=== PATIENT | male | born 1990 | race Caucasian/White ===

== ENCOUNTER → 2016-10-09 | Outpatient (CLI) | payer OTHER ==
[2016-10-09 08:54] LABS: Basophils % (A) 0 %; CH 31.6; CHCM 32.1; Eosinophils # (A) 0.1 k/uL (0-0.7); Eosinophils % (A) 1 %; HCT 48.6 % (39.0-53.0); HGB 15.5 gm/dL (13.0-17.5); Luc % (Auto) 2; Lymphocytes # (A) 2.4 k/uL (1.0-4.8); Lymphocytes % (A) 41 %; MCH 31.6 pg (25.0-35.0); MCV 98.9 fL (80.0-100.0); Mean Platelet Volume 6.5; Monocytes # (A) 0.3 k/uL (0-1.0); Monocytes % (A) 6 %; Neutrophils % (A) 51 %; RBC 4.92 m/uL (4.30-5.90); RDW 13.2 % (11.5-15.5); WBC 5.9 k/uL (3.8-10.6); WBC (Perox) 5.86
[2016-10-16 16:03] LABS: Mis test requested (Blood) LACOSAMIDE
== END | disposition home or self-care (01) ==
LOC: LABWHC1 08:03
PROVIDERS: ATTEND Psychiatry & Neurology Neurology
DX: G40.209 Localization-related (focal) (partial) symptomatic epilepsy and epileptic syndromes with complex partial seizures, not intractable, without status epilepticus (principal)
CPT/HCPCS: 36415; 80164; 80184; 80339; 84450; 84460; 85025

== ENCOUNTER → 2018-09-12 | Outpatient (CLI) | payer OTHER | END | disposition home or self-care (01) | LOC: LABWHC1 08:05 | PROVIDERS: ATTEND Psychiatry & Neurology Neurology | DX: G40.209 Localization-related (focal) (partial) symptomatic epilepsy and epileptic syndromes with complex partial seizures, not intractable, without status epilepticus (principal) | CPT/HCPCS: 36415; 80339 ==

== ENCOUNTER → 2020-01-27 | Outpatient (CLI) | payer OTHER ==
--- NOTE | 2020-01-27 13:27 | US ---
EXAMINATION TYPE: US kidneys/renal and bladder DATE OF EXAM: 01/27/2020 COMPARISON: Multiple US's, most recent 2016. CLINICAL HISTORY: N39.0 Urinary tract infection, site not specified. Spina Bifida EXAM MEASUREMENTS: Right Kidney: 8.8 x 3.4 x 5.0 cm Left Kidney: 9.1 x 4.4 x 4.2 cm Technically difficult study, left kidney imaged posteriorly. Right Kidney: No hydronephrosis or masses seen Left Kidney: No hydronephrosis or masses seen Bladder: wnl Bilateral Jets seen: No There is no evidence for hydronephrosis at this point in time. No nephrolithiasis is seen. No lelo s are identified on images saved. The urinary bladder is not greatly distended and thus suboptimally evaluated. IMPRESSION: Suboptimal study. No hydronephrosis noted bilaterally on current study.
== END | disposition home or self-care (01) ==
LOC: RADUSWWP 12:56
PROVIDERS: ATTEND Urology
DX: N31.9 Neuromuscular dysfunction of bladder, unspecified (principal)
CPT/HCPCS: 76770

== ENCOUNTER → 2020-08-11 | Outpatient (CLI) | payer OTHER ==
[2020-08-11 15:42] LABS: Basophils # (A) 0.01 X 10*3/uL (0.00-0.10); Basophils % (A) 0.2 %; Eosinophils # (A) 0.04 X 10*3/uL (0.04-0.35); Eosinophils % (A) 0.7 %; HCT 45.7 % (39.6-50.0); HGB 14.6 g/dL (13.0-17.0); Lymphocytes # (A) 1.68 X 10*3/uL (0.90-5.00); Lymphocytes % (A) 27.3 %; MCH 31.6 pg (27.0-32.0); MCHC 31.9 g/dL (32.0-37.0); MCV 98.9 fL (80.0-97.0); Mean Platelet Volume 8.9 fL (9.5-12.2); Monocytes # (A) 0.57 X 10*3/uL (0.20-1.00); Monocytes % (A) 9.3 %; Neutrophils # (A) 3.83 X 10*3/uL (1.80-7.70); Neutrophils % (A) 62.2 %; Platelet Count 286 X 10*3/uL (140-440); RBC 4.62 X 10*6/uL (4.40-5.60); RDW 12.5 % (11.5-14.5); WBC 6.15 X 10*3/uL (4.50-10.00)
[2020-08-11 22:28] LABS: Valproic Acid (Depakene) 106.9 ug/mL (50.0-100.0)
== END | disposition home or self-care (01) ==
LOC: LABWHC1 07:38
PROVIDERS: ATTEND Psychiatry & Neurology Neurology
DX: G40.209 Localization-related (focal) (partial) symptomatic epilepsy and epileptic syndromes with complex partial seizures, not intractable, without status epilepticus (principal)
CPT/HCPCS: 36415; 80164; 80184; 80235; 84450; 84460; 85025

== ENCOUNTER → 2020-10-25 | Outpatient (CLI) | payer OTHER ==
--- NOTE | 2020-10-25 20:17 | CT ---
EXAMINATION TYPE: CT abdomen pelvis wo con DATE OF EXAM: 10/25/2020 HISTORY: recurrent UTI's, back pain CT DLP: 248.4 mGycm. Automated Exposure Control for Dose Reduction was Utilized. TECHNIQUE: CT scan of the abdomen and pelvis is performed without oral or IV contrast. COMPARISON: Renal ultrasound January 27, 2020 FINDINGS: Within the limitations of a non-contrast study, the following observations are made. Exam suboptimal due to portions marked underlying rotary scoliosis deforming normal anatomy. LUNG BASES: Nearly entire lungs aren't included with nearly horizontal course to the thoracic spine. Anterior left midlung linear scarring and/or atelectasis.. LIVER/GB: No significant abnormality is appreciated. PANCREAS: No significant abnormality is seen. SPLEEN: No significant abnormality is seen. ADRENALS: No significant abnormality is seen. KIDNEYS: No renal calculi or hydronephrosis. BOWEL: Suboptimal evaluation due to distortion along with patient having little intra-abdominal fat. Moderate prominence of debris within the gastric lumen. No suspicious small or large bowel dilatation GENITAL ORGANS: No gross abnormality seen. LYMPH NODES: No greater than 1cm abdominal or pelvic lymph nodes are appreciated. OSSEOUS STRUCTURES: Marked rotary scoliosis. Chronic deformity to the pelvis with bilateral chronic h ip dislocation. Marked skin thickening and soft tissue density extending to the lower sacrum/coccyx likely chronic de cubitus ulcer. OTHER: Percutaneous catheter and abdomen likely ELEVATOR MECHANIC shunt terminates in the anterior pelvis. IMPRESSION: Chronic deformities to the thoracolumbar spine and pelvis. Chronic decubitus ulcer suspec amilcar. Correlate clinically. No acute findings noted.
== END | disposition home or self-care (01) ==
LOC: RADCTMAIN 18:46
PROVIDERS: ATTEND Urology
DX: N39.0 Urinary tract infection, site not specified (principal); M43.8X5 Other specified deforming dorsopathies, thoracolumbar region
CPT/HCPCS: 74176

== ENCOUNTER → 2021-04-19 | Outpatient (CLI) | payer OTHER ==
[2021-04-19 11:17] LABS: Basophils # (A) 0.01 X 10*3/uL (0.00-0.10); Basophils % (A) 0.2 %; Eosinophils # (A) 0.04 X 10*3/uL (0.04-0.35); HCT 41.3 % (39.6-50.0); Lymphocytes # (A) 1.58 X 10*3/uL (0.90-5.00); Lymphocytes % (A) 39.2 %; MCH 31.6 pg (27.0-32.0); MCHC 31.5 g/dL (32.0-37.0); MCV 100.2 fL (80.0-97.0); Mean Platelet Volume 8.8 fL (9.5-12.2); Monocytes # (A) 0.31 X 10*3/uL (0.20-1.00); Monocytes % (A) 7.7 %; Neutrophils # (A) 2.08 X 10*3/uL (1.80-7.70); Neutrophils % (A) 51.7 %; Platelet Count 228 X 10*3/uL (140-440); RBC 4.12 X 10*6/uL (4.40-5.60); RDW 12.6 % (11.5-14.5); WBC 4.03 X 10*3/uL (4.50-10.00)
[2021-04-19 13:08] LABS: Valproic Acid (Depakene) 77.7 ug/mL (50.0-100.0)
== END | disposition home or self-care (01) ==
LOC: LABWHC1 07:01
PROVIDERS: ATTEND Psychiatry & Neurology Neurology
DX: G40.209 Localization-related (focal) (partial) symptomatic epilepsy and epileptic syndromes with complex partial seizures, not intractable, without status epilepticus (principal)
CPT/HCPCS: 36415; 80164; 80184; 80235; 84460; 85025

== ENCOUNTER → 2022-01-03 | Outpatient (CLI) | payer OTHER ==
[2022-01-03 11:07] LABS: Basophils # (A) 0.02 X 10*3/uL (0.00-0.10); Basophils % (A) 0.4 %; Eosinophils # (A) 0.07 X 10*3/uL (0.04-0.35); Eosinophils % (A) 1.4 %; HCT 47.4 % (39.6-50.0); HGB 15.1 g/dL (13.0-17.0); Immature Grans, Automated 0.2 %; Lymphocytes # (A) 2.24 X 10*3/uL (0.90-5.00); Lymphocytes % (A) 44.9 %; MCH 31.1 pg (27.0-32.0); MCHC 31.9 g/dL (32.0-37.0); MCV 97.5 fL (80.0-97.0); Mean Platelet Volume 9.6 fL (9.5-12.2); Monocytes # (A) 0.45 X 10*3/uL (0.20-1.00); NRBC Per 100 WBC 0 /100 WBCS (0.0-0.0); Neutrophils % (A) 44.1 %; Platelet Count 150 X 10*3/uL (140-440); RBC 4.86 X 10*6/uL (4.40-5.60); RDW 12.7 % (11.5-14.5); WBC 4.99 X 10*3/uL (4.50-10.00)
[2022-01-03 11:37] LABS: Valproic Acid (Depakene) 86.4 ug/mL (50.0-100.0)
[2022-01-03 12:00] LABS: ALT 16 U/L (10-49); AST 26 U/L (14-35); African American GFR (CKD) 179.8 (60.0-200.0); Albumin 4.3 g/dL (3.8-4.9); Albumin/Globulin Ratio 1.91 (1.60-3.17); Alkaline Phosphatase 73 U/L (41-126); BUN/Creat Ratio 27.85 Ratio (12.00-20.00); Blood Urea Nitrogen 11.5 mg/dL (9.0-27.0); Calcium 9.9 mg/dL (8.7-10.3); Carbon Dioxide 29.8 mmol/L (20.0-27.5); Chloride 95 mmol/L (96-109); Globulin 2.3 g/dL (1.6-3.3); Glucose 86 mg/dL (70-110); LDL Cholesterol,Calculated 90.6 mg/dL (0.0-131.0); Non-African American GFR(CKD) 155.1 (60.0-200.0); Potassium 4.6 mmol/L (3.5-5.5); Sodium 139 mmol/L (135-145); Total Bilirubin <0.15 mg/dL (0.30-1.20); Total Protein 6.6 g/dL (6.2-8.2); VLDL Calculation 11.82 mg/dL (5.00-40.00)
== END | disposition home or self-care (01) ==
LOC: LABWHC1 06:54
PROVIDERS: ATTEND Psychiatry & Neurology Neurology
DX: Z00.00 Encounter for general adult medical examination without abnormal findings (principal); G40.209 Localization-related (focal) (partial) symptomatic epilepsy and epileptic syndromes with complex partial seizures, not intractable, without status epilepticus; E55.9 Vitamin D deficiency, unspecified
CPT/HCPCS: 36415; 80053; 80061; 80164; 80184; 80235; 82306; 85025

== ENCOUNTER 2022-07-20 16:43 | Inpatient (IN) | payer OTHER ==
[2022-07-20] MEDS ORDERED: IPRATROPIUM-ALBUTEROL 3 ML NEB INHALATION STA (16:57)
[2022-07-20] MEDS ORDERED: MIDAZOLAM 1 MG/ML 5 ML VIAL IV STA (17:10)
[2022-07-20] MEDS ORDERED: cefTRIAXone IN SWFI 1,000 MG/10 ML SYRINGE IVP STA (17:14)
--- NOTE | 2022-07-20 17:14 | ED ---
SOB HPI - General Chief Complaint: Shortness of Breath Stated Complaint: SANJIV,Syncope Time Seen by Provider: 07/20/22 16:49 Source: family, EMS Mode of arrival: EMS Limitations: altered mental status, physical limitation - History of Present Illness Initial Comments: 32-year-old male with a history of spina bifida meningocele seizure disorder urinary tract infections in the past who over last couple days has been getting ill. He woke up yesterday with sinus congestion and a rectal temperature 102 per his mother he does have a history of sepsis over 20 years ago. This morning he developed a cough was unable clear secretions very well. He was noted. Come more lethargic per his mother. He did have about 1 minute seizure this morning which is typical of his seizures he had the past but then he went unconscious after he laid down unresponsive mother noted his pulse ox went down from 50-40- to 31%. EMS was called he was on be hypoxemic unresponsive once oxygen was applied he did regain consciousness. MD Complaint: shortness of breath, cough - Related Data Home Medications Medication Instructions Recorded Confirmed Amoxicillin/Potassium Clav 500 mg PO TID 07/20/22 07/20/22 [Amox-Clav 250-62.5 mg/5 ml Susp] Cholecalciferol [Vitamin D3 (25 50 mcg PO DAILY@69907/20/22 07/20/22 Mcg = 1000 Iu)] Divalproex Sprinkle [Depakote 500 mg PO DAILY@69907/20/22 07/20/22 Sprinkle] Divalproex Sprinkle [Depakote 750 mg PO HS@189907/20/22 07/20/22 Sprinkle] Lacosamide [Vimpat Oral Soln] 20 mg PO BID@0700,189907/20/22 07/20/22 Nitrofurantoin Macrocrystal 50 mg PO HS@189907/20/22 07/20/22 [Macrodantin] PHENobarbitaL [Luminal] 40.5 mg PO BID@0700,189907/20/22 07/20/22 Valtoco 5mg/0.1ml Nasal 1 spr NASAL ONCE PRN 07/20/22 07/20/22 Allergies Allergy/AdvReac Type Severity Reaction Status Date / Time carbamazepine [From Tegretol] Allergy Severe Anaphylaxis Verified 07/20/22 19:30 immune globulin,gamma (IgG) Allergy Severe Anaphylaxis Verified 07/20/22 19:30 human Iodinated Contrast Media Allergy Severe Rash/Hives Verified 07/20/22 20:27 Latex, Natural Rubber Allergy Severe Anaphylaxis Verified 07/20/22 19:30 phenytoin [From Dilantin] Allergy Severe Anaphylaxis Verified 07/20/22 19:30 septra Allergy Severe Anaphylaxis Uncoded 07/20/22 16:59 Review of Systems ROS Statement: Those systems with pertinent positive or pertinent negative responses have been documented in the HPI. ROS Other: All systems not noted in ROS Statement are negative. 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 He is nonverbal. He does demonstrate some dyspnea with tachypnea. Limitations: altered mental status, physical limitation General appearance: lethargic Eye exam: Present: normal appearance, PERRL, EOMI. Absent: scleral icterus, conjunctival injection, periorbital swelling ENT exam: Present: other (Oral secretions noted) Neck exam: Present: normal inspection Respiratory exam: Present: respiratory distress, rhonchi, accessory muscle use, decreased breath sounds Cardiovascular Exam: Present: regular rate, tachycardia Extremities exam: Present: normal capillary refill, other Back exam: Present: other (Kyphoscoliosis) Neurological exam: Present: altered, CN II-XII intact, motor sensory deficit Psychiatric exam: Present: other (Unable to evaluate) Skin exam: Present: pallor Course Vital Signs 07/20/22 07/20/22 07/20/22 16:47 17:10 17:15 Temperature 97.1 F L Pulse Rate 206 H Respiratory 45 H 10 L Rate Blood Pressure 100/72 69/52 O2 Sat by Pulse 83 L 93 L Oximetry Fraction of 100 Inspired Oxygen (FIO2) 07/20/22 07/20/22 07/20/22 17:20 17:25 17:30 Temperature Pulse Rate 133 H 131 H 129 H Respiratory 12 12 12 Rate Blood Pressure 103/73 97/72 102/68 O2 Sat by Pulse 97 96 98 Oximetry Fraction of Inspired Oxygen (FIO2) 07/20/22 07/20/22 07/20/22 17:35 17:40 17:41 Temperature Pulse Rate 130 H 128 H Respiratory 12 12 Rate Blood Pressure 103/78 104/82 O2 Sat by Pulse 100 99 Oximetry Fraction of 100 Inspired Oxygen (FIO2) 07/20/22 07/20/22 07/20/22 17:50 17:55 18:00 Temperature Pulse Rate 126 H 126 H 126 H Respiratory 12 12 12 Rate Blood Pressure 103/75 106/68 116/77 O2 Sat by Pulse 97 97 97 Oximetry Fraction of Inspired Oxygen (FIO2) 07/20/22 07/20/22 07/20/22 18:05 18:20 18:33 Temperature Pulse Rate 126 H 124 H Respiratory 12 12 Rate Blood Pressure 113/73 O2 Sat by Pulse 94 L 95 Oximetry Fraction of 60 Inspired Oxygen (FIO2) 07/20/22 07/20/22 07/20/22 18:38 18:48 19:11 Temperature Pulse Rate 120 H 123 H Respiratory Rate Blood Pressure O2 Sat by Pulse Oximetry Fraction of 100 Inspired Oxygen (FIO2) 07/20/22 07/20/22 07/20/22 19:22 19:23 19:27 Temperature Pulse Rate 124 H 122 H Respiratory 12 12 Rate Blood Pressure 105/76 97/69 O2 Sat by Pulse 96 90 L Oximetry Fraction of 100 Inspired Oxygen (FIO2) 07/20/22 20:00 Temperature Pulse Rate 117 H Respiratory 12 Rate Blood Pressure 120/88 O2 Sat by Pulse 98 Oximetry Fraction of Inspired Oxygen (FIO2) - Reevaluation(s) Reevaluation #1: 07/20/22 17:21 The patient initially appeared to be improving from the initial description but/telemetry was noted today becoming very Labored breathing and decreased level of consciousness. After discussion with the patient's mother oral tracheal intubation was elected. Reevaluation #2: 07/20/22 21:20 Patient appeared to meet sepsis criteria at 1700 hrs. Patient did have elevated lactic acid with previous CVA discuss temperature was elevated at home. 102 rectal 9. Patient did get IV fluids and did respond with improvement blood p ressure. IV antibiotics previously ordered Procedures - Intubation Sedative: Versed Mg Given: 2 Laryngoscope: other (Number 4 [place] blade) Size: 4 ET Tube Size: 7.5 ET Tube Uncuffed: No (Cuffed) Tube Secured Depth (cm): 22 Tube Secured Location: lips Tube Placement Confirmation: visualized tube passing through cords Patient Tolerated Procedure: well Additional Comments: Copious amounts of secretions were suctioned prior and just after the intubation. There was color Guillaume tree change as well as equal bilateral breath sounds. Portable chest x-ray pending at this time Medical Decision Making - Medical Decision Making I did reevaluate patient on multiple occasions did have multiple discussions with the patient family. I did discuss the case with Dr. Keily aburto as well as Dr. De Jesus. Patient placed an IV antibiotics concern for possible aspiration. Was pt. sent in by a medical professional or institution (, PA, ATHLETIC EQUIPMENT MANAGER, urgent care, hospital, or long-term...) When possible be specific @ -No Did you speak to anyone other than the patient for history (EMS, parent, family, police, friend...)? What history was obtained from this source @ -S paramedics Did you review nursing and triage notes (agree or disagree)? Why? @ -I reviewed and agree with nursing and triage notes Were old charts reviewed (outside hosp., previous admission, EMS record, old EKG, old radiological studies, urgent care reports/EKG's, long-term records)? Report findings @ -No old charts were reviewed Differential Diagnosis (chest pain, altered mental status, abdominal pain women, abdominal pain men, vaginal bleeding, weakness, fever, dyspnea, syncope, heada maggie, dizziness, GI bleed, back pain, seizure, CVA, palpatations, mental health, musculoskeletal)? @ -Acute respiratory failure, pneumonia, sepsis, febrile illness EKG interpreted by me (3pts min.). @ -As above X-rays interpreted by me (1pt min.). @ -Yes CT interpreted by me (1pt min.). @ -None done U/S interpreted by me (1pt. min.). @ -None done What testing was considered but not performed or refused? (CT, X-rays, U/S, labs)? Why? @ -None What meds were considered but not given or refused? Why? @ -None Did you discuss the management of the patient with other professionals (professionals i.e. , PA, ATHLETIC EQUIPMENT MANAGER, lab, RT, psych nurse, director of social media marketing, pickle sorter, teacher, planned giving officer, medical case worker)? Give summary @ -Dr. Branch and Dr. De Jesus Was smoking cessation discussed for >3mins.? @ -No Was critical care preformed (if so, how long)? @ -49 minutes Were there social determinants of health that impacted care today? How? (Homelessness, low income, unemployed, alcoholism, drug addiction, transportation, low edu. Level, literacy, decrease access to med. care, care home, rehab)? @ -No Was there de-escalation of care discussed even if they declined (Discuss DNR or withdrawal of care, Hospice)? DNR status @ -No What co-morbidities impacted this encounter? (DM, HTN, Smoking, COPD, CAD, Cancer, CVA, ARF, Chemo, Hep., AIDS, mental health diagnosis, sleep apnea, morbid obesity)? @ -Spina bifida, kyphoscoliosis Was patient admitted / discharged? Hospital course, mention meds given and route, prescriptions, significant lab abnormalities, going to OR and other pertinent info. @ -hospital course admitted Undiagnosed new problem with uncertain prognosis? @ -Pneumonia Drug Therapy requiring intensive monitoring for toxicity (Heparin, Nitro, Insulin, Cardizem)? @ -No Were any procedures done? @ -No Diagnosis/symptom? @ -Acute respiratory failure, pneumonia, dehydration, sepsis, hypomagnesemia, hypotensive episode Acute, or Chronic, or Acute on Chronic? @ -Acute Uncomplicated (without systemic symptoms) or Complicated (systemic symptoms)? @ -default Side effects of treatment? @ -No Exacerbation, Progression, or Severe Exacerbation? @ -No Poses a threat to life or bodily function? How? (Chest pain, [place], ME, pneumonia, PE, COPD, DKA, ARF, appy, cholecystitis, CVA, Diverticulitis, Homicidal, Suicidal, threat to staff... and all critical care pts) @ -Yes if not treated - Lab Data Result diagrams: 07/20/22 16:55 07/20/22 16:55 Lab Results 07/20/22 07/20/22 07/20/22 Range/Units 16:07 16:55 16:55 WBC 5.4 (3.8-10.6) k/uL RBC 4.40 (4.30-5.90) m/uL Hgb 14.4 (13.0-17.5) gm/dL Hct 44.3 (39.0-53.0) % MCV 100.8 H (80.0-100.0) fL MCH 32.8 (25.0-35.0) pg MCHC 32.6 (31.0-37.0) g/dL RDW 14.3 (11.5-15.5) % Plt Count 84 L (150-450) k/uL MPV 8.8 Neutrophils % 73 % Lymphocytes % 18 % Monocytes % 6 % Eosinophils % 1 % Basophils % 1 % Neutrophils # 4.0 (1.3-7.7) k/uL Lymphocytes # 1.0 (1.0-4.8) k/uL Monocytes # 0.4 (0-1.0) k/uL Eosinophils # 0.0 (0-0.7) k/uL Basophils # 0.0 (0-0.2) k/uL Manual Slide Review Performed Macrocytosis Slight PT 11.2 (9.0-12.0) sec INR 1.1 (<1.2) APTT 24.3 (22.0-30.0) sec D-Dimer 1.10 H (<0.60) mg/L FEU Sample Site ABG pH (7.35-7.45) ABG pCO2 (35-45) mmHg ABG pO2 (83-108) mmHg ABG HCO3 (21-25) mmol/L ABG Total CO2 (19-24) mmol/L ABG O2 Saturation (94-97) % ABG Base Excess mmol/L Marlon Test FiO2 % Sodium (137-145) mmol/L Potassium (3.5-5.1) mmol/L Chloride (98-107) mmol/L Carbon Dioxide (22-30) mmol/L Anion Gap mmol/L BUN (9-20) mg/dL Creatinine (0.66-1.25) mg/dL Est GFR (CKD-EPI)AfAm (>60 ml/min/1.73 sqM) Est GFR (CKD-EPI)NonAf (>60 ml/min/1.73 sqM) Glucose (74-99) mg/dL Lactic Ac Sepsis Rflx Plasma Lactic Acid Scottie (0.7-2.0) mmol/L Calcium (8.4-10.2) mg/dL Magnesium (1.6-2.3) mg/dL Total Bilirubin (0.2-1.3) mg/dL AST (17-59) U/L ALT (4-49) U/L Alkaline Phosphatase (38-126) U/L Troponin I (0.000-0.034) ng/mL NT-Pro-B Natriuret Pep pg/mL Total Protein (6.3-8.2) g/dL Albumin (3.5-5.0) g/dL Influenza Type A (PCR) Not Detected (Not Detectd) Influenza Type B (PCR) Not Detected (Not Detectd) RSV (PCR) Not Detected (Not Detectd) SARS-CoV-2 (PCR) Not Detected (Not Detectd) 07/20/22 07/20/22 07/20/22 Range/Units 16:55 16:55 16:55 WBC (3.8-10.6) k/uL RBC (4.30-5.90) m/uL Hgb (13.0-17.5) gm/dL Hct (39.0-53.0) % MCV (80.0-100.0) fL MCH (25.0-35.0) pg MCHC (31.0-37.0) g/dL RDW (11.5-15.5) % Plt Count (150-450) k/uL MPV Neutrophils % % Lymphocytes % % Monocytes % % Eosinophils % % Basophils % % Neutrophils # (1.3-7.7) k/uL Lymphocytes # (1.0-4.8) k/uL Monocytes # (0-1.0) k/uL Eosinophils # (0-0.7) k/uL Basophils # (0-0.2) k/uL Manual Slide Review Macrocytosis PT (9.0-12.0) sec INR (<1.2) APTT (22.0-30.0) sec D-Dimer (<0.60) mg/L FEU Sample Site ABG pH (7.35-7.45) ABG pCO2 (35-45) mmHg ABG pO2 (83-108) mmHg ABG HCO3 (21-25) mmol/L ABG Total CO2 (19-24) mmol/L ABG O2 Saturation (94-97) % ABG Base Excess mmol/L Marlon Test FiO2 % Sodium 138 (137-145) mmol/L Potassium 4.2 (3.5-5.1) mmol/L Chloride 99 (98-107) mmol/L Carbon Dioxide 34 H (22-30) mmol/L Anion Gap 5 mmol/L BUN 25 H (9-20) mg/dL Creatinine 0.58 L (0.66-1.25) mg/dL Est GFR (CKD-EPI)AfAm >90 (>60 ml/min/1.73 sqM) Est GFR (CKD-EPI)NonAf >90 (>60 ml/min/1.73 sqM) Glucose 115 H (74-99) mg/dL Lactic Ac Sepsis Rflx Plasma Lactic Acid Scottie 2.3 H* (0.7-2.0) mmol/L Calcium 7.9 L (8.4-10.2) mg/dL Magnesium 1.5 L (1.6-2.3) mg/dL Total Bilirubin 0.5 (0.2-1.3) mg/dL AST 19 (17-59) U/L ALT 14 (4-49) U/L Alkaline Phosphatase 51 (38-126) U/L Troponin I <0.012 (0.000-0.034) ng/mL NT-Pro-B Natriuret Pep pg/mL Total Protein 6.0 L (6.3-8.2) g/dL Albumin 3.2 L (3.5-5.0) g/dL Influenza Type A (PCR) (Not Detectd) Influenza Type B (PCR) (Not Detectd) RSV (PCR) (Not Detectd) SARS-CoV-2 (PCR) (Not Detectd) 07/20/22 07/20/22 07/20/22 Range/Units 16:55 18:03 18:15 WBC (3.8-10.6) k/uL RBC (4.30-5.90) m/uL Hgb (13.0-17.5) gm/dL Hct (39.0-53.0) % MCV (80.0-100.0) fL MCH (25.0-35.0) pg MCHC (31.0-37.0) g/dL RDW (11.5-15.5) % Plt Count (150-450) k/uL MPV Neutrophils % % Lymphocytes % % Monocytes % % Eosinophils % % Basophils % % Neutrophils # (1.3-7.7) k/uL Lymphocytes # (1.0-4.8) k/uL Monocytes # (0-1.0) k/uL Eosinophils # (0-0.7) k/uL Basophils # (0-0.2) k/uL Manual Slide Review Macrocytosis PT (9.0-12.0) sec INR (<1.2) APTT (22.0-30.0) sec D-Dimer (<0.60) mg/L FEU Sample Site rrad ABG pH 7.29 L (7.35-7.45) ABG pCO2 68 H (35-45) mmHg ABG pO2 118 H (83-108) mmHg ABG HCO3 33 H (21-25) mmol/L ABG Total CO2 35 H (19-24) mmol/L ABG O2 Saturation 98.6 H (94-97) % ABG Base Excess 6.1 mmol/L Marlon Test Yes FiO2 100 % Sodium (137-145) mmol/L Potassium (3.5-5.1) mmol/L Chloride (98-107) mmol/L Carbon Dioxide (22-30) mmol/L Anion Gap mmol/L BUN (9-20) mg/dL Creatinine (0.66-1.25) mg/dL Est GFR (CKD-EPI)AfAm (>60 ml/min/1.73 sqM) Est GFR (CKD-EPI)NonAf (>60 ml/min/1.73 sqM) Glucose (74-99) mg/dL Lactic Ac Sepsis Rflx Y Plasma Lactic Acid Scottie (0.7-2.0) mmol/L Calcium (8.4-10.2) mg/dL Magnesium (1.6-2.3) mg/dL Total Bilirubin (0.2-1.3) mg/dL AST (17-59) U/L ALT (4-49) U/L Alkaline Phosphatase (38-126) U/L Troponin I (0.000-0.034) ng/mL NT-Pro-B Natriuret Pep 211 pg/mL Total Protein (6.3-8.2) g/dL Albumin (3.5-5.0) g/dL Influenza Type A (PCR) (Not Detectd) Influenza Type B (PCR) (Not Detectd) RSV (PCR) (Not Detectd) SARS-CoV-2 (PCR) (Not Detectd) - EKG Data -: EKG Interpreted by Me EKG Comments: EKG interpreted by me sinus tachycardia rate 1:30. Interval 113 QRS duration 82 daily since QTC to 71/348 borderline right axis deviation - Radiology Data Interpreted by me: Interpreting imaging the initial x-ray shows evidence of consolidation of left lung rodriguez initial intubation 7.5 endotracheal tube pulled back 3 cm was much better placement. Critical Care Time Critical Care Time: Yes Total Critical Care Time: 49 Critical Care Time: This does not include the intubation time. Disposition Clinical Impression: Acute respiratory failure, Pneumonia, Febrile illness, acute, Sepsis, H ypomagnesemia, Hypotensive episode, Dehydration Disposition: ADMITTED IP TO THIS [facility] Condition: Critical Referrals: Johnny Mcfarland MD [Primary Care Provider] - 1-2 days Decision Date: 07/20/22 Decision Time: 20:00
[2022-07-20] MEDS ORDERED: methylPREDNISolone SOD SUCCI 125 MG/2 ML VIAL IV STA (17:15)
[2022-07-20] MEDS ORDERED: SODIUM CHLORIDE 0.9% 500 ML 500 ML IV STA ×2 (17:18→19:11)
--- NOTE | 2022-07-20 17:57 | XR ---
EXAMINATION TYPE: XR chest 1V confirm line [facility] DATE OF EXAM: 07/20/2022 COMPARISON: Chest x-ray October 25, 2009 HISTORY: Shortness of breath at the BE intubated. TECHNIQUE: Single AP portable frontal supine view of the chest is obtained. FINDINGS: Marked underlying rotary scoliosis makes evaluation suboptimal. There is new orogastric tu be terminating at level of diaphragm should be advanced. Endotracheal tube terminating below the vicenta na into the right mainstem bronchus and should be retracted. Opacified left lung is noted. Catheter o verlying the pelvis is again seen. IMPRESSION: 1. Low-lying endotracheal tube. There is obstructive atelectasis left lung felt present.
[2022-07-20 17:59] LABS: ALT 14 U/L (4-49); African American GFR (CKD) >90 (>60 ml/min/1.73 sqM); Albumin 3.2 g/dL (3.5-5.0); Anion Gap 5 mmol/L; Blood Urea Nitrogen 25 mg/dL (9-20); Calcium 7.9 mg/dL (8.4-10.2); Carbon Dioxide 34 mmol/L (22-30); Chloride 99 mmol/L (98-107); Glucose 115 mg/dL (74-99); Non-African American GFR(CKD) >90 (>60 ml/min/1.73 sqM); Sodium 138 mmol/L (137-145); Total Bilirubin 0.5 mg/dL (0.2-1.3)
--- NOTE | 2022-07-20 17:59 | XR ---
EXAMINATION TYPE: XR chest 1V portable DATE OF EXAM: 07/20/2022 COMPARISON: Chest x-ray earlier today HISTORY: Endotracheal tube repositioning. TECHNIQUE: Single frontal view of the chest is obtained. FINDINGS: There is improved positioning of endotracheal tube after retraction now above the george by 2 to 3 cm. Orogastric tube terminates just above the diaphragm and should be advanced. Marked rotary scoliosis is again distorts normal anatomy makes evaluation suboptimal. There is left l lalo consolidation with air bronchograms. Cardiac silhouette size likely within normal limits. Cathete r overlying the left abdomen and pelvis is again seen. IMPRESSION: 1. Endotracheal tube satisfactory in position after repositioning. 2. Persistent low lying orogastric tube should be advanced. 3. Suboptimal study with new left upper and mid lung consolidation with air bronchograms.
[2022-07-20 18:00] LABS: AST 19 U/L (17-59); Alkaline Phosphatase 51 U/L (38-126); Magnesium 1.5 mg/dL (1.6-2.3); Potassium 4.2 mmol/L (3.5-5.1)
[2022-07-20] MEDS: PROPOFOL 10 MG/ML 20 ML VIAL IV ONE ×2 (18:00→18:52)
[2022-07-20 18:06] LABS: Basophils % (A) 1 %; Eosinophils % (A) 1 %; HCT 44.3 % (39.0-53.0); HGB 14.4 gm/dL (13.0-17.5); Lymphocytes % (A) 18 %; MCH 32.8 pg (25.0-35.0); MCHC 32.6 g/dL (31.0-37.0); MCV 100.8 fL (80.0-100.0); Macrocytosis Slight; Mean Platelet Volume 8.8; Monocytes # (A) 0.4 k/uL (0-1.0); Monocytes % (A) 6 %; Neutrophils % (A) 73 %; RDW 14.3 % (11.5-15.5); WBC 5.4 k/uL (3.8-10.6)
[2022-07-20 18:21] LABS: ABG Base Excess 6.1 mmol/L; ABG HCO3 33 mmol/L (21-25); ABG Oxygen Saturation 98.6 % (94-97); ABG PCO2 68 mmHg (35-45); ABG PH 7.29 (7.35-7.45); ABG PO2 118 mmHg (83-108); ABG TCO2 35 mmol/L (19-24); Allen Test Performed? Yes
[2022-07-20 18:22] LABS: Platelet Count 84 k/uL (150-450)
[2022-07-20 18:30] LABS: INR 1.1 (<1.2)
[2022-07-20 18:31] LABS: Partial Thromboplastin Time 24.3 sec (22.0-30.0); Prothrombin Time 11.2 sec (9.0-12.0)
[2022-07-20] MEDS: SODIUM CHLORIDE 0.9% 1,000 ML IV STA ×2 (18:51→22:57)
[2022-07-20] MEDS ORDERED: MAGNESIUM SULFATE-D5W PMX 1 GM in DEXTROSE/WATER 1 100ML.BAG IVPB ONE (19:08)
--- NOTE | 2022-07-20 20:30 | XR ---
EXAMINATION TYPE: XR chest 1V confirm line [facility] DATE OF EXAM: 07/20/2022 COMPARISON: Chest x-ray earlier today. HISTORY: Central line placement. TECHNIQUE: Single portable frontal view of the chest is attempted. FINDINGS: Orogastric tube projecting below diaphragm is redemonstrated. Catheter overlying the lower abdomen and pelvis is redemonstrated. Marked rotary scoliosis again seen. Majority of thorax not inc luded in field of view. The new Central line not definitively identified. IMPRESSION: As above.
[2022-07-20] MEDS ORDERED: PIPERACILLIN-TAZOBACTAM 3.375 GM in SODIUM CHLORIDE 0.9% 100 ML IVPB STA (20:33)
[2022-07-20] MEDS ORDERED: PNEUMONIA PROTOCOL UTILIZED 1 EACH MISC PO PRN (21:28)
[2022-07-20] MEDS ORDERED: IPRATROPIUM-ALBUTEROL 3 ML NEB INHALATION PRN (21:28)
[2022-07-20] MEDS ORDERED: LEVOFLOXACIN 750MG-D5W PMX 750 MG in DEXTROSE/WATER 1 150ML.BAG IVPB STA (21:28)
[2022-07-20] MEDS: SODIUM CHLORIDE 0.9% 1,000 ML IV SCH (21:49)
[2022-07-20 22:36] LABS: Glucose,Whole Blood 115 mg/dL (70-110)
[2022-07-20] MEDS: PIPERACILLIN-TAZOBACTAM 3.375 GM in SODIUM CHLORIDE 0.9% 100 ML IVPB SCH (22:56)
[2022-07-21] MEDS: methylPREDNISolone SOD SUCCI 40 MG/ML 1 ML VIAL IV SCH ×5 (04:19→23:07)
[2022-07-21 05:46] LABS: ABG Base Excess 4.4 mmol/L; ABG HCO3 30 mmol/L (21-25); ABG Oxygen Saturation 98.8 % (94-97); ABG PCO2 52 mmHg (35-45); ABG PH 7.36 (7.35-7.45); ABG PO2 103 mmHg (83-108); ABG TCO2 31 mmol/L (19-24); Allen Test Performed? Yes
[2022-07-21] MEDS: PIPERACILLIN-TAZOBACTAM 3.375 GM in SODIUM CHLORIDE 0.9% 100 ML IVPB SCH ×3 (06:42→22:48)
[2022-07-21 07:46] LABS: HCT 37.9 % (39.0-53.0); HGB 11.8 gm/dL (13.0-17.5); MCH 31.9 pg (25.0-35.0); MCHC 31.2 g/dL (31.0-37.0); MCV 102.1 fL (80.0-100.0); Macrocytosis Slight; Mean Platelet Volume 9.5; RBC 3.71 m/uL (4.30-5.90); RDW 14.7 % (11.5-15.5); WBC 3.5 k/uL (3.8-10.6)
--- NOTE | 2022-07-21 07:49 | XR ---
EXAMINATION TYPE: XR chest 1V portable DATE OF EXAM: 07/21/2022 COMPARISON: 07/20/2022 HISTORY: Chest pain TECHNIQUE: Single frontal view of the chest is obtained. FINDINGS: Complete opacification left hemithorax. NG tube is seen within the stomach. Endotracheal tube is at t he lower lumbar spine level. Ventriculoperitoneal shunt noted. The right lung is relatively clear. [place] thoracolumbar scoliosis. The cardiac silhouette size is within normal limits. The osseous structures are intact. IMPRESSION: 1. Essentially stable chest. Endotracheal tube demonstrates its tip within the lower cervical region.
--- NOTE | 2022-07-21 07:50 | P.HPIM ---
History of Present Illness This is a pleasant 32 years old male with past medical history of L3 myelomeningocele and hydrocephalus with any peritoneal shunt, spina bifid F, seizure, chiari malformation. Patient initially presents because of altered mental status and seizure, he had 2 seizures at home 1. Gastric to and other as atypical. Patient was bronchoscoped doing well more lethargic and L over the last 2 days. This morning patient mother noticed he had a seizure that lasted for about 1 minute followed by post ictal confusion, and mother noticed that his oxygen saturation is drip until called EMS, as per document However the mother clarify that actually he has been sick 2 days ago with congestion and coughing, Dr. Mcfarland his primary doctor start him on Augmentin because of history of septic shock and easy infection, he took 3 pulse, he has a day morning he was noticed to have a brief period of seizure although the mom she does not think he had seizure he was just lethargic. She checked his temperature at home and it was 102 breath he was feeling cold and shivering. At baseline he is able to talk normally, he understands the surrounding, he can eat by himself but he is wheelchair bound On admission he is with low-grade temperature 99.7. He is tachycardic around 115, hypertensive blood pressure this morning 93/73. His CBC is unremarkable. INR is 1.1, d-dimer is slightly elevated at 1.1. On admission. PhosLo 7.2, heart pCO2 of 68. Chest x-ray: Left upper and middle lobe consolidation with air bronchograms EKG showing sinus tachycardia at 130 Emergency room patient received breathing treatment, antibiotics, steroids, normal saline. 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, Other MDRO Date of last positivie culture/infection: 02/07/21 MDRO Source:: URINE Past Surgical History: Ventriculoperitoneal Shunt Additional Past Anesthesia/Blood Transfusion Reaction / Comment(s): Hx of receiving anesthesia and did not wake up for 6 days Past Psychological History: No Psychological Hx Reported Smoking Status: Never smoker Past Alcohol Use History: None Reported Past Drug Use History: None Reported Medications and Allergies Home Medications Medication Instructions Recorded Confirmed Type Amoxicillin/Potassium Clav 500 mg PO TID 07/20/22 07/20/22 History [Amox-Clav 250-62.5 mg/5 ml Susp] Cholecalciferol [Vitamin D3 (25 50 mcg PO DAILY@0700 07/20/22 07/20/22 History Mcg = 1000 Iu)] Divalproex Sprinkle [Depakote 500 mg PO DAILY@0700 07/20/22 07/20/22 History Sprinkle] Divalproex Sprinkle [Depakote 750 mg PO HS@1900 07/20/22 07/20/22 History Sprinkle] Lacosamide [Vimpat Oral Soln] 20 mg PO BID@0700,1900 07/20/22 07/20/22 History Nitrofurantoin Macrocrystal 50 mg PO HS@1900 07/20/22 07/20/22 History [Macrodantin] PHENobarbitaL [Luminal] 40.5 mg PO BID@0700,1900 07/20/22 07/20/22 History Valtoco 5mg/0.1ml Nasal 1 spr NASAL ONCE PRN 07/20/22 07/20/22 History Allergies Allergy/AdvReac Type Severity Reaction Status Date / Time carbamazepine [From Tegretol] Allergy Severe Anaphylaxis Verified 07/20/22 19:30 immune globulin,gamma (IgG) Allergy Severe Anaphylaxis Verified 07/20/22 19:30 human Iodinated Contrast Media Allergy Severe Rash/Hives Verified 07/20/22 20:27 Latex, Natural Rubber Allergy Severe Anaphylaxis Verified 07/20/22 19:30 phenytoin [From Dilantin] Allergy Severe Anaphylaxis Verified 07/20/22 19:30 septra Allergy Severe Anaphylaxis Uncoded 07/20/22 16:59 Physical Exam Vitals: Vital Signs Temp Pulse Resp BP Pulse Ox FiO2 07/21/22 05:50 115 H 15 93/73 98 07/21/22 05:40 117 H 21 101/80 98 07/21/22 05:30 115 H 10 L 102/79 99 07/21/22 05:20 117 H 16 102/79 99 07/21/22 05:10 118 H 19 114/66 99 07/21/22 05:00 115 H 13 101/71 99 07/21/22 04:50 118 H 17 101/71 97 07/21/22 04:40 117 H 18 116/84 97 07/21/22 04:30 121 H 21 121/81 97 07/21/22 04:20 120 H 16 121/81 97 07/21/22 04:10 121 H 15 114/88 98 07/21/22 04:08 80 07/21/22 04:00 123 H 20 120/87 98 07/21/22 03:50 121 H 16 120/87 98 07/21/22 03:40 122 H 17 119/91 98 07/21/22 03:30 123 H 21 115/89 98 07/21/22 03:20 120 H 15 115/89 98 07/21/22 03:10 121 H 15 113/84 98 07/21/22 03:00 118 H 14 113/85 98 07/21/22 02:50 120 H 17 113/85 100 07/21/22 02:40 122 H 19 117/89 99 07/21/22 02:31 121 H 14 117/89 99 07/21/22 02:20 121 H 17 113/86 100 07/21/22 02:13 121 H 14 106/79 100 07/21/22 02:00 121 H 17 100/70 100 07/21/22 01:50 121 H 15 100/70 99 07/21/22 01:40 121 H 20 96/75 96 07/21/22 01:30 122 H 15 99/68 96 07/21/22 01:20 122 H 19 99/68 98 07/21/22 01:10 122 H 15 118/97 99 07/21/22 01:00 124 H 13 121/95 100 07/21/22 00:50 123 H 17 121/95 99 07/21/22 00:47 90 07/21/22 00:40 120 H 13 127/95 98 07/21/22 00:30 117 H 17 119/87 99 07/21/22 00:20 114 H 16 119/87 98 07/21/22 00:10 118 H 18 115/98 98 07/21/22 00:00 118 H 18 135/94 99 07/20/22 23:50 122 H 19 135/94 98 07/20/22 23:40 99.7 F H 118 H 17 123/93 98 07/20/22 23:30 118 H 14 111/81 98 07/20/22 23:20 120 H 18 111/81 97 07/20/22 23:10 117 H 18 95/68 96 07/20/22 23:00 113 H 18 92/63 97 07/20/22 22:54 114 H 17 92/63 95 100 07/20/22 22:50 99.7 F H 116 H 19 104/86 96 07/20/22 22:40 121 H 19 104/86 100 07/20/22 22:30 118 H 12 142/111 96 07/20/22 20:00 117 H 12 120/88 98 07/20/22 19:27 100 07/20/22 19:23 122 H 12 97/69 90 L 07/20/22 19:22 124 H 12 105/76 96 07/20/22 19:11 100 07/20/22 18:48 123 H 07/20/22 18:38 120 H 07/20/22 18:33 60 07/20/22 18:20 124 H 12 95 07/20/22 18:05 126 H 12 113/73 94 L 07/20/22 18:00 126 H 12 116/77 97 07/20/22 17:55 126 H 12 106/68 97 07/20/22 17:50 126 H 12 103/75 97 07/20/22 17:41 100 07/20/22 17:40 128 H 12 104/82 99 07/20/22 17:35 130 H 12 103/78 100 07/20/22 17:30 129 H 12 102/68 98 07/20/22 17:25 131 H 12 97/72 96 07/20/22 17:20 133 H 12 103/73 97 07/20/22 17:15 206 H 10 L 69/52 93 L 100 07/20/22 17:10 45 H 100/72 83 L 07/20/22 16:47 97.1 F L Intake and Output 07/20/22 07/20/22 07/21/22 14:59 22:59 06:59 Intake Total 22.237 818.274 Output Total 360 Balance 22.237 458.274 Intake: Intake, IV Titration 22.237 818.274 Amount Levofloxacin 750Mg-D5w 150 Pmx 750 mg In Dextrose/ Water 1 150ml.bag @ 100 mls/hr IVPB ONCE [facility] Rx#: [id number] Piperacillin-Tazobactam 3 100 .375 gm In Sodium Chloride 0.9% 100 ml @ 25 mls/hr IVPB Q8H [facility] Rx#: [id number] Sodium Chloride 0.9% 1, 520 000 ml @ 130 mls/hr IV . Q7H42M [facility] Rx#:[id number] propofoL 1,000 mg In . 48.274 Empty Bag 1 bag @ 5 MCG/ KG/MIN 1.17 mls/hr IV . Q24H [facility] Rx#:[id number] Output: Urine 360 Other: Weight 39.009 kg -GENERAL: The patient is sedated and intubated HEENT: Pupils are round and equally reacting to light. EOMI. No scleral icterus. No conjunctival pallor. Normocephalic, atraumatic. No pharyngeal erythema. No thyromegaly. CARDIOVASCULAR: S1 and S2 present. No murmurs, rubs, or gallops. -PULMONARY: Chest is clear to auscultation, no wheezing or crackles. Patient is tachypneic, he has bilateral shift mainly on the right side -ABDOMEN: Soft, nontender, nondistended, normoactive bowel sounds. No palpable organomegaly. Mcclain catheter in a Place MUSCULOSKELETAL: No joint swelling or deformity. EXTREMITIES: No cyanosis, clubbing, or pedal edema. NEUROLOGICAL: Gross neurological examination did not reveal any focal deficits. SKIN: No rashes. no petechiae. Results CBC & Chem 7: 07/20/22 16:55 07/20/22 16:55 Labs: Abnormal Lab Results - Last 24 Hours (Table) 07/20/22 07/20/22 07/20/22 Range/Units 16:55 16:55 16:55 MCV 100.8 H (80.0-100.0) fL Plt Count 84 L (150-450) k/uL D-Dimer 1.10 H (<0.60) mg/L FEU ABG pH (7.35-7.45) ABG pCO2 (35-45) mmHg ABG pO2 (83-108) mmHg ABG HCO3 (21-25) mmol/L ABG Total CO2 (19-24) mmol/L ABG O2 Saturation (94-97) % Carbon Dioxide 34 H (22-30) mmol/L BUN 25 H (9-20) mg/dL Creatinine 0.58 L (0.66-1.25) mg/dL Glucose 115 H (74-99) mg/dL POC Glucose (mg/dL) (70-110) mg/dL Plasma Lactic Acid Scottie (0.7-2.0) mmol/L Calcium 7.9 L (8.4-10.2) mg/dL Magnesium 1.5 L (1.6-2.3) mg/dL Total Protein 6.0 L (6.3-8.2) g/dL Albumin 3.2 L (3.5-5.0) g/dL 07/20/22 07/20/22 07/20/22 Range/Units 16:55 18:15 22:33 MCV (80.0-100.0) fL Plt Count (150-450) k/uL D-Dimer (<0.60) mg/L FEU ABG pH 7.29 L (7.35-7.45) ABG pCO2 68 H (35-45) mmHg ABG pO2 118 H (83-108) mmHg ABG HCO3 33 H (21-25) mmol/L ABG Total CO2 35 H (19-24) mmol/L ABG O2 Saturation 98.6 H (94-97) % Carbon Dioxide (22-30) mmol/L BUN (9-20) mg/dL Creatinine (0.66-1.25) mg/dL Glucose (74-99) mg/dL POC Glucose (mg/dL) 115 H (70-110) mg/dL Plasma Lactic Acid Scottie 2.3 H* (0.7-2.0) mmol/L Calcium (8.4-10.2) mg/dL Magnesium (1.6-2.3) mg/dL Total Protein (6.3-8.2) g/dL Albumin (3.5-5.0) g/dL 07/21/22 Range/Units 05:44 MCV (80.0-100.0) fL Plt Count (150-450) k/uL D-Dimer (<0.60) mg/L FEU ABG pH (7.35-7.45) ABG pCO2 52 H (35-45) mmHg ABG pO2 (83-108) mmHg ABG HCO3 30 H (21-25) mmol/L ABG Total CO2 31 H (19-24) mmol/L ABG O2 Saturation 98.8 H (94-97) % Carbon Dioxide (22-30) mmol/L BUN (9-20) mg/dL Creatinine (0.66-1.25) mg/dL Glucose (74-99) mg/dL POC Glucose (mg/dL) (70-110) mg/dL Plasma Lactic Acid Scottie (0.7-2.0) mmol/L Calcium (8.4-10.2) mg/dL Magnesium (1.6-2.3) mg/dL Total Protein (6.3-8.2) g/dL Albumin (3.5-5.0) g/dL Microbiology - Last 24 Hours (Table) 07/20/22 17:50 Sputum Culture - Preliminary Sputum Thrombosis Risk Factor Assmnt - Choose All That Apply Each Risk Factor Represents 2 Points: Patient confined to bed Other congenital or acquired thrombophilia - If yes, enter type in comment: No Thrombosis Risk Factor Assessment Total Risk Factor Score: 2 Thrombosis Risk Factor Assessment Level: Low Risk Assessment and Plan Assessment: Left community acquired pneumonia, versus aspiration pneumonia Hypoxic respiratory failure secondary to above Possible reactive airway disease Altered mental status, mostly metabolic encephalopathy Breakthrough seizure Respiratory acidosis History of spina bifid the and third lumbar myelomeningocele History of hydrocephalus status post cranial peritoneal shunt History of seizure chiari malformation History of Recurrent UTI Plan: Continue with antibiotic Continue with steroids Continue with a bronchodilator Continue antibiotic, currently is on Zosyn and Levaquin Follow-up sputum culture and blood culture Pulmonary consult Labs and medication were reviewed.. Continue same treatment. Continue with symptomatic treatment. Resume home medication. Monitor labs and vitals. DVT and GI prophylaxis. Further recommendations as per clinical course of the patient DVT prophylaxis: mechanical GI Prophylaxis: Pepcid Prognosis is guarded
[2022-07-21 07:57] LABS: African American GFR (CKD) >90 (>60 ml/min/1.73 sqM); Anion Gap 4 mmol/L; Blood Urea Nitrogen 18 mg/dL (9-20); Calcium 7.5 mg/dL (8.4-10.2); Carbon Dioxide 30 mmol/L (22-30); Chloride 103 mmol/L (98-107); Glucose 107 mg/dL (74-99); Non-African American GFR(CKD) >90 (>60 ml/min/1.73 sqM); Potassium 4.4 mmol/L (3.5-5.1); Sodium 137 mmol/L (137-145)
[2022-07-21 07:57] LABS: Glucose,Whole Blood 108 mg/dL (70-110)
[2022-07-21] MEDS ORDERED: Magnesium Replacement Protocol 1 EACH MISC MISCELLANE PRN (08:56)
[2022-07-21] MEDS ORDERED: IPRATROPIUM-ALBUTEROL 3 ML NEB INHALATION PRN (09:19)
[2022-07-21 09:21] LABS: Band Neutrophils % 15 %; Lymphocytes # (M) 0.42 k/uL (1.0-4.8); Metamyelocytes # (M) 0.04 k/uL (0); Metamyelocytes % 1 %; Monocytes # (M) 0.18 k/uL (0-1.0); Neutrophils % (M) 68 %; Nucleated Red Blood Cells 0 /100 WBC (0-0); Total Cells Counted 200
[2022-07-21 09:22] LABS: Platelet Count 42 k/uL (150-450)
[2022-07-21] MEDS ORDERED: CISATRACURIUM 2 MG/ML 5 ML VIAL IV ONE ×2 (09:27→09:30)
[2022-07-21] MEDS: MAGNESIUM SULFATE-D5W PMX 1 GM in DEXTROSE/WATER 1 100ML.BAG IVPB SCH ×2 (10:10→12:35)
[2022-07-21] MEDS: SODIUM CHLORIDE 0.9% 1,000 ML IV SCH ×3 (10:11→22:38)
[2022-07-21] MEDS: FAMOTIDINE 20 MG/2 ML VIAL IV SCH ×2 (10:11→20:29)
--- NOTE | 2022-07-21 11:15 | OP ---
OPERATIVE REPORT DATE OF SERVICE : PROCEDURES PERFORMED: Bronchoscopy, airway examination, therapeutic lavage, BAL. PREOPERATIVE DIAGNOSES: Left lung collapse, pneumonia, aspiration. POSTOPERATIVE DIAGNOSES: Left lung collapse, pneumonia, aspiration, malposition of the endotracheal tube. ASSISTANTS: Dr. Sofia Roberto and Anup Cid NP DESCRIPTION OF PROCEDURE: There was informed consent and universal timeout. After the patient was on 100% oxygen, and adequately sedated, the bronchoscope was inserted through the bronchoscope adapter connected to the endotracheal tube. The bronchoscope was taken down through the endotracheal tube, and we noted that the tip of the endotracheal tube was probably in the right main. It was pulled back and properly positioned above the tracheal george. Of note was the fact there were thick secretions noted throughout both lungs. The anatomy was distorted because of the spina bifida and hyposcoliosis. The right upper lobe and its 3 segments, right middle lobe and its 2 segments, right lower lobe and its 5 segments, left upper lobe proper and its 2 segments, lingula and its 2 segments, the left lower lobe and its 4 segments all had similar findings of diffuse airway erythema and hyperemia. There was some vascular prominence. Minimal mucosal friability. There were thick purulent looking secretions throughout both lungs, most on the left side. A sample was collected. Rather than do a BAL, it was motion pulled. Washings removed from both lungs. The patient tolerated the procedure well. About 35 mL of fluid was collected. The fluid will be sent for analysis. There was no immediate complication. We ensured that the endotracheal tube was properly positioned before the bronchoscope was withdrawn. The patient tolerated the procedure well and was stable throughout the procedure. MMODL / IJN: [id number] /
[2022-07-21] MEDS: IPRATROPIUM-ALBUTEROL 3 ML NEB INHALATION SCH ×3 (11:39→21:04)
--- NOTE | 2022-07-21 11:58 | P.CNPUL ---
History of Present Illness Consult date: 07/21/22 Requesting physician: Neal Henson Reason for consult: other (ICU management) Chief complaint: Altered mental status, hypoxia History of present illness: I'm seeing this patient today, 07/21/2022, in new consultation in ICU. This is a 32-year-old white male with past medical history of spina bifida with L3 myelomeningocele, hydrocephalus with peritoneal shunt, Arnold-Chiari malformation, seizure disorder, severe kyphoscoliosis, frequent urinary tract infections secondary to neurogenic bladder and need for intermittent catheterizations. Patient was admitted yesterday 07/20/2022. Mother reports he has been feeling unwell over the past couple weeks. Reported symptoms of shortness of breath, fever, cough. Patient was treated outpatient with Augmentin. Yesterday, the patient had 2 seizures, at home, lasting approximately 1 minute. He then became more lethargic and ultimately uncon scious. Patient's mother checked his oxygen saturation with her home pulse ox, and found his SpO2 to be 50%. EMS was called and patient was transferred to [facility]. Patient was intubated yesterday with a 7.5 ET tube, in the ER, to protect his airway. He is currently on mechanical ventilator settings of assist control, respiratory rate of 12, tidal volume of 300 mL, FiO2 55%, PEEP of 5. ABGs from this morning on FiO2 of 80% shows a pO2 of 103, pCO2 of 52, and a pH of 7.36. Patient's chest x-ray from today showed a complete opacification of left hemithorax. The endotracheal tube appeared to be above the george on the x-ray, however, the patient's physical deformities make it hard to assess. Patient also has an in place orogastric tube, there is a ventricular peritoneal shunt noted, and severe thoracolumbar scoliosis. There is concern for aspiration after the patient's witnessed seizure. Patient is covered empirically with Zosyn. The patient will require a bronchoscopy with BAL today. Patient's WBC count 3.5, hemoglobin 11.8, hematocrit of 37.9, platelets 42,000. Patient's BMP from today shows a sodium of 137, potassium 4.4, chloride 103, serum CO2 30, BUN 18, creatinine 0.41, glucose 107. Patient is currently sedated with propofol at 40 mcgs/kg/minute. And there is normal saline infusing at 130 milliliters per hour. Patient was negative for influenza, RSV, coronavirus. Lactic acid level was low at 1.4. Patient is also receiving bronchodilators and IV Solu-Medrol. GI prophylaxis with famotidine. Vital signs are stable at this time. Review of Systems Unable to obtain review of systems due to patient being intubated. 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, Other MDRO Date of last positivie culture/infection: 02/07/21 MDRO Source:: URINE Past Surgical History: Ventriculoperitoneal Shunt Additional Past Anesthesia/Blood Transfusion Reaction / Comment(s): Hx of receiving anesthesia and did not wake up for 6 days Past Psychological History: No Psychological Hx Reported Smoking Status: Never smoker Past Alcohol Use History: None Reported Past Drug Use History: None Reported Medications and Allergies Home Medications Medication Instructions Recorded Confirmed Type Cholecalciferol [Vitamin D3 (25 50 mcg PO DAILY@0700 07/20/22 07/21/22 History Mcg = 1000 Iu)] Divalproex Sprinkle [Depakote 250 mg PO HS 07/20/22 07/21/22 History Sprinkle] Divalproex Sprinkle [Depakote 500 mg PO DAILY 07/20/22 07/21/22 History Sprinkle] Lacosamide [Vimpat Oral Soln] 20 mg PO BID@0700,1900 07/20/22 07/21/22 History Nitrofurantoin Macrocrystal 50 mg PO HS@1900 07/20/22 07/21/22 History [Macrodantin] PHENobarbitaL [Luminal] 40.5 mg PO BID@0700,1900 07/20/22 07/21/22 History Valtoco 5mg/0.1ml Nasal 1 spr NASAL ONCE PRN 07/20/22 07/21/22 History Allergies Allergy/AdvReac Type Severity Reaction Status Date / Time carbamazepine [From Tegretol] Allergy Severe Anaphylaxis Verified 07/21/22 08:47 immune globulin,gamma (IgG) Allergy Severe Anaphylaxis Verified 07/21/22 08:47 human Iodinated Contrast Media Allergy Severe Rash/Hives Verified 07/21/22 08:47 Latex, Natural Rubber Allergy Severe Anaphylaxis Verified 07/21/22 08:47 phenytoin [From Dilantin] Allergy Severe Anaphylaxis Verified 07/21/22 08:47 septra Allergy Severe Anaphylaxis Uncoded 07/20/22 16:59 Physical Exam Vitals: Vital Signs Temp Pulse Resp BP Pulse Ox FiO2 07/21/22 09:00 106 H 18 103/72 94 L 07/21/22 08:45 106 H 18 99/63 96 07/21/22 08:30 103 H 18 94/66 96 07/21/22 08:15 101 H 16 91/63 97 70 07/21/22 08:00 100 12 83/56 97 07/21/22 07:45 103 H 13 86/57 97 07/21/22 07:38 70 07/21/22 07:30 105 H 16 86/58 97 07/21/22 07:15 105 H 17 89/61 97 07/21/22 07:00 110 H 20 95/66 98 07/21/22 06:45 109 H 16 101/72 98 07/21/22 06:30 112 H 13 101/72 98 80 07/21/22 06:15 112 H 14 90/62 99 07/21/22 06:00 112 H 16 93/73 98 90 07/21/22 05:50 115 H 15 93/73 98 07/21/22 05:40 117 H 21 101/80 98 07/21/22 05:30 115 H 10 L 102/79 99 07/21/22 05:20 117 H 16 102/79 99 07/21/22 05:10 118 H 19 114/66 99 07/21/22 05:00 115 H 13 101/71 99 07/21/22 04:50 118 H 17 101/71 97 07/21/22 04:40 117 H 18 116/84 97 07/21/22 04:30 121 H 21 121/81 97 07/21/22 04:20 120 H 16 121/81 97 07/21/22 04:10 121 H 15 114/88 98 07/21/22 04:08 80 07/21/22 04:00 123 H 12 120/87 98 100 07/21/22 03:50 121 H 16 120/87 98 07/21/22 03:40 122 H 17 119/91 98 07/21/22 03:30 123 H 21 115/89 98 07/21/22 03:20 120 H 15 115/89 98 07/21/22 03:10 121 H 15 113/84 98 07/21/22 03:00 118 H 14 113/85 98 07/21/22 02:50 120 H 17 113/85 100 07/21/22 02:40 122 H 19 117/89 99 07/21/22 02:31 121 H 14 117/89 99 07/21/22 02:20 121 H 17 113/86 100 07/21/22 02:13 121 H 14 106/79 100 07/21/22 02:00 121 H 17 100/70 100 07/21/22 01:50 121 H 15 100/70 99 07/21/22 01:40 121 H 20 96/75 96 07/21/22 01:30 122 H 15 99/68 96 07/21/22 01:20 122 H 19 99/68 98 07/21/22 01:10 122 H 15 118/97 99 07/21/22 01:00 124 H 13 121/95 100 07/21/22 00:50 123 H 17 121/95 99 07/21/22 00:47 90 07/21/22 00:40 120 H 13 127/95 98 07/21/22 00:30 117 H 17 119/87 99 07/21/22 00:20 114 H 16 119/87 98 07/21/22 00:10 118 H 18 115/98 98 07/21/22 00:00 118 H 12 135/94 99 100 07/20/22 23:50 122 H 19 135/94 98 07/20/22 23:40 99.7 F H 118 H 17 123/93 98 07/20/22 23:30 118 H 14 111/81 98 07/20/22 23:20 120 H 18 111/81 97 07/20/22 23:10 117 H 18 95/68 96 07/20/22 23:00 113 H 18 92/63 97 07/20/22 22:54 114 H 17 92/63 95 100 07/20/22 22:50 99.7 F H 116 H 19 104/86 96 07/20/22 22:40 121 H 19 104/86 100 07/20/22 22:30 118 H 12 142/111 96 07/20/22 20:00 117 H 12 120/88 98 07/20/22 19:27 100 07/20/22 19:23 122 H 12 97/69 90 L 07/20/22 19:22 124 H 12 105/76 96 07/20/22 19:11 100 07/20/22 18:48 123 H 07/20/22 18:38 120 H 07/20/22 18:33 60 07/20/22 18:20 124 H 12 95 07/20/22 18:05 126 H 12 113/73 94 L 07/20/22 18:00 126 H 12 116/77 97 07/20/22 17:55 126 H 12 106/68 97 07/20/22 17:50 126 H 12 103/75 97 07/20/22 17:41 100 07/20/22 17:40 128 H 12 104/82 99 07/20/22 17:35 130 H 12 103/78 100 07/20/22 17:30 129 H 12 102/68 98 07/20/22 17:25 131 H 12 97/72 96 07/20/22 17:20 133 H 12 103/73 97 07/20/22 17:15 206 H 10 L 69/52 93 L 100 07/20/22 17:10 45 H 100/72 83 L 07/20/22 16:47 97.1 F L Intake and Output 07/20/22 07/21/22 07/21/22 22:59 06:59 14:59 Intake Total 22.237 1363.274 90.503 Output Total 475 Balance 22.237 888.274 90.503 Intake: Intake, IV Titration 22.237 1363.274 90.503 Amount Levofloxacin 750Mg-D5w 150 Pmx 750 mg In Dextrose/ Water 1 150ml.bag @ 100 mls/hr IVPB ONCE STA Rx#: [id number] Piperacillin-Tazobactam 3 25 .375 gm In Sodium Chloride 0.9% 100 ml @ 200 mls/hr IVPB ONCE STA Rx#:[id number] Piperacillin-Tazobactam 3 100 .375 gm In Sodium Chloride 0.9% 100 ml @ 25 mls/hr IVPB Q8H BRANDI Rx#: [id number] Sodium Chloride 0.9% 1, 1040 000 ml @ 130 mls/hr IV . Q7H42M BRANDI Rx#:[id number] propofoL 1,000 mg In 22.237 48.274 90.503 Empty Bag 1 bag @ 5 MCG/ KG/MIN 1.17 mls/hr IV . Q24H BRANDI Rx#:[id number] Output: Urine 475 Other: Voiding Method Self-Catheterization Weight 39.009 kg 39.9 kg GENERAL EXAM: Comfortably sedated, 32-year-old male, on the mechanical ventilat or. HEAD: Normocephalic and atraumatic EYES: Normal reaction of pupils, equal size. NOSE: Clear with pink turbinates. THROAT: No erythema or exudates. NECK: No masses, no JVD. CHEST: Severe kyphoscoliosis noted. LUNGS: No lung sounds are left lung. No crackles, wheeze, rhonchi. Endotracheally intubated to the mechanical ventilator. CVS: S1 and S2 normal with no audible murmur, regular rhythm. No extra heart sounds ABDOMEN: No hepatosplenomegaly, active bowel sounds, no guarding or rigidity. SPINE: Severe kyphoscoliosis SKIN: No rashes CENTRAL NERVOUS SYSTEM: Limited assessment due to sedation EXTREMITIES: There is no peripheral edema, clubbing, or cyanosis. Peripheral pulses are intact. Results - Laboratory Findings CBC and BMP: 07/21/22 07:02 07/21/22 07:02 ABG ABG pH 7.36 (7.35-7.45) 07/21/22 05:44 ABG pCO2 52 mmHg (35-45) H 07/21/22 05:44 ABG pO2 103 mmHg (83-108) 07/21/22 05:44 ABG O2 Saturation 98.8 % (94-97) H 07/21/22 05:44 PT/INR, D-dimer PT 11.2 sec (9.0-12.0) 07/20/22 16:55 INR 1.1 (<1.2) 07/20/22 16:55 D-Dimer 1.10 mg/L FEU (<0.60) H 07/20/22 16:55 Abnormal lab findings: Abnormal Labs 07/20/22 07/20/22 07/20/22 16:55 16:55 16:55 WBC RBC Hgb Hct MCV 100.8 H Plt Count 84 L Lymphocytes # (Manual) Metamyelocytes # (Man) D-Dimer 1.10 H ABG pH ABG pCO2 ABG pO2 ABG HCO3 ABG Total CO2 ABG O2 Saturation Carbon Dioxide 34 H BUN 25 H Creatinine 0.58 L Glucose 115 H POC Glucose (mg/dL) Plasma Lactic Acid Scottie Calcium 7.9 L Magnesium 1.5 L Total Protein 6.0 L Albumin 3.2 L 07/20/22 07/20/22 07/20/22 16:55 18:15 22:33 WBC RBC Hgb Hct MCV Plt Count Lymphocytes # (Manual) Metamyelocytes # (Man) D-Dimer ABG pH 7.29 L ABG pCO2 68 H ABG pO2 118 H ABG HCO3 33 H ABG Total CO2 35 H ABG O2 Saturation 98.6 H Carbon Dioxide BUN Creatinine Glucose POC Glucose (mg/dL) 115 H Plasma Lactic Acid Scottie 2.3 H* Calcium Magnesium Total Protein Albumin 07/21/22 07/21/22 07/21/22 05:44 07:02 07:02 WBC 3.5 L RBC 3.71 L Hgb 11.8 L Hct 37.9 L MCV 102.1 H Plt Count 42 L Lymphocytes # (Manual) 0.42 L Metamyelocytes # (Man) 0.04 H D-Dimer ABG pH ABG pCO2 52 H ABG pO2 ABG HCO3 30 H ABG Total CO2 31 H ABG O2 Saturation 98.8 H Carbon Dioxide BUN Creatinine 0.41 L Glucose 107 H POC Glucose (mg/dL) Plasma Lactic Acid Scottie Calcium 7.5 L Magnesium Total Protein Albumin - Diagnostic Findings Chest x-ray: image reviewed Assessment and Plan Assessment: Acute hypoxic respiratory failure possibly secondary to aspiration. Patient did have 2 seizures reported by the mother at home lasting presently 1 minute. Patient then became unresponsive, patient's pulse oximeter was noted to be 50% at that time. Patient was then transferred to [facility] and intubated in the ER. Patient's current ventilator settings are assist control, respiratory rate 12, tidal volume 300, FiO2 55%, PEEP of 5. Patient's chest x- ray from today shows a completely opacified left lung. Patient did undergo bronchoscopy with BAL today. Copious secretions were lavaged from the left lung, endotracheal tube was advanced to approximately 4 cm above the george. We will repeat chest x-ray at noon. Suspected aspiration pneumonia secondary to above. Currently empirically covered on Zosyn Breakthrough seizure with history of seizure disorder. History of spina bifida with L3 myelomeningocele History of hydrocephalus with POLYSOMNOGRAPHIC TECHNOLOGIST shunt Arnold-Chiari malformation severe kyphoscoliosis frequent urinary tract infections secondary to neurogenic bladder and need for intermittent catheterizations Plan: Continue mechanical ventilator with current settings. Patient did undergo bronchoscopy with BAL today. Copious secretions were lavaged. ET tube was advanced to approximately 4 cm above the george Repeat chest x-ray at 12:00 Continue Zosyn Consult neurology for breakthrough seizures Repeat CBC and BMP tomorrow Chest x-ray tomorrow Repeat ABG tomorrow Oral care per protocol Orogastric tube to low intermittent suction We will follow this patient closely in the intensive care unit I have personally seen and examined the patient, performed the documentation and the assessment and plan as written. Number of minutes spent on the visit:20 Time with Patient: Greater than 30
--- NOTE | 2022-07-21 11:59 | P.GSCN ---
History of Present Illness Consult date: 07/21/22 Reason for Consult: Latex free coud Marquez catheter placement Requesting physician: Naman E Sheet History of present illness: The patient is a 32-year-old male with a past medical history of spina bifida, meningocele, seizure disorder, hydrocephalus with SENIOR PHP DEVELOPER shunt, alan malformation, UTIs, and MDRO in the urine. He presented to the emergency department on 07/20/22 with altered mental status. The patient's mother stated that he has had sinus congestion for a couple days and a temperature of 102F. He is unable to cough and clear his secretions and became more lethargic. He had a seizure and then became hypoxic with a SpO2 31%. EMS was called and he did regain consciousness once oxygen was applied. 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, Other MDRO Year Discovered:: 02/07/21 MDRO Source:: URINE Past Surgical History: Ventriculoperitoneal Shunt Additional Past Anesthesia/Blood Transfusion Reaction / Comm: Hx of receiving anesthesia and did not wake up for 6 days Past Psychological History: No Psychological Hx Reported Smoking Status: Never smoker Past Alcohol Use History: None Reported Past Drug Use History: None Reported Medications and Allergies Home Medications Medication Instructions Recorded Confirmed Type Cholecalciferol [Vitamin D3 (25 50 mcg PO DAILY@0700 07/20/22 07/21/22 History Mcg = 1000 Iu)] Divalproex Sprinkle [Depakote 250 mg PO HS 07/20/22 07/21/22 History Sprinkle] Divalproex Sprinkle [Depakote 500 mg PO DAILY 07/20/22 07/21/22 History Sprinkle] Lacosamide [Vimpat Oral Soln] 20 mg PO BID@0700,0 07/20/22 07/21/22 History Nitrofurantoin Macrocrystal 50 mg PO HS@189907/20/22 07/21/22 History [Macrodantin] PHENobarbitaL [Luminal] 40.5 mg PO BID@0700,1900 07/20/22 07/21/22 History Valtoco 5mg/0.1ml Nasal 1 spr NASAL ONCE PRN 07/20/22 07/21/22 History Allergies Allergy/AdvReac Type Severity Reaction Status Date / Time carbamazepine [From Tegretol] Allergy Severe Anaphylaxis Verified 07/21/22 08:47 immune globulin,gamma (IgG) Allergy Severe Anaphylaxis Verified 07/21/22 08:47 human Iodinated Contrast Media Allergy Severe Rash/Hives Verified 07/21/22 08:47 Latex, Natural Rubber Allergy Severe Anaphylaxis Verified 07/21/22 08:47 phenytoin [From Dilantin] Allergy Severe Anaphylaxis Verified 07/21/22 08:47 septra Allergy Severe Anaphylaxis Uncoded 07/20/22 16:59 Surgical - Exam Vital Signs Temp 97.1 F L 07/20/22 16:47 General: Well developed, well nourished. No acute distress. HEENT: Head is atraumatic, normocephalic. Lungs: Mechanically ventilated Abdomen/GI: Soft. Nondistended. : Normal phallus, normal urethral meatus. The scrotum and testes are normal. He catheter in place draining clear yellow urine Skin: Warm and dry Neurologic: Sedated Results - Labs 07/21/22 07:02 07/21/22 07:02 Abnormal Lab Results - Last 24 Hours (Table) 07/20/22 07/20/22 07/20/22 Range/Units 16:55 16:55 16:55 WBC (3.8-10.6) k/uL RBC (4.30-5.90) m/uL Hgb (13.0-17.5) gm/dL Hct (39.0-53.0) % MCV 100.8 H (80.0-100.0) fL Plt Count 84 L (150-450) k/uL Lymphocytes # (Manual) (1.0-4.8) k/uL Metamyelocytes # (Man) (0) k/uL D-Dimer 1.10 H (<0.60) mg/L FEU ABG pH (7.35-7.45) ABG pCO2 (35-45) mmHg ABG pO2 (83-108) mmHg ABG HCO3 (21-25) mmol/L ABG Total CO2 (19-24) mmol/L ABG O2 Saturation (94-97) % Carbon Dioxide 34 H (22-30) mmol/L BUN 25 H (9-20) mg/dL Creatinine 0.58 L (0.66-1.25) mg/dL Glucose 115 H (74-99) mg/dL POC Glucose (mg/dL) (70-110) mg/dL Plasma Lactic Acid Scottie (0.7-2.0) mmol/L Calcium 7.9 L (8.4-10.2) mg/dL Magnesium 1.5 L (1.6-2.3) mg/dL Total Protein 6.0 L (6.3-8.2) g/dL Albumin 3.2 L (3.5-5.0) g/dL 07/20/22 07/20/22 07/20/22 Range/Units 16:55 18:15 22:33 WBC (3.8-10.6) k/uL RBC (4.30-5.90) m/uL Hgb (13.0-17.5) gm/dL Hct (39.0-53.0) % MCV (80.0-100.0) fL Plt Count (150-450) k/uL Lymphocytes # (Manual) (1.0-4.8) k/uL Metamyelocytes # (Man) (0) k/uL D-Dimer (<0.60) mg/L FEU ABG pH 7.29 L (7.35-7.45) ABG pCO2 68 H (35-45) mmHg ABG pO2 118 H (83-108) mmHg ABG HCO3 33 H (21-25) mmol/L ABG Total CO2 35 H (19-24) mmol/L ABG O2 Saturation 98.6 H (94-97) % Carbon Dioxide (22-30) mmol/L BUN (9-20) mg/dL Creatinine (0.66-1.25) mg/dL Glucose (74-99) mg/dL POC Glucose (mg/dL) 115 H (70-110) mg/dL Plasma Lactic Acid Scottie 2.3 H* (0.7-2.0) mmol/L Calcium (8.4-10.2) mg/dL Magnesium (1.6-2.3) mg/dL Total Protein (6.3-8.2) g/dL Albumin (3.5-5.0) g/dL 07/21/22 07/21/22 07/21/22 Range/Units 05:44 07:02 07:02 WBC 3.5 L (3.8-10.6) k/uL RBC 3.71 L (4.30-5.90) m/uL Hgb 11.8 L (13.0-17.5) gm/dL Hct 37.9 L (39.0-53.0) % MCV 102.1 H (80.0-100.0) fL Plt Count 42 L (150-450) k/uL Lymphocytes # (Manual) 0.42 L (1.0-4.8) k/uL Metamyelocytes # (Man) 0.04 H (0) k/uL D-Dimer (<0.60) mg/L FEU ABG pH (7.35-7.45) ABG pCO2 52 H (35-45) mmHg ABG pO2 (83-108) mmHg ABG HCO3 30 H (21-25) mmol/L ABG Total CO2 31 H (19-24) mmol/L ABG O2 Saturation 98.8 H (94-97) % Carbon Dioxide (22-30) mmol/L BUN (9-20) mg/dL Creatinine 0.41 L (0.66-1.25) mg/dL Glucose 107 H (74-99) mg/dL POC Glucose (mg/dL) (70-110) mg/dL Plasma Lactic Acid Scottie (0.7-2.0) mmol/L Calcium 7.5 L (8.4-10.2) mg/dL Magnesium (1.6-2.3) mg/dL Total Protein (6.3-8.2) g/dL Albumin (3.5-5.0) g/dL Microbiology - Last 24 Hours (Table) 07/20/22 17:50 Gram Stain - Preliminary Sputum Sputum Culture - Preliminary Diabetes panel 07/20/22 07/21/22 Range/Units 16:55 07:02 Sodium 138 137 (137-145) mmol/L Potassium 4.2 4.4 (3.5-5.1) mmol/L Chloride 99 103 (98-107) mmol/L Carbon Dioxide 34 H 30 (22-30) mmol/L BUN 25 H 18 (9-20) mg/dL Creatinine 0.58 L 0.41 L (0.66-1.25) mg/dL Glucose 115 H 107 H (74-99) mg/dL Calcium 7.9 L 7.5 L (8.4-10.2) mg/dL AST 19 (17-59) U/L ALT 14 (4-49) U/L Alkaline Phosphatase 51 (38-126) U/L Total Protein 6.0 L (6.3-8.2) g/dL Albumin 3.2 L (3.5-5.0) g/dL Calcium panel 07/20/22 07/21/22 Range/Units 16:55 07:02 Calcium 7.9 L 7.5 L (8.4-10.2) mg/dL Albumin 3.2 L (3.5-5.0) g/dL Pituitary panel 07/20/22 07/21/22 Range/Units 16:55 07:02 Sodium 138 137 (137-145) mmol/L Potassium 4.2 4.4 (3.5-5.1) mmol/L Chloride 99 103 (98-107) mmol/L Carbon Dioxide 34 H 30 (22-30) mmol/L BUN 25 H 18 (9-20) mg/dL Creatinine 0.58 L 0.41 L (0.66-1.25) mg/dL Glucose 115 H 107 H (74-99) mg/dL Calcium 7.9 L 7.5 L (8.4-10.2) mg/dL Adrenal panel 07/20/22 07/21/22 Range/Units 16:55 07:02 Sodium 138 137 (137-145) mmol/L Potassium 4.2 4.4 (3.5-5.1) mmol/L Chloride 99 103 (98-107) mmol/L Carbon Dioxide 34 H 30 (22-30) mmol/L BUN 25 H 18 (9-20) mg/dL Creatinine 0.58 L 0.41 L (0.66-1.25) mg/dL Glucose 115 H 107 H (74-99) mg/dL Calcium 7.9 L 7.5 L (8.4-10.2) mg/dL Total Bilirubin 0.5 (0.2-1.3) mg/dL AST 19 (17-59) U/L ALT 14 (4-49) U/L Alkaline Phosphatase 51 (38-126) U/L Total Protein 6.0 L (6.3-8.2) g/dL Albumin 3.2 L (3.5-5.0) g/dL Assessment and Plan Assessment: The patient's mother usually straight catheterizes the patient at home using a latex free 16-[place] coud catheter. The hospital does not stock latex free coud catheters. Nursing staff was unable to place a latex free Marquez catheter. The patient currently has a Coude straight catheter from home attached to a drainage bag with a small amount of clear yellow urine. The patient is well- known to Dr. Michael. I was able to contact Dr. Michael and obtain a latex free 16-[place] coud catheter from his office. The straight catheter was removed and using sterile technique, I was able to place the latex free 16-[place] coude without difficulty. There was no urine return due to the bladder being empty, the straight cath was just removed. The balloon was filled with 10cc saline and the catheter was secured to his leg. RN was notified monitor for urine output. Plan: Impression: Urinary retention secondary to neurogenic bladder - Maintain marquez catheter - May be discontinued when medically stable Thank you for this consultation. Please notify us if we could be of any further assistance. Impression and plan of care have been directed as dictated by the signing physician. Milena Simms nurse practitioner acting as scribe for signing physician. Milena Simms [facility] Palliative Care/Urology Spectralink [id number] Email: [email or web address] The patient has been seen by me. I interviewed the mother as the patient is intubated. His bladder is managed by intermittent catheterization by the mother. He is seen Dr. michael for many years. A Marquez catheter has been placed to manage his bladder while he is intubated. The catheter can be removed when he is deemed medically stable. Nothing further urologic needs to be done. I concur with the above-mentioned note. Phil Duran M.D.
--- NOTE | 2022-07-21 12:03 | OP ---
OPERATIVE REPORT DATE OF SERVICE : PROCEDURE PERFORMED: Right radial art line. PREOPERATIVE DIAGNOSIS: Frequent blood draws and blood gas monitoring. POSTOPERATIVE DIAGNOSIS: Frequent blood draws and blood gas monitoring. ASSISTANTS: Dr. Sofia Roberto and Anup Cid NP. DESCRIPTION OF PROCEDURE: A time-out was completed verifying correct patient, procedure, site, positioning, and implant(s) or special equipment if applicable. Marlon's test was performed to ensure adequate perfusion. The patient's right wrist was prepped and draped in sterile fashion. 1% Lidocaine was used to anesthetize the area. An 18G Arrow arterial line was introduced into the radial artery. The catheter was threaded over the guide wire and the needle was removed with appropriate pulsatile blood return. Blood loss was minimal. The catheter was then sutured in place to the skin and a sterile dressing applied. Perfusion to the extremity distal to the point of catheter insertion was checked and found to be adequate. There was good blood return and waveform. The catheter was sutured in place. Sterile dressing was applied. There was no immediate complication. There was informed consent as mentioned. Catheter was sutured in place. Sterile dressing was applied by the nurse. MMODL / IJN: [id number] /
[2022-07-21 12:04] LABS: Glucose,Whole Blood 138 mg/dL (70-110)
--- NOTE | 2022-07-21 12:15 | OP ---
OPERATIVE REPORT DATE OF SERVICE : PROCEDURE: A right femoral vein triple-lumen catheter. PREOPERATIVE DIAGNOSES: Administration of fluids and pressors. POSTOPERATIVE DIAGNOSIS: Administration of fluids and pressors. DESCRIPTION OF PROCEDURE: A time-out was completed verifying correct patient, procedure, site, positioning, and implant(s) or special equipment if applicable. The patient was placed in a dependent position appropriate for triple lumen catheter placement based on the vein to be cannulated. The patient's right groin was prepped and draped in sterile fashion. 1% Lidocaine was used to anesthetize the surrounding skin area. A triple lumen 9F Cordis catheter was introduced into the right femoral vein using Seldinger technique. The catheter was threaded smoothly over the guide wire and appropriate blood return was obtained. Each lumen of the catheter was evacuated of air and flushed with sterile saline. The catheter was then sutured in place to the skin and a sterile dressing applied. Perfusion to the extremity distal to the point of catheter insertion was checked and found to be adequate. MMODL / IJN: [id number] /
--- NOTE | 2022-07-21 12:46 | XR ---
EXAMINATION TYPE: XR chest 1V portable DATE OF EXAM: 07/21/2022 12:29 PM COMPARISON: Chest radiographs from earlier same day TECHNIQUE: XR chest 1V portable Portable AP radiograph of the chest. CLINICAL INDICATION:Male, 32 years old with history of Post Bronchoscopy and wash repositioning of ET tube.; FINDINGS: Limited evaluation due to patient positioning. Lungs/Pleura: Atelectasis of the left lung with some air bronchograms in the superior left lung. Pulmonary vascularity: Unremarkable. Heart/mediastinum: Cardiomediastinal silhouette is obscured due to overlying and adjacent opacities. Musculoskeletal: Severe scoliosis changes. The george is not definitively visualized the endotracheal tube is at the level of the thoracic inlet . Tubing projects over the anterior right chest with tip terminating over the cervical spine. Right ventriculostomy catheter terminating over the abdomen. Nasogastric tube suspected to terminate over the gastric lumen. IMPRESSION: 1. Consolidation of the left lung which could be due to patient positioning and/or scoliosis. Findin gs could represent atelectasis versus pleural effusion. There is some bronchograms in the superior le ft lung which are new from earlier in the day. 2. Endotracheal tube at the thoracic inlet evaluation above the george is limited given patient posi tioning. 3. Nasogastric tube in appropriate position. 4. Ventriculostomy catheter terminating over the abdomen. 5. Right chest wall tubing of unknown type terminates over the spine.
[2022-07-21] MEDS: PHENobarbitaL 16.2 MG TAB PO SCH ×2 (13:35→21:03)
[2022-07-21] MEDS: LACOSAMIDE 50 MG TABLET PO SCH ×2 (13:36→20:27)
[2022-07-21] MEDS: DIVALPROEX SPRINKLE 125 MG CAP.SPRINK PO SCH ×2 (13:37→20:31)
[2022-07-21] MEDS ORDERED: VANCOMYCIN IV PER PHARMACY 1 EACH MISC MISCELLANE PRN (16:33)
[2022-07-21] MEDS: HYDROmorphone 0.5 MG/0.5 ML SYRINGE IVP PRN (17:36)
[2022-07-21] MEDS: VANCOMYCIN 750 MG in SODIUM CHLORIDE 0.9% 250 ML IVPB SCH (17:48)
--- NOTE | 2022-07-21 19:08 | P.CNNES ---
History of Present Illness Consult date: 07/21/22 Requesting physician: Anup Cid Reason for Consult: Seizure disorder History of Present Illness: Patient is a 32-year-old male with history of Arnold-Chiari malformation with myelomeningocele, status post multiple surgeries in the past, medically intractable epilepsy, came to the hospital by ambulance yesterday at 4:43 PM for atypical seizure. Patient's mother was present, who provided with a history. She states that 2 days ago on Sunday, he had a fever of 102. Yesterday he had no temperature, but he had a seizure at 9:30 AM, in which she was having twitching of the thumb and head was bobbing, that lasted for <30 seconds. At around 2:45 PM, he was just uncomfortable, wanted to lay down and sit up and then his head went backwards and became unresponsive, unconscious. His pulse ox was 40 as noted by patient's mother. She called the ambulance, and according to her, took almost 40 minutes for them to arrive. The fire department arrived earlier, and they placed him on oxygen mask, and his O2 saturation improved to 70%. He was brought to the hospital by ambulance. Patient's mother states that he started waking up in the ambulance. but while in the ER he crashed and required intubation. As per EMS flow sheet when they arrived, patient was laying on the floor, unconscious with a room air saturation of 92%. We put him on nonrebreather and saturation is improving. Patient has obvious multiple congenital defects that affects his size and position that requires below stool support in place. It was reported that yesterday patient spiked a temperature, she managed it with Tylenol and monitored patient closely. She has mentioned that normally patient is communicative with words and phrases. He did have one grand mal seizure this morning, it is not uncommon for him to have at least one and usually more seizures daily. He has typical grand mal and seizures. He just becomes unresp onsive for anywhere from a few minutes to upwards of 45 minutes. This is how today's episode started. But after nearly an hour prompted 911 call. Patient had no obvious injuries and he was warm to touch. He was given Tylenol suppository. About 1 hour before this started. While patient was being taken to the ambulance, he started opening his eyes. Patient's vitals at the scene was blood pressure 114/69, pulse rate 120, respiration 92% temperature 98.8 axillary and blood sugar and 12. Patient's T-max is 99.7 axillary in the hospital. Blood test shows normal CBC with elevated MCV 100.8. Platelets are slightly low 84. PT/PTT normal. ABG with pH of 7.29, pCO2 68 and saturation 98%. Electrolytes are normal, renal functions normal, hepatic panel normal. Troponin negative. Lactate was 2.3. Influenza screen, RSV and coronal virus PCR negative. Patient's last medication levels on 01/03/2022 including Depakote was 86.4, Vimpat 3.3 (normal up to 15.0) and phenobarbital 15.4(15-40). Patient's current medications include Vimpat 10 mg per mL, 20 mL twice a day (200 mg twice a day) patient also on phenobarbital, Depakote 500 mg in the morning 250 mm at night, vitamin D. At present patient's mother states that before bronchoscopy, he was trying to wake up, trying to hold patient's mother's hands and reaching for her when he is waking up. His left arm is weaker than the right. He has not much movement of the lower extremities. Patient currently on propofol 55 mcg/kg/m. Patient had undergone bronchoscopy, for which he has received some more sedation therefore he is not responding as much. Patient's mother mentions that he was born with Arnold-Chiari malformation with myelomeningocele at L3 level. He had first ventriculoperitoneal shunt at 6 hours of age. He started having seizures at 18 months after he had undergone decompression of the brainstem. He was placed on phenobarbital. Over the years he has been added on Vimpat and Depakote. Patient gets grand mal seizures, tonic-clonic seizures, absence seizures and may fall forward. His seizures used to be 5-6 seizures a day, but now it is better controlled occurs about 3-4 times a week. He is wheelchair bound. He talks normally, eat by himself although she has to chop his foods slightly. She mentions that he has a crooked swallow. Patient's last ventricle peritoneal shunt was performed in 2001 at [facility]. In all, patient had 2 shunt surgeries for syringomyelia and 4 surgeries for ventricle peritoneal shunting. Review of Systems Other review of systems as per patient's mother report. Mentioned in HPI. 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, Other MDRO Date of last positivie culture/infection: 02/07/21 MDRO Source:: URINE Past Surgical History: Ventriculoperitoneal Shunt Additional Past Anesthesia/Blood Transfusion Reaction / Comment(s): Hx of receiving anesthesia and did not wake up for 6 days Past Psychological History: No Psychological Hx Reported Smoking Status: Never smoker Past Alcohol Use History: None Reported Past Drug Use History: None Reported Medications and Allergies Home Medications Medication Instructions Recorded Confirmed Type Cholecalciferol [Vitamin D3 (25 50 mcg PO DAILY@0700 07/20/22 07/21/22 History Mcg = 1000 Iu)] Divalproex Sprinkle [Depakote 250 mg PO HS 07/20/22 07/21/22 History Sprinkle] Divalproex Sprinkle [Depakote 500 mg PO DAILY 07/20/22 07/21/22 History Sprinkle] Lacosamide [Vimpat Oral Soln] 200 mg PO BID@0700,1900 07/20/22 07/21/22 History Nitrofurantoin Macrocrystal 50 mg PO HS@1900 07/20/22 07/21/22 History [Macrodantin] PHENobarbitaL [Luminal] 40.5 mg PO BID@0700,1900 07/20/22 07/21/22 History Valtoco 5mg/0.1ml Nasal 1 spr NASAL ONCE PRN 07/20/22 07/21/22 History Allergies Allergy/AdvReac Type Severity Reaction Status Date / Time carbamazepine [From Tegretol] Allergy Severe Anaphylaxis Verified 07/21/22 08:47 immune globulin,gamma (IgG) Allergy Severe Anaphylaxis Verified 07/21/22 08:47 human Iodinated Contrast Media Allergy Severe Rash/Hives Verified 07/21/22 08:47 Latex, Natural Rubber Allergy Severe Anaphylaxis Verified 07/21/22 08:47 phenytoin [From Dilantin] Allergy Severe Anaphylaxis Verified 02/10/23 08:47 septra Allergy Severe Anaphylaxis Uncoded 07/20/22 16:59 Physical Examination - Vital Signs Vital Signs: Vital Signs Temp Pulse Resp BP Pulse Ox FiO2 07/21/22 11:49 96 07/21/22 11:39 96 07/21/22 11:27 50 07/21/22 09:00 106 H 18 103/72 94 L 07/21/22 08:53 55 07/21/22 08:45 106 H 18 99/63 96 07/21/22 08:30 103 H 18 94/66 96 07/21/22 08:15 101 H 16 91/63 97 70 07/21/22 08:00 100 12 83/56 97 07/21/22 07:45 103 H 13 86/57 97 07/21/22 07:38 70 07/21/22 07:30 105 H 16 86/58 97 07/21/22 07:15 105 H 17 89/61 97 07/21/22 07:00 110 H 20 95/66 98 07/21/22 06:45 109 H 16 101/72 98 07/21/22 06:30 112 H 13 101/72 98 80 07/21/22 06:15 112 H 14 90/62 99 07/21/22 06:00 112 H 16 93/73 98 90 07/21/22 05:50 115 H 15 93/73 98 07/21/22 05:40 117 H 21 101/80 98 07/21/22 05:30 115 H 10 L 102/79 99 07/21/22 05:20 117 H 16 102/79 99 07/21/22 05:10 118 H 19 114/66 99 07/21/22 05:00 115 H 13 101/71 99 07/21/22 04:50 118 H 17 101/71 97 07/21/22 04:40 117 H 18 116/84 97 07/21/22 04:30 121 H 21 121/81 97 07/21/22 04:20 120 H 16 121/81 97 07/21/22 04:10 121 H 15 114/88 98 07/21/22 04:08 80 07/21/22 04:00 123 H 12 120/87 98 100 07/21/22 03:50 121 H 16 120/87 98 07/21/22 03:40 122 H 17 119/91 98 07/21/22 03:30 123 H 21 115/89 98 07/21/22 03:20 120 H 15 115/89 98 07/21/22 03:10 121 H 15 113/84 98 07/21/22 03:00 118 H 14 113/85 98 07/21/22 02:50 120 H 17 113/85 100 07/21/22 02:40 122 H 19 117/89 99 07/21/22 02:31 121 H 14 117/89 99 07/21/22 02:20 121 H 17 113/86 100 07/21/22 02:13 121 H 14 106/79 100 07/21/22 02:00 121 H 17 100/70 100 07/21/22 01:50 121 H 15 100/70 99 07/21/22 01:40 121 H 20 96/75 96 07/21/22 01:30 122 H 15 99/68 96 07/21/22 01:20 122 H 19 99/68 98 07/21/22 01:10 122 H 15 118/97 99 07/21/22 01:00 124 H 13 121/95 100 07/21/22 00:50 123 H 17 121/95 99 07/21/22 00:47 90 07/21/22 00:40 120 H 13 127/95 98 07/21/22 00:30 117 H 17 119/87 99 07/21/22 00:20 114 H 16 119/87 98 07/21/22 00:10 118 H 18 115/98 98 07/21/22 00:00 118 H 12 135/94 99 100 07/20/22 23:50 122 H 19 135/94 98 07/20/22 23:40 99.7 F H 118 H 17 123/93 98 07/20/22 23:30 118 H 14 111/81 98 07/20/22 23:20 120 H 18 111/81 97 07/20/22 23:10 117 H 18 95/68 96 07/20/22 23:00 113 H 18 92/63 97 07/20/22 22:54 114 H 17 92/63 95 100 07/20/22 22:50 99.7 F H 116 H 19 104/86 96 07/20/22 22:40 121 H 19 104/86 100 07/20/22 22:30 118 H 12 142/111 96 07/20/22 20:00 117 H 12 120/88 98 07/20/22 19:27 100 07/20/22 19:23 122 H 12 97/69 90 L 07/20/22 19:22 124 H 12 105/76 96 07/20/22 19:11 100 07/20/22 18:48 123 H 07/20/22 18:38 120 H 07/20/22 18:33 60 07/20/22 18:20 124 H 12 95 07/20/22 18:05 126 H 12 113/73 94 L 07/20/22 18:00 126 H 12 116/77 97 07/20/22 17:55 126 H 12 106/68 97 07/20/22 17:50 126 H 12 103/75 97 07/20/22 17:41 100 07/20/22 17:40 128 H 12 104/82 99 07/20/22 17:35 130 H 12 103/78 100 07/20/22 17:30 129 H 12 102/68 98 07/20/22 17:25 131 H 12 97/72 96 07/20/22 17:20 133 H 12 103/73 97 07/20/22 17:15 206 H 10 L 69/52 93 L 100 07/20/22 17:10 45 H 100/72 83 L 07/20/22 16:47 97.1 F L Intake and Output 07/20/22 07/21/22 07/21/22 22:59 06:59 14:59 Intake Total 22.237 1363.274 90.503 Output Total 475 Balance 22.237 888.274 90.503 Intake: Intake, IV Titration 22.237 1363.274 90.503 Amount Levofloxacin 750Mg-D5w 150 Pmx 750 mg In Dextrose/ Water 1 150ml.bag @ 100 mls/hr IVPB ONCE STA Rx#: [id number] Piperacillin-Tazobactam 3 25 .375 gm In Sodium Chloride 0.9% 100 ml @ 200 mls/hr IVPB ONCE STA Rx#:[id number] Piperacillin-Tazobactam 3 100 .375 gm In Sodium Chloride 0.9% 100 ml @ 25 mls/hr IVPB Q8H BRANDI Rx#: [id number] Sodium Chloride 0.9% 1, 1040 000 ml @ 130 mls/hr IV . Q7H42M BRANDI Rx#:[id number] propofoL 1,000 mg In 22.237 48.274 90.503 Empty Bag 1 bag @ 5 MCG/ KG/MIN 1.17 mls/hr IV . Q24H BRANDI Rx#:[id number] Output: Urine 475 Other: Voiding Method Self-Catheterization Weight 39.009 kg 39.9 kg Patient is a young male, very petite, short stature, somewhat cont racted in the legs. Patient is intubated, sedated with propofol 55 mcg/g/m. Patient's pupils are equal, round and reacting. Visual rodriguez could not be tested. Rest of the cranial nerves could not be tested because of being intubated. Oculocephalics could not be tested because of his neck surgeries. Muscle strength could not be tested. Deep tendon reflexes are overall diminished, plantar is flat. Sensory and cerebellar functions could not be tested. No obvious seizure-like activity noted. Patient is nonambulatory. On general examination, no obvious edema. Chest is congested. Abdomen grossly nontender. No edema. Results - Laboratory Findings CBC and BMP: 07/21/22 07:02 07/21/22 07:02 Abnormal Lab Findings: Abnormal Labs 07/20/22 07/20/22 07/20/22 16:55 16:55 16:55 WBC RBC Hgb Hct MCV 100.8 H Plt Count 84 L Lymphocytes # (Manual) Metamyelocytes # (Man) D-Dimer 1.10 H ABG pH ABG pCO2 ABG pO2 ABG HCO3 ABG Total CO2 ABG O2 Saturation Carbon Dioxide 34 H BUN 25 H Creatinine 0.58 L Glucose 115 H POC Glucose (mg/dL) Plasma Lactic Acid Scottie Calcium 7.9 L Magnesium 1.5 L Total Protein 6.0 L Albumin 3.2 L 07/20/22 07/20/22 07/20/22 16:55 18:15 22:33 WBC RBC Hgb Hct MCV Plt Count Lymphocytes # (Manual) Metamyelocytes # (Man) D-Dimer ABG pH 7.29 L ABG pCO2 68 H ABG pO2 118 H ABG HCO3 33 H ABG Total CO2 35 H ABG O2 Saturation 98.6 H Carbon Dioxide BUN Creatinine Glucose POC Glucose (mg/dL) 115 H Plasma Lactic Acid Scottie 2.3 H* Calcium Magnesium Total Protein Albumin 07/21/22 07/21/22 07/21/22 05:44 07:02 07:02 WBC 3.5 L RBC 3.71 L Hgb 11.8 L Hct 37.9 L MCV 102.1 H Plt Count 42 L Lymphocytes # (Manual) 0.42 L Metamyelocytes # (Man) 0.04 H D-Dimer ABG pH ABG pCO2 52 H ABG pO2 ABG HCO3 30 H ABG Total CO2 31 H ABG O2 Saturation 98.8 H Carbon Dioxide BUN Creatinine 0.41 L Glucose 107 H POC Glucose (mg/dL) Plasma Lactic Acid Scottie Calcium 7.5 L Magnesium Total Protein Albumin 07/21/22 12:03 WBC RBC Hgb Hct MCV Plt Count Lymphocytes # (Manual) Metamyelocytes # (Man) D-Dimer ABG pH ABG pCO2 ABG pO2 ABG HCO3 ABG Total CO2 ABG O2 Saturation Carbon Dioxide BUN Creatinine Glucose POC Glucose (mg/dL) 138 H Plasma Lactic Acid Scottie Calcium Magnesium Total Protein Albumin Assessment and Plan Assessment: * Altered mental status, likely due to toxic metabolic encephalopathy. Rule out subclinical status. * History of Arnold-Chiari malformation with myelomeningocele L3 level, hydrocephalus and syringomyelia, status post multiple VPS and shunting for syrinx. * Medically intractable seizure disorder, came with a typical seizure. * Aspiration pneumonia * Lactic acidosis, likely due to sepsis versus seizure. * Patient with history of grand mal seizures, absence seizures and tonic-clonic seizures. * Severe kyphoscoliosis * Wheelchair-bound Plan: * Stat EEG was performed today. It was very abnormal, with evidence of multifocal epileptic foci, predominantly right temporal, right frontal and sometimes generalized spike or polyspike waves. Recording of one focal seizure with secondary generalization lasting for about 26 seconds. Patient had multiple partial seizures lasting for 4-6 up to 10 seconds. No motor activity was noted during any of these seizures. Subclinical status cannot be ruled out. Recommend continuous EEG monitoring. * Suggest transfer to a higher level of care for continuous EEG monitoring. As there is no clinical parameter to monitor seizure activity. Patient apparently not stable hemodynamically for transfer. Discussed with primary physician. * Resume his seizure medications. * Repeat stat EEG in the morning to evaluate for epileptiform activity. * Check Depakote, and phenobarbital level. * Other medical management as per IM and other specialties. * Neurology will follow closely. Thank you for the consult. Time with Patient: Greater than 30
[2022-07-21] MEDS: CHLORHEXIDINE GLUCONATE 15 ML CUP MUCOUS MEM SCH (20:29)
[2022-07-21 23:31] LABS: Glucose,Whole Blood 170 mg/dL (70-110)
[2022-07-22] MEDS: IPRATROPIUM-ALBUTEROL 3 ML NEB INHALATION SCH ×6 (00:23→20:05)
[2022-07-22] MEDS: SODIUM CHLORIDE 0.9% 1,000 ML IV SCH ×4 (00:47→21:20)
[2022-07-22] MEDS: VANCOMYCIN 750 MG in SODIUM CHLORIDE 0.9% 250 ML IVPB SCH (01:56)
--- NOTE | 2022-07-22 02:21 | EEG ---
ELECTROENCEPHALOGRAM REPORT PREAMBLE: This is a 32-year-old male with seizure disorder, came with recurrent seizure. This study is performed to evaluate for any epileptiform activity. EEG FINDINGS: This is a 21-channel digital EEG recorded with video component, utilizing 10/20 international system with referential and bipolar montages. The background consists of somewhat disorganized, mixed frequencies of theta and some delta activity in bihemispheric region. Occasional alpha activity was seen. Background does not seem to be reactive to eye opening or closing. There is frequent multifocal epileptiform activity, predominantly originating in the right temporal region, and at times also involving the right frontal region and sometimes generalized spikes or polyspike and waves were also seen. Right temporal spike or polyspike and waves are followed sometimes by generalized suppression lasting for 1 to 3 seconds. At 13:31 hours, there was recording of electrographic seizure that began in the right temporal region with spike and wave less than 1 hertz for 10 seconds, then generalized to involve bihemispheric region with generalized spikes that lasted for another 16 seconds followed by periods of generalized suppression for 10 seconds. Clinically, there was no motor activity except 1 eye blink at the end of the seizure. Besides that there were numerous focal seizure, that remained restricted to the right hemispheric region lasting for between 4 to 7 seconds. Again, no motor activity was noticed on the video section of the study. Different stages of sleep were not seen. Photic stimulation was not performed. IMPRESSION: This is an abnormal EEG, 1. Presence of 2 epileptic foci involving the right temporal and the right frontal region and sometimes generalized spikes or polyspike and waves were also seen. There is recording of multiple focal seizures, all of them originating in the right hemispheric region, and 1 of them generalized lasting for about 26 seconds. No motor activity was observed on the review of video section of the study. 2. Background slowing of at least moderate degree, suggestive of encephalopathy. 3. 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 The patient has tendency for focal as well as generalized seizures. In appropriate clinical setting, subclinical partial status cannot be ruled out. Suggest a continuous EEG monitoring. MASSIMO / RIAN: [id number] / MTDD
[2022-07-22] MEDS: HYDROmorphone 0.5 MG/0.5 ML SYRINGE IVP PRN ×2 (03:17→08:12)
[2022-07-22 05:38] LABS: Glucose,Whole Blood 135 mg/dL (70-110)
[2022-07-22] MEDS: methylPREDNISolone SOD SUCCI 40 MG/ML 1 ML VIAL IV SCH (05:40)
[2022-07-22 05:47] LABS: Glucose,Whole Blood 137 mg/dL (70-110)
[2022-07-22 05:52] LABS: Basophils % (A) 0 %; Eosinophils % (A) 0 %; HCT 31.8 % (39.0-53.0); Lymphocytes # (A) 0.5 k/uL (1.0-4.8); Lymphocytes % (A) 22 %; MCH 32.1 pg (25.0-35.0); MCHC 31.3 g/dL (31.0-37.0); MCV 102.4 fL (80.0-100.0); Macrocytosis Slight; Mean Platelet Volume 10.7; Monocytes # (A) 0.1 k/uL (0-1.0); Monocytes % (A) 5 %; Neutrophils # (A) 1.7 k/uL (1.3-7.7); Neutrophils % (A) 71 %; RBC 3.11 m/uL (4.30-5.90); RDW 14.8 % (11.5-15.5); WBC 2.4 k/uL (3.8-10.6)
[2022-07-22 05:52] LABS: ABG Base Excess 0.2 mmol/L; ABG HCO3 27 mmol/L (21-25); ABG Oxygen Saturation 95.7 % (94-97); ABG PCO2 59 mmHg (35-45); ABG PH 7.27 (7.35-7.45); ABG PO2 77 mmHg (83-108); ABG TCO2 29 mmol/L (19-24); Allen Test Performed? Yes
[2022-07-22 06:03] LABS: Chloride 108 mmol/L (98-107)
[2022-07-22 06:05] LABS: African American GFR (CKD) >90 (>60 ml/min/1.73 sqM); Anion Gap 3 mmol/L; Blood Urea Nitrogen 14 mg/dL (9-20); Calcium 7.5 mg/dL (8.4-10.2); Carbon Dioxide 28 mmol/L (22-30); Glucose 132 mg/dL (74-99); Magnesium 2.4 mg/dL (1.6-2.3); Non-African American GFR(CKD) >90 (>60 ml/min/1.73 sqM); Potassium 3.5 mmol/L (3.5-5.1); Sodium 139 mmol/L (137-145)
[2022-07-22 06:06] LABS: Platelet Count 47 k/uL (150-450)
[2022-07-22] MEDS: PHENobarbitaL 16.2 MG TAB PO SCH ×2 (06:39→18:43)
[2022-07-22] MEDS: LACOSAMIDE 50 MG TABLET PO SCH ×2 (06:41→18:44)
[2022-07-22] MEDS ORDERED: Potassium Replacement Protocol 1 EACH MISC MISCELLANE PRN (07:02)
[2022-07-22] MEDS: PIPERACILLIN-TAZOBACTAM 3.375 GM in SODIUM CHLORIDE 0.9% 100 ML IVPB SCH ×3 (07:09→22:38)
--- NOTE | 2022-07-22 08:03 | XR ---
EXAMINATION TYPE: XR chest 1V portable DATE OF EXAM: 07/22/2022 7:46 AM COMPARISON: Chest radiographs from TECHNIQUE: XR chest 1V portable Portable AP radiograph of the chest. CLINICAL INDICATION:Male, 32 years old with history of Check NGT placement; FINDINGS: Limited evaluation due to patient positioning. Lungs/Pleura: Atelectasis of the left lung with loss of previous air bronchograms in the superior lef t lung. Pulmonary vascularity: Unremarkable. Heart/mediastinum: Cardiomediastinal silhouette is obscured due to overlying and adjacent opacities. Musculoskeletal: Severe scoliosis changes. The george is not definitively visualized the endotracheal tube is at the level of the thoracic inlet . Tubing projects over the anterior right chest with tip terminating over the cervical spine. Right ventriculostomy catheter terminating over the abdomen. Nasogastric tube suspected to terminate over the gastric lumen. IMPRESSION: 1. Similar Consolidation of the left lung which could be due to patient positioning and/or scoliosis . Findings could represent atelectasis versus pleural effusion. There is some bronchograms in the sup erior left lung which are new from earlier in the day. 2. Stable Endotracheal tube at the thoracic inlet evaluation above the george is limited given patie nt positioning. 3. Similar Nasogastric tube in appropriate position. 4. Similar Ventriculostomy catheter terminating over the abdomen. 5. Right chest wall tubing of unknown type terminates over the spine.
[2022-07-22] MEDS: POTASSIUM CHLORIDE 20 MEQ in WATER FOR INJECTION 1 100ML.BAG IVPB SCH ×3 (08:14→14:55)
[2022-07-22] MEDS: DIVALPROEX SPRINKLE 125 MG CAP.SPRINK PO SCH ×2 (08:15→20:24)
[2022-07-22] MEDS: FAMOTIDINE 20 MG/2 ML VIAL IV SCH ×2 (08:15→20:24)
[2022-07-22] MEDS: CHLORHEXIDINE GLUCONATE 15 ML CUP MUCOUS MEM SCH ×2 (08:15→20:25)
--- NOTE | 2022-07-22 08:17 | XR ---
EXAMINATION TYPE: XR chest 1V portable DATE OF EXAM: 07/22/2022 6:23 AM COMPARISON: Chest radiographs from subsequent films same day TECHNIQUE: XR chest 1V portable Portable AP radiograph of the chest. CLINICAL INDICATION:Male, 32 years old with history of Tube placement; FINDINGS: Limited evaluation due to patient positioning. Lungs/Pleura: Atelectasis of the left lung with loss of previous air bronchograms in the superior lef t lung. Pulmonary vascularity: Unremarkable. Heart/mediastinum: Cardiomediastinal silhouette is obscured due to overlying and adjacent opacities. Musculoskeletal: Severe scoliosis changes. The george is not definitively visualized the endotracheal tube is at the level of the thoracic inlet . Tubing projects over the anterior right chest with tip terminating over the cervical spine. Right ventriculostomy catheter terminating over the abdomen. Nasogastric tube suspected to terminate over the gastric lumen. IMPRESSION: Subsequent imaging demonstrated 1. Similar Consolidation of the left lung which could be due to patient positioning and/or scoliosis . Findings could represent atelectasis versus pleural effusion. There is some bronchograms in the sup erior left lung which are new from earlier in the day. 2. Stable Endotracheal tube at the thoracic inlet evaluation above the george is limited given patie nt positioning. 3. Similar Nasogastric tube in appropriate position. 4. Similar Ventriculostomy catheter terminating over the abdomen. 5. Right chest wall tubing of unknown type terminates over the spine.
[2022-07-22 11:33] LABS: Glucose,Whole Blood 123 mg/dL (70-110)
[2022-07-22] MEDS: HYDROmorphone 1 MG/ML 1 ML SYRINGE IVP PRN ×2 (12:20→17:06)
--- NOTE | 2022-07-22 12:26 | P.PN ---
Subjective Progress Note Date: 07/22/22 Principal diagnosis: Respiratory failure. I'm seeing this patient today, 07/21/2022, in new consultation in ICU. This is a 32-year-old white male with past medical history of spina bifida with L3 myelomeningocele, hydrocephalus with peritoneal shunt, Arnold-Chiari malformation, seizure disorder, severe kyphoscoliosis, frequent urinary tract infections secondary to neurogenic bladder and need for intermittent catheterizations. Patient was admitted yesterday 07/20/2022. Mother reports he has been feeling unwell over the past couple weeks. Reported symptoms of shortness of breath, fever, cough. Patient was treated outpatient with Augmentin. Yesterday, the patient had 2 seizures, at home, lasting approximately 1 minute. He then became more lethargic and ultimately u nconscious. Patient's mother checked his oxygen saturation with her home pulse ox, and found his SpO2 to be 50%. EMS was called and patient was transferred to [facility] Patient was intubated yesterday with a 7.5 ET tube, in the ER, to protect his airway. He is currently on mechanical ventilator settings of assist control, respiratory rate of 12, tidal volume of 300 mL, FiO2 55%, PEEP of 5. ABGs from this morning on FiO2 of 80% shows a pO2 of 103, pCO2 of 52, and a pH of 7.36. Patient's chest x-ray from today showed a complete opacification of left hemithorax. The endotracheal tube appeared to be above the george on the x-ray, however, the patient's physical deformities make it hard to assess. Patient also has an in place orogastric tube, there is a ventricular peritoneal shunt noted, and severe thoracolumbar scoliosis. There is concern for aspiration after the patient's witnessed seizure. Patient is covered empirically with Zosyn. The patient will require a bronchoscopy with BAL today. Patient's WBC count 3.5, hemoglobin 11.8, hematocrit of 37.9, platelets 42,000. Patient's BMP from today shows a sodium of 137, potassium 4.4, chloride 103, serum CO2 30, BUN 18, creatinine 0.41, glucose 107. Patient is currently sedated with propofol at 40 mcgs/kg/minute. And there is normal saline infusing at 130 milliliters per hour. Patient was negative for influenza, RSV, coronavirus. Lactic acid level was low at 1.4. Patient is also receiving bronchodilators and IV Solu-Medrol. GI prophylaxis with famotidine. Vital signs are stable at this time. Progress note dated 07/22/2022. 32-year-old male with a history of spina bifida, myelomeningocele, hydroceph alus, Arnold-Chiari malformation, seizure disorder, and severe kyphoscoliosis. The patient was seen in the ICU, after being initially evaluated in the emergency department. The patient was intubated for impending respiratory failure by the ER physician. Currently, the patient remains on the mechanical ventilator. He is on volume assist control, rate 12, tidal volume 300, FiO2 40%, PEEP of 5. Arterial blood gases show pO2 77, pCO2 of 59, and a pH is 7.3. The patient's currently on saline at 130 mL an hour, propofol at 50 mcg/kg/m, and vital AF at 30 mL, with a goal of 34. The patient is currently on Zosyn. Vancomycin was discontinued. White count 2.4, hemoglobin 10, hematocrit 31.8, platelet count 47,000. Sodium 139, potassium 3.5, chlorides 108, CO2 28, BUN 14, and creatinine 0.37. Chest x-ray shows consolidation in the left lung, as well as a stable well placed endotracheal tube. The patient did undergo bronchoscopy yesterday. Objective - Vital Signs Vital signs: Vital Signs Temp 98.4 F 07/22/22 12:00 Pulse 121 H 07/22/22 12:00 Resp 13 07/22/22 12:00 BP 138/97 07/22/22 12:00 Pulse Ox 96 07/22/22 12:00 FiO2 40 07/22/22 12:00 Intake & Output 07/21/22 07/22/22 07/22/22 18:59 06:59 18:59 Intake Total 2494.669 2603 1268.246 Output Total 265 235 104 Balance 2229.669 2368 1164.246 Weight 39.9 kg Intake: IV 2324 2133 997 .9 20 220 20 80 .9 3cc/hr 24 3 12 Invasive Line 1 60 30 10 Invasive Line 2 40 30 10 KVO 90 10 Magnesium Sulfate-D5w Pmx 200 1 gm In Dextrose/Water 1 100ml.bag @ 100 mls/hr IVPB ONCE ONE Rx#: [id number] Piperacillin-Tazobactam 3 100 150 25 .375 gm In Sodium Chloride 0.9% 100 ml @ 25 mls/hr IVPB Q8H [facility] Rx#: [id number] Potassium Chloride 20 meq 200 In Water For Injection 1 100ml.bag @ 50 mls/hr IVPB Q2H [facility] Rx#: [id number] Sodium Chloride 0.9% 1, 1430 1560 650 000 ml @ 130 mls/hr IV . Q7H42M [facility] Rx#:[id number] Vancomycin 750 mg In 250 250 Sodium Chloride 0.9% 250 ml @ 125 mls/hr IVPB Q8H [facility] Rx#:[id number] Intake, IV Titration 170.669 100 61.246 Amount propofoL 1,000 mg In 170.669 100 61.246 Empty Bag 1 bag @ 5 MCG/ KG/MIN 1.17 mls/hr IV . Q24H [facility] Rx#:[id number] Tube Feeding 200 150 Other 170 60 Output: Urine 265 235 104 Other: Voiding Method Indwelling Catheter Indwelling Catheter Indwelling Catheter # Bowel Movements 0 0 ABP, PAP, CO, CI - Last Documented Arterial Blood Pressure 148/85 - Exam No acute distress, sedated, with an orally placed endotracheal tube. HEENT examination is grossly unremarkable. Neck supple. Full range of motion. No adenopathy thyromegaly or neck vein distention. Cardiovascular examination reveals regular rhythm rate. S1-S2 normal. No S3 or S4. No discernible murmur noted. Heart rate 120 bpm. Lungs reveal diminished breath sounds laterally, more left than right sided. Scattered rhonchi are noted. No wheezes. No crackles. Abdomen soft, without bowel sounds. PEG tube is noted. Extremities are intact. No cyanosis, clubbing, or edema. The patient does have significant flexion deformities of the extremities. Skin is without rash or lesion. Neurologic examination cannot be adequately assessed. - Labs CBC & Chem 7: 07/22/22 05:35 07/22/22 05:35 Labs: Abnormal Lab Results - Last 24 Hours (Table) 07/21/22 07/21/22 07/22/22 Range/Units 14:53 23:30 05:35 WBC (3.8-10.6) k/uL RBC (4.30-5.90) m/uL Hgb (13.0-17.5) gm/dL Hct (39.0-53.0) % MCV (80.0-100.0) fL Plt Count (150-450) k/uL Lymphocytes # (1.0-4.8) k/uL ABG pH (7.35-7.45) ABG pCO2 (35-45) mmHg ABG pO2 (83-108) mmHg ABG HCO3 (21-25) mmol/L ABG Total CO2 (19-24) mmol/L Chloride (98-107) mmol/L Creatinine (0.66-1.25) mg/dL Glucose (74-99) mg/dL POC Glucose (mg/dL) 170 H 135 H (70-110) mg/dL Calcium (8.4-10.2) mg/dL Magnesium 2.8 H (1.6-2.3) mg/dL 07/22/22 07/22/22 07/22/22 Range/Units 05:35 05:35 05:46 WBC 2.4 L (3.8-10.6) k/uL RBC 3.11 L (4.30-5.90) m/uL Hgb 10.0 L D (13.0-17.5) gm/dL Hct 31.8 L (39.0-53.0) % MCV 102.4 H (80.0-100.0) fL Plt Count 47 L (150-450) k/uL Lymphocytes # 0.5 L (1.0-4.8) k/uL ABG pH (7.35-7.45) ABG pCO2 (35-45) mmHg ABG pO2 (83-108) mmHg ABG HCO3 (21-25) mmol/L ABG Total CO2 (19-24) mmol/L Chloride 108 H (98-107) mmol/L Creatinine 0.37 L (0.66-1.25) mg/dL Glucose 132 H (74-99) mg/dL POC Glucose (mg/dL) 137 H (70-110) mg/dL Calcium 7.5 L (8.4-10.2) mg/dL Magnesium 2.4 H (1.6-2.3) mg/dL 07/22/22 07/22/22 Range/Units 05:48 11:31 WBC (3.8-10.6) k/uL RBC (4.30-5.90) m/uL Hgb (13.0-17.5) gm/dL Hct (39.0-53.0) % MCV (80.0-100.0) fL Plt Count (150-450) k/uL Lymphocytes # (1.0-4.8) k/uL ABG pH 7.27 L (7.35-7.45) ABG pCO2 59 H (35-45) mmHg ABG pO2 77 L (83-108) mmHg ABG HCO3 27 H (21-25) mmol/L ABG Total CO2 29 H (19-24) mmol/L Chloride (98-107) mmol/L Creatinine (0.66-1.25) mg/dL Glucose (74-99) mg/dL POC Glucose (mg/dL) 123 H (70-110) mg/dL Calcium (8.4-10.2) mg/dL Magnesium (1.6-2.3) mg/dL Microbiology - Last 24 Hours (Table) 07/20/22 17:10 Blood Culture Gram Stain - Preliminary Blood Blood Culture - Preliminary Staphylococcus epidermidis 07/20/22 16:55 Blood Culture - Preliminary Blood No Growth after 24 hours 07/20/22 17:10 Blood Culture - Final Blood 07/20/22 17:50 Gram Stain - Preliminary Sputum Sputum Culture - Preliminary Assessment and Plan Assessment: Acute hypoxemic respiratory failure, likely secondary to aspiration. Status post intubation and mechanical ventilation on 07/20/2022. S/P bronchoscopy, 07/21/2022. Suspected aspiration pneumonia. History of breakthrough seizure disorder in a patient with chronic seizure history. History of spina bifida with L3 myelomeningocele. History of hydrocephalus, status post FUR STRETCHER shunt. History of Arnold-Chiari malformation. Severe kyphoscoliosis. Frequent urinary tract infections. Plan: Plan dated 07/22/2022. The patient is seen today in evaluated, and room 266. Remains on propofol at 50 mcg/kg/m. We will DC the vancomycin. Remains on the ventilator. Gas exchange is reasonable. The patient is currently on tube feedings. We will continue to follow make recommendations along the way. Labs, x-rays, medications are reviewed. Prognosis is guarded. The mother seems realistic. Bronchoscopy was performed yesterday. Lines were placed yesterday including central line and arterial line. Time with Patient: Greater than 30
[2022-07-22] MEDS ORDERED: NA PHOS,M-B/NA PHOS,DI-BA 66.6 ML ENEMA RECTAL PRN (12:44)
[2022-07-22] MEDS ORDERED: SENNA LEAF EXTRACT SYRUP 528 MG/15 ML CUP NG-TUBE STA (12:48)
--- NOTE | 2022-07-22 16:20 | P.PN ---
Subjective Progress Note Date: 07/22/22 Patient was seen for a follow-up. Patient's both parents were present today. No further seizures reported. He is intubated, sedated on propofol 50 mcg/kg/m. Objective - Vital Signs Vital signs: Vital Signs Temp 98.4 F 07/22/22 12:00 Pulse 107 H 07/22/22 14:00 Resp 12 07/22/22 14:00 BP 138/97 07/22/22 12:00 Pulse Ox 96 07/22/22 14:00 FiO2 40 07/22/22 12:00 Intake & Output 07/21/22 07/22/22 07/22/22 18:59 06:59 18:59 Intake Total 2494.669 2603 1666.246 Output Total 265 235 154 Balance 2229.669 2368 1512.246 Weight 39.9 kg Intake: IV 2324 2133 1323 .9 20 220 20 120 .9 3cc/hr 24 3 18 Invasive Line 1 60 30 20 Invasive Line 2 40 30 20 KVO 90 10 Magnesium Sulfate-D5w Pmx 200 1 gm In Dextrose/Water 1 100ml.bag @ 100 mls/hr IVPB ONCE ONE Rx#: [id number] Piperacillin-Tazobactam 3 100 150 25 .375 gm In Sodium Chloride 0.9% 100 ml @ 25 mls/hr IVPB Q8H [facility] Rx#: [id number] Potassium Chloride 20 meq 200 In Water For Injection 1 100ml.bag @ 50 mls/hr IVPB Q2H [facility] Rx#: [id number] Sodium Chloride 0.9% 1, 1430 1560 910 000 ml @ 130 mls/hr IV . Q7H42M [facility] Rx#:[id number] Vancomycin 750 mg In 250 250 Sodium Chloride 0.9% 250 ml @ 125 mls/hr IVPB Q8H [facility] Rx#:[id number] Intake, IV Titration 170.669 100 61.246 Amount propofoL 1,000 mg In 170.669 100 61.246 Empty Bag 1 bag @ 5 MCG/ KG/MIN 1.17 mls/hr IV . Q24H [facility] Rx#:[id number] Tube Feeding 200 222 Other 170 60 Output: Urine 265 235 154 Other: Voiding Method Indwelling Catheter Indwelling Catheter Indwelling Catheter # Bowel Movements 0 0 ABP, PAP, CO, CI - Last Documented Arterial Blood Pressure 122/69 - Exam Patient intubated, sedated. Detail examination deferred. No seizure-like activity witnessed. - Labs CBC & Chem 7: 07/22/22 05:35 07/22/22 14:30 Labs: Abnormal Lab Results - Last 24 Hours (Table) 07/21/22 07/22/22 07/22/22 Range/Units 23:30 05:35 05:35 WBC 2.4 L (3.8-10.6) k/uL RBC 3.11 L (4.30-5.90) m/uL Hgb 10.0 L D (13.0-17.5) gm/dL Hct 31.8 L (39.0-53.0) % MCV 102.4 H (80.0-100.0) fL Plt Count 47 L (150-450) k/uL Lymphocytes # 0.5 L (1.0-4.8) k/uL ABG pH (7.35-7.45) ABG pCO2 (35-45) mmHg ABG pO2 (83-108) mmHg ABG HCO3 (21-25) mmol/L ABG Total CO2 (19-24) mmol/L Chloride (98-107) mmol/L Creatinine (0.66-1.25) mg/dL Glucose (74-99) mg/dL POC Glucose (mg/dL) 170 H 135 H (70-110) mg/dL Calcium (8.4-10.2) mg/dL Magnesium (1.6-2.3) mg/dL 07/22/22 07/22/22 07/22/22 Range/Units 05:35 05:46 05:48 WBC (3.8-10.6) k/uL RBC (4.30-5.90) m/uL Hgb (13.0-17.5) gm/dL Hct (39.0-53.0) % MCV (80.0-100.0) fL Plt Count (150-450) k/uL Lymphocytes # (1.0-4.8) k/uL ABG pH 7.27 L (7.35-7.45) ABG pCO2 59 H (35-45) mmHg ABG pO2 77 L (83-108) mmHg ABG HCO3 27 H (21-25) mmol/L ABG Total CO2 29 H (19-24) mmol/L Chloride 108 H (98-107) mmol/L Creatinine 0.37 L (0.66-1.25) mg/dL Glucose 132 H (74-99) mg/dL POC Glucose (mg/dL) 137 H (70-110) mg/dL Calcium 7.5 L (8.4-10.2) mg/dL Magnesium 2.4 H (1.6-2.3) mg/dL 07/22/22 Range/Units 11:31 WBC (3.8-10.6) k/uL RBC (4.30-5.90) m/uL Hgb (13.0-17.5) gm/dL Hct (39.0-53.0) % MCV (80.0-100.0) fL Plt Count (150-450) k/uL Lymphocytes # (1.0-4.8) k/uL ABG pH (7.35-7.45) ABG pCO2 (35-45) mmHg ABG pO2 (83-108) mmHg ABG HCO3 (21-25) mmol/L ABG Total CO2 (19-24) mmol/L Chloride (98-107) mmol/L Creatinine (0.66-1.25) mg/dL Glucose (74-99) mg/dL POC Glucose (mg/dL) 123 H (70-110) mg/dL Calcium (8.4-10.2) mg/dL Magnesium (1.6-2.3) mg/dL Microbiology - Last 24 Hours (Table) 07/20/22 17:50 Gram Stain - Final Sputum Sputum Culture - Final 07/20/22 17:10 Blood Culture Gram Stain - Preliminary Blood Blood Culture - Preliminary Staphylococcus epidermidis 07/20/22 16:55 Blood Culture - Preliminary Blood No Growth after 24 hours 07/20/22 17:10 Blood Culture - Final Blood Assessment and Plan Assessment: * Altered mental status, likely due to toxic metabolic encephalopathy. Status post subclinical status, now resolved. * History of Arnold-Chiari malformation with myelomeningocele L3 level, hydrocephalus and syringomyelia, status post multiple VPS and shunting for syrinx. * Medically intractable seizure disorder, came with a typical seizure. * Aspiration pneumonia * Lactic acidosis, likely due to sepsis versus seizure. * Patient with history of grand mal seizures, absence seizures and tonic-clonic seizures. * Severe kyphoscoliosis * Wheelchair-bound Plan: * Repeat EEG 07/22/2022 preliminary report showed background slowing of moderate to severe degree, consistent with encephalopathy. No evidence of partial status. No electrographic seizure recorded. Still presence of epileptogenic focus involving the right temporal and also the right frontal region. No generalization. * EEG 07/21/2022 showed presence of 2 epileptic foci involving the right temporal and right frontal region and sometimes generalized spike or polyspike and wave were also seen. There is recording of multiple focal seizures, all of them originating in the right hemispheric region and one of them later generalized for about 26 seconds. No motor activity was observed on the review of the video section of the study. Background slowing of at least moderate degree suggestive of encephalopathy. Subclinical partial status cannot be ruled out. Clinical correlation is recommended. * Continue his seizure medications including Vimpat 200 mg twice a day, Depakote 500 mg in the morning and 250 mg at night, and phenobarbital 40.5 mg twice a day. * Depakote level 53.8 (50-100), and phenobarbital level 22.4 (15-40). Both levels are therapeutic. * Other medical management as per IM and other specialties. * Dr. Antony will follow-up patient tomorrow on Sunday and Dr. De Jesus will resume neurology service from 1 day. * Discussed with primary physician and patient's family in detail.
[2022-07-22] MEDS ORDERED: VANCOMYCIN TROUGH DUE 1 EACH MISC MISCELLANE ONE (17:00)
--- NOTE | 2022-07-22 19:18 | XR ---
EXAMINATION TYPE: XR chest 1V portable DATE OF EXAM: 07/22/2022 COMPARISON: Today HISTORY: Tube placement. Aspiration. TECHNIQUE: Single view FINDINGS: There is an endotracheal tube approximately 2 cm from the george. There is nasogastric tube in the stomach. There is significant thoracic dextroscoliosis. There is no opacification of the left hemithorax. The right lung is relatively clear. There is some tubing over the right side of the neck . IMPRESSION: Opacification left hemithorax consistent with consolidation and atelectasis and pleural f luid without change. Severe scoliotic deformity.
--- NOTE | 2022-07-22 22:59 | EEG ---
ELECTROENCEPHALOGRAM REPORT PREAMBLE: This is a 32-year-old male with history of seizure disorder, had a very abnormal EEG yesterday with possible subclinical status. This is a followup EEG. EEG FINDINGS: This is a 21 channel portable EEG recorded with video component, utilizing 10/20 international system with referential and bipolar montages. The recording consists of presence of diffuse slowing in mixed theta and some delta activity seen diffusely in bihemispheric region. Background does not seem to be reactive to eye opening and closing. Eye blink artifacts were frequently seen. Sporadic right temporal and rare right frontal sharp waves were seen during the study. No electrographic seizure was seen during the entire study. Different stages of sleep were not clearly seen. IMPRESSION: This is an abnormal EEG due to, 1. Background slowing of [id number] degree, suggestive of generalized cerebral dysfunction as can be seen with toxic metabolic encephalopathy or due to diffuse structural brain abnormality. Clinical correlation is recommended. 2. Presence of sporadic right temporal and rare right frontal sharp waves, suggestive of focal cortical neural dysfunction with underlying cortical irritability. 3. No electrographic seizure seen in the entire study. 4. When compared to the study from 07/21/2022, the subclinical status, has completely resolved. MMODL / IJN: [id number] /
--- NOTE | 2022-07-22 23:42 | P.PN ---
Subjective This is a pleasant 32 years old male with past medical history of L3 myelomeningocele and hydrocephalus with any peritoneal shunt, spina bifid F, se izure, chiari malformation. Patient initially presents because of altered mental status and seizure, he had 2 seizures at home 1. Gastric to and other as atypical. Patient was bronchoscoped doing well more lethargic and L over the last 2 days. This morning patient mother noticed he had a seizure that lasted for about 1 minute followed by post ictal confusion, and mother noticed that his oxygen saturation is drip until called EMS, as per document However the mother clarify that actually he has been sick 2 days ago with congestion and coughing, Dr. Mcfarland his primary doctor start him on Augmentin because of history of septic shock and easy infection, he took 3 pulse, he has a day morning he was noticed to have a brief period of seizure although the mom she does not think he had seizure he was just lethargic. She checked his temperature at home and it was 102 breath he was feeling cold an d shivering. At baseline he is able to talk normally, he understands the surrounding, he can eat by himself but he is wheelchair bound On admission he is with low-grade temperature 99.7. He is tachycardic around 115, hypertensive blood pressure this morning 93/73. His CBC is unremarkable. INR is 1.1, d-dimer is slightly elevated at 1.1. On admission. PhosLo 7.2, heart pCO2 of 68. Chest x-ray: Left upper and middle lobe consolidation with air bronchograms EKG showing sinus tachycardia at 130 Emergency room patient received breathing treatment, antibiotics, steroids, normal saline. (Continued on Levaquin and normal saline at 1:30 milliliters of breath or, Zosyn and Solu-Medrol 40 mg 07/22/2022 Patient remains intubated and sedated. He is on mechanical ventilation with FiO2 of 40% and PEEP of 5. Status post bronchoscopy. Blood pressure 147/82, tachycardic at 117. Mcclain place. WBCs 2.4, hemoglobin 10, platelets at 102. He remains on Zosyn and Levaquin, no positive vancomycin is a normal saline and Solu-Medrol 40 mg I discussed the case with the neurology this morning repeat EEG showing no more epileptic discharge. Patient remains on 3 antiseizure medications phenobarbital, Depakote and vimpat. Objective - Vital Signs Vital signs: Vital Signs Temp 98.4 F 07/22/22 12:00 Pulse 107 H 07/22/22 14:00 Resp 12 07/22/22 14:00 BP 138/97 07/22/22 12:00 Pulse Ox 96 07/22/22 14:00 FiO2 40 07/22/22 12:00 Intake & Output 07/21/22 07/22/22 07/22/22 18:59 06:59 18:59 Intake Total 2494.669 2603 1666.246 Output Total 265 235 154 Balance 2229.669 2368 1512.246 Weight 39.9 kg Intake: IV 2324 2133 1323 .9 20 220 20 120 .9 3cc/hr 24 3 18 Invasive Line 1 60 30 20 Invasive Line 2 40 30 20 KVO 90 10 Magnesium Sulfate-D5w Pmx 200 1 gm In Dextrose/Water 1 100ml.bag @ 100 mls/hr IVPB ONCE ONE Rx#: [id number] Piperacillin-Tazobactam 3 100 150 25 .375 gm In Sodium Chloride 0.9% 100 ml @ 25 mls/hr IVPB Q8H [facility] Rx#: [id number] Potassium Chloride 20 meq 200 In Water For Injection 1 100ml.bag @ 50 mls/hr IVPB Q2H [facility] Rx#: [id number] Sodium Chloride 0.9% 1, 1430 1560 910 000 ml @ 130 mls/hr IV . Q7H42M [facility] Rx#:[id number] Vancomycin 750 mg In 250 250 Sodium Chloride 0.9% 250 ml @ 125 mls/hr IVPB Q8H [facility] Rx#:[id number] Intake, IV Titration 170.669 100 61.246 Amount propofoL 1,000 mg In 170.669 100 61.246 Empty Bag 1 bag @ 5 MCG/ KG/MIN 1.17 mls/hr IV . Q24H [facility] Rx#:[id number] Tube Feeding 200 222 Other 170 60 Output: Urine 265 235 154 Other: Voiding Method Indwelling Catheter Indwelling Catheter Indwelling Catheter # Bowel Movements 0 0 ABP, PAP, CO, CI - Last Documented Arterial Blood Pressure 122/69 - Exam -GENERAL: The patient is sedated and intubated HEENT: Pupils are round and equally reacting to light. EOMI. No scleral icterus. No conjunctival pallor. Normocephalic, atraumatic. No pharyngeal erythema. No thyromegaly. CARDIOVASCULAR: S1 and S2 present. No murmurs, rubs, or gallops. -PULMONARY: Chest is clear to auscultation, no wheezing or crackles. Patient is tachypneic, he has bilateral shift mainly on the right side -ABDOMEN: Soft, nontender, nondistended, normoactive bowel sounds. No palpable organomegaly. Mcclain catheter in a Place MUSCULOSKELETAL: No joint swelling or deformity. EXTREMITIES: No cyanosis, clubbing, or pedal edema. NEUROLOGICAL: Gross neurological examination did not reveal any focal deficits. SKIN: No rashes. no petechiae. - Labs CBC & Chem 7: 07/22/22 05:35 07/22/22 14:30 Labs: Abnormal Lab Results - Last 24 Hours (Table) 07/21/22 07/22/22 07/22/22 Range/Units 23:30 05:35 05:35 WBC 2.4 L (3.8-10.6) k/uL RBC 3.11 L (4.30-5.90) m/uL Hgb 10.0 L D (13.0-17.5) gm/dL Hct 31.8 L (39.0-53.0) % MCV 102.4 H (80.0-100.0) fL Plt Count 47 L (150-450) k/uL Lymphocytes # 0.5 L (1.0-4.8) k/uL ABG pH (7.35-7.45) ABG pCO2 (35-45) mmHg ABG pO2 (83-108) mmHg ABG HCO3 (21-25) mmol/L ABG Total CO2 (19-24) mmol/L Chloride (98-107) mmol/L Creatinine (0.66-1.25) mg/dL Glucose (74-99) mg/dL POC Glucose (mg/dL) 170 H 135 H (70-110) mg/dL Calcium (8.4-10.2) mg/dL Magnesium (1.6-2.3) mg/dL 07/22/22 07/22/22 07/22/22 Range/Units 05:35 05:46 05:48 WBC (3.8-10.6) k/uL RBC (4.30-5.90) m/uL Hgb (13.0-17.5) gm/dL Hct (39.0-53.0) % MCV (80.0-100.0) fL Plt Count (150-450) k/uL Lymphocytes # (1.0-4.8) k/uL ABG pH 7.27 L (7.35-7.45) ABG pCO2 59 H (35-45) mmHg ABG pO2 77 L (83-108) mmHg ABG HCO3 27 H (21-25) mmol/L ABG Total CO2 29 H (19-24) mmol/L Chloride 108 H (98-107) mmol/L Creatinine 0.37 L (0.66-1.25) mg/dL Glucose 132 H (74-99) mg/dL POC Glucose (mg/dL) 137 H (70-110) mg/dL Calcium 7.5 L (8.4-10.2) mg/dL Magnesium 2.4 H (1.6-2.3) mg/dL 07/22/22 Range/Units 11:31 WBC (3.8-10.6) k/uL RBC (4.30-5.90) m/uL Hgb (13.0-17.5) gm/dL Hct (39.0-53.0) % MCV (80.0-100.0) fL Plt Count (150-450) k/uL Lymphocytes # (1.0-4.8) k/uL ABG pH (7.35-7.45) ABG pCO2 (35-45) mmHg ABG pO2 (83-108) mmHg ABG HCO3 (21-25) mmol/L ABG Total CO2 (19-24) mmol/L Chloride (98-107) mmol/L Creatinine (0.66-1.25) mg/dL Glucose (74-99) mg/dL POC Glucose (mg/dL) 123 H (70-110) mg/dL Calcium (8.4-10.2) mg/dL Magnesium (1.6-2.3) mg/dL Microbiology - Last 24 Hours (Table) 07/20/22 17:50 Gram Stain - Final Sputum Sputum Culture - Final 07/20/22 17:10 Blood Culture Gram Stain - Preliminary Blood Blood Culture - Preliminary Staphylococcus epidermidis 07/20/22 16:55 Blood Culture - Preliminary Blood No Growth after 24 hours 07/20/22 17:10 Blood Culture - Final Blood Assessment and Plan Assessment: Left community acquired pneumonia, versus aspiration pneumonia Hypoxic respiratory failure secondary to above Possible reactive airway disease Altered mental status, mostly metabolic encephalopathy Breakthrough seizure Respiratory acidosis History of spina bifid the and third lumbar myelomeningocele History of hydrocephalus status post cranial peritoneal shunt History of seizure chiari malformation History of Recurrent UTI Plan: Continue with antibiotic Continue with steroids Continue with a bronchodilator Continue antibiotic, currently is on Zosyn and Levaquin Follow-up sputum culture and blood culture Pulmonary consult Labs and medication were reviewed.. Continue same treatment. Continue with symptomatic treatment. Resume home medication. Monitor labs and vitals. DVT and GI prophylaxis. Further recommendations as per clinical course of the patient DVT prophylaxis: mechanical. No heparin for thrombocytopenia and her risk of bleeding GI Prophylaxis: Pepcid Prognosis is guarded
[2022-07-23] MEDS: IPRATROPIUM-ALBUTEROL 3 ML NEB INHALATION SCH ×7 (00:45→23:18)
[2022-07-23] MEDS: HYDROmorphone 1 MG/ML 1 ML SYRINGE IVP PRN ×5 (01:14→22:34)
[2022-07-23 03:14] LABS: Glucose,Whole Blood 93 mg/dL (70-110)
[2022-07-23 05:01] LABS: Basophils % (A) 0 %; Eosinophils % (A) 0 %; HCT 30.7 % (39.0-53.0); HGB 9.5 gm/dL (13.0-17.5); Hypochromasia Moderate; Lymphocytes # (A) 1.4 k/uL (1.0-4.8); Lymphocytes % (A) 33 %; MCH 32.5 pg (25.0-35.0); MCHC 30.9 g/dL (31.0-37.0); Macrocytosis Moderate; Mean Platelet Volume 8.8; Monocytes # (A) 0.2 k/uL (0-1.0); Monocytes % (A) 5 %; Neutrophils # (A) 2.4 k/uL (1.3-7.7); Neutrophils % (A) 59 %; RBC 2.93 m/uL (4.30-5.90); RDW 15.1 % (11.5-15.5); WBC 4.1 k/uL (3.8-10.6)
[2022-07-23 05:06] LABS: Platelet Count 53 k/uL (150-450)
[2022-07-23 05:15] LABS: Chloride 114 mmol/L (98-107)
[2022-07-23 05:16] LABS: ALT 9 U/L (4-49); AST 17 U/L (17-59); African American GFR (CKD) >90 (>60 ml/min/1.73 sqM); Albumin 2.1 g/dL (3.5-5.0); Alkaline Phosphatase 35 U/L (38-126); Anion Gap 0 mmol/L; Blood Urea Nitrogen 12 mg/dL (9-20); Calcium 7.6 mg/dL (8.4-10.2); Carbon Dioxide 26 mmol/L (22-30); Glucose 89 mg/dL (74-99); Non-African American GFR(CKD) >90 (>60 ml/min/1.73 sqM); Potassium 3.6 mmol/L (3.5-5.1); Sodium 140 mmol/L (137-145); Total Bilirubin 0.2 mg/dL (0.2-1.3); Total Protein 4.2 g/dL (6.3-8.2)
[2022-07-23 05:46] LABS: ABG Base Excess -1.5 mmol/L; ABG HCO3 26 mmol/L (21-25); ABG Oxygen Saturation 94.6 % (94-97); ABG PCO2 58 mmHg (35-45); ABG PH 7.26 (7.35-7.45); ABG PO2 66 mmHg (83-108); ABG TCO2 27 mmol/L (19-24)
[2022-07-23] MEDS: PHENobarbitaL 16.2 MG TAB PO SCH ×2 (06:33→18:17)
[2022-07-23] MEDS: MAGNESIUM SULFATE-D5W PMX 1 GM in DEXTROSE/WATER 1 100ML.BAG IVPB SCH ×2 (06:33→09:09)
[2022-07-23] MEDS: PIPERACILLIN-TAZOBACTAM 3.375 GM in SODIUM CHLORIDE 0.9% 100 ML IVPB SCH ×3 (06:34→22:31)
[2022-07-23] MEDS ORDERED: POTASSIUM BICARBONATE/CIT AC 20 MEQ TABLET.EFF NG-TUBE SCH (07:00)
[2022-07-23] MEDS: LACOSAMIDE 50 MG TABLET PO SCH ×2 (07:01→18:16)
--- NOTE | 2022-07-23 07:36 | XR ---
EXAMINATION TYPE: XR chest 1V portable DATE OF EXAM: 07/23/2022 6:05 AM COMPARISON: Chest radiograph from one day prior. TECHNIQUE: XR chest 1V portable Portable AP radiograph of the chest. CLINICAL INDICATION:Male, 32 years old with history of Tube placement; FINDINGS: FINDINGS: Limited evaluation due to patient positioning. Lungs/Pleura: Atelectasis of the left lung with loss of previous air bronchograms in the superior lef t lung. Pulmonary vascularity: Unremarkable. Heart/mediastinum: Cardiomediastinal silhouette is obscured due to overlying and adjacent opacities. Musculoskeletal: Severe scoliosis changes. The george is not definitively visualized the endotracheal tube is at the level of the thoracic inlet . Tubing projects over the anterior right chest with tip terminating over the cervical spine. Right ventriculostomy catheter terminating over the abdomen. Nasogastric tube suspected to terminate over the gastric lumen. IMPRESSION: 1. Similar consolidation of the left lung which could be due to patient positioning and/or scoliosis scoliosis with findings likely represent atelectasis versus pleural effusion. 2. Stable endotracheal tube at the thoracic inlet evaluation above the george is limited given patie nt positioning. 3. Similar nasogastric tube in appropriate position. 4. Similar ventriculostomy catheter terminating over the abdomen. 5. Right chest wall tubing of unknown type terminates over the spine.
[2022-07-23] MEDS: CHLORHEXIDINE GLUCONATE 15 ML CUP MUCOUS MEM SCH ×2 (09:09→20:22)
[2022-07-23] MEDS: FAMOTIDINE 20 MG/2 ML VIAL IV SCH ×2 (09:09→20:22)
[2022-07-23] MEDS: SODIUM CHLORIDE 0.45% 1,000 ML IV SCH ×2 (10:20→20:59)
[2022-07-23] MEDS: DIVALPROEX SPRINKLE 125 MG CAP.SPRINK PO SCH ×2 (10:20→21:03)
--- NOTE | 2022-07-23 11:13 | P.PN ---
Subjective This is a pleasant 32 years old male with past medical history of L3 myelomeningocele and hydrocephalus with any peritoneal shunt, spina bifid F, se izure, chiari malformation. Patient initially presents because of altered mental status and seizure, he had 2 seizures at home 1. Gastric to and other as atypical. Patient was bronchoscoped doing well more lethargic and L over the last 2 days. This morning patient mother noticed he had a seizure that lasted for about 1 minute followed by post ictal confusion, and mother noticed that his oxygen saturation is drip until called EMS, as per document However the mother clarify that actually he has been sick 2 days ago with congestion and coughing, Dr. Mcfarland his primary doctor start him on Augmentin because of history of septic shock and easy infection, he took 3 pulse, he has a day morning he was noticed to have a brief period of seizure although the mom she does not think he had seizure he was just lethargic. She checked his temperature at home and it was 102 breath he was feeling cold an d shivering. At baseline he is able to talk normally, he understands the surrounding, he can eat by himself but he is wheelchair bound On admission he is with low-grade temperature 99.7. He is tachycardic around 115, hypertensive blood pressure this morning 93/73. His CBC is unremarkable. INR is 1.1, d-dimer is slightly elevated at 1.1. On admission. PhosLo 7.2, heart pCO2 of 68. Chest x-ray: Left upper and middle lobe consolidation with air bronchograms EKG showing sinus tachycardia at 130 Emergency room patient received breathing treatment, antibiotics, steroids, normal saline. (Continued on Levaquin and normal saline at 1:30 milliliters of breath or, Zosyn and Solu-Medrol 40 mg 07/22/2022 Patient remains intubated and sedated. He is on mechanical ventilation with FiO2 of 40% and PEEP of 5. Status post bronchoscopy. Blood pressure 147/82, tachycardic at 117. Mcclain place. WBCs 2.4, hemoglobin 10, platelets at 102. He remains on Zosyn and Levaquin, no positive vancomycin is a normal saline and Solu-Medrol 40 mg I discussed the case with the neurology this morning repeat EEG showing no more epileptic discharge. Patient remains on 3 antiseizure medications phenobarbital, Depakote and vimpat. 07/23/2022 Patient still in the ICU sedated and intubated No seizure-like activity however he is improving and he may be considered for sedation holiday per pulmonary/critical care team who have also with the vent management. Currently he has FiO2 of 40% and PEEP of 5. His hemoglobin 9.5, WBC 4.1 and platelet count 53, he is tachycardic with heart rate around 1 25/m and just vitals stable. He has positive blood culture with staph epidermidis, most likely contamination Chest x-ray I reviewed myself showing still opacification on the left side Also his normal saline lower to 100 mL/h with Mcclain catheter in place Currently covered with Zosyn. Also he is on normal saline at 100 mL per hour and Solu-Medrol 40 mg Objective - Vital Signs Vital signs: Vital Signs Temp 98.7 F 07/23/22 08:00 Pulse 120 H 07/23/22 11:00 Resp 14 07/23/22 11:00 BP 120/82 07/23/22 10:00 Pulse Ox 91 L 07/23/22 11:00 FiO2 40 07/23/22 08:00 Intake & Output 07/22/22 07/23/22 07/23/22 18:59 06:59 18:59 Intake Total 2764.796 2403.367 669 Output Total 234 343 130 Balance 2530.796 2060.367 539 Intake: IV 2155 2091 669 .9 20 200 240 40 .9 3cc/hr 30 36 9 Invasive Line 1 30 30 Invasive Line 2 30 30 KVO 10 70 30 Magnesium Sulfate-D5w Pmx 200 1 gm In Dextrose/Water 1 100ml.bag @ 100 mls/hr IVPB ONCE ONE Rx#: [id number] Piperacillin-Tazobactam 3 225 125 .375 gm In Sodium Chloride 0.9% 100 ml @ 25 mls/hr IVPB Q8H [facility] Rx#: [id number] Potassium Chloride 20 meq 200 In Water For Injection 1 100ml.bag @ 50 mls/hr IVPB Q2H [facility] Rx#: [id number] Sodium Chloride 0.9% 1, 1430 1560 390 000 ml @ 130 mls/hr IV . Q7H42M [facility] Rx#:[id number] Intake, IV Titration 157.796 64.367 Amount propofoL 1,000 mg In 157.796 64.367 Empty Bag 1 bag @ 5 MCG/ KG/MIN 1.17 mls/hr IV . Q24H [facility] Rx#:[id number] Tube Feeding 392 68 Other 60 180 Output: Urine 234 343 130 Other: Voiding Method Indwelling Catheter Indwelling Catheter Indwelling Catheter # Bowel Movements 0 0 ABP, PAP, CO, CI - Last Documented Arterial Blood Pressure 135/85 - Exam -GENERAL: The patient is sedated and intubated HEENT: Pupils are round and equally reacting to light. EOMI. No scleral icterus. No conjunctival pallor. Normocephalic, atraumatic. No pharyngeal erythema. No thyromegaly. CARDIOVASCULAR: S1 and S2 present. No murmurs, rubs, or gallops. -PULMONARY: Chest is clear to auscultation, no wheezing or crackles. Patient is tachypneic, he has bilateral shift mainly on the right side -ABDOMEN: Soft, nontender, nondistended, normoactive bowel sounds. No palpable organomegaly. Mcclain catheter in a Place MUSCULOSKELETAL: No joint swelling or deformity. EXTREMITIES: No cyanosis, clubbing, or pedal edema. NEUROLOGICAL: Gross neurological examination did not reveal any focal deficits. SKIN: No rashes. no petechiae. - Labs CBC & Chem 7: 07/23/22 04:34 07/23/22 04:34 Labs: Abnormal Lab Results - Last 24 Hours (Table) 07/22/22 07/23/22 07/23/22 Range/Units 11:31 04:34 04:34 RBC 2.93 L (4.30-5.90) m/uL Hgb 9.5 L (13.0-17.5) gm/dL Hct 30.7 L (39.0-53.0) % MCV 105.0 H (80.0-100.0) fL MCHC 30.9 L (31.0-37.0) g/dL Plt Count 53 L (150-450) k/uL ABG pH (7.35-7.45) ABG pCO2 (35-45) mmHg ABG pO2 (83-108) mmHg ABG HCO3 (21-25) mmol/L ABG Total CO2 (19-24) mmol/L Chloride 114 H (98-107) mmol/L Creatinine 0.36 L (0.66-1.25) mg/dL POC Glucose (mg/dL) 123 H (70-110) mg/dL Calcium 7.6 L (8.4-10.2) mg/dL Alkaline Phosphatase 35 L (38-126) U/L Total Protein 4.2 L (6.3-8.2) g/dL Albumin 2.1 L (3.5-5.0) g/dL 07/23/22 Range/Units 05:43 RBC (4.30-5.90) m/uL Hgb (13.0-17.5) gm/dL Hct (39.0-53.0) % MCV (80.0-100.0) fL MCHC (31.0-37.0) g/dL Plt Count (150-450) k/uL ABG pH 7.26 L (7.35-7.45) ABG pCO2 58 H (35-45) mmHg ABG pO2 66 L (83-108) mmHg ABG HCO3 26 H (21-25) mmol/L ABG Total CO2 27 H (19-24) mmol/L Chloride (98-107) mmol/L Creatinine (0.66-1.25) mg/dL POC Glucose (mg/dL) (70-110) mg/dL Calcium (8.4-10.2) mg/dL Alkaline Phosphatase (38-126) U/L Total Protein (6.3-8.2) g/dL Albumin (3.5-5.0) g/dL Microbiology - Last 24 Hours (Table) 07/20/22 17:10 Blood Culture Gram Stain - Final Blood Blood Culture - Final Staphylococcus epidermidis 07/20/22 16:55 Blood Culture - Preliminary Blood No Growth after 48 hours 07/20/22 17:50 Gram Stain - Final Sputum Sputum Culture - Final Assessment and Plan Assessment: Left community acquired pneumonia, versus aspiration pneumonia Hypoxic respiratory failure secondary to above Possible reactive airway disease Altered mental status, mostly metabolic encephalopathy Breakthrough seizure Respiratory acidosis History of spina bifid the and third lumbar myelomeningocele History of hydrocephalus status post cranial peritoneal shunt History of seizure chiari malformation History of Recurrent UTI Plan: Continue with antibiotic Zosyn Continue with steroids Solu-Medrol Continue with a bronchodilator Follow-up sputum culture and blood culture Pulmonary consult Labs and medication were reviewed.. Continue same treatment. Continue with symptomatic treatment. Resume home medication. Monitor labs and vitals. DVT and GI prophylaxis. Further recommendations as per clinical course of the patient DVT prophylaxis: mechanical. No heparin for thrombocytopenia and her risk of bleeding GI Prophylaxis: Pepcid Prognosis is guarded Plan discussed with mother at bedside
[2022-07-23 11:36] LABS: Glucose,Whole Blood 95 mg/dL (70-110)
--- NOTE | 2022-07-23 12:09 | P.PN ---
Subjective Progress Note Date: 07/23/22 The patient is a 32-year-old male who is seen in neurologic follow-up on July 23, 2022, via teleneurology. The patient's mother is present at the bedside, at the time of the evaluation. She feels the patient is doing well. There has been no visualized seizure activity. According to the patient's nurse, the patient does open his eyes when he is repositioned. He is not following any commands. He continues to be on propofol 50 g. There are no plans on weaning him today. The patient's chart has been reviewed. His most recent EEG showed no signs of seizure activity. His phenobarbital and Depakote levels are therapeutic. Objective - Vital Signs Vital signs: Vital Signs Temp 98.7 F 07/23/22 08:00 Pulse 117 H 07/23/22 11:49 Resp 14 07/23/22 11:00 BP 120/82 07/23/22 10:00 Pulse Ox 91 L 07/23/22 11:00 FiO2 40 07/23/22 08:00 Intake & Output 07/22/22 07/23/22 07/23/22 18:59 06:59 18:59 Intake Total 2764.796 2403.367 965 Output Total 234 343 190 Balance 2530.796 2060.367 775 Intake: IV 2155 2091 915 .9 20 200 240 60 .9 3cc/hr 30 36 15 Invasive Line 1 30 30 Invasive Line 2 30 30 KVO 10 70 50 Magnesium Sulfate-D5w Pmx 200 1 gm In Dextrose/Water 1 100ml.bag @ 100 mls/hr IVPB ONCE ONE Rx#: [id number] Piperacillin-Tazobactam 3 225 125 .375 gm In Sodium Chloride 0.9% 100 ml @ 25 mls/hr IVPB Q8H [facility] Rx#: [id number] Potassium Chloride 20 meq 200 In Water For Injection 1 100ml.bag @ 50 mls/hr IVPB Q2H [facility] Rx#: [id number] Sodium Chloride 0.45% 1, 200 000 ml @ 100 mls/hr IV . Q10H [facility] Rx#:[id number] Sodium Chloride 0.9% 1, 1430 1560 390 000 ml @ 130 mls/hr IV . Q7H42M [facility] Rx#:[id number] Intake, IV Titration 157.796 64.367 Amount propofoL 1,000 mg In 157.796 64.367 Empty Bag 1 bag @ 5 MCG/ KG/MIN 1.17 mls/hr IV . Q24H [facility] Rx#:[id number] Tube Feeding 392 68 20 Other 60 180 30 Output: Urine 234 343 190 Other: Voiding Method Indwelling Catheter Indwelling Catheter Indwelling Catheter # Bowel Movements 0 0 ABP, PAP, CO, CI - Last Documented Arterial Blood Pressure 135/85 - Exam Gen.: The patient is reclining in the bed. He is intubated. He is in no distress. HEENT: Head is atraumatic, normocephalic. Fundus not visualized. There is no scleral icterus. Mucous membranes are moist. Neurological examination Mental status: The patient is nonresponsive to verbal and noxious stimulation. He follows no commands. Cranial nerves: Pupils are pinpoint. Eyes are midline. No further neurologic examination is carried out at this time - Labs CBC & Chem 7: 07/23/22 04:34 07/23/22 04:34 Labs: Abnormal Lab Results - Last 24 Hours (Table) 07/23/22 07/23/22 07/23/22 Range/Units 04:34 04:34 05:43 RBC 2.93 L (4.30-5.90) m/uL Hgb 9.5 L (13.0-17.5) gm/dL Hct 30.7 L (39.0-53.0) % MCV 105.0 H (80.0-100.0) fL MCHC 30.9 L (31.0-37.0) g/dL Plt Count 53 L (150-450) k/uL ABG pH 7.26 L (7.35-7.45) ABG pCO2 58 H (35-45) mmHg ABG pO2 66 L (83-108) mmHg ABG HCO3 26 H (21-25) mmol/L ABG Total CO2 27 H (19-24) mmol/L Chloride 114 H (98-107) mmol/L Creatinine 0.36 L (0.66-1.25) mg/dL Calcium 7.6 L (8.4-10.2) mg/dL Alkaline Phosphatase 35 L (38-126) U/L Total Protein 4.2 L (6.3-8.2) g/dL Albumin 2.1 L (3.5-5.0) g/dL Microbiology - Last 24 Hours (Table) 07/20/22 17:10 Blood Culture Gram Stain - Final Blood Blood Culture - Final Staphylococcus epidermidis 07/20/22 16:55 Blood Culture - Preliminary Blood No Growth after 48 hours 07/20/22 17:50 Gram Stain - Final Sputum Sputum Culture - Final Assessment and Plan Assessment: * Altered mental status, likely due to toxic metabolic encephalopathy. Status post subclinical status, now resolved. The patient is currently neurologically stable. * History of Arnold-Chiari malformation with myelomeningocele L3 level, hydrocephalus and syringomyelia, status post multiple VPS and shunting for syrinx. * Medically intractable seizure disorder, came with a typical seizure. * Aspiration pneumonia * Lactic acidosis, likely due to sepsis versus seizure. * Patient with history of grand mal seizures, absence seizures and tonic-clonic seizures. * Severe kyphoscoliosis * Wheelchair-bound Plan: 1. Continue his seizure medications including Vimpat 200 mg twice a day, Depakote 500 mg in the morning and 250 mg at night, and phenobarbital 40.5 mg twice a day. 2. Other medical management as per IM and other specialties. 3. Dr. De Jesus will assume neurology coverage as of July 24, 2022 Time with Patient: Less than 30 (Spent 15 minutes examining this highly complex patient in the intensive care unit, with an additional 10 minutes spent reviewing the chart, documentation, labs, imaging and creating this note)
--- NOTE | 2022-07-23 12:09 | P.PN ---
Subjective Progress Note Date: 07/23/22 Principal diagnosis: Respiratory failure. I'm seeing this patient today, 07/21/2022, in new consultation in ICU. This is a 32-year-old white male with past medical history of spina bifida with L3 myelomeningocele, hydrocephalus with peritoneal shunt, Arnold-Chiari malformation, seizure disorder, severe kyphoscoliosis, frequent urinary tract infections secondary to neurogenic bladder and need for intermittent catheterizations. Patient was admitted yesterday 07/20/2022. Mother reports he has been feeling unwell over the past couple weeks. Reported symptoms of shortness of breath, fever, cough. Patient was treated outpatient with Augmentin. Yesterday, the patient had 2 seizures, at home, lasting approximately 1 minute. He then became more lethargic and ultimately u nconscious. Patient's mother checked his oxygen saturation with her home pulse ox, and found his SpO2 to be 50%. EMS was called and patient was transferred to [facility]. Patient was intubated yesterday with a 7.5 ET tube, in the ER, to protect his airway. He is currently on mechanical ventilator settings of assist control, respiratory rate of 12, tidal volume of 300 mL, FiO2 55%, PEEP of 5. ABGs from this morning on FiO2 of 80% shows a pO2 of 103, pCO2 of 52, and a pH of 7.36. Patient's chest x-ray from today showed a complete opacification of left hemithorax. The endotracheal tube appeared to be above the george on the x-ray, however, the patient's physical deformities make it hard to assess. Patient also has an in place orogastric tube, there is a ventricular peritoneal shunt noted, and severe thoracolumbar scoliosis. There is concern for aspiration after the patient's witnessed seizure. Patient is covered empirically with Zosyn. The patient will require a bronchoscopy with BAL today. Patient's WBC count 3.5, hemoglobin 11.8, hematocrit of 37.9, platelets 42,000. Patient's BMP from today shows a sodium of 137, potassium 4.4, chloride 103, serum CO2 30, BUN 18, creatinine 0.41, glucose 107. Patient is currently sedated with propofol at 40 mcgs/kg/minute. And there is normal saline infusing at 130 milliliters per hour. Patient was negative for influenza, RSV, coronavirus. Lactic acid level was low at 1.4. Patient is also receiving bronchodilators and IV Solu-Medrol. GI prophylaxis with famotidine. Vital signs are stable at this time. Progress note dated 07/22/2022. 32-year-old male with a history of spina bifida, myelomeningocele, hydroceph alus, Arnold-Chiari malformation, seizure disorder, and severe kyphoscoliosis. The patient was seen in the ICU, after being initially evaluated in the emergency department. The patient was intubated for impending respiratory failure by the ER physician. Currently, the patient remains on the mechanical ventilator. He is on volume assist control, rate 12, tidal volume 300, FiO2 40%, PEEP of 5. Arterial blood gases show pO2 77, pCO2 of 59, and a pH is 7.3. The patient's currently on saline at 130 mL an hour, propofol at 50 mcg/kg/m, and vital AF at 30 mL, with a goal of 34. The patient is currently on Zosyn. Vancomycin was discontinued. White count 2.4, hemoglobin 10, hematocrit 31.8, platelet count 47,000. Sodium 139, potassium 3.5, chlorides 108, CO2 28, BUN 14, and creatinine 0.37. Chest x-ray shows consolidation in the left lung, as well as a stable well placed endotracheal tube. The patient did undergo bronchoscopy yesterday. Progress note dated 07/23/2022. 32-year-old male with history of spina bifida, myelomeningocele, hydrocephalus, Arnold-Chiari syndrome, seizure disorder, and severe kyphoscoliosis. The patient was seen in the intensive care unit, room 266. He was initially evaluated in the emergency department, with respiratory failure and seizure. He remains on the mechanical ventilator. The patient is on volume assist control, rate 12, tidal volume 300, FiO2 percent, and PEEP of 5. Blood gases show pO2 of 66, pCO2 58, and a pH is 7.25. The patient's getting saline at 130 mL an hour, and propofol at 50 mcg/kg/m. Tube feedings are on hold, because yesterday, it appeared that he aspirated. I did asked the nurse to resume tube feeds. White count 4.1, hemoglobin 9.5, hematocrit 30.7, platelet count 53,000. Sodium 140, potassium 3.6, chlorides 114, CO2 26, BUN 12, and creatinine 0.36. Blood culture showed staph epidermidis. Chest x-ray shows consolidation of the left lung, and which is essentially unchanged. Patient positioning, the patient's body habitus, and his severe kyphoscoliosis, limits the ability to interpret this chest x-ray. Objective - Vital Signs Vital signs: Vital Signs Temp 98.7 F 07/23/22 08:00 Pulse 117 H 07/23/22 11:49 Resp 14 07/23/22 11:00 BP 120/82 07/23/22 10:00 Pulse Ox 91 L 07/23/22 11:00 FiO2 40 07/23/22 12:00 Intake & Output 07/22/22 07/23/22 07/23/22 18:59 06:59 18:59 Intake Total 2764.796 2403.367 965 Output Total 234 343 190 Balance 2530.796 2060.367 775 Intake: IV 2155 2091 915 .9 20 200 240 60 .9 3cc/hr 30 36 15 Invasive Line 1 30 30 Invasive Line 2 30 30 KVO 10 70 50 Magnesium Sulfate-D5w Pmx 200 1 gm In Dextrose/Water 1 100ml.bag @ 100 mls/hr IVPB ONCE ONE Rx#: [id number] Piperacillin-Tazobactam 3 225 125 .375 gm In Sodium Chloride 0.9% 100 ml @ 25 mls/hr IVPB Q8H [facility] Rx#: [id number] Potassium Chloride 20 meq 200 In Water For Injection 1 100ml.bag @ 50 mls/hr IVPB Q2H [facility] Rx#: [id number] Sodium Chloride 0.45% 1, 200 000 ml @ 100 mls/hr IV . Q10H [facility] Rx#:[id number] Sodium Chloride 0.9% 1, 1430 1560 390 000 ml @ 130 mls/hr IV . Q7H42M [facility] Rx#:[id number] Intake, IV Titration 157.796 64.367 Amount propofoL 1,000 mg In 157.796 64.367 Empty Bag 1 bag @ 5 MCG/ KG/MIN 1.17 mls/hr IV . Q24H [facility] Rx#:[id number] Tube Feeding 392 68 20 Other 60 180 30 Output: Urine 234 343 190 Other: Voiding Method Indwelling Catheter Indwelling Catheter Indwelling Catheter # Bowel Movements 0 0 ABP, PAP, CO, CI - Last Documented Arterial Blood Pressure 135/85 - Exam No acute distress, sedated, with an orally placed endotracheal tube. HEENT examination is grossly unremarkable. Neck supple. Full range of motion. No adenopathy thyromegaly or neck vein distention. Cardiovascular examination reveals regular rhythm rate. S1-S2 normal. No S3 or S4. No discernible murmur noted. Heart rate 113 bpm. Lungs reveal diminished breath sounds laterally, more left than right sided. Scattered rhonchi are noted. No wheezes. No crackles. Saturations are 91%. Abdomen soft, without bowel sounds. PEG tube is noted. Extremities are intact. No cyanosis, clubbing, or edema. The patient does have significant flexion deformities of the extremities. Skin is without rash or lesion. Neurologic examination cannot be adequately assessed. - Labs CBC & Chem 7: 07/23/22 04:34 07/23/22 04:34 Labs: Abnormal Lab Results - Last 24 Hours (Table) 07/23/22 07/23/22 07/23/22 Range/Units 04:34 04:34 05:43 RBC 2.93 L (4.30-5.90) m/uL Hgb 9.5 L (13.0-17.5) gm/dL Hct 30.7 L (39.0-53.0) % MCV 105.0 H (80.0-100.0) fL MCHC 30.9 L (31.0-37.0) g/dL Plt Count 53 L (150-450) k/uL ABG pH 7.26 L (7.35-7.45) ABG pCO2 58 H (35-45) mmHg ABG pO2 66 L (83-108) mmHg ABG HCO3 26 H (21-25) mmol/L ABG Total CO2 27 H (19-24) mmol/L Chloride 114 H (98-107) mmol/L Creatinine 0.36 L (0.66-1.25) mg/dL Calcium 7.6 L (8.4-10.2) mg/dL Alkaline Phosphatase 35 L (38-126) U/L Total Protein 4.2 L (6.3-8.2) g/dL Albumin 2.1 L (3.5-5.0) g/dL Microbiology - Last 24 Hours (Table) 07/20/22 17:10 Blood Culture Gram Stain - Final Blood Blood Culture - Final Staphylococcus epidermidis 07/20/22 16:55 Blood Culture - Preliminary Blood No Growth after 48 hours 07/20/22 17:50 Gram Stain - Final Sputum Sputum Culture - Final Assessment and Plan Assessment: Acute hypoxemic respiratory failure, likely secondary to aspiration. Status post intubation and mechanical ventilation on 07/20/2022. S/P bronchoscopy, 07/21/2022. Suspected aspiration pneumonia. History of breakthrough seizure disorder in a patient with chronic seizure history. History of spina bifida with L3 myelomeningocele. History of hydrocephalus, status post [employer] shunt. History of Arnold-Chiari malformation. Severe kyphoscoliosis. Frequent urinary tract infections. Plan: Plan dated 07/22/2022. The patient is seen today in evaluated, and room 266. Remains on propofol at 50 mcg/kg/m. We will DC the vancomycin. Remains on the ventilator. Gas exchange is reasonable. The patient is currently on tube feedings. We will continue to follow make recommendations along the way. Labs, x-rays, medications are reviewed. Prognosis is guarded. The mother seems realistic. Bronchoscopy was performed yesterday. Lines were placed yesterday including central line and arterial line. Plan dated 07/23/2022. We will resume tube feedings on this patient. I told the nurses to start him on a very low-dose, 5-10 mL an hour, and monitor to see if there is any additional aspiration. Labs, x-rays, and medications are all reviewed. Overall prognosis remains guarded. We will continue to follow make recommendations along the way. The patient continues on Zosyn empirically. Cultures thus far are negative. We did speak to the patient's mother who is in the room. Time with Patient: Greater than 30
[2022-07-23 17:37] LABS: Glucose,Whole Blood 79 mg/dL (70-110)
[2022-07-24] MEDS: ACETAMINOPHEN TAB 325 MG TAB PO PRN ×3 (00:34→16:02)
[2022-07-24 03:01] LABS: Glucose,Whole Blood 71 mg/dL (70-110)
[2022-07-24] MEDS: IPRATROPIUM-ALBUTEROL 3 ML NEB INHALATION SCH ×5 (04:12→19:21)
[2022-07-24 05:15] LABS: Basophils % (A) 0 %; Eosinophils # (A) 0.1 k/uL (0-0.7); Eosinophils % (A) 1 %; HCT 33.4 % (39.0-53.0); HGB 10.7 gm/dL (13.0-17.5); Hypochromasia Slight; Lymphocytes # (A) 0.9 k/uL (1.0-4.8); Lymphocytes % (A) 13 %; MCH 33.1 pg (25.0-35.0); MCHC 32.1 g/dL (31.0-37.0); MCV 102.9 fL (80.0-100.0); Macrocytosis Slight; Mean Platelet Volume 8.2; Monocytes # (A) 0.7 k/uL (0-1.0); Monocytes % (A) 10 %; Neutrophils # (A) 5.2 k/uL (1.3-7.7); Neutrophils % (A) 75 %; RBC 3.24 m/uL (4.30-5.90); RDW 14.5 % (11.5-15.5)
[2022-07-24 05:24] LABS: Glucose,Whole Blood 87 mg/dL (70-110)
[2022-07-24 05:27] LABS: Platelet Count 73 k/uL (150-450)
[2022-07-24 05:28] LABS: African American GFR (CKD) >90 (>60 ml/min/1.73 sqM); Anion Gap 4 mmol/L; Blood Urea Nitrogen 6 mg/dL (9-20); Calcium 7.7 mg/dL (8.4-10.2); Carbon Dioxide 26 mmol/L (22-30); Chloride 105 mmol/L (98-107); Glucose 82 mg/dL (74-99); Magnesium 1.5 mg/dL (1.6-2.3); Non-African American GFR(CKD) >90 (>60 ml/min/1.73 sqM); Potassium 3.7 mmol/L (3.5-5.1); Sodium 135 mmol/L (137-145)
[2022-07-24 05:43] LABS: ABG HCO3 26 mmol/L (21-25); ABG Oxygen Saturation 96.4 % (94-97); ABG PCO2 49 mmHg (35-45); ABG PH 7.34 (7.35-7.45); ABG PO2 73 mmHg (83-108); ABG TCO2 27 mmol/L (19-24); Allen Test Performed? Yes
[2022-07-24] MEDS: SODIUM CHLORIDE 0.45% 1,000 ML IV SCH ×2 (06:30→20:40)
[2022-07-24] MEDS ORDERED: Magnesium Replacement Protocol 1 EACH MISC MISCELLANE PRN (06:40)
[2022-07-24] MEDS: PIPERACILLIN-TAZOBACTAM 3.375 GM in SODIUM CHLORIDE 0.9% 100 ML IVPB SCH ×3 (06:47→23:41)
[2022-07-24] MEDS: LACOSAMIDE 50 MG TABLET PO SCH ×2 (06:48→18:47)
[2022-07-24] MEDS: PHENobarbitaL 16.2 MG TAB PO SCH ×2 (06:48→18:47)
[2022-07-24] MEDS ORDERED: POTASSIUM BICARBONATE/CIT AC 20 MEQ TABLET.EFF NG-TUBE SCH (07:00)
[2022-07-24] MEDS: FAMOTIDINE 20 MG/2 ML VIAL IV SCH ×2 (08:15→20:40)
[2022-07-24] MEDS: CHLORHEXIDINE GLUCONATE 15 ML CUP MUCOUS MEM SCH ×2 (08:15→20:40)
[2022-07-24] MEDS: DIVALPROEX SPRINKLE 125 MG CAP.SPRINK PO SCH ×2 (08:15→20:49)
[2022-07-24] MEDS: MAGNESIUM SULFATE-D5W PMX 1 GM in DEXTROSE/WATER 1 100ML.BAG IVPB SCH ×2 (08:15→12:22)
--- NOTE | 2022-07-24 08:24 | XR ---
EXAMINATION TYPE: XR chest 1V portable DATE OF EXAM: 07/24/2022 6:19 AM COMPARISON: Chest radiographs from 05/22/2023 TECHNIQUE: XR chest 1V portable Portable AP radiograph of the chest. CLINICAL INDICATION:Male, 32 years old with history of Tube placement; FINDINGS: FINDINGS: FINDINGS: Limited evaluation due to patient positioning. Lungs/Pleura: Atelectasis of the left lung with loss of previous air bronchograms in the superior lef t lung. Pulmonary vascularity: Unremarkable. Heart/mediastinum: Cardiomediastinal silhouette is obscured due to overlying and adjacent opacities. Musculoskeletal: Severe scoliosis changes. The george is not definitively visualized the endotracheal tube is at the level of the thoracic inlet . Tubing projects over the anterior right chest with tip terminating over the cervical spine. Right ventriculostomy catheter terminating over the abdomen. Nasogastric tube suspected to terminate over the gastric lumen. IMPRESSION: 1. Similar consolidation of the left lung which could be due to patient positioning and/or scoliosis scoliosis with findings likely represent atelectasis versus pleural effusion. 2. Stable endotracheal tube at the thoracic inlet evaluation above the george is limited given patie nt positioning. 3. Similar nasogastric tube in appropriate position. 4. Similar ventriculostomy catheter terminating over the abdomen.
[2022-07-24] MEDS ORDERED: MAGNESIUM SULFATE-D5W PMX 1 GM in DEXTROSE/WATER 1 100ML.BAG IVPB SCH (09:00)
--- NOTE | 2022-07-24 11:08 | P.PN ---
Subjective Progress Note Date: 07/24/22 I'm seeing this patient today, 07/21/2022, in new consultation in ICU. This is a 32-year-old white male with past medical history of spina bifida with L3 myelomeningocele, hydrocephalus with peritoneal shunt, Arnold-Chiari malformation, seizure disorder, severe kyphoscoliosis, frequent urinary tract in fections secondary to neurogenic bladder and need for intermittent catheterizations. Patient was admitted yesterday 07/20/2022. Mother reports he has been feeling unwell over the past couple weeks. Reported symptoms of shortness of breath, fever, cough. Patient was treated outpatient with Juanita horta. Yesterday, the patient had 2 seizures, at home, lasting approximately 1 minute. He then became more lethargic and ultimately unconscious. Patient's mother checked his oxygen saturation with her home pulse ox, and found his SpO2 to be 50%. EMS was called and patient was transferred to [facility]. Patient was intubated yesterday with a 7.5 ET tube, in the ER, to protect his airway. He is currently on mechanical ventilator settings of assist control, respiratory rate of 12, tidal volume of 300 mL, FiO2 55%, PEEP of 5. ABGs from this morning on FiO2 of 80% shows a pO2 of 103, pCO2 of 52, and a pH of 7.36. Patient's chest x-ray from today showed a complete opacification of left hemithorax. The endotracheal tube appeared to be above the george on the x-ray, however, the patient's physical deformities make it hard to assess. Patient also has an in place orogastric tube, there is a ventricular peritoneal shunt noted, and severe thoracolumbar scoliosis. There is concern for aspiration after the patient's witnessed seizure. Patient is covered empirically with Zosyn. The patient will require a bronchoscopy with BAL today. Patient's WBC count 3.5, hemoglobin 11.8, hematocrit of 37.9, platelets 42,000. Patient's BMP from today shows a sodium of 137, potassium 4.4, chloride 103, serum CO2 30, BUN 18, creatinine 0.41, glucose 107. Patient is currently sedated with propofol at 40 mcgs/kg/minute. And there is normal saline infusing at 130 milliliters per hour. Patient was negative for influenza, RSV, coronavirus. Lactic acid level was low at 1.4. Patient is also receiving bronchodilators and IV Solu-Medrol. GI prophylaxis with famotidine. Vital signs are stable at this time. Progress note dated 07/22/2022. 32-year-old male with a history of spina bifida, myelomeningocele, hydrocephalus, Arnold-Chiari malformation, seizure disorder, and severe kyph oscoliosis. The patient was seen in the ICU, after being initially evaluated in the emergency department. The patient was intubated for impending respiratory failure by the ER physician. Currently, the patient remains on the mechanical ventilator. He is on volume assist control, rate 12, tidal volume 300, FiO2 40%, PEEP of 5. Arterial blood gases show pO2 77, pCO2 of 59, and a pH is 7.3. The patient's currently on saline at 130 mL an hour, propofol at 50 mcg/kg/m, and vital AF at 30 mL, with a goal of 34. The patient is currently on Zosyn. Vancomycin was discontinued. White count 2.4, hemoglobin 10, hematocrit 31.8, platelet count 47,000. Sodium 139, potassium 3.5, chlorides 108, CO2 28, BUN 14, and creatinine 0.37. Chest x-ray shows consolidation in the left lung, as well as a stable well placed endotracheal tube. The patient did undergo bronchoscopy yesterday. Progress note dated 07/23/2022. 32-year-old male with history of spina bifida, myelomeningocele, hydrocephalus, Arnold-Chiari syndrome, seizure disorder, and severe kyphoscoliosis. The patient was seen in the intensive care unit, room 266. He was initially evaluated in the emergency department, with respiratory failure and seizure. He remains on the mechanical ventilator. The patient is on volume assist control, rate 12, tidal volume 300, FiO2 percent, and PEEP of 5. Blood gases show pO2 of 66, pCO2 58, and a pH is 7.25. The patient's getting saline at 130 mL an hour, and propofol at 50 mcg/kg/m. Tube feedings are on hold, because yesterday, it appeared that he aspirated. I did asked the nurse to resume tube feeds. White count 4.1, hemoglobin 9.5, hematocrit 30.7, platelet count 53,000. Sodium 140, potassium 3.6, chlorides 114, CO2 26, BUN 12, and creatinine 0.36. Blood culture showed staph epidermidis. Chest x-ray shows consolidation of the left lung, and which is essentially unchanged. Patient positioning, the patient's body habitus, and his severe kyphoscoliosis, limits the ability to interpret this chest x-ray. On 07/24/2022, the patient is being seen for a follow-up. This morning, the patient is on propofol running at 40 mcg/kg/m. The patient is calm and comfortable and symptoms of the mechanical ventilator. Is currently on assist control mode at the rate of 12 with a tidal volume of 300 and FiO2 of 40% with a PEEP of 5. Chest x-ray findings are quite limited because of his body habitus. The patient has severe kyphoscoliosis. Left lung is not adequately visualized. The right lung does seem to be clear of any significant pulmonary infiltrates. ET tube is in a good location. There is a large gastric bubble seen on today's chest x-ray. Meanwhile, the patient is receiving enteral feeding for nutritional support and currently is on vital AF at the rate of 10 mL an hour. He is tolerating the tube feeds for now. The white cell count of 7 with a hemoglobin of 10.7. Blood gas from today showed a pH of 7.34 with a pCO2 of 49 and pO2 of 73. Electrolytes are normal and the BUN is at 6 with a creatinine of 0.25. The patient remains on IV Zosyn. He does have a small wound in his right coccyx. No signs of any infection. Infectious diseases on the case. The patient is Only on IV Zosyn. The blood culture was positive for coagulase- negative staph. He did have a spike of temperature yesterday and currently is afebrile. Cardiac rhythm is sinus. He is in sinus tachycardia with a heart rate of around 120. NG tube is in place. Mcclain cath is in place and the patient is producing adequate amount of urine output. No pressors for now. Respiratory rate is in the mid tens. Objective - Vital Signs Vital signs: Vital Signs Temp 100.2 F H 07/24/22 08:00 Pulse 120 H 07/24/22 08:35 Resp 16 07/24/22 08:00 BP 145/89 07/24/22 08:00 Pulse Ox 92 L 07/24/22 08:00 FiO2 40 07/24/22 10:50 Intake & Output 07/23/22 07/24/22 07/24/22 18:59 06:59 18:59 Intake Total 2066.808 1837.089 266 Output Total 480 819 100 Balance 1696.630 0264.089 166 Intake: IV 1866 1601 246 .9 20 180 240 40 .9 3cc/hr 36 36 6 KVO 60 Magnesium Sulfate-D5w Pmx 200 1 gm In Dextrose/Water 1 100ml.bag @ 100 mls/hr IVPB ONCE ONE Rx#: [id number] Piperacillin-Tazobactam 3 100 125 .375 gm In Sodium Chloride 0.9% 100 ml @ 25 mls/hr IVPB Q8H [facility] Rx#: [id number] Sodium Chloride 0.45% 1, 900 1200 200 000 ml @ 100 mls/hr IV . Q10H [facility] Rx#:[id number] Sodium Chloride 0.9% 1, 390 000 ml @ 130 mls/hr IV . Q7H42M [facility] Rx#:[id number] Intake, IV Titration 50.808 116.089 Amount propofoL 1,000 mg In 50.808 116.089 Empty Bag 1 bag @ 5 MCG/ KG/MIN 1.17 mls/hr IV . Q24H [facility] Rx#:[id number] Tube Feeding 90 120 20 Other 60 Output: Urine 480 819 100 Other: Voiding Method Indwelling Catheter Indwelling Catheter ABP, PAP, CO, CI - Last Documented Arterial Blood Pressure 112/75 - Exam No acute distress, sedated, with an orally placed endotracheal tube. HEENT examination is grossly unremarkable. Neck supple. Full range of motion. No adenopathy thyromegaly or neck vein distention. Cardiovascular examination reveals regular rhythm rate. S1-S2 normal. No S3 or S4. No discernible murmur noted. Lungs reveal diminished breath sounds laterally, more left than right sided. Scattered rhonchi are noted. No wheezes. No crackles. Abdomen soft, without bowel sounds. PEG tube is noted. Extremities are intact. No cyanosis, clubbing, or edema. The patient does have significant flexion deformities of the extremities. Skin is without rash or lesion. Neurologic examination cannot be adequately assessed. - Labs CBC & Chem 7: 07/24/22 04:55 07/24/22 04:55 Labs: Abnormal Lab Results - Last 24 Hours (Table) 07/24/22 07/24/22 07/24/22 Range/Units 04:55 04:55 05:40 RBC 3.24 L (4.30-5.90) m/uL Hgb 10.7 L (13.0-17.5) gm/dL Hct 33.4 L (39.0-53.0) % MCV 102.9 H (80.0-100.0) fL Plt Count 73 L (150-450) k/uL Lymphocytes # 0.9 L (1.0-4.8) k/uL ABG pH 7.34 L (7.35-7.45) ABG pCO2 49 H (35-45) mmHg ABG pO2 73 L (83-108) mmHg ABG HCO3 26 H (21-25) mmol/L ABG Total CO2 27 H (19-24) mmol/L Sodium 135 L (137-145) mmol/L BUN 6 L (9-20) mg/dL Creatinine 0.28 L (0.66-1.25) mg/dL Calcium 7.7 L (8.4-10.2) mg/dL Magnesium 1.5 L (1.6-2.3) mg/dL Microbiology - Last 24 Hours (Table) 07/20/22 16:55 Blood Culture - Preliminary Blood No Growth after 72 hours 07/20/22 17:10 Blood Culture Gram Stain - Final Blood Blood Culture - Final Staphylococcus epidermidis Assessment and Plan Plan: Acute hypoxemic respiratory failure, likely secondary to aspiration. The patient is post bronchoscopy, cultures are negative, rule out chemical aspiration/chemical pneumonia. The patient is, the broad-spectrum antibiotics with IV Zosyn. Cultures are still negative Status post intubation and mechanical ventilation on 07/20/2022. S/P bronchoscopy, 07/21/2022. History of breakthrough seizure disorder in a patient with chronic seizure history. History of spina bifida with L3 myelomeningocele. History of hydrocephalus, status post [employer] shunt. History of Arnold-Chiari malformation. Severe kyphoscoliosis. Frequent urinary tract infections. Plan: Give the patient has sedation holiday and assess the mental status Check weaning parameters and assess readiness to wean Continue IV Zosyn Monitor fever pattern Continue enteral feeding for nutritional support Continue seizure medication and we have not with this any further episodes of seizures This will end up being a difficult extubation as the patient has severe kyphosc oliosis. The patient probably has also weak cough and neuromuscular weakness. As such, we'll going to be quite careful without extubation process. For now, the patient would have a sedation holiday to assess his cough, mentation and the readiness to wean. Hemodynamically stable on no pressors Continue Depakote continue phenobarbital We'll continue to follow make further recommendations based on progress. Critical care evaluation that was done in more than 30 minutes. Time with Patient: Greater than 30
[2022-07-24] MEDS ORDERED: FUROSEMIDE 10 MG/ML 2 ML VIAL IV ONE (12:16)
[2022-07-24 12:19] LABS: Glucose,Whole Blood 85 mg/dL (70-110)
--- NOTE | 2022-07-24 12:28 | P.PN ---
Subjective Progress Note Date: 07/24/22 This is a pleasant 32 years old male with past medical history of L3 myelomeningocele and hydrocephalus with any peritoneal shunt, spina bifid F, seizure, chiari malformation. Patient initially presents because of altered mental status and seizure, he had 2 seizures at home 1. Gastric to and other as atypical. Patient was bronchoscoped doing well more lethargic and L over the last 2 days. This morning patient mother noticed he had a seizure that lasted for about 1 minute followed by post ictal confusion, and mother noticed that his oxygen saturation is drip until called EMS, as per document However the mother clarify that actually he has been sick 2 days ago with congestion and coughing, Dr. Mcfarland his primary doctor start him on Augmentin because of history of septic shock and easy infection, he took 3 pulse, he has a day morning he was noticed to have a brief period of seizure although the mom she does not think he had seizure he was just lethargic. She checked his temperature at home and it was 102 breath he was feeling cold and shivering. At baseline he is able to talk normally, he understands the surrounding, he can eat by himself but he is wheelchair bound On admission he is with low-grade temperature 99.7. He is tachycardic around 115, hypertensive blood pressure this morning 93/73. His CBC is unremarkable. INR is 1.1, d-dimer is slightly elevated at 1.1. On admission. PhosLo 7.2, heart pCO2 of 68. Chest x-ray: Left upper and middle lobe consolidation with air bronchograms EKG showing sinus tachycardia at 130 Emergency room patient received breathing treatment, antibiotics, steroids, normal saline. (Continued on Levaquin and normal saline at 1:30 milliliters of breath or, Zosyn and Solu-Medrol 40 mg 07/22/2022 Patient remains intubated and sedated. He is on mechanical ventilation with FiO2 of 40% and PEEP of 5. Status post bronchoscopy. Blood pressure 147/82, tachycardic at 117. Mcclain place. WBCs 2.4, hemoglobin 10, platelets at 102. He remains on Zosyn and Levaquin, no positive vancomycin is a normal saline and Solu-Medrol 40 mg I discussed the case with the neurology this morning repeat EEG showing no more epileptic discharge. Patient remains on 3 antiseizure medications phenobarbital, Depakote and vimpat. 07/23/2022 Patient still in the ICU sedated and intubated No seizure-like activity however he is improving and he may be considered for sedation holiday per pulmonary/critical care team who have also with the vent management. Currently he has FiO2 of 40% and PEEP of 5. His hemoglobin 9.5, WBC 4.1 and platelet count 53, he is tachycardic with heart rate around 1 25/m and just vitals stable. He has positive blood culture with staph epidermidis, most likely contamination Chest x-ray I reviewed myself showing still opacification on the left side Also his normal saline lower to 100 mL/h with Mcclain catheter in place Currently covered with Zosyn. Also he is on normal saline at 100 mL per hour and Solu-Medrol 40 mg 07/24. Patient seen and examined. Currently patient is intubated. Currently sedated with propofol. Patient had have low-grade fever overnight. Patient on tube feeding. Mother at the bedside. Vital signs shows patient to be tachycardic with heart rate in 120s. Unable to obtain a detailed review of systems because of patient being intubated. No seizure-like activity noticed. Pulmonology/critical care considering decreasing sedation PHYSICAL EXAMINATION: GENERAL Intubated, cachectic, chronically ill-looking HEENT: Pupils are round and equally reacting to light. EOMI. No scleral icterus. No conjunctival pallor. Normocephalic, atraumatic. No pharyngeal erythema. No thyromegaly. CARDIOVASCULAR: S1 and S2 present. No murmurs, rubs, or gallops. PULMONARY Diminished breath sounds at the left lung base ABDOMEN: Soft, nontender, nondistended, normoactive bowel sounds. No palpable organomegaly. PEG tube seen MUSCULOSKELETAL: No joint swelling or deformity. EXTREMITIES: No cyanosis, clubbing, or pedal edema. NEUROLOGICAL Currently intubated and sedated SKIN: No rashes. Wound in coccyx area Assessment and plan Left community acquired pneumonia, versus aspiration pneumonia Hypoxic respiratory failure secondary to above Possible reactive airway disease Altered mental status, mostly metabolic encephalopathy Breakthrough seizure Respiratory acidosis History of spina bifid the and third lumbar myelomeningocele History of hydrocephalus status post cranial peritoneal shunt History of seizure chiari malformation History of Recurrent UTI Plan: Monitor Vital signs Monitor CBC Continue with Zosyn Continue with steroids Solu-Medrol Continue with breathing treatment Follow-up sputum culture and blood culture Repeat EEG 07/22/2022 preliminary report showed background slowing of moderate to severe degree, consistent with encephalopathy. No evidence of partial status. No electrographic seizure recorded. Still presence of epileptogenic focus involving the right temporal and also the right frontal region. No generalization. EEG 07/21/2022 showed presence of 2 epileptic foci involving the right temporal and right frontal region and sometimes generalized spike or polyspike and wave were also seen. There is recording of multiple focal seizures, all of them originating in the right hemispheric region and one of them later generalized for about 26 seconds. No motor activity was observed on the review of the video section of the study. Background slowing of at least moderate degree suggestive of encephalopathy. Subclinical partial status cannot be ruled out. Clinical correlation is recommended. Continue his seizure medications including Vimpat 200 mg twice a day, Depakote 500 mg in the morning and 250 mg at night, and phenobarbital 40.5 mg twice a day. Continue vent management per pulmonary Labs and medication were reviewed.. Continue same treatment. Continue with symptomatic treatment. Further recommendations as per clinical course of the patient Objective - Vital Signs Vital signs: Vital Signs Temp 100.2 F H 07/24/22 08:00 Pulse 120 H 07/24/22 08:35 Resp 16 07/24/22 08:00 BP 145/89 07/24/22 08:00 Pulse Ox 92 L 07/24/22 08:00 FiO2 40 07/24/22 08:00 Intake & Output 07/23/22 07/24/22 07/24/22 18:59 06:59 18:59 Intake Total 2066.808 1837.089 266 Output Total 480 819 100 Balance 3442.818 8264.089 166 Intake: IV 1866 1601 246 .9 20 180 240 40 .9 3cc/hr 36 36 6 KVO 60 Magnesium Sulfate-D5w Pmx 200 1 gm In Dextrose/Water 1 100ml.bag @ 100 mls/hr IVPB ONCE ONE Rx#: [id number] Piperacillin-Tazobactam 3 100 125 .375 gm In Sodium Chloride 0.9% 100 ml @ 25 mls/hr IVPB Q8H [facility] Rx#: [id number] Sodium Chloride 0.45% 1, 900 1200 200 000 ml @ 100 mls/hr IV . Q10H [facility] Rx#:[id number] Sodium Chloride 0.9% 1, 390 000 ml @ 130 mls/hr IV . Q7H42M [facility] Rx#:[id number] Intake, IV Titration 50.808 116.089 Amount propofoL 1,000 mg In 50.808 116.089 Empty Bag 1 bag @ 5 MCG/ KG/MIN 1.17 mls/hr IV . Q24H [facility] Rx#:[id number] Tube Feeding 90 120 20 Other 60 Output: Urine 480 819 100 Other: Voiding Method Indwelling Catheter Indwelling Catheter ABP, PAP, CO, CI - Last Documented Arterial Blood Pressure 112/75 - Labs CBC & Chem 7: 07/24/22 04:55 07/24/22 04:55 Labs: Abnormal Lab Results - Last 24 Hours (Table) 07/24/22 07/24/22 07/24/22 Range/Units 04:55 04:55 05:40 RBC 3.24 L (4.30-5.90) m/uL Hgb 10.7 L (13.0-17.5) gm/dL Hct 33.4 L (39.0-53.0) % MCV 102.9 H (80.0-100.0) fL Plt Count 73 L (150-450) k/uL Lymphocytes # 0.9 L (1.0-4.8) k/uL ABG pH 7.34 L (7.35-7.45) ABG pCO2 49 H (35-45) mmHg ABG pO2 73 L (83-108) mmHg ABG HCO3 26 H (21-25) mmol/L ABG Total CO2 27 H (19-24) mmol/L Sodium 135 L (137-145) mmol/L BUN 6 L (9-20) mg/dL Creatinine 0.28 L (0.66-1.25) mg/dL Calcium 7.7 L (8.4-10.2) mg/dL Magnesium 1.5 L (1.6-2.3) mg/dL Microbiology - Last 24 Hours (Table) 07/20/22 16:55 Blood Culture - Preliminary Blood No Growth after 72 hours 07/20/22 17:10 Blood Culture Gram Stain - Final Blood Blood Culture - Final Staphylococcus epidermidis
--- NOTE | 2022-07-24 12:52 | P.PN ---
Subjective Progress Note Date: 07/24/22 I'm seeing the patient for the first time during this hospital admission. Patient is accompanied with his mother was at bedside. She stated that recently the patient has been having the fever with the respiratory distress and that's why he presented to the hospital. Currently the patient is intubated on a ventilator and is on IV Propofol 40mcg/kg/min. Per nurse no clinical seizure noted. Please refer to Dr. Ballard's and Arpan's notes for further details. Objective - Vital Signs Vital signs: Vital Signs Temp 99.8 F H 07/24/22 12:00 Pulse 118 H 07/24/22 12:41 Resp 16 07/24/22 12:00 BP 124/82 07/24/22 12:00 Pulse Ox 95 07/24/22 12:00 FiO2 40 07/24/22 12:00 Intake & Output 07/23/22 07/24/22 07/24/22 18:59 06:59 18:59 Intake Total 2066.808 1837.089 318.583 Output Total 480 819 100 Balance 2633.347 7755.089 218.583 Intake: IV 1866 1601 246 .9 20 180 240 40 .9 3cc/hr 36 36 6 KVO 60 Magnesium Sulfate-D5w Pmx 200 1 gm In Dextrose/Water 1 100ml.bag @ 100 mls/hr IVPB ONCE ONE Rx#: [id number] Piperacillin-Tazobactam 3 100 125 .375 gm In Sodium Chloride 0.9% 100 ml @ 25 mls/hr IVPB Q8H [facility] Rx#: [id number] Sodium Chloride 0.45% 1, 900 1200 200 000 ml @ 100 mls/hr IV . Q10H [facility] Rx#:[id number] Sodium Chloride 0.9% 1, 390 000 ml @ 130 mls/hr IV . Q7H42M [facility] Rx#:[id number] Intake, IV Titration 50.808 116.089 52.583 Amount propofoL 1,000 mg In 50.808 116.089 52.583 Empty Bag 1 bag @ 5 MCG/ KG/MIN 1.17 mls/hr IV . Q24H [facility] Rx#:[id number] Tube Feeding 90 120 20 Other 60 Output: Urine 480 819 100 Other: Voiding Method Indwelling Catheter Indwelling Catheter ABP, PAP, CO, CI - Last Documented Arterial Blood Pressure 135/84 - Exam GENERAL: The patient is lying in bed and is not in acute distress. Appears generalized edema in uppers and lowers LUNG: Intubated on ventilator. NEUROLOGICAL: Limited. Is on IV Propofol 40mcg/kg/min. Higher mental function: Is comatose. Not opening eyes or following commands. Cranial nerves: The pupils are round, 2mm equal and reactive to light. Primary gaze is midline. No facial weakness. Is breathing over the vent. Rest is limited. Motor: The strength is unable to assess. Has decrease bulk mostly lowers > uppers (baseline). No spontaneous movement. - Labs CBC & Chem 7: 07/24/22 04:55 07/24/22 04:55 Labs: Abnormal Lab Results - Last 24 Hours (Table) 07/24/22 07/24/22 07/24/22 Range/Units 04:55 04:55 05:40 RBC 3.24 L (4.30-5.90) m/uL Hgb 10.7 L (13.0-17.5) gm/dL Hct 33.4 L (39.0-53.0) % MCV 102.9 H (80.0-100.0) fL Plt Count 73 L (150-450) k/uL Lymphocytes # 0.9 L (1.0-4.8) k/uL ABG pH 7.34 L (7.35-7.45) ABG pCO2 49 H (35-45) mmHg ABG pO2 73 L (83-108) mmHg ABG HCO3 26 H (21-25) mmol/L ABG Total CO2 27 H (19-24) mmol/L Sodium 135 L (137-145) mmol/L BUN 6 L (9-20) mg/dL Creatinine 0.28 L (0.66-1.25) mg/dL Calcium 7.7 L (8.4-10.2) mg/dL Magnesium 1.5 L (1.6-2.3) mg/dL Microbiology - Last 24 Hours (Table) 07/20/22 16:55 Blood Culture - Preliminary Blood No Growth after 72 hours 07/20/22 17:10 Blood Culture Gram Stain - Final Blood Blood Culture - Final Staphylococcus epidermidis Assessment and Plan Assessment: * Altered mental status, likely due to toxic metabolic encephalopathy. Status post subclinical status, now resolved. The patient is currently neurologically stable. * History of Arnold-Chiari malformation with myelomeningocele L3 level, hydrocephalus and syringomyelia, status post multiple VPS and shunting for syrinx. * Medically intractable seizure disorder, came with a typical seizure. * Aspiration pneumonia * Lactic acidosis, likely due to sepsis versus seizure. * Patient with history of grand mal seizures, absence seizures and tonic-clonic seizures. * Severe kyphoscoliosis * Wheelchair-bound Plan: * Repeat EEG 07/22/2022 preliminary report showed background slowing of moderate to severe degree, consistent with encephalopathy. No evidence of partial status. No electrographic seizure recorded. Still presence of epileptogenic focus involving the right temporal and also the right frontal region. No generalization. * EEG 07/21/2022 showed presence of 2 epileptic foci involving the right temporal and right frontal region and sometimes generalized spike or polyspike and wave were also seen. There is recording of multiple focal seizures, all of them originating in the right hemispheric region and one of them later generalized for about 26 seconds. No motor activity was observed on the review of the video section of the study. Background slowing of at least moderate degree suggestive of encephalopathy. Subclinical partial status cannot be ruled out. Clinical correlation is recommended. * Depakote level 53.8 (50-100), and phenobarbital level 22.4 (15-40). Both levels are therapeutic. * Continue his seizure medications including Vimpat 200 mg twice a day, Depakote 500 mg in the morning and 250 mg at night, and phenobarbital 40.5 mg twice a day. * Other medical management as per IM and other specialties. The plan is discussed with the patient's mother's who is at bedside and his nurse. Will continue to follow. Time with Patient: Less than 30
--- NOTE | 2022-07-24 13:10 | P.CONS ---
History of Present Illness - Reason for Consult Consult date: 07/24/22 wound care - History of Present Illness This is a 32-year-old patient with a past medical history significant for L3 myelomeningocele and hydrocephalus with any peritoneal shunt, spina bifid F, seizure, chiari malformation. Been seen in ICU by the wound care center for nonhealing ulcerations to the left hip sacrum right buttocks and left heel. Patient has a stage I left hip pressure ulcer with redness noted to the site. Patient has a stage II pressure ulcer to the sacrum, a stage II pressure ulcer to the right buttocks measuring approximately 2.5 x 2.5 x 0.4 cm right buttocks ulceration has significant amount of slough and nonviable tissue with minimal granulation noted. Wound edges are attached to the wound base. No tunneling or undermining noted. Patient has a stage II pressure ulcer to the left heel with significant amount of slough noted. Patient's caregiver who is his mom utilizes Silvadene and foam dressings to the site. Review of systems: Unable to provide related to intubation Physical exam: General Appearance: Alert, cooperative, no distress, appears stated age. Skin: See HPI all other Skin color, texture, tugor normal, no rashes or lesions. Neurologic: Alert oriented x3 Assessment: 1. Stage II pressure ulcer sacrum 2. Stage II pressure ulceration buttocks 3. Stage II pressure ulcer left heel 4. Stage I pressure ulcer left hip Plan: 1. Left heel, sacrum, right buttocks: Apply honey gel, dry gauze, border foam and change Sunday. Utilize heel protectors and rotate patient every 2 hours. 2. Left hip: Apply triad and border foam to the site daily 3. Patient would benefit from continued advance wound care treatment. We would be happy to see him in the wound care center upon discharge. Thank you for the consultation any questions please contact the wound care center DNP note has been reviewed and discussed with Dr. Maxwell and the impression and plan of care has been directed as dictated. 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, Other MDRO Year Discovered:: 02/07/21 MDRO Source:: URINE Past Surgical History: Ventriculoperitoneal Shunt Additional Past Anesthesia/Blood Transfusion Reaction / Comm: Hx of receiving anesthesia and did not wake up for 6 days Past Psychological History: No Psychological Hx Reported Smoking Status: Never smoker Past Alcohol Use History: None Reported Past Drug Use History: None Reported Medications and Allergies Home Medications Medication Instructions Recorded Confirmed Type Cholecalciferol [Vitamin D3 (25 50 mcg PO DAILY@0700 07/20/22 07/21/22 History Mcg = 1000 Iu)] Divalproex Sprinkle [Depakote 250 mg PO HS 07/20/22 07/21/22 History Sprinkle] Divalproex Sprinkle [Depakote 500 mg PO DAILY 07/20/22 07/21/22 History Sprinkle] Lacosamide [Vimpat Oral Soln] 200 mg PO BID@0700,1900 07/20/22 07/21/22 History Nitrofurantoin Macrocrystal 50 mg PO HS@1900 07/20/22 07/21/22 History [Macrodantin] PHENobarbitaL [Luminal] 40.5 mg PO BID@0700,1900 07/20/22 07/21/22 History Valtoco 5mg/0.1ml Nasal 1 spr NASAL ONCE PRN 07/20/22 07/21/22 History Allergies Allergy/AdvReac Type Severity Reaction Status Date / Time carbamazepine [From Tegretol] Allergy Severe Anaphylaxis Verified 07/21/22 08:47 immune globulin,gamma (IgG) Allergy Severe Anaphylaxis Verified 07/21/22 08:47 human Iodinated Contrast Media Allergy Severe Rash/Hives Verified 07/21/22 08:47 Latex, Natural Rubber Allergy Severe Anaphylaxis Verified 07/21/22 08:47 phenytoin [From Dilantin] Allergy Severe Anaphylaxis Verified 07/21/22 08:47 septra Allergy Severe Anaphylaxis Uncoded 07/20/22 16:59 Physical Exam Vitals: Vital Signs Temp Pulse Resp BP Pulse Ox FiO2 07/24/22 12:41 118 H 07/24/22 12:26 117 H 07/24/22 12:00 99.8 F H 117 H 16 124/82 95 40 07/24/22 11:00 120 H 16 125/83 95 07/24/22 10:50 40 07/24/22 10:00 123 H 18 127/78 93 L 02/13/23 09:00 129 H 15 128/84 92 L 07/24/22 08:35 120 H 07/24/22 08:11 125 H 07/24/22 08:00 100.2 F H 130 H 16 145/89 92 L 40 07/24/22 07:33 40 07/24/22 06:00 131 H 0 L 130/84 92 L 07/24/22 05:00 128 H 18 130/84 90 L 07/24/22 04:00 98.8 F 129 H 14 135/89 92 L 40 07/24/22 03:00 99.2 F 134 H 19 126/77 94 L 40 07/24/22 02:00 99.4 F 137 H 15 128/74 94 L 07/24/22 01:00 147 H 18 140/89 92 L 07/24/22 00:00 102 F H 144 H 28 H 127/74 40 07/23/22 23:35 124 H 07/23/22 23:20 118 H 07/23/22 23:17 40 07/23/22 23:03 126 H 12 127/74 94 L 07/23/22 23:00 98.8 F 128 H 13 148/97 93 L 07/23/22 22:00 128 H 16 139/88 96 07/23/22 21:00 126 H 14 122/80 96 07/23/22 20:58 128 H 07/23/22 20:50 126 H 07/23/22 20:41 40 07/23/22 20:00 99.4 F 118 H 12 134/87 95 40 07/23/22 19:00 120 H 12 138/94 97 07/23/22 18:00 122 H 13 129/82 98 07/23/22 17:10 128 H 07/23/22 17:00 130 H 16 145/100 97 07/23/22 16:59 130 H 07/23/22 16:55 40 07/23/22 16:00 99.0 F 118 H 14 93 L 40 07/23/22 15:00 121 H 12 126/76 92 L 07/23/22 14:45 121 H 12 124/76 89 L 07/23/22 14:30 122 H 12 129/72 92 L 07/23/22 14:15 122 H 12 125/68 91 L 07/23/22 14:00 123 H 12 123/63 91 L 07/23/22 13:45 123 H 12 120/59 91 L 07/23/22 13:30 124 H 12 122/63 87 L 07/23/22 13:15 129 H 12 Intake and Output 07/23/22 07/24/22 07/24/22 22:59 06:59 14:59 Intake Total 1836.285 8350.28 830.583 Output Total 500 494 350 Balance 753.122 786.28 480.583 Intake: IV 1074 1109 618 .9 20 150 160 90 .9 3cc/hr 24 24 18 Piperacillin-Tazobactam 3 100 125 .375 gm In Sodium Chloride 0.9% 100 ml @ 25 mls/hr IVPB Q8H [facility] Rx#: [id number] Sodium Chloride 0.45% 1, 800 800 510 000 ml @ 20 mls/hr IV . Q24H [facility] Rx#:[id number] Intake, IV Titration 69.122 91.28 152.583 Amount Magnesium Sulfate-D5w Pmx 100 1 gm In Dextrose/Water 1 100ml.bag @ 100 mls/hr IVPB Q1H [facility] Rx#: [id number] propofoL 1,000 mg In 69.122 91.28 52.583 Empty Bag 1 bag @ 5 MCG/ KG/MIN 1.17 mls/hr IV . Q24H [facility] Rx#:[id number] Tube Feeding 80 80 60 Other 30 Output: Urine 500 494 350 Other: Voiding Method Indwelling Catheter Indwelling Catheter Indwelling Catheter ABP, PAP, CO, CI - Last 8 Hours Arterial Blood Pressure 135/84 Arterial Blood Pressure 121/72 Arterial Blood Pressure 103/66 Arterial Blood Pressure 112/75 Arterial Blood Pressure 133/86 Results CBC & Chem 7: 07/24/22 04:55 07/24/22 04:55 Labs: Abnormal Lab Results - Last 24 Hours (Table) 07/24/22 07/24/22 07/24/22 Range/Units 04:55 04:55 05:40 RBC 3.24 L (4.30-5.90) m/uL Hgb 10.7 L (13.0-17.5) gm/dL Hct 33.4 L (39.0-53.0) % MCV 102.9 H (80.0-100.0) fL Plt Count 73 L (150-450) k/uL Lymphocytes # 0.9 L (1.0-4.8) k/uL ABG pH 7.34 L (7.35-7.45) ABG pCO2 49 H (35-45) mmHg ABG pO2 73 L (83-108) mmHg ABG HCO3 26 H (21-25) mmol/L ABG Total CO2 27 H (19-24) mmol/L Sodium 135 L (137-145) mmol/L BUN 6 L (9-20) mg/dL Creatinine 0.28 L (0.66-1.25) mg/dL Calcium 7.7 L (8.4-10.2) mg/dL Magnesium 1.5 L (1.6-2.3) mg/dL Microbiology - Last 24 Hours (Table) 07/20/22 16:55 Blood Culture - Preliminary Blood No Growth after 72 hours 07/20/22 17:10 Blood Culture Gram Stain - Final Blood Blood Culture - Final Staphylococcus epidermidis Assessment and Plan (1) Pressure ulcer of left heel, stage 2 Current Visit: Yes Status: Acute Code(s): L89.622 - PRESSURE ULCER OF LEFT HEEL, STAGE 2 SNOMED Code(s): 46302862554464 (2) Pressure ulcer of coccygeal region, stage 2 Current Visit: Yes Status: Acute Code(s): L89.152 - PRESSURE ULCER OF SACRAL REGION, STAGE 2 SNOMED Code(s): 968000490 (3) Pressure ulcer of right buttock, stage 2 Current Visit: Yes Status: Acute Code(s): L89.312 - PRESSURE ULCER OF RIGHT BUTTOCK, STAGE 2 SNOMED Code(s): 55582251521380 (4) Pressure ulcer of left hip, stage 1 Current Visit: Yes Status: Acute Code(s): L89.221 - PRESSURE ULCER OF LEFT HIP, STAGE 1 SNOMED Code(s): 07252286373058
[2022-07-24] MEDS: HYDROPHILIC CREAM 180 GM TUBE TOPICAL SCH (16:03)
[2022-07-24 19:01] LABS: Glucose,Whole Blood 99 mg/dL (70-110)
[2022-07-25 00:04] LABS: Glucose,Whole Blood 87 mg/dL (70-110)
[2022-07-25] MEDS: IPRATROPIUM-ALBUTEROL 3 ML NEB INHALATION SCH ×6 (00:52→19:37)
[2022-07-25] MEDS: HYDROmorphone 1 MG/ML 1 ML SYRINGE IVP PRN (01:16)
[2022-07-25 05:09] LABS: Glucose,Whole Blood 87 mg/dL (70-110)
[2022-07-25 05:35] LABS: ABG Base Excess 5.6 mmol/L; ABG HCO3 31 mmol/L (21-25); ABG Oxygen Saturation 98.4 % (94-97); ABG PCO2 51 mmHg (35-45); ABG PH 7.39 (7.35-7.45); ABG PO2 95 mmHg (83-108); ABG TCO2 32 mmol/L (19-24); Allen Test Performed? Yes
[2022-07-25 05:55] LABS: African American GFR (CKD) >90 (>60 ml/min/1.73 sqM); Anion Gap 6 mmol/L; Blood Urea Nitrogen 2 mg/dL (9-20); Calcium 7.7 mg/dL (8.4-10.2); Carbon Dioxide 31 mmol/L (22-30); Chloride 96 mmol/L (98-107); Glucose 83 mg/dL (74-99); Magnesium 1.4 mg/dL (1.6-2.3); Non-African American GFR(CKD) >90 (>60 ml/min/1.73 sqM); Potassium 3.4 mmol/L (3.5-5.1); Sodium 133 mmol/L (137-145)
[2022-07-25] MEDS: PIPERACILLIN-TAZOBACTAM 3.375 GM in SODIUM CHLORIDE 0.9% 100 ML IVPB SCH ×3 (06:12→22:29)
[2022-07-25] MEDS: POTASSIUM CHLORIDE 20 MEQ in WATER FOR INJECTION 1 100ML.BAG IVPB SCH ×2 (06:12→08:27)
[2022-07-25] MEDS: MAGNESIUM SULFATE-D5W PMX 1 GM in DEXTROSE/WATER 1 100ML.BAG IVPB SCH ×3 (06:13→10:07)
[2022-07-25 06:29] LABS: Basophils % (A) 0 %; Eosinophils # (A) 0.1 k/uL (0-0.7); Eosinophils % (A) 1 %; HCT 31.9 % (39.0-53.0); HGB 10.3 gm/dL (13.0-17.5); Lymphocytes # (A) 1.1 k/uL (1.0-4.8); Lymphocytes % (A) 15 %; MCH 32.1 pg (25.0-35.0); MCHC 32.4 g/dL (31.0-37.0); MCV 98.9 fL (80.0-100.0); Macrocytosis Slight; Mean Platelet Volume 8.1; Monocytes # (A) 0.5 k/uL (0-1.0); Monocytes % (A) 8 %; Neutrophils # (A) 5.1 k/uL (1.3-7.7); Neutrophils % (A) 74 %; RBC 3.22 m/uL (4.30-5.90); RDW 15.1 % (11.5-15.5); WBC 6.9 k/uL (3.8-10.6)
[2022-07-25] MEDS: LACOSAMIDE 50 MG TABLET PO SCH ×2 (06:31→18:56)
[2022-07-25] MEDS: ACETAMINOPHEN TAB 325 MG TAB PO PRN ×2 (06:32→21:46)
[2022-07-25 06:38] LABS: Platelet Count 70 k/uL (150-450)
[2022-07-25] MEDS: PHENobarbitaL 16.2 MG TAB PO SCH ×2 (06:54→18:56)
--- NOTE | 2022-07-25 08:00 | XR ---
EXAMINATION TYPE: XR chest 1V portable DATE OF EXAM: 07/25/2022 COMPARISON: 07/24/2022 HISTORY: Shortness of breath TECHNIQUE: Single frontal view of the chest is obtained. FINDINGS: Severe scoliotic curvature. Chest wall deformity limits evaluation. NG tube is seen coursing into the stomach. Complete opacification left hemithorax. Patchy infiltrate right lung base. Overall stable e xamination. IMPRESSION: 1. Stable examination
[2022-07-25] MEDS ORDERED: FUROSEMIDE 10 MG/ML 2 ML VIAL IV ONE (09:46)
--- NOTE | 2022-07-25 09:54 | P.PN ---
Subjective Progress Note Date: 07/25/22 I'm seeing this patient today, 07/21/2022, in new consultation in ICU. This is a 32-year-old white male with past medical history of spina bifida with L3 myelomeningocele, hydrocephalus with peritoneal shunt, Arnold-Chiari malformation, seizure disorder, severe kyphoscoliosis, frequent urinary tract in fections secondary to neurogenic bladder and need for intermittent catheterizations. Patient was admitted yesterday 07/20/2022. Mother reports he has been feeling unwell over the past couple weeks. Reported symptoms of shortness of breath, fever, cough. Patient was treated outpatient with Juanita horta. Yesterday, the patient had 2 seizures, at home, lasting approximately 1 minute. He then became more lethargic and ultimately unconscious. Patient's mother checked his oxygen saturation with her home pulse ox, and found his SpO2 to be 50%. EMS was called and patient was transferred to [facility]. Patient was intubated yesterday with a 7.5 ET tube, in the ER, to protect his airway. He is currently on mechanical ventilator settings of assist control, respiratory rate of 12, tidal volume of 300 mL, FiO2 55%, PEEP of 5. ABGs from this morning on FiO2 of 80% shows a pO2 of 103, pCO2 of 52, and a pH of 7.36. Patient's chest x-ray from today showed a complete opacification of left hemithorax. The endotracheal tube appeared to be above the george on the x-ray, however, the patient's physical deformities make it hard to assess. Patient also has an in place orogastric tube, there is a ventricular peritoneal shunt noted, and severe thoracolumbar scoliosis. There is concern for aspiration after the patient's witnessed seizure. Patient is covered empirically with Zosyn. The patient will require a bronchoscopy with BAL today. Patient's WBC count 3.5, hemoglobin 11.8, hematocrit of 37.9, platelets 42,000. Patient's BMP from today shows a sodium of 137, potassium 4.4, chloride 103, serum CO2 30, BUN 18, creatinine 0.41, glucose 107. Patient is currently sedated with propofol at 40 mcgs/kg/minute. And there is normal saline infusing at 130 milliliters per hour. Patient was negative for influenza, RSV, coronavirus. Lactic acid level was low at 1.4. Patient is also receiving bronchodilators and IV Solu-Medrol. GI prophylaxis with famotidine. Vital signs are stable at this time. Progress note dated 07/22/2022. 32-year-old male with a history of spina bifida, myelomeningocele, hydrocephalus, Arnold-Chiari malformation, seizure disorder, and severe kyph oscoliosis. The patient was seen in the ICU, after being initially evaluated in the emergency department. The patient was intubated for impending respiratory failure by the ER physician. Currently, the patient remains on the mechanical ventilator. He is on volume assist control, rate 12, tidal volume 300, FiO2 40%, PEEP of 5. Arterial blood gases show pO2 77, pCO2 of 59, and a pH is 7.3. The patient's currently on saline at 130 mL an hour, propofol at 50 mcg/kg/m, and vital AF at 30 mL, with a goal of 34. The patient is currently on Zosyn. Vancomycin was discontinued. White count 2.4, hemoglobin 10, hematocrit 31.8, platelet count 47,000. Sodium 139, potassium 3.5, chlorides 108, CO2 28, BUN 14, and creatinine 0.37. Chest x-ray shows consolidation in the left lung, as well as a stable well placed endotracheal tube. The patient did undergo bronchoscopy yesterday. Progress note dated 07/23/2022. 32-year-old male with history of spina bifida, myelomeningocele, hydrocephalus, Arnold-Chiari syndrome, seizure disorder, and severe kyphoscoliosis. The patient was seen in the intensive care unit, room 266. He was initially evaluated in the emergency department, with respiratory failure and seizure. He remains on the mechanical ventilator. The patient is on volume assist control, rate 12, tidal volume 300, FiO2 percent, and PEEP of 5. Blood gases show pO2 of 66, pCO2 58, and a pH is 7.25. The patient's getting saline at 130 mL an hour, and propofol at 50 mcg/kg/m. Tube feedings are on hold, because yesterday, it appeared that he aspirated. I did asked the nurse to resume tube feeds. White count 4.1, hemoglobin 9.5, hematocrit 30.7, platelet count 53,000. Sodium 140, potassium 3.6, chlorides 114, CO2 26, BUN 12, and creatinine 0.36. Blood culture showed staph epidermidis. Chest x-ray shows consolidation of the left lung, and which is essentially unchanged. Patient positioning, the patient's body habitus, and his severe kyphoscoliosis, limits the ability to interpret this chest x-ray. On 07/24/2022, the patient is being seen for a follow-up. This morning, the patient is on propofol running at 40 mcg/kg/m. The patient is calm and comfortable and symptoms of the mechanical ventilator. Is currently on assist control mode at the rate of 12 with a tidal volume of 300 and FiO2 of 40% with a PEEP of 5. Chest x-ray findings are quite limited because of his body habitus. The patient has severe kyphoscoliosis. Left lung is not adequately visualized. The right lung does seem to be clear of any significant pulmonary infiltrates. ET tube is in a good location. There is a large gastric bubble seen on today's chest x-ray. Meanwhile, the patient is receiving enteral feeding for nutritional support and currently is on vital AF at the rate of 10 mL an hour. He is tolerating the tube feeds for now. The white cell count of 7 with a hemoglobin of 10.7. Blood gas from today showed a pH of 7.34 with a pCO2 of 49 and pO2 of 73. Electrolytes are normal and the BUN is at 6 with a creatinine of 0.25. The patient remains on IV Zosyn. He does have a small wound in his right coccyx. No signs of any infection. Infectious diseases on the case. The patient is Only on IV Zosyn. The blood culture was positive for coagulase- negative staph. He did have a spike of temperature yesterday and currently is afebrile. Cardiac rhythm is sinus. He is in sinus tachycardia with a heart rate of around 120. NG tube is in place. Mcclain cath is in place and the patient is producing adequate amount of urine output. No pressors for now. Respiratory rate is in the mid tens. 07/25/20222022, the patient is wide awake. Mother is at the bedside. The patient is calm and comfortable. He is very cooperative. Orotracheal tube remains in place. Is on assist-control mode of mechanical ventilation and currently he is on a tidal volume of 300, rate of 12, FiO2 of 40% with a PEEP of 5. His chest x-rays extremely limited due to his severe kyphoscoliosis. Nevertheless, the orotracheal secretions are minimal and he is not requiring frequent suctioning. He has a weak cough. He is hemodynamically stable. Slightly hypertensive. Slightly tachycardic and this was an ongoing issue since yesterday. He is spiking low-grade temperatures of 99.4. He does have evidence of third spacing and edema. He was given a dose of Lasix 20 mg IV push yes terday and the overall fluid balance has been -1.7 L over the past 24 hours. He remains on IV Zosyn. His blood culture was positive for coagulase-negative spine staph aureus. He is blood gas showed a pH of 7.39 with a pCO2 of 51 and pO2 of 95. The white cell count is not elevated at 6.9 with a hemoglobin of 10.3. Platelet counts are low at 70 and it is stable and is essentially improving. Sodium is at 133, potassium is at 3.4 to be replaced and the serum bicarb is at 31 with a BUN of 2 and a creatinine of 0.25. His pro calcitonin level was 0.27, mildly elevated. He continues to be on enteral feeding for nutritional support and is currently on vital AF at the rate of 10 mL an hour. Objective - Vital Signs Vital signs: Vital Signs Temp 99.4 F 07/25/22 08:00 Pulse 116 H 07/25/22 09:00 Resp 16 07/25/22 09:00 BP 137/90 07/25/22 09:00 Pulse Ox 95 07/25/22 09:00 FiO2 40 07/25/22 08:00 Intake & Output 07/24/22 07/25/22 07/25/22 18:59 06:59 18:59 Intake Total 1143.523 674.603 268 Output Total 2700 820 235 Balance -1556.477 -145.397 33 Weight 39.9 kg Intake: IV 856 501 58 .9 20 150 120 10 .9 3cc/hr 36 36 3 Piperacillin-Tazobactam 3 100 125 25 .375 gm In Sodium Chloride 0.9% 100 ml @ 25 mls/hr IVPB Q8H BRANDI Rx#: [id number] Sodium Chloride 0.45% 1, 570 220 20 000 ml @ 20 mls/hr IV . Q24H BRANDI Rx#:[id number] Intake, IV Titration 167.523 23.603 200 Amount Magnesium Sulfate-D5w Pmx 100 1 gm In Dextrose/Water 1 100ml.bag @ 100 mls/hr IVPB Q1H BRANDI Rx#: [id number] Magnesium Sulfate-D5w Pmx 100 1 gm In Dextrose/Water 1 100ml.bag @ 100 mls/hr IVPB Q1H BRANDI Rx#: [id number] Potassium Chloride 20 meq 100 In Water For Injection 1 100ml.bag @ 50 mls/hr IVPB Q2H BRANDI Rx#: [id number] propofoL 1,000 mg In 67.523 23.603 Empty Bag 1 bag @ 5 MCG/ KG/MIN 1.17 mls/hr IV . Q24H BRANDI Rx#:[id number] Tube Feeding 120 90 10 Other 60 Output: Urine 2700 820 235 Other: Voiding Method Indwelling Catheter Indwelling Catheter ABP, PAP, CO, CI - Last Documented Arterial Blood Pressure 139/73 - Exam No acute distress, with an orally placed endotracheal tube awake and alert and currently is off sedation and following commands and communicating by facial expression.. HEENT examination is grossly unremarkable. Neck supple. Full range of motion. No adenopathy thyromegaly or neck vein distention. Cardiovascular examination reveals regular rhythm rate. S1-S2 normal. No S3 or S4. No discernible murmur noted. Lungs reveal diminished breath sounds laterally, more left than right sided. Scattered rhonchi are noted. No wheezes. No crackles. CV kyphoscoliosis of the chest with diminished breath on the left lung base Abdomen soft, without bowel sounds. PEG tube is noted. Extremities are intact. No cyanosis, clubbing, patient has developed significant edema in lower extremities and upper extremities bilaterally, The patient does have significant flexion deformities of the extremities. Skin is without rash or lesion. Neurologic examination , awake and alert, weakness with significant upper extremity. Unable to move his legs. - Labs CBC & Chem 7: 07/25/22 05:00 07/25/22 05:00 Labs: Abnormal Lab Results - Last 24 Hours (Table) 07/24/22 07/25/22 07/25/22 Range/Units 04:55 05:00 05:00 RBC 3.22 L (4.30-5.90) m/uL Hgb 10.3 L (13.0-17.5) gm/dL Hct 31.9 L (39.0-53.0) % Plt Count 70 L (150-450) k/uL ABG pCO2 (35-45) mmHg ABG HCO3 (21-25) mmol/L ABG Total CO2 (19-24) mmol/L ABG O2 Saturation (94-97) % Sodium 133 L (137-145) mmol/L Potassium 3.4 L (3.5-5.1) mmol/L Chloride 96 L (98-107) mmol/L Carbon Dioxide 31 H (22-30) mmol/L BUN 2 L (9-20) mg/dL Creatinine 0.25 L (0.66-1.25) mg/dL Calcium 7.7 L (8.4-10.2) mg/dL Magnesium 1.4 L (1.6-2.3) mg/dL Procalcitonin 0.27 H (0.02-0.09) ng/mL 07/25/22 Range/Units 05:30 RBC (4.30-5.90) m/uL Hgb (13.0-17.5) gm/dL Hct (39.0-53.0) % Plt Count (150-450) k/uL ABG pCO2 51 H (35-45) mmHg ABG HCO3 31 H (21-25) mmol/L ABG Total CO2 32 H (19-24) mmol/L ABG O2 Saturation 98.4 H (94-97) % Sodium (137-145) mmol/L Potassium (3.5-5.1) mmol/L Chloride (98-107) mmol/L Carbon Dioxide (22-30) mmol/L BUN (9-20) mg/dL Creatinine (0.66-1.25) mg/dL Calcium (8.4-10.2) mg/dL Magnesium (1.6-2.3) mg/dL Procalcitonin (0.02-0.09) ng/mL Microbiology - Last 24 Hours (Table) 07/21/22 10:21 Bronchial Washings Culture - Preliminary Bronchoalviolar Lavage - Right 07/21/22 10:21 Fungal Culture - Preliminary Bronchoalviolar Lavage - Right 07/21/22 10:21 Acid Fast Bacilli Culture - Preliminary Bronchoalviolar Lavage - Right 07/20/22 16:55 Blood Culture - Preliminary Blood No Growth after 96 hours Assessment and Plan Plan: Acute hypoxemic respiratory failure, likely secondary to aspiration. The patient is post bronchoscopy, cultures are negative, rule out chemical aspiration/chemical pneumonia. The patient is, the broad-spectrum antibiotics with IV Zosyn. Cultures are still negative, having low-grade fever, pro calcitonin level was 0.27. Presently cultures were negative. Awake and alert off sedation. Status post intubation and mechanical ventilation on 07/20/2022. S/P bronchoscopy, 07/21/2022. History of breakthrough seizure disorder in a patient with chronic seizure history. History of spina bifida with L3 myelomeningocele. History of hydrocephalus, status post [employer] shunt. History of Arnold-Chiari malformation. Severe kyphoscoliosis. Frequent urinary tract infections. Sinus tachycardia Hypertension Plan: Keep the patient off sedation Check weaning parameters and assess readiness to wean Switch this patient to a pressure support of 8 and a PEEP of 5 Obtain a blood gases in one hour and decide if the patient can be extubated Continue IV Zosyn Monitor fever pattern Continue enteral feeding for nutritional support, currently to please on hold in anticipation for possible extubation Continue seizure medication and we have not with this any further episodes of seizures start The patient on metoprolol 25 mg by mouth twice a day Give the patient was on Lasix 20 mg IV push Replaced the potassium This will end up being a difficult extubation as the patient has severe kyphoscoliosis. The patient probably has also weak cough and neuromuscular weakness. Hemodynamically stable on no pressors Continue Depakote continue phenobarbital Will need to check his antiepileptic levels for tomorrow We'll continue to follow make further recommendations based on progress. Critical care evaluation that was done in more than 30 minutes. Time with Patient: Greater than 30
[2022-07-25] MEDS: CHLORHEXIDINE GLUCONATE 15 ML CUP MUCOUS MEM SCH ×2 (10:05→19:53)
[2022-07-25] MEDS: HYDROPHILIC CREAM 180 GM TUBE TOPICAL SCH (10:06)
[2022-07-25] MEDS: METOPROLOL TARTRATE 25 MG TAB PO SCH ×2 (10:06→22:28)
[2022-07-25] MEDS: FAMOTIDINE 20 MG/2 ML VIAL IV SCH ×2 (10:06→20:23)
[2022-07-25] MEDS: DIVALPROEX SPRINKLE 125 MG CAP.SPRINK PO SCH ×2 (10:06→20:22)
[2022-07-25 10:51] LABS: ABG Base Excess 8.7 mmol/L; ABG HCO3 33 mmol/L (21-25); ABG Oxygen Saturation 96.6 % (94-97); ABG PCO2 52 mmHg (35-45); ABG PH 7.42 (7.35-7.45); ABG PO2 76 mmHg (83-108); ABG TCO2 35 mmol/L (19-24)
[2022-07-25 10:52] LABS: Allen Test Performed? no
[2022-07-25] MEDS ORDERED: CISATRACURIUM 2 MG/ML 5 ML VIAL IV ONE (11:11)
[2022-07-25] MEDS ORDERED: NOREPINEPHRIN 4 MG-0.9% NS PMX 4 MG/250 ML ML IV ONE (11:19)
[2022-07-25] MEDS: NOREPINEPHRINE 4 MG in SODIUM CHLORIDE 0.9% 250 ML IV SCH (11:30)
--- NOTE | 2022-07-25 12:01 | XR ---
EXAMINATION TYPE: XR chest 1V portable DATE OF EXAM: 07/25/2022 COMPARISON: Same day HISTORY: Intubation TECHNIQUE: Single frontal view of the chest is obtained. FINDINGS: Endotracheal tube is noted with its distal tip approximately 5.4 cm from the george. NG tube is seen coursing into the stomach. Continued complete opacification left hemithorax. Patchy density right low er lobe. Marked deformity of the chest wall and severe scoliotic curvature. IMPRESSION: 1. Essentially stable chest. Endotracheal tube as noted
--- NOTE | 2022-07-25 12:19 | P.PN ---
Subjective Progress Note Date: 07/25/22 The patient seen at bedside is accompanied with his mother. The sedation has been off (IV Propofol). The patient's mother is happy and seeing improvement. She is happy that she is also seeing improvement and decrease in the swelling of his upper and lower extremities especially since she's been on Lasix and the IV fluids and has been decreased. Objective - Vital Signs Vital signs: Vital Signs Temp 99.4 F 07/25/22 08:00 Pulse 116 H 07/25/22 09:00 Resp 16 07/25/22 09:00 BP 137/90 07/25/22 09:00 Pulse Ox 95 07/25/22 09:00 FiO2 100 07/25/22 11:15 Intake & Output 07/24/22 07/25/22 07/25/22 18:59 06:59 18:59 Intake Total 1143.523 674.603 268 Output Total 2700 820 1235 Balance -1556.477 -145.397 -967 Weight 39.9 kg Intake: IV 856 501 58 .9 20 150 120 10 .9 3cc/hr 36 36 3 Piperacillin-Tazobactam 3 100 125 25 .375 gm In Sodium Chloride 0.9% 100 ml @ 25 mls/hr IVPB Q8H BRANDI Rx#: [id number] Sodium Chloride 0.45% 1, 570 220 20 000 ml @ 20 mls/hr IV . Q24H BRANDI Rx#:[id number] Intake, IV Titration 167.523 23.603 200 Amount Magnesium Sulfate-D5w Pmx 100 1 gm In Dextrose/Water 1 100ml.bag @ 100 mls/hr IVPB Q1H BRANDI Rx#: [id number] Magnesium Sulfate-D5w Pmx 100 1 gm In Dextrose/Water 1 100ml.bag @ 100 mls/hr IVPB Q1H BRANDI Rx#: [id number] Potassium Chloride 20 meq 100 In Water For Injection 1 100ml.bag @ 50 mls/hr IVPB Q2H BRANDI Rx#: [id number] propofoL 1,000 mg In 67.523 23.603 Empty Bag 1 bag @ 5 MCG/ KG/MIN 1.17 mls/hr IV . Q24H BRANDI Rx#:[id number] Tube Feeding 120 90 10 Other 60 Output: Urine 2700 820 1235 Other: Voiding Method Indwelling Catheter Indwelling Catheter ABP, PAP, CO, CI - Last Documented Arterial Blood Pressure 139/73 - Exam GENERAL: The patient is lying in bed and is not in acute distress. Appears generalized edema in uppers and lowers NEUROLOGICAL:. Higher mental function: Is following simple commands (showing thumbs upon on right hand, opening and closing eyes to command). Cranial nerves: Is tracking throughout the room. No facial weakness. Motor: The strength is moving the right upper extremity above gravity on own. No movement in lowers extremities (old) and no movement in left upper extremity (according to mother has mimimal movement at baseline). Has atrophy mostly lowers > uppers (baseline). - Labs CBC & Chem 7: 07/25/22 05:00 07/25/22 05:00 Labs: Abnormal Lab Results - Last 24 Hours (Table) 07/24/22 07/25/22 07/25/22 Range/Units 04:55 05:00 05:00 RBC 3.22 L (4.30-5.90) m/uL Hgb 10.3 L (13.0-17.5) gm/dL Hct 31.9 L (39.0-53.0) % Plt Count 70 L (150-450) k/uL ABG pCO2 (35-45) mmHg ABG pO2 (83-108) mmHg ABG HCO3 (21-25) mmol/L ABG Total CO2 (19-24) mmol/L ABG O2 Saturation (94-97) % Sodium 133 L (137-145) mmol/L Potassium 3.4 L (3.5-5.1) mmol/L Chloride 96 L (98-107) mmol/L Carbon Dioxide 31 H (22-30) mmol/L BUN 2 L (9-20) mg/dL Creatinine 0.25 L (0.66-1.25) mg/dL Calcium 7.7 L (8.4-10.2) mg/dL Magnesium 1.4 L (1.6-2.3) mg/dL Procalcitonin 0.27 H (0.02-0.09) ng/mL 07/25/22 07/25/22 Range/Units 05:30 10:50 RBC (4.30-5.90) m/uL Hgb (13.0-17.5) gm/dL Hct (39.0-53.0) % Plt Count (150-450) k/uL ABG pCO2 51 H 52 H (35-45) mmHg ABG pO2 76 L (83-108) mmHg ABG HCO3 31 H 33 H (21-25) mmol/L ABG Total CO2 32 H 35 H (19-24) mmol/L ABG O2 Saturation 98.4 H (94-97) % Sodium (137-145) mmol/L Potassium (3.5-5.1) mmol/L Chloride (98-107) mmol/L Carbon Dioxide (22-30) mmol/L BUN (9-20) mg/dL Creatinine (0.66-1.25) mg/dL Calcium (8.4-10.2) mg/dL Magnesium (1.6-2.3) mg/dL Procalcitonin (0.02-0.09) ng/mL Microbiology - Last 24 Hours (Table) 07/21/22 10:21 Bronchial Washings Culture - Preliminary Bronchoalviolar Lavage - Right 07/21/22 10:21 Fungal Culture - Preliminary Bronchoalviolar Lavage - Right 07/21/22 10:21 Acid Fast Bacilli Culture - Preliminary Bronchoalviolar Lavage - Right 07/20/22 16:55 Blood Culture - Preliminary Blood No Growth after 96 hours Assessment and Plan Assessment: * Altered mental status, likely due to toxic metabolic encephalopathy. Status post subclinical status, now resolved.Mentation is improving. * History of Arnold-Chiari malformation with myelomeningocele L3 level, hydrocephalus and syringomyelia, status post multiple VPS and shunting for syrinx. * Medically intractable seizure disorder, came with a typical seizure. * Aspiration pneumonia * Lactic acidosis, likely due to sepsis versus seizure. * Patient with history of grand mal seizures, absence seizures and tonic-clonic seizures. * Severe kyphoscoliosis * Wheelchair-bound Plan: * Repeat EEG 07/22/2022 preliminary report showed background slowing of moderate to severe degree, consistent with encephalopathy. No evidence of partial status. No electrographic seizure recorded. Still presence of epileptogenic focus involving the right temporal and also the right frontal region. No generalization. * EEG 07/21/2022 showed presence of 2 epileptic foci involving the right temporal and right frontal region and sometimes generalized spike or polyspike and wave were also seen. There is recording of multiple focal seizures, all of them originating in the right hemispheric region and one of them later generalized for about 26 seconds. No motor activity was observed on the review of the video section of the study. Background slowing of at least moderate degree suggestive of encephalopathy. Subclinical partial status cannot be ruled out. Clinical correlation is recommended. * Depakote level 53.8 (50-100), and phenobarbital level 22.4 (15-40). Both levels are therapeutic. * Continue his seizure medications including Vimpat 200 mg twice a day, Depakote 500 mg in the morning and 250 mg at night, and phenobarbital 40.5 mg twice a day. * Other medical management as per IM and other specialties. The plan is discussed with the patient's mother's who is at bedside and his nurse. Will continue to follow. Time with Patient: Less than 30
[2022-07-25 12:30] LABS: ABG Base Excess 9.1 mmol/L; ABG HCO3 34 mmol/L (21-25); ABG PCO2 55 mmHg (35-45); ABG PO2 226 mmHg (83-108); ABG TCO2 36 mmol/L (19-24)
[2022-07-25 12:31] LABS: Allen Test Performed? no
[2022-07-25] MEDS: DEXMEDETOMIDINE/0.9% NACL(PMX) 400 MCG in EMPTY BAG 1 BAG IV SCH (13:03)
--- NOTE | 2022-07-25 13:44 | P.PN ---
Subjective Progress Note Date: 07/25/22 This is a pleasant 32 years old male with past medical history of L3 myelomeningocele and hydrocephalus with any peritoneal shunt, spina bifid F, seizure, chiari malformation. Patient initially presents because of altered mental status and seizure, he had 2 seizures at home 1. Gastric to and other as atypical. Patient was bronchoscoped doing well more lethargic and L over the last 2 days. This morning patient mother noticed he had a seizure that lasted for about 1 minute followed by post ictal confusion, and mother noticed that his oxygen saturation is drip until called EMS, as per document However the mother clarify that actually he has been sick 2 days ago with congestion and coughing, Dr. Mcfarland his primary doctor start him on Augmentin because of history of septic shock and easy infection, he took 3 pulse, he has a day morning he was noticed to have a brief period of seizure although the mom she does not think he had seizure he was just lethargic. She checked his temperature at home and it was 102 breath he was feeling cold and shivering. At baseline he is able to talk normally, he understands the surrounding, he can eat by himself but he is wheelchair bound On admission he is with low-grade temperature 99.7. He is tachycardic around 115, hypertensive blood pressure this morning 93/73. His CBC is unremarkable. INR is 1.1, d-dimer is slightly elevated at 1.1. On admission. PhosLo 7.2, heart pCO2 of 68. Chest x-ray: Left upper and middle lobe consolidation with air bronchograms EKG showing sinus tachycardia at 130 Emergency room patient received breathing treatment, antibiotics, steroids, normal saline. (Continued on Levaquin and normal saline at 1:30 milliliters of breath or, Zosyn and Solu-Medrol 40 mg 07/22/2022 Patient remains intubated and sedated. He is on mechanical ventilation with FiO2 of 40% and PEEP of 5. Status post bronchoscopy. Blood pressure 147/82, tachycardic at 117. Mcclain place. WBCs 2.4, hemoglobin 10, platelets at 102. He remains on Zosyn and Levaquin, no positive vancomycin is a normal saline and Solu-Medrol 40 mg I discussed the case with the neurology this morning repeat EEG showing no more epileptic discharge. Patient remains on 3 antiseizure medications phenobarbital, Depakote and vimpat. 07/23/2022 Patient still in the ICU sedated and intubated No seizure-like activity however he is improving and he may be considered for sedation holiday per pulmonary/critical care team who have also with the vent management. Currently he has FiO2 of 40% and PEEP of 5. His hemoglobin 9.5, WBC 4.1 and platelet count 53, he is tachycardic with heart rate around 1 25/m and just vitals stable. He has positive blood culture with staph epidermidis, most likely contamination Chest x-ray I reviewed myself showing still opacification on the left side Also his normal saline lower to 100 mL/h with Mcclain catheter in place Currently covered with Zosyn. Also he is on normal saline at 100 mL per hour and Solu-Medrol 40 mg 07/24. Patient seen and examined. Currently patient is intubated. Currently sedated with propofol. Patient had have low-grade fever overnight. Patient on tube feeding. Mother at the bedside. Vital signs shows patient to be tachycardic with heart rate in 120s. Unable to obtain a detailed review of systems because of patient being intubated. No seizure-like activity noticed. Pulmonology/critical care considering decreasing sedation 07/25. Patient seen and examined. Currently off sedation, patient is following commands. Mother at the bedside, states that patient is looking much better to her PHYSICAL EXAMINATION: GENERAL Intubated, cachectic, chronically ill-looking , more alert compared to yesterday HEENT: Pupils are round and equally reacting to light. EOMI. No scleral icterus. No conjunctival pallor. Normocephalic, atraumatic. No pharyngeal erythema. No thyromegaly. CARDIOVASCULAR: S1 and S2 present. No murmurs, rubs, or gallops. PULMONARY Diminished breath sounds at the left lung base ABDOMEN: Soft, nontender, nondistended, normoactive bowel sounds. No palpable organomegaly. PEG tube seen MUSCULOSKELETAL: No joint swelling or deformity. EXTREMITIES: No cyanosis, clubbing, or pedal edema. NEUROLOGICAL Currently intubated and sedated SKIN: No rashes. Wound in coccyx area Assessment and plan Left community acquired pneumonia, versus aspiration pneumonia Hypoxic respiratory failure secondary to above Possible reactive airway disease Altered mental status, mostly metabolic encephalopathy Breakthrough seizure Respiratory acidosis History of spina bifid the and third lumbar myelomeningocele History of hydrocephalus status post cranial peritoneal shunt History of seizure chiari malformation History of Recurrent UTI Plan: Monitor Vital signs Monitor CBC Continue with Zosyn Continue with steroids Solu-Medrol Continue with breathing treatment Follow-up sputum culture and blood culture Repeat EEG 07/22/2022 preliminary report showed background slowing of moderate to severe degree, consistent with encephalopathy. No evidence of partial status. No electrographic seizure recorded. Still presence of epileptogenic focus involving the right temporal and also the right frontal region. No generalization. EEG 07/21/2022 showed presence of 2 epileptic foci involving the right temporal and right frontal region and sometimes generalized spike or polyspike and wave were also seen. There is recording of multiple focal seizures, all of them originating in the right hemispheric region and one of them later generalized for about 26 seconds. No motor activity was observed on the review of the video section of the study. Background slowing of at least moderate degree suggestive of encephalopathy. Subclinical partial status cannot be ruled out. Clinical correlation is recommended. Continue his seizure medications including Vimpat 200 mg twice a day, Depakote 500 mg in the morning and 250 mg at night, and phenobarbital 40.5 mg twice a day. Patient received 1 dose of Lasix 20 mg Started patient on Lopressor 25 mg twice a day Continue vent management per pulmonary , pulmonology will attempt extubation soon Labs and medication were reviewed.. Continue same treatment. Continue with symptomatic treatment. Further recommendations as per clinical course of the patient Objective - Vital Signs Vital signs: Vital Signs Temp 99.4 F 07/25/22 08:00 Pulse 98 07/25/22 12:30 Resp 12 07/25/22 12:30 BP 125/89 07/25/22 12:30 Pulse Ox 100 07/25/22 12:30 FiO2 100 07/25/22 11:15 Intake & Output 07/24/22 07/25/22 07/25/22 18:59 06:59 18:59 Intake Total 1143.523 674.603 287.359 Output Total 2700 820 2085 Balance -1556.477 -145.397 -1797.641 Weight 39.9 kg Intake: IV 856 501 58 .9 20 150 120 10 .9 3cc/hr 36 36 3 Piperacillin-Tazobactam 3 100 125 25 .375 gm In Sodium Chloride 0.9% 100 ml @ 25 mls/hr IVPB Q8H BRANDI Rx#: [id number] Sodium Chloride 0.45% 1, 570 220 20 000 ml @ 20 mls/hr IV . Q24H BRANDI Rx#:[id number] Intake, IV Titration 167.523 23.603 219.359 Amount Magnesium Sulfate-D5w Pmx 100 1 gm In Dextrose/Water 1 100ml.bag @ 100 mls/hr IVPB Q1H BRANDI Rx#: [id number] Magnesium Sulfate-D5w Pmx 100 1 gm In Dextrose/Water 1 100ml.bag @ 100 mls/hr IVPB Q1H [facility]I Rx#: [id number] Norepinephrine 4 mg In 19.359 Sodium Chloride 0.9% 250 ml @ 0.03 MCG/KG/MIN 4. 561 mls/hr IV .Q24H [facility]ANDI Rx#:[id number] Potassium Chloride 20 meq 100 In Water For Injection 1 100ml.bag @ 50 mls/hr IVPB Q2H [facility]ANDI Rx#: [id number] propofoL 1,000 mg In 67.523 23.603 Empty Bag 1 bag @ 5 MCG/ KG/MIN 1.17 mls/hr IV . Q24H BRANDI Rx#:[id number] Tube Feeding 120 90 10 Other 60 Output: Urine 2700 820 2085 Other: Voiding Method Indwelling Catheter Indwelling Catheter ABP, PAP, CO, CI - Last Documented Arterial Blood Pressure 88/46 - Labs CBC & Chem 7: 07/25/22 05:00 07/25/22 05:00 Labs: Abnormal Lab Results - Last 24 Hours (Table) 07/24/22 07/25/22 07/25/22 Range/Units 04:55 05:00 05:00 RBC 3.22 L (4.30-5.90) m/uL Hgb 10.3 L (13.0-17.5) gm/dL Hct 31.9 L (39.0-53.0) % Plt Count 70 L (150-450) k/uL ABG pCO2 (35-45) mmHg ABG pO2 (83-108) mmHg ABG HCO3 (21-25) mmol/L ABG Total CO2 (19-24) mmol/L ABG O2 Saturation (94-97) % Sodium 133 L (137-145) mmol/L Potassium 3.4 L (3.5-5.1) mmol/L Chloride 96 L (98-107) mmol/L Carbon Dioxide 31 H (22-30) mmol/L BUN 2 L (9-20) mg/dL Creatinine 0.25 L (0.66-1.25) mg/dL Calcium 7.7 L (8.4-10.2) mg/dL Magnesium 1.4 L (1.6-2.3) mg/dL Procalcitonin 0.27 H (0.02-0.09) ng/mL 07/25/22 07/25/22 07/25/22 Range/Units 05:30 10:50 12:28 RBC (4.30-5.90) m/uL Hgb (13.0-17.5) gm/dL Hct (39.0-53.0) % Plt Count (150-450) k/uL ABG pCO2 51 H 52 H 55 H (35-45) mmHg ABG pO2 76 L 226 H (83-108) mmHg ABG HCO3 31 H 33 H 34 H (21-25) mmol/L ABG Total CO2 32 H 35 H 36 H (19-24) mmol/L ABG O2 Saturation 98.4 H 100.0 H (94-97) % Sodium (137-145) mmol/L Potassium (3.5-5.1) mmol/L Chloride (98-107) mmol/L Carbon Dioxide (22-30) mmol/L BUN (9-20) mg/dL Creatinine (0.66-1.25) mg/dL Calcium (8.4-10.2) mg/dL Magnesium (1.6-2.3) mg/dL Procalcitonin (0.02-0.09) ng/mL Microbiology - Last 24 Hours (Table) 07/21/22 10:21 Gram Stain - Preliminary Bronchoalviolar Lavage - Right Bronchial Washings Culture - Preliminary 07/21/22 10:21 Fungal Culture - Preliminary Bronchoalviolar Lavage - Right 07/21/22 10:21 Acid Fast Bacilli Culture - Preliminary Bronchoalviolar Lavage - Right 07/20/22 16:55 Blood Culture - Preliminary Blood No Growth after 96 hours
--- NOTE | 2022-07-25 16:38 | P.PCN ---
Date of Procedure: 07/25/22 Preoperative Diagnosis: Acute hypoxic respiratory failure Postoperative Diagnosis: Acute hypoxic respiratory failure Procedure(s) Performed: Intubation, flexible bronchoscopy and therapeutic removal of mucous plugs Anesthesia: MAC Surgeon: Antwan Nelson Estimated Blood Loss (ml): 0 Pathology: other Condition: critical Disposition: ICU Operative Findings: This patient was quite stable on morning evaluation. Following morning rounds, the patient was given this point his breathing trial with a pressure support of 8 and a PEEP of 5. He was able to tolerate for a total of 1 hour. Following that, the patient was extubated. Approximately 10 minutes post extubation, the patient was unable to breathe. He desaturated and there was no air exchange. I had to reintubate the patient and performed a bronchoscopy on emergency basis. Note that the patient's pulse ox dropped considerably as low as in the 50% for brief seconds, probably less than a minute and I was able to restore ventilation and oxygenation on this patient in the intensive care unit. Note that during the process, the patient was given a total of 10 mg of IV propofol. Indication: Respiratory compromise. A time-out was completed verifying correct patient, procedure, site, positioning, and implant(s) or special equipment if applicable. The patient was positioned appropriately and a #8 endotracheal tube was placed under direct laryngoscopy. The tube was anchored at 22 cm at the teeth. Correct placement was confirmed by presence of bilateral breath sounds without air sounds in the abdomen on auscultation. An end-tidal CO2 monitor was also used to confirm tracheal placement of the ET tube. A chest x-ray was ordered to assess for pneumothorax and verify endotracheal tube placement. The patient tolerated the procedure well and there were no complications. Bronchoscopy Postintubation, it was quite difficult to ventilate the patient. ET tube was in a good location. There was adequate color change on the CO2 detector. At that point, the patient was essentially a mechanical ventilator. A portable flexible bronchoscope was used to do a quick airway inspection. The ET tube was seen around 2 cm above the george. There was copious amount of mucous plugs identified in the distal trachea and bilateral mainstem bronchi. Therapeutic airway suctioning was done. There was significant anatomic distortion as the patient has severe kyphoscoliosis of the chest. I was able to visualize the bilateral mainstem bronchi, right upper lobe bronchus. Right lower lobe bronchus. Right middle lobe bronchus. Examination of the left eye showed significant anatomic distortion. Various segments of the left lower lobe were not adequately visualized. Left upper lobe was adequately visualized. Therapeutic airway suctioning was done. The bronchial aspirate was sent for microbial cultures and analysis.
[2022-07-25 18:10] LABS: Glucose,Whole Blood 85 mg/dL (70-110)
--- NOTE | 2022-07-25 19:05 | P.GSCN ---
History of Present Illness Consult date: 07/25/22 Reason for Consult: Respiratory failure History of present illness: 32-year-old male hospitalized with shortness of breath. Patient with history of scoliosis, spina bifida, hydrocephalus and recurrent UTI. Patient came to the hospital with shortness of breath. Patient has had respiratory failure. He failed extubation. He has not had previous ventilatory support. Patient has had significant secretions. We were consulted for tracheostomy and PEG tube placement. 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, Other MDRO Year Discovered:: 02/07/21 MDRO Source:: URINE Past Surgical History: Ventriculoperitoneal Shunt Additional Past Anesthesia/Blood Transfusion Reaction / Comm: Hx of receiving anesthesia and did not wake up for 6 days Past Psychological History: No Psychological Hx Reported Smoking Status: Never smoker Past Alcohol Use History: None Reported Past Drug Use History: None Reported Medications and Allergies Home Medications Medication Instructions Recorded Confirmed Type Cholecalciferol [Vitamin D3 (25 50 mcg PO DAILY@0700 07/20/22 07/21/22 History Mcg = 1000 Iu)] Divalproex Sprinkle [Depakote 250 mg PO HS 07/20/22 07/21/22 History Sprinkle] Divalproex Sprinkle [Depakote 500 mg PO DAILY 07/20/22 07/21/22 History Sprinkle] Lacosamide [Vimpat Oral Soln] 200 mg PO BID@0700,1900 07/20/22 07/21/22 History Nitrofurantoin Macrocrystal 50 mg PO HS@1900 07/20/22 07/21/22 History [Macrodantin] PHENobarbitaL [Luminal] 40.5 mg PO BID@0700,1900 07/20/22 07/21/22 History Valtoco 5mg/0.1ml Nasal 1 spr NASAL ONCE PRN 07/20/22 07/21/22 History Allergies Allergy/AdvReac Type Severity Reaction Status Date / Time carbamazepine [From Tegretol] Allergy Severe Anaphylaxis Verified 07/21/22 08:47 immune globulin,gamma (IgG) Allergy Severe Anaphylaxis Verified 07/21/22 08:47 human Iodinated Contrast Media Allergy Severe Rash/Hives Verified 07/21/22 08:47 Latex, Natural Rubber Allergy Severe Anaphylaxis Verified 07/21/22 08:47 phenytoin [From Dilantin] Allergy Severe Anaphylaxis Verified 07/21/22 08:47 septra Allergy Severe Anaphylaxis Uncoded 07/20/22 16:59 Surgical - Exam Vital Signs Temp 97.1 F L 07/20/22 16:47 Physical exam: General: Well-developed, well-nourished HEENT: Normocephalic, sclerae nonicteric Abdomen: Nontender, nondistended Extremities: Contractures and deformities noted Neuro: Alert Results - Labs 07/25/22 05:00 07/25/22 05:00 Abnormal Lab Results - Last 24 Hours (Table) 07/24/22 07/25/22 07/25/22 Range/Units 04:55 05:00 05:00 RBC 3.22 L (4.30-5.90) m/uL Hgb 10.3 L (13.0-17.5) gm/dL Hct 31.9 L (39.0-53.0) % Plt Count 70 L (150-450) k/uL ABG pCO2 (35-45) mmHg ABG pO2 (83-108) mmHg ABG HCO3 (21-25) mmol/L ABG Total CO2 (19-24) mmol/L ABG O2 Saturation (94-97) % Sodium 133 L (137-145) mmol/L Potassium 3.4 L (3.5-5.1) mmol/L Chloride 96 L (98-107) mmol/L Carbon Dioxide 31 H (22-30) mmol/L BUN 2 L (9-20) mg/dL Creatinine 0.25 L (0.66-1.25) mg/dL Calcium 7.7 L (8.4-10.2) mg/dL Magnesium 1.4 L (1.6-2.3) mg/dL Procalcitonin 0.27 H (0.02-0.09) ng/mL 07/25/22 07/25/22 07/25/22 Range/Units 05:30 10:50 12:28 RBC (4.30-5.90) m/uL Hgb (13.0-17.5) gm/dL Hct (39.0-53.0) % Plt Count (150-450) k/uL ABG pCO2 51 H 52 H 55 H (35-45) mmHg ABG pO2 76 L 226 H (83-108) mmHg ABG HCO3 31 H 33 H 34 H (21-25) mmol/L ABG Total CO2 32 H 35 H 36 H (19-24) mmol/L ABG O2 Saturation 98.4 H 100.0 H (94-97) % Sodium (137-145) mmol/L Potassium (3.5-5.1) mmol/L Chloride (98-107) mmol/L Carbon Dioxide (22-30) mmol/L BUN (9-20) mg/dL Creatinine (0.66-1.25) mg/dL Calcium (8.4-10.2) mg/dL Magnesium (1.6-2.3) mg/dL Procalcitonin (0.02-0.09) ng/mL Microbiology - Last 24 Hours (Table) 07/25/22 12:56 Bronchial Washings Culture - Preliminary Bronchial Washings - Random 07/24/22 11:48 Blood Culture - Preliminary Blood No Growth after 24 hours 07/21/22 10:21 Gram Stain - Preliminary Bronchoalviolar Lavage - Right Bronchial Washings Culture - Preliminary 07/21/22 10:21 Fungal Culture - Preliminary Bronchoalviolar Lavage - Right 07/21/22 10:21 Acid Fast Bacilli Culture - Preliminary Bronchoalviolar Lavage - Right 07/20/22 16:55 Blood Culture - Preliminary Blood No Growth after 96 hours Diabetes panel 07/25/22 Range/Units 05:00 Sodium 133 L (137-145) mmol/L Potassium 3.4 L (3.5-5.1) mmol/L Chloride 96 L (98-107) mmol/L Carbon Dioxide 31 H (22-30) mmol/L BUN 2 L (9-20) mg/dL Creatinine 0.25 L (0.66-1.25) mg/dL Glucose 83 (74-99) mg/dL Calcium 7.7 L (8.4-10.2) mg/dL Calcium panel 07/25/22 Range/Units 05:00 Calcium 7.7 L (8.4-10.2) mg/dL Pituitary panel 07/25/22 Range/Units 05:00 Sodium 133 L (137-145) mmol/L Potassium 3.4 L (3.5-5.1) mmol/L Chloride 96 L (98-107) mmol/L Carbon Dioxide 31 H (22-30) mmol/L BUN 2 L (9-20) mg/dL Creatinine 0.25 L (0.66-1.25) mg/dL Glucose 83 (74-99) mg/dL Calcium 7.7 L (8.4-10.2) mg/dL Adrenal panel 07/25/22 Range/Units 05:00 Sodium 133 L (137-145) mmol/L Potassium 3.4 L (3.5-5.1) mmol/L Chloride 96 L (98-107) mmol/L Carbon Dioxide 31 H (22-30) mmol/L BUN 2 L (9-20) mg/dL Creatinine 0.25 L (0.66-1.25) mg/dL Glucose 83 (74-99) mg/dL Calcium 7.7 L (8.4-10.2) mg/dL Assessment and Plan (1) Acute respiratory failure Narrative/Plan: 32-year-old male with respiratory failure. Discussed clinical scenario with the patient's mother. She would like us to proceed with tracheostomy and PEG tube placement. We'll discuss with our scheduling. Current Visit: Yes Status: Acute Code(s): J96.00 - ACUTE RESPIRATORY FAILURE, UNSP W HYPOXIA OR HYPERCAPNIA SNOMED Code(s): 09428572
[2022-07-26] MEDS: IPRATROPIUM-ALBUTEROL 3 ML NEB INHALATION SCH ×7 (00:09→23:30)
[2022-07-26 00:12] LABS: Glucose,Whole Blood 73 mg/dL (70-110)
[2022-07-26] MEDS: SODIUM CHLORIDE 0.45% 1,000 ML IV SCH (03:22)
[2022-07-26] MEDS: ACETAMINOPHEN TAB 325 MG TAB PO PRN (03:34)
[2022-07-26 05:14] LABS: HCT 34.1 % (39.0-53.0); MCH 32.8 pg (25.0-35.0); MCHC 32.3 g/dL (31.0-37.0); MCV 101.3 fL (80.0-100.0); Macrocytosis Slight; Mean Platelet Volume 8.4; RBC 3.37 m/uL (4.30-5.90); RDW 14.7 % (11.5-15.5); WBC 5.8 k/uL (3.8-10.6)
[2022-07-26 05:22] LABS: Potassium 3.9 mmol/L (3.5-5.1); Sodium 134 mmol/L (137-145)
[2022-07-26 05:23] LABS: African American GFR (CKD) >90 (>60 ml/min/1.73 sqM); Anion Gap 7 mmol/L; Blood Urea Nitrogen 3 mg/dL (9-20); Carbon Dioxide 32 mmol/L (22-30); Chloride 95 mmol/L (98-107); Glucose 91 mg/dL (74-99); Magnesium 1.4 mg/dL (1.6-2.3); Non-African American GFR(CKD) >90 (>60 ml/min/1.73 sqM)
[2022-07-26 05:28] LABS: Glucose,Whole Blood 95 mg/dL (70-110)
[2022-07-26 05:28] LABS: Valproic Acid (Depakene) 26.8 ug/mL
[2022-07-26 05:38] LABS: ABG Base Excess 7.4 mmol/L; ABG HCO3 32 mmol/L (21-25); ABG Oxygen Saturation 98.7 % (94-97); ABG PCO2 53 mmHg (35-45); ABG PO2 102 mmHg (83-108); ABG TCO2 34 mmol/L (19-24)
[2022-07-26] MEDS: POTASSIUM CHLORIDE 10 MEQ in WATER FOR INJECTION 1 100ML.BAG IVPB SCH ×2 (05:49→06:49)
[2022-07-26 05:50] LABS: Allen Test Performed? no
[2022-07-26 06:03] LABS: Platelet Count 120 k/uL (150-450)
[2022-07-26] MEDS: PIPERACILLIN-TAZOBACTAM 3.375 GM in SODIUM CHLORIDE 0.9% 100 ML IVPB SCH ×3 (06:20→22:45)
[2022-07-26] MEDS: MAGNESIUM SULFATE-D5W PMX 1 GM in DEXTROSE/WATER 1 100ML.BAG IVPB SCH ×3 (06:20→12:34)
[2022-07-26] MEDS: PHENobarbitaL 16.2 MG TAB PO SCH ×2 (06:20→19:16)
[2022-07-26] MEDS: LACOSAMIDE 50 MG TABLET PO SCH ×2 (06:20→19:16)
[2022-07-26 06:53] LABS: Band Neutrophils % 20 %; Eosinophils # (M) 0.17 k/uL (0-0.7); Lymphocytes # (M) 1.28 k/uL (1.0-4.8); Metamyelocytes # (M) 0.06 k/uL (0); Metamyelocytes % 1 %; Neutrophils % (M) 44 %; Nucleated Red Blood Cells 0 /100 WBC (0-0); Total Cells Counted 200
--- NOTE | 2022-07-26 09:29 | XR ---
EXAMINATION TYPE: XR chest 1V portable DATE OF EXAM: 07/26/2022 COMPARISON: 07/25/2022 INDICATION: Tube placement TECHNIQUE: Single frontal view of the chest is obtained. FINDINGS: The heart size is indistinct. The pulmonary vasculature is normal. There is opacification of the left lung. Endotracheal tube tip history centimeters above the george. Nasogastric tube transverses the thorax w ith the tip in the mid abdomen. Severe scoliosis remains present. Shunt catheter is present. IMPRESSION: 1. Continued opacification of the left lung. Correlate for atelectasis or pneumonia. 2. Lines and catheters discussed above.
[2022-07-26] MEDS: DIVALPROEX SPRINKLE 125 MG CAP.SPRINK PO SCH (09:42)
[2022-07-26] MEDS: CHLORHEXIDINE GLUCONATE 15 ML CUP MUCOUS MEM SCH ×2 (09:42→20:20)
[2022-07-26] MEDS: METOPROLOL TARTRATE 25 MG TAB PO SCH ×2 (09:42→20:14)
[2022-07-26] MEDS: FAMOTIDINE 20 MG/2 ML VIAL IV SCH ×2 (09:43→20:20)
--- NOTE | 2022-07-26 11:14 | P.PN ---
Subjective Progress Note Date: 07/26/22 I'm seeing this patient today, 07/21/2022, in new consultation in ICU. This is a 32-year-old white male with past medical history of spina bifida with L3 myelomeningocele, hydrocephalus with peritoneal shunt, Arnold-Chiari malformation, seizure disorder, severe kyphoscoliosis, frequent urinary tract in fections secondary to neurogenic bladder and need for intermittent catheterizations. Patient was admitted yesterday 07/20/2022. Mother reports he has been feeling unwell over the past couple weeks. Reported symptoms of shortness of breath, fever, cough. Patient was treated outpatient with Juanita horta. Yesterday, the patient had 2 seizures, at home, lasting approximately 1 minute. He then became more lethargic and ultimately unconscious. Patient's mother checked his oxygen saturation with her home pulse ox, and found his SpO2 to be 50%. EMS was called and patient was transferred to [facility]. Patient was intubated yesterday with a 7.5 ET tube, in the ER, to protect his airway. He is currently on mechanical ventilator settings of assist control, respiratory rate of 12, tidal volume of 300 mL, FiO2 55%, PEEP of 5. ABGs from this morning on FiO2 of 80% shows a pO2 of 103, pCO2 of 52, and a pH of 7.36. Patient's chest x-ray from today showed a complete opacification of left hemithorax. The endotracheal tube appeared to be above the george on the x-ray, however, the patient's physical deformities make it hard to assess. Patient also has an in place orogastric tube, there is a ventricular peritoneal shunt noted, and severe thoracolumbar scoliosis. There is concern for aspiration after the patient's witnessed seizure. Patient is covered empirically with Zosyn. The patient will require a bronchoscopy with BAL today. Patient's WBC count 3.5, hemoglobin 11.8, hematocrit of 37.9, platelets 42,000. Patient's BMP from today shows a sodium of 137, potassium 4.4, chloride 103, serum CO2 30, BUN 18, creatinine 0.41, glucose 107. Patient is currently sedated with propofol at 40 mcgs/kg/minute. And there is normal saline infusing at 130 milliliters per hour. Patient was negative for influenza, RSV, coronavirus. Lactic acid level was low at 1.4. Patient is also receiving bronchodilators and IV Solu-Medrol. GI prophylaxis with famotidine. Vital signs are stable at this time. Progress note dated 07/22/2022. 32-year-old male with a history of spina bifida, myelomeningocele, hydrocephalus, Arnold-Chiari malformation, seizure disorder, and severe kyph oscoliosis. The patient was seen in the ICU, after being initially evaluated in the emergency department. The patient was intubated for impending respiratory failure by the ER physician. Currently, the patient remains on the mechanical ventilator. He is on volume assist control, rate 12, tidal volume 300, FiO2 40%, PEEP of 5. Arterial blood gases show pO2 77, pCO2 of 59, and a pH is 7.3. The patient's currently on saline at 130 mL an hour, propofol at 50 mcg/kg/m, and vital AF at 30 mL, with a goal of 34. The patient is currently on Zosyn. Vancomycin was discontinued. White count 2.4, hemoglobin 10, hematocrit 31.8, platelet count 47,000. Sodium 139, potassium 3.5, chlorides 108, CO2 28, BUN 14, and creatinine 0.37. Chest x-ray shows consolidation in the left lung, as well as a stable well placed endotracheal tube. The patient did undergo bronchoscopy yesterday. Progress note dated 07/23/2022. 32-year-old male with history of spina bifida, myelomeningocele, hydrocephalus, Arnold-Chiari syndrome, seizure disorder, and severe kyphoscoliosis. The patient was seen in the intensive care unit, room 266. He was initially evaluated in the emergency department, with respiratory failure and seizure. He remains on the mechanical ventilator. The patient is on volume assist control, rate 12, tidal volume 300, FiO2 percent, and PEEP of 5. Blood gases show pO2 of 66, pCO2 58, and a pH is 7.25. The patient's getting saline at 130 mL an hour, and propofol at 50 mcg/kg/m. Tube feedings are on hold, because yesterday, it appeared that he aspirated. I did asked the nurse to resume tube feeds. White count 4.1, hemoglobin 9.5, hematocrit 30.7, platelet count 53,000. Sodium 140, potassium 3.6, chlorides 114, CO2 26, BUN 12, and creatinine 0.36. Blood culture showed staph epidermidis. Chest x-ray shows consolidation of the left lung, and which is essentially unchanged. Patient positioning, the patient's body habitus, and his severe kyphoscoliosis, limits the ability to interpret this chest x-ray. On 07/24/2022, the patient is being seen for a follow-up. This morning, the patient is on propofol running at 40 mcg/kg/m. The patient is calm and comfortable and symptoms of the mechanical ventilator. Is currently on assist control mode at the rate of 12 with a tidal volume of 300 and FiO2 of 40% with a PEEP of 5. Chest x-ray findings are quite limited because of his body habitus. The patient has severe kyphoscoliosis. Left lung is not adequately visualized. The right lung does seem to be clear of any significant pulmonary infiltrates. ET tube is in a good location. There is a large gastric bubble seen on today's chest x-ray. Meanwhile, the patient is receiving enteral feeding for nutritional support and currently is on vital AF at the rate of 10 mL an hour. He is tolerating the tube feeds for now. The white cell count of 7 with a hemoglobin of 10.7. Blood gas from today showed a pH of 7.34 with a pCO2 of 49 and pO2 of 73. Electrolytes are normal and the BUN is at 6 with a creatinine of 0.25. The patient remains on IV Zosyn. He does have a small wound in his right coccyx. No signs of any infection. Infectious diseases on the case. The patient is Only on IV Zosyn. The blood culture was positive for coagulase- negative staph. He did have a spike of temperature yesterday and currently is afebrile. Cardiac rhythm is sinus. He is in sinus tachycardia with a heart rate of around 120. NG tube is in place. Mcclain cath is in place and the patient is producing adequate amount of urine output. No pressors for now. Respiratory rate is in the mid tens. 07/25/20222022, the patient is wide awake. Mother is at the bedside. The patient is calm and comfortable. He is very cooperative. Orotracheal tube remains in place. Is on assist-control mode of mechanical ventilation and currently he is on a tidal volume of 300, rate of 12, FiO2 of 40% with a PEEP of 5. His chest x-rays extremely limited due to his severe kyphoscoliosis. Nevertheless, the orotracheal secretions are minimal and he is not requiring frequent suctioning. He has a weak cough. He is hemodynamically stable. Slightly hypertensive. Slightly tachycardic and this was an ongoing issue since yesterday. He is spiking low-grade temperatures of 99.4. He does have evidence of third spacing and edema. He was given a dose of Lasix 20 mg IV push yes terday and the overall fluid balance has been -1.7 L over the past 24 hours. He remains on IV Zosyn. His blood culture was positive for coagulase-negative spine staph aureus. He is blood gas showed a pH of 7.39 with a pCO2 of 51 and pO2 of 95. The white cell count is not elevated at 6.9 with a hemoglobin of 10.3. Platelet counts are low at 70 and it is stable and is essentially improving. Sodium is at 133, potassium is at 3.4 to be replaced and the serum bicarb is at 31 with a BUN of 2 and a creatinine of 0.25. His pro calcitonin level was 0.27, mildly elevated. He continues to be on enteral feeding for nutritional support and is currently on vital AF at the rate of 10 mL an hour. 2022, the patient is awake and is communicating. He remains on a mechanical ventilator. He failed extubation yesterday because of a large mucous plug. Immediately was reintubated and this occurred probably 15 minutes after his extubation. He had to be reintubated. I did a bronchoscopy on him. Airway patency was achieved. The chest x-ray from today shows a clear right lung. Left lung probably some atelectatic although this is difficult to assess as the patient has severe kyphoscoliosis. Is on assist-control mode at a rate of 12, tidal volume of 300, FiO2 of 50% with a PEEP of 5. His FiO2 will be dropped onto 40% at this point. Peak air pressure is around 26. His blood. From today shows a pH of 7.4 with a pCO2 53 and pO2 of 102. BUN is at 3 with a creatinine of 0.2 and a sodium level is at 134, the risk was 5.8 with a hemoglobin of 11. He is receiving enteral feeding for nutritional support in the form of vital AF at the rate of 10 mL an hour. Objective - Vital Signs Vital signs: Vital Signs Temp 100.1 F H 07/26/22 03:15 Pulse 94 07/26/22 07:45 Resp 12 07/26/22 07:45 BP 129/84 07/26/22 06:45 Pulse Ox 97 07/26/22 07:45 FiO2 50 07/26/22 07:00 Intake & Output 07/25/22 07/26/22 07/26/22 18:59 06:59 18:59 Intake Total 223.810 5456.866 Output Total 2585 725 Balance -2259.509 331.866 Weight 39.9 kg Intake: IV 58 466 .9 20 10 150 .9 3cc/hr 3 36 Piperacillin-Tazobactam 3 25 200 .375 gm In Sodium Chloride 0.9% 100 ml @ 25 mls/hr IVPB Q8H [facility] Rx#: [id number] Sodium Chloride 0.45% 1, 20 80 000 ml @ 20 mls/hr IV . Q24H [facility] Rx#:[id number] Intake, IV Titration 257.491 450.866 Amount Dexmedetomidine/0.9% NaCl 30.342 (Pmx) 400 mcg In Empty Bag 1 bag @ 0.2 MCG/KG/HR 1.995 mls/hr IV .Q24H [facility] Rx#:[id number] Magnesium Sulfate-D5w Pmx 100 1 gm In Dextrose/Water 1 100ml.bag @ 100 mls/hr IVPB Q1H [facility] Rx#: [id number] Magnesium Sulfate-D5w Pmx 100 1 gm In Dextrose/Water 1 100ml.bag @ 100 mls/hr IVPB Q1H [facility] Rx#: [id number] Norepinephrine 4 mg In 57.491 120.524 Sodium Chloride 0.9% 250 ml @ 0.03 MCG/KG/MIN 4. 561 mls/hr IV .Q24H [facility] Rx#:[id number] Potassium Chloride 10 meq 200 In Water For Injection 1 100ml.bag @ 100 mls/hr IVPB Q1H [facility] Rx#: [id number] Potassium Chloride 20 meq 100 In Water For Injection 1 100ml.bag @ 50 mls/hr IVPB Q2H [facility] Rx#: [id number] Tube Feeding 10 100 Other 40 Output: Urine 2585 725 Other: Voiding Method Indwelling Catheter Indwelling Catheter ABP, PAP, CO, CI - Last Documented Arterial Blood Pressure 110/63 - Exam No acute distress, with an orally placed endotracheal tube awake and alert and currently is off sedation and following commands and communicating by facial expression.. HEENT examination is grossly unremarkable. Neck supple. Full range of motion. No adenopathy thyromegaly or neck vein distention. Cardiovascular examination reveals regular rhythm rate. S1-S2 normal. No S3 or S4. No discernible murmur noted. Lungs reveal diminished breath sounds laterally, more left than right sided. Scattered rhonchi are noted. No wheezes. No crackles. CV kyphoscoliosis of the chest with diminished breath on the left lung base Abdomen soft, without bowel sounds. PEG tube is noted. Extremities are intact. No cyanosis, clubbing, patient has developed significant edema in lower extremities and upper extremities bilaterally, The patient does have significant flexion deformities of the extremities. Skin is without rash or lesion. Neurologic examination , awake and alert, weakness with significant upper extremity. Unable to move his legs. - Labs CBC & Chem 7: 07/26/22 04:50 07/26/22 04:50 Labs: Abnormal Lab Results - Last 24 Hours (Table) 07/25/22 07/26/22 07/26/22 Range/Units 12:28 04:50 04:50 RBC 3.37 L (4.30-5.90) m/uL Hgb 11.0 L (13.0-17.5) gm/dL Hct 34.1 L (39.0-53.0) % MCV 101.3 H (80.0-100.0) fL Plt Count 120 L D (150-450) k/uL Metamyelocytes # (Man) 0.06 H (0) k/uL ABG pCO2 55 H (35-45) mmHg ABG pO2 226 H (83-108) mmHg ABG HCO3 34 H (21-25) mmol/L ABG Total CO2 36 H (19-24) mmol/L ABG O2 Saturation 100.0 H (94-97) % Sodium 134 L (137-145) mmol/L Chloride 95 L (98-107) mmol/L Carbon Dioxide 32 H (22-30) mmol/L BUN 3 L (9-20) mg/dL Creatinine 0.23 L (0.66-1.25) mg/dL Calcium 8.0 L (8.4-10.2) mg/dL Magnesium 1.4 L (1.6-2.3) mg/dL 07/26/22 Range/Units 05:35 RBC (4.30-5.90) m/uL Hgb (13.0-17.5) gm/dL Hct (39.0-53.0) % MCV (80.0-100.0) fL Plt Count (150-450) k/uL Metamyelocytes # (Man) (0) k/uL ABG pCO2 53 H (35-45) mmHg ABG pO2 (83-108) mmHg ABG HCO3 32 H (21-25) mmol/L ABG Total CO2 34 H (19-24) mmol/L ABG O2 Saturation 98.7 H (94-97) % Sodium (137-145) mmol/L Chloride (98-107) mmol/L Carbon Dioxide (22-30) mmol/L BUN (9-20) mg/dL Creatinine (0.66-1.25) mg/dL Calcium (8.4-10.2) mg/dL Magnesium (1.6-2.3) mg/dL Microbiology - Last 24 Hours (Table) 07/25/22 12:56 Gram Stain - Preliminary Bronchial Washings - Random Bronchial Washings Culture - Preliminary 07/20/22 16:55 Blood Culture - Preliminary Blood No Growth after 120 hours 07/21/22 10:21 Acid Fast Bacilli Smear - Final Bronchoalviolar Lavage - Right Acid Fast Bacilli Culture - Preliminary 07/24/22 11:48 Blood Culture - Preliminary Blood No Growth after 24 hours 07/21/22 10:21 Gram Stain - Preliminary Bronchoalviolar Lavage - Right Bronchial Washings Culture - Preliminary Assessment and Plan Plan: Acute hypoxemic respiratory failure, likely secondary to aspiration. The patient is post bronchoscopy, cultures are negative, rule out chemical aspiration/chemical pneumonia. The patient is, the broad-spectrum antibiotics with IV Zosyn. Cultures are still negative, having low-grade fever, pro calcitonin level was 0.27. Presently cultures were negative. Awake and alert off sedation. The patient is stable. Respiratory status is stable. The patient failed extubation yesterday and he required another bronchoscopy and removal of mucous plugs. Will benefit from a tracheostomy tube insertion and a gradual wean can be performed following that. Family is agreeable. General surgery has been consulted in that regard. He failed extubation on 07/25/2022. He remains on IV Zosyn for now. Status post intubation and mechanical ventilation on 07/20/2022. S/P bronchoscopy, 07/21/2022. History of breakthrough seizure disorder in a patient with chronic seizure history. History of spina bifida with L3 myelomeningocele. History of hydrocephalus, status post PURLER shunt. History of Arnold-Chiari malformation. Severe kyphoscoliosis. Frequent urinary tract infections. Sinus tachycardia Hypertension Plan: Keep the patient off sedation, is calm and comfortable and he doesn't show any signs of distress or agitation. No plans for extubation. However he can be potentially switch to a pressure support of 10 and a PEEP of 5 for some spontaneous breathing. Repeat cultures from the sputum are still pending Continue IV Zosyn Monitor fever pattern Continue enteral feeding for nutritional support, currently to please on hold in anticipation for possible extubation Continue seizure medication and we have not with this any further episodes of seizures metoprolol 25 mg by mouth twice a day and this essentially helped him with his heart rate Advanced tube feeds and check residuals frequently every 4 hours This will end up being a difficult extubation as the patient has severe kyphoscoliosis. The patient probably has also weak cough and neuromuscular weakness. Based on that, general surgery was consulted for tracheostomy tube insertion Hemodynamically stable on no pressors Continue Depakote continue phenobarbital Will need to check his antiepileptic levels for tomorrow We'll continue to follow make further recommendations based on progress. Critical care evaluation that was done in more than 30 minutes. Time with Patient: Greater than 30 (the seizure medication levels are good.)
--- NOTE | 2022-07-26 11:22 | P.PN ---
Subjective Progress Note Date: 07/26/22 The patient is seen at bedside and the patient was extubated yesterday but had to be reintubated yesterday since could not protect his airway. He is currently on IV Precedex 0.3mcg/kg/hr. Per mother, the patient would open his eye and communicate with her even with sedation. Objective - Vital Signs Vital signs: Vital Signs Temp 100.1 F H 07/26/22 03:15 Pulse 94 07/26/22 07:45 Resp 12 07/26/22 07:45 BP 129/84 07/26/22 06:45 Pulse Ox 97 07/26/22 07:45 FiO2 50 07/26/22 07:00 Intake & Output 07/25/22 07/26/22 07/26/22 18:59 06:59 18:59 Intake Total 689.171 6417.866 Output Total 2585 725 Balance -2259.509 331.866 Weight 39.9 kg Intake: IV 58 466 .9 20 10 150 .9 3cc/hr 3 36 Piperacillin-Tazobactam 3 25 200 .375 gm In Sodium Chloride 0.9% 100 ml @ 25 mls/hr IVPB Q8H [facility] Rx#: [id number] Sodium Chloride 0.45% 1, 20 80 000 ml @ 20 mls/hr IV . Q24H [facility] Rx#:[id number] Intake, IV Titration 257.491 450.866 Amount Dexmedetomidine/0.9% NaCl 30.342 (Pmx) 400 mcg In Empty Bag 1 bag @ 0.2 MCG/KG/HR 1.995 mls/hr IV .Q24H [facility] Rx#:[id number] Magnesium Sulfate-D5w Pmx 100 1 gm In Dextrose/Water 1 100ml.bag @ 100 mls/hr IVPB Q1H [facility] Rx#: [id number] Magnesium Sulfate-D5w Pmx 100 1 gm In Dextrose/Water 1 100ml.bag @ 100 mls/hr IVPB Q1H [facility] Rx#: [id number] Norepinephrine 4 mg In 57.491 120.524 Sodium Chloride 0.9% 250 ml @ 0.03 MCG/KG/MIN 4. 561 mls/hr IV .Q24H [facility] Rx#:[id number] Potassium Chloride 10 meq 200 In Water For Injection 1 100ml.bag @ 100 mls/hr IVPB Q1H [facility] Rx#: [id number] Potassium Chloride 20 meq 100 In Water For Injection 1 100ml.bag @ 50 mls/hr IVPB Q2H [facility] Rx#: [id number] Tube Feeding 10 100 Other 40 Output: Urine 2585 725 Other: Voiding Method Indwelling Catheter Indwelling Catheter ABP, PAP, CO, CI - Last Documented Arterial Blood Pressure 110/63 - Exam GENERAL: The patient is lying in bed and does not appear in acute distress. LUNG: Intubated on ventilator. NEUROLOGICAL:. Limited because of his condition and sedation (IV Precedex 0.3mcg/kg/hr) Higher mental function: Is severely drowsy but briefly opening his eyes to voice. No following commands or attempting to verbalize. Motor: The strength is hard to assess because of his condition. Has atrophy mostly lowers > uppers (baseline). - Labs CBC & Chem 7: 07/26/22 04:50 07/26/22 04:50 Labs: Abnormal Lab Results - Last 24 Hours (Table) 07/25/22 07/26/22 07/26/22 Range/Units 12:28 04:50 04:50 RBC 3.37 L (4.30-5.90) m/uL Hgb 11.0 L (13.0-17.5) gm/dL Hct 34.1 L (39.0-53.0) % MCV 101.3 H (80.0-100.0) fL Plt Count 120 L D (150-450) k/uL Metamyelocytes # (Man) 0.06 H (0) k/uL ABG pCO2 55 H (35-45) mmHg ABG pO2 226 H (83-108) mmHg ABG HCO3 34 H (21-25) mmol/L ABG Total CO2 36 H (19-24) mmol/L ABG O2 Saturation 100.0 H (94-97) % Sodium 134 L (137-145) mmol/L Chloride 95 L (98-107) mmol/L Carbon Dioxide 32 H (22-30) mmol/L BUN 3 L (9-20) mg/dL Creatinine 0.23 L (0.66-1.25) mg/dL Calcium 8.0 L (8.4-10.2) mg/dL Magnesium 1.4 L (1.6-2.3) mg/dL 07/26/22 Range/Units 05:35 RBC (4.30-5.90) m/uL Hgb (13.0-17.5) gm/dL Hct (39.0-53.0) % MCV (80.0-100.0) fL Plt Count (150-450) k/uL Metamyelocytes # (Man) (0) k/uL ABG pCO2 53 H (35-45) mmHg ABG pO2 (83-108) mmHg ABG HCO3 32 H (21-25) mmol/L ABG Total CO2 34 H (19-24) mmol/L ABG O2 Saturation 98.7 H (94-97) % Sodium (137-145) mmol/L Chloride (98-107) mmol/L Carbon Dioxide (22-30) mmol/L BUN (9-20) mg/dL Creatinine (0.66-1.25) mg/dL Calcium (8.4-10.2) mg/dL Magnesium (1.6-2.3) mg/dL Microbiology - Last 24 Hours (Table) 07/25/22 12:56 Gram Stain - Preliminary Bronchial Washings - Random Bronchial Washings Culture - Preliminary 07/20/22 16:55 Blood Culture - Preliminary Blood No Growth after 120 hours 07/21/22 10:21 Acid Fast Bacilli Smear - Final Bronchoalviolar Lavage - Right Acid Fast Bacilli Culture - Preliminary 07/24/22 11:48 Blood Culture - Preliminary Blood No Growth after 24 hours 07/21/22 10:21 Gram Stain - Preliminary Bronchoalviolar Lavage - Right Bronchial Washings Culture - Preliminary Assessment and Plan Assessment: * Altered mental status, likely due to toxic metabolic encephalopathy. Status post subclinical status, now resolved. Mentation has improved but currently drowsy since on IV Precedex. * History of Arnold-Chiari malformation with myelomeningocele L3 level, hydrocephalus and syringomyelia, status post multiple VPS and shunting for syrinx. * Medically intractable seizure disorder, came with a typical seizure. * Aspiration pneumonia s/p intubated on ventilator * Lactic acidosis, likely due to sepsis versus seizure. * Patient with history of grand mal seizures, absence seizures and tonic-clonic seizures. * Severe kyphoscoliosis * Wheelchair-bound Plan: * Repeat EEG 07/22/2022 preliminary report showed background slowing of moderate to severe degree, consistent with encephalopathy. No evidence of partial status. No electrographic seizure recorded. Still presence of epileptogenic focus involving the right temporal and also the right frontal region. No generalization. * EEG 07/21/2022 showed presence of 2 epileptic foci involving the right temporal and right frontal region and sometimes generalized spike or polyspike and wave were also seen. There is recording of multiple focal seizures, all of them originating in the right hemispheric region and one of them later generalized for about 26 seconds. No motor activity was observed on the review of the video section of the study. Background slowing of at least moderate degree suggestive of encephalopathy. Subclinical partial status c annot be ruled out. Clinical correlation is recommended. * Depakote level 53.8 (50-100), and phenobarbital level 22.4 (15-40). Both levels are therapeutic. But today his Depakote level were subtherapeutic and it is 26.8: Possibly he is not getting all the medication and I spoke with m other and stated there is residual after medication since it is sprinkles. * Continue his seizure medications including Vimpat 200 mg twice a day, and phenobarbital 40.5 mg twice a day. Will continue Depakote 500 mg in the morning and increase from 250 mg at night to 500mg since subtherapeutic level (clinically according to patient and mother is doing well). I notified the mother upon discharge can be on his home Depakote dose if no issues with the 250mg dose. * I notified the mother that patient needs to follow-up with his neurosurgeon at [facility], since last revision for OYSTER SHUCKER shunt and Syrinx shunt was about 20 years ago to make sure still functional. Last time they have visited a neurosurgeon was 5 years ago and was notified everything was normal. * Possible Trach and PEG. * Other medical management as per IM and other specialties. The plan is discussed with the patient's mother's who is at bedside and his nurse. Will continue to follow. Time with Patient: Less than 30
[2022-07-26] MEDS: NOREPINEPHRINE 4 MG in SODIUM CHLORIDE 0.9% 250 ML IV SCH (12:25)
[2022-07-26] MEDS: HYDROmorphone 1 MG/ML 1 ML SYRINGE IVP PRN (12:30)
[2022-07-26] MEDS: DEXMEDETOMIDINE/0.9% NACL(PMX) 400 MCG in EMPTY BAG 1 BAG IV SCH (13:29)
--- NOTE | 2022-07-26 13:45 | P.PN ---
Subjective Progress Note Date: 07/26/22 This is a pleasant 32 years old male with past medical history of L3 myelomeningocele and hydrocephalus with any peritoneal shunt, spina bifid F, seizure, chiari malformation. Patient initially presents because of altered mental status and seizure, he had 2 seizures at home 1. Gastric to and other as atypical. Patient was bronchoscoped doing well more lethargic and L over the last 2 days. This morning patient mother noticed he had a seizure that lasted for about 1 minute followed by post ictal confusion, and mother noticed that his oxygen saturation is drip until called EMS, as per document However the mother clarify that actually he has been sick 2 days ago with congestion and coughing, Dr. Mcfarland his primary doctor start him on Augmentin because of history of septic shock and easy infection, he took 3 pulse, he has a day morning he was noticed to have a brief period of seizure although the mom she does not think he had seizure he was just lethargic. She checked his temperature at home and it was 102 breath he was feeling cold and shivering. At baseline he is able to talk normally, he understands the surrounding, he can eat by himself but he is wheelchair bound On admission he is with low-grade temperature 99.7. He is tachycardic around 115, hypertensive blood pressure this morning 93/73. His CBC is unremarkable. INR is 1.1, d-dimer is slightly elevated at 1.1. On admission. PhosLo 7.2, heart pCO2 of 68. Chest x-ray: Left upper and middle lobe consolidation with air bronchograms EKG showing sinus tachycardia at 130 Emergency room patient received breathing treatment, antibiotics, steroids, normal saline. (Continued on Levaquin and normal saline at 1:30 milliliters of breath or, Zosyn and Solu-Medrol 40 mg 07/22/2022 Patient remains intubated and sedated. He is on mechanical ventilation with FiO2 of 40% and PEEP of 5. Status post bronchoscopy. Blood pressure 147/82, tachycardic at 117. Mcclain place. WBCs 2.4, hemoglobin 10, platelets at 102. He remains on Zosyn and Levaquin, no positive vancomycin is a normal saline and Solu-Medrol 40 mg I discussed the case with the neurology this morning repeat EEG showing no more epileptic discharge. Patient remains on 3 antiseizure medications phenobarbital, Depakote and vimpat. 07/23/2022 Patient still in the ICU sedated and intubated No seizure-like activity however he is improving and he may be considered for sedation holiday per pulmonary/critical care team who have also with the vent management. Currently he has FiO2 of 40% and PEEP of 5. His hemoglobin 9.5, WBC 4.1 and platelet count 53, he is tachycardic with heart rate around 1 25/m and just vitals stable. He has positive blood culture with staph epidermidis, most likely contamination Chest x-ray I reviewed myself showing still opacification on the left side Also his normal saline lower to 100 mL/h with Mcclain catheter in place Currently covered with Zosyn. Also he is on normal saline at 100 mL per hour and Solu-Medrol 40 mg 07/24. Patient seen and examined. Currently patient is intubated. Currently sedated with propofol. Patient had have low-grade fever overnight. Patient on tube feeding. Mother at the bedside. Vital signs shows patient to be tachycardic with heart rate in 120s. Unable to obtain a detailed review of systems because of patient being intubated. No seizure-like activity noticed. Pulmonology/critical care considering decreasing sedation 07/25. Patient seen and examined. Currently off sedation, patient is following commands. Mother at the bedside, states that patient is looking much better to her 07/26. Patient seen and examined. Patient failed extubation yesterday, patient underwent bronchoscopy by pulmonology. Currently is intubated he had low-grade fever overnight PHYSICAL EXAMINATION: GENERAL Intubated, cachectic, chronically ill-looking , more alert compared to yesterday HEENT: Pupils are round and equally reacting to light. EOMI. No scleral icterus. No conjunctival pallor. Normocephalic, atraumatic. No pharyngeal erythema. No thyromegaly. CARDIOVASCULAR: S1 and S2 present. No murmurs, rubs, or gallops. PULMONARY Diminished breath sounds at the left lung base ABDOMEN: Soft, nontender, nondistended, normoactive bowel sounds. No palpable organomegaly. MUSCULOSKELETAL: No joint swelling or deformity. EXTREMITIES: No cyanosis, clubbing, or pedal edema. NEUROLOGICAL Currently intubated and sedated SKIN: No rashes. Wound in coccyx area Assessment and plan Left community acquired pneumonia, versus aspiration pneumonia Hypoxic respiratory failure secondary to above Possible reactive airway disease Altered mental status, mostly metabolic encephalopathy Breakthrough seizure Respiratory acidosis History of spina bifid the and third lumbar myelomeningocele History of hydrocephalus status post cranial peritoneal shunt History of seizure chiari malformation History of Recurrent UTI Plan: Monitor Vital signs Monitor CBC Continue with Zosyn Continue with steroids Solu-Medrol Continue with breathing treatment Follow-up sputum culture and blood culture Repeat EEG 07/22/2022 preliminary report showed background slowing of moderate to severe degree, consistent with encephalopathy. No evidence of partial status. No electrographic seizure recorded. Still presence of epileptogenic focus involving the right temporal and also the right frontal region. No generalization. EEG 07/21/2022 showed presence of 2 epileptic foci involving the right temporal and right frontal region and sometimes generalized spike or polyspike and wave were also seen. There is recording of multiple focal seizures, all of them originating in the right hemispheric region and one of them later generalized for about 26 seconds. No motor activity was observed on the review of the video section of the study. Background slowing of at least moderate degree suggestive of encephalopathy. Subclinical partial status cannot be ruled out. Clinical correlation is recommended. Continue his seizure medications including Vimpat 200 mg twice a day, Depakote 500 mg in the morning and 250 mg at night, and phenobarbital 40.5 mg twice a day. Continue Lopressor 25 mg twice a day Continue vent management per pulmonary , Surgery has been consulted for tracheostomy Labs and medication were reviewed.. Continue same treatment. Continue with symptomatic treatment. Further recommendations as per clinical course of the patient Objective - Vital Signs Vital signs: Vital Signs Temp 98 F 07/26/22 13:00 Pulse 93 07/26/22 13:00 Resp 18 07/26/22 13:00 BP 110/71 07/26/22 13:00 Pulse Ox 95 07/26/22 13:00 FiO2 40 07/26/22 12:00 Intake & Output 07/25/22 07/26/22 07/26/22 18:59 06:59 18:59 Intake Total 157.557 4950.866 310 Output Total 2585 725 555 Balance -2259.509 331.866 -245 Weight 39.9 kg 39.9 kg Intake: IV 58 466 200 .9 3cc/hr 3 36 0.9 NS @ 15ml/hr 10 150 80 Piperacillin-Tazobactam 3 25 200 .375 gm In Sodium Chloride 0.9% 100 ml @ 25 mls/hr IVPB Q8H BR[facility] Rx#: [id number] Sodium Chloride 0.45% 1, 20 80 120 000 ml @ 20 mls/hr IV . Q24H [facility] Rx#:[id number] Intake, IV Titration 257.491 450.866 Amount Dexmedetomidine/0.9% NaCl 30.342 (Pmx) 400 mcg In Empty Bag 1 bag @ 0.2 MCG/KG/HR 1.995 mls/hr IV .Q24H [facility]I Rx#:[id number] Magnesium Sulfate-D5w Pmx 100 1 gm In Dextrose/Water 1 100ml.bag @ 100 mls/hr IVPB Q1H [facility] Rx#: [id number] Magnesium Sulfate-D5w Pmx 100 1 gm In Dextrose/Water 1 100ml.bag @ 100 mls/hr IVPB Q1H [facility] Rx#: [id number] Norepinephrine 4 mg In 57.491 120.524 Sodium Chloride 0.9% 250 ml @ 0.03 MCG/KG/MIN 4. 561 mls/hr IV .Q24H [facility] Rx#:[id number] Potassium Chloride 10 meq 200 In Water For Injection 1 100ml.bag @ 100 mls/hr IVPB Q1H [facility] Rx#: [id number] Potassium Chloride 20 meq 100 In Water For Injection 1 100ml.bag @ 50 mls/hr IVPB Q2H [facility] Rx#: [id number] Tube Feeding 10 100 80 Other 40 30 Output: Urine 2585 725 555 Other: Voiding Method Indwelling Catheter Indwelling Catheter Indwelling Catheter ABP, PAP, CO, CI - Last Documented Arterial Blood Pressure 105/60 - Labs CBC & Chem 7: 07/26/22 04:50 07/26/22 04:50 Labs: Abnormal Lab Results - Last 24 Hours (Table) 07/26/22 07/26/22 07/26/22 Range/Units 04:50 04:50 05:35 RBC 3.37 L (4.30-5.90) m/uL Hgb 11.0 L (13.0-17.5) gm/dL Hct 34.1 L (39.0-53.0) % MCV 101.3 H (80.0-100.0) fL Plt Count 120 L D (150-450) k/uL Metamyelocytes # (Man) 0.06 H (0) k/uL ABG pCO2 53 H (35-45) mmHg ABG HCO3 32 H (21-25) mmol/L ABG Total CO2 34 H (19-24) mmol/L ABG O2 Saturation 98.7 H (94-97) % Sodium 134 L (137-145) mmol/L Chloride 95 L (98-107) mmol/L Carbon Dioxide 32 H (22-30) mmol/L BUN 3 L (9-20) mg/dL Creatinine 0.23 L (0.66-1.25) mg/dL Calcium 8.0 L (8.4-10.2) mg/dL Magnesium 1.4 L (1.6-2.3) mg/dL Microbiology - Last 24 Hours (Table) 07/25/22 12:56 Gram Stain - Preliminary Bronchial Washings - Random Bronchial Washings Culture - Preliminary 07/20/22 16:55 Blood Culture - Preliminary Blood No Growth after 120 hours 07/21/22 10:21 Acid Fast Bacilli Smear - Final Bronchoalviolar Lavage - Right Acid Fast Bacilli Culture - Preliminary 07/24/22 11:48 Blood Culture - Preliminary Blood No Growth after 24 hours 07/21/22 10:21 Gram Stain - Preliminary Bronchoalviolar Lavage - Right Bronchial Washings Culture - Preliminary
[2022-07-26] MEDS: HYDROPHILIC CREAM 180 GM TUBE TOPICAL SCH (15:02)
--- NOTE | 2022-07-26 19:18 | P.PN ---
Subjective Progress Note Date: 07/26/22 Principal diagnosis: Respiratory failure Patient remains lightly sedated on the ventilator. No new complaints. Tolerating tube feeds. Objective - Vital Signs Vital signs: Vital Signs Temp 98 F 07/26/22 13:00 Pulse 115 H 07/26/22 18:00 Resp 19 07/26/22 18:00 BP 108/77 07/26/22 17:00 Pulse Ox 98 07/26/22 18:00 FiO2 40 07/26/22 15:42 Intake & Output 07/26/22 07/26/22 07/27/22 06:59 18:59 06:59 Intake Total 1056.866 540 Output Total 725 1155 Balance 331.866 -615 Weight 39.9 kg Intake: IV 466 430 .9 3cc/hr 36 0.9 NS @ 15ml/hr 150 130 Piperacillin-Tazobactam 3 200 100 .375 gm In Sodium Chloride 0.9% 100 ml @ 25 mls/hr IVPB Q8H [facility] Rx#: [id number] Sodium Chloride 0.45% 1, 80 200 000 ml @ 20 mls/hr IV . Q24H [facility] Rx#:[id number] Intake, IV Titration 450.866 Amount Dexmedetomidine/0.9% NaCl 30.342 (Pmx) 400 mcg In Empty Bag 1 bag @ 0.2 MCG/KG/HR 1.995 mls/hr IV .Q24H [facility] Rx#:[id number] Magnesium Sulfate-D5w Pmx 100 1 gm In Dextrose/Water 1 100ml.bag @ 100 mls/hr IVPB Q1H [facility] Rx#: [id number] Norepinephrine 4 mg In 120.524 Sodium Chloride 0.9% 250 ml @ 0.03 MCG/KG/MIN 4. 561 mls/hr IV .Q24H [facility] Rx#:[id number] Potassium Chloride 10 meq 200 In Water For Injection 1 100ml.bag @ 100 mls/hr IVPB Q1H [facility] Rx#: [id number] Tube Feeding 100 80 Other 40 30 Output: Urine 725 1155 Other: Voiding Method Indwelling Catheter Indwelling Catheter ABP, PAP, CO, CI - Last Documented Arterial Blood Pressure 123/76 - Exam Abdomen: Soft, nontender, nondistended - Labs CBC & Chem 7: 07/26/22 04:50 07/26/22 04:50 Labs: Abnormal Lab Results - Last 24 Hours (Table) 07/26/22 07/26/22 07/26/22 Range/Units 04:50 04:50 05:35 RBC 3.37 L (4.30-5.90) m/uL Hgb 11.0 L (13.0-17.5) gm/dL Hct 34.1 L (39.0-53.0) % MCV 101.3 H (80.0-100.0) fL Plt Count 120 L D (150-450) k/uL Metamyelocytes # (Man) 0.06 H (0) k/uL ABG pCO2 53 H (35-45) mmHg ABG HCO3 32 H (21-25) mmol/L ABG Total CO2 34 H (19-24) mmol/L ABG O2 Saturation 98.7 H (94-97) % Sodium 134 L (137-145) mmol/L Chloride 95 L (98-107) mmol/L Carbon Dioxide 32 H (22-30) mmol/L BUN 3 L (9-20) mg/dL Creatinine 0.23 L (0.66-1.25) mg/dL Calcium 8.0 L (8.4-10.2) mg/dL Magnesium 1.4 L (1.6-2.3) mg/dL Microbiology - Last 24 Hours (Table) 07/24/22 11:54 Blood Culture - Preliminary Blood No Growth after 24 hours 07/24/22 11:48 Blood Culture - Preliminary Blood No Growth after 48 hours 07/25/22 12:56 Gram Stain - Preliminary Bronchial Washings - Random Bronchial Washings Culture - Preliminary 07/20/22 16:55 Blood Culture - Preliminary Blood No Growth after 120 hours 07/21/22 10:21 Acid Fast Bacilli Smear - Final Bronchoalviolar Lavage - Right Acid Fast Bacilli Culture - Preliminary Assessment and Plan (1) Acute respiratory failure Narrative/Plan: Patient continues to require mechanical ventilation. Discussed case with scheduling and will schedule for tracheostomy on Sunday. Dr. Engel will be the surgeon performing the procedure. The patient's mother was informed of this. Apparently they are requesting that we hold off on PEG tube placement for now. Current Visit: Yes Status: Acute Code(s): J96.00 - ACUTE RESPIRATORY FAILURE, UNSP W HYPOXIA OR HYPERCAPNIA SNOMED Code(s): 33646488
[2022-07-26] MEDS ORDERED: DIVALPROEX SPRINKLE 125 MG CAP.SPRINK PO SCH (21:00)
[2022-07-27] MEDS: HYDROmorphone 1 MG/ML 1 ML SYRINGE IVP PRN (00:08)
[2022-07-27] MEDS: IPRATROPIUM-ALBUTEROL 3 ML NEB INHALATION SCH ×5 (03:39→21:01)
[2022-07-27] MEDS: ACETAMINOPHEN TAB 325 MG TAB PO PRN ×2 (05:23→16:40)
[2022-07-27 05:27] LABS: HCT 30.9 % (39.0-53.0); HGB 9.8 gm/dL (13.0-17.5); MCH 31.8 pg (25.0-35.0); MCHC 31.8 g/dL (31.0-37.0); Macrocytosis Slight; Mean Platelet Volume 7.6; Platelet Count 157 k/uL (150-450); RDW 14.8 % (11.5-15.5)
[2022-07-27 05:28] LABS: ABG Base Excess 12.3 mmol/L; ABG HCO3 37 mmol/L (21-25); ABG PCO2 55 mmHg (35-45); ABG PH 7.43 (7.35-7.45); ABG PO2 68 mmHg (83-108); ABG TCO2 38 mmol/L (19-24)
[2022-07-27 05:30] LABS: African American GFR (CKD) >90 (>60 ml/min/1.73 sqM); Anion Gap 1 mmol/L; Blood Urea Nitrogen 4 mg/dL (9-20); Calcium 7.6 mg/dL (8.4-10.2); Carbon Dioxide 36 mmol/L (22-30); Chloride 95 mmol/L (98-107); Glucose 102 mg/dL (74-99); Non-African American GFR(CKD) >90 (>60 ml/min/1.73 sqM); Sodium 132 mmol/L (137-145)
[2022-07-27 05:39] LABS: Allen Test Performed? no
[2022-07-27 05:55] LABS: Band Neutrophils % 5 %; Lymphocytes # (M) 1.08 k/uL (1.0-4.8); Monocytes # (M) 1.44 k/uL (0-1.0); Neutrophils % (M) 53 %; Nucleated Red Blood Cells 0 /100 WBC (0-0); Total Cells Counted 100
[2022-07-27] MEDS: PHENobarbitaL 16.2 MG TAB PO SCH ×2 (06:42→19:10)
[2022-07-27] MEDS: LACOSAMIDE 50 MG TABLET PO SCH ×2 (06:42→19:10)
[2022-07-27] MEDS: PIPERACILLIN-TAZOBACTAM 3.375 GM in SODIUM CHLORIDE 0.9% 100 ML IVPB SCH ×3 (06:42→23:49)
--- NOTE | 2022-07-27 08:23 | XR ---
EXAMINATION TYPE: XR chest 1V portable DATE OF EXAM: 07/27/2022 Comparison: 07/26/2022 Clinical History: 32-year-old male Tube placement Findings: The severe dextro convex scoliosis distorts the thoracic anatomy. Some aerated right lung is visualiz ed. There seems to be some catheter fragments along the right base of the neck and right upper chest not well characterized. NG tube courses below the expected diaphragm. There is some developing aerati on in the expected left upper lung. The heart is entirely obscured. ET tube tip estimated at 2.0 cm f rom the george. Impression: Severe scoliosis distorts the thoracic anatomy and markedly limits the exam. Compared to the previous white out of the left hemithorax on the exam from yesterday, there seems to be some developing aerat ion at the left upper lung on the present exam. Assessment is otherwise very limited.
[2022-07-27] MEDS: METOPROLOL TARTRATE 25 MG TAB PO SCH ×2 (08:30→20:08)
[2022-07-27] MEDS: DIVALPROEX SPRINKLE 125 MG CAP.SPRINK PO SCH (08:30)
[2022-07-27] MEDS: FAMOTIDINE 20 MG/2 ML VIAL IV SCH ×2 (08:30→20:08)
[2022-07-27] MEDS: CHLORHEXIDINE GLUCONATE 15 ML CUP MUCOUS MEM SCH ×2 (08:30→20:08)
[2022-07-27] MEDS: HYDROPHILIC CREAM 180 GM TUBE TOPICAL SCH (08:32)
[2022-07-27] MEDS: NOREPINEPHRINE 4 MG in SODIUM CHLORIDE 0.9% 250 ML IV SCH (08:34)
[2022-07-27] MEDS: DEXMEDETOMIDINE/0.9% NACL(PMX) 400 MCG in EMPTY BAG 1 BAG IV SCH ×2 (08:34→21:00)
[2022-07-27] MEDS: SODIUM CHLORIDE 0.45% 1,000 ML IV SCH (08:35)
--- NOTE | 2022-07-27 10:55 | P.PN ---
Subjective Progress Note Date: 07/27/22 I'm seeing this patient today, 07/21/2022, in new consultation in ICU. This is a 32-year-old white male with past medical history of spina bifida with L3 myelomeningocele, hydrocephalus with peritoneal shunt, Arnold-Chiari malformation, seizure disorder, severe kyphoscoliosis, frequent urinary tract in fections secondary to neurogenic bladder and need for intermittent catheterizations. Patient was admitted yesterday 07/20/2022. Mother reports he has been feeling unwell over the past couple weeks. Reported symptoms of shortness of breath, fever, cough. Patient was treated outpatient with Juanita horta. Yesterday, the patient had 2 seizures, at home, lasting approximately 1 minute. He then became more lethargic and ultimately unconscious. Patient's mother checked his oxygen saturation with her home pulse ox, and found his SpO2 to be 50%. EMS was called and patient was transferred to [facility]. Patient was intubated yesterday with a 7.5 ET tube, in the ER, to protect his airway. He is currently on mechanical ventilator settings of assist control, respiratory rate of 12, tidal volume of 300 mL, FiO2 55%, PEEP of 5. ABGs from this morning on FiO2 of 80% shows a pO2 of 103, pCO2 of 52, and a pH of 7.36. Patient's chest x-ray from today showed a complete opacification of left hemithorax. The endotracheal tube appeared to be above the george on the x-ray, however, the patient's physical deformities make it hard to assess. Patient also has an in place orogastric tube, there is a ventricular peritoneal shunt noted, and severe thoracolumbar scoliosis. There is concern for aspiration after the patient's witnessed seizure. Patient is covered empirically with Zosyn. The patient will require a bronchoscopy with BAL today. Patient's WBC count 3.5, hemoglobin 11.8, hematocrit of 37.9, platelets 42,000. Patient's BMP from today shows a sodium of 137, potassium 4.4, chloride 103, serum CO2 30, BUN 18, creatinine 0.41, glucose 107. Patient is currently sedated with propofol at 40 mcgs/kg/minute. And there is normal saline infusing at 130 milliliters per hour. Patient was negative for influenza, RSV, coronavirus. Lactic acid level was low at 1.4. Patient is also receiving bronchodilators and IV Solu-Medrol. GI prophylaxis with famotidine. Vital signs are stable at this time. Progress note dated 07/22/2022. 32-year-old male with a history of spina bifida, myelomeningocele, hydrocephalus, Arnold-Chiari malformation, seizure disorder, and severe kyph oscoliosis. The patient was seen in the ICU, after being initially evaluated in the emergency department. The patient was intubated for impending respiratory failure by the ER physician. Currently, the patient remains on the mechanical ventilator. He is on volume assist control, rate 12, tidal volume 300, FiO2 40%, PEEP of 5. Arterial blood gases show pO2 77, pCO2 of 59, and a pH is 7.3. The patient's currently on saline at 130 mL an hour, propofol at 50 mcg/kg/m, and vital AF at 30 mL, with a goal of 34. The patient is currently on Zosyn. Vancomycin was discontinued. White count 2.4, hemoglobin 10, hematocrit 31.8, platelet count 47,000. Sodium 139, potassium 3.5, chlorides 108, CO2 28, BUN 14, and creatinine 0.37. Chest x-ray shows consolidation in the left lung, as well as a stable well placed endotracheal tube. The patient did undergo bronchoscopy yesterday. Progress note dated 07/23/2022. 32-year-old male with history of spina bifida, myelomeningocele, hydrocephalus, Arnold-Chiari syndrome, seizure disorder, and severe kyphoscoliosis. The patient was seen in the intensive care unit, room 266. He was initially evaluated in the emergency department, with respiratory failure and seizure. He remains on the mechanical ventilator. The patient is on volume assist control, rate 12, tidal volume 300, FiO2 percent, and PEEP of 5. Blood gases show pO2 of 66, pCO2 58, and a pH is 7.25. The patient's getting saline at 130 mL an hour, and propofol at 50 mcg/kg/m. Tube feedings are on hold, because yesterday, it appeared that he aspirated. I did asked the nurse to resume tube feeds. White count 4.1, hemoglobin 9.5, hematocrit 30.7, platelet count 53,000. Sodium 140, potassium 3.6, chlorides 114, CO2 26, BUN 12, and creatinine 0.36. Blood culture showed staph epidermidis. Chest x-ray shows consolidation of the left lung, and which is essentially unchanged. Patient positioning, the patient's body habitus, and his severe kyphoscoliosis, limits the ability to interpret this chest x-ray. On 07/24/2022, the patient is being seen for a follow-up. This morning, the patient is on propofol running at 40 mcg/kg/m. The patient is calm and comfortable and symptoms of the mechanical ventilator. Is currently on assist control mode at the rate of 12 with a tidal volume of 300 and FiO2 of 40% with a PEEP of 5. Chest x-ray findings are quite limited because of his body habitus. The patient has severe kyphoscoliosis. Left lung is not adequately visualized. The right lung does seem to be clear of any significant pulmonary infiltrates. ET tube is in a good location. There is a large gastric bubble seen on today's chest x-ray. Meanwhile, the patient is receiving enteral feeding for nutritional support and currently is on vital AF at the rate of 10 mL an hour. He is tolerating the tube feeds for now. The white cell count of 7 with a hemoglobin of 10.7. Blood gas from today showed a pH of 7.34 with a pCO2 of 49 and pO2 of 73. Electrolytes are normal and the BUN is at 6 with a creatinine of 0.25. The patient remains on IV Zosyn. He does have a small wound in his right coccyx. No signs of any infection. Infectious diseases on the case. The patient is Only on IV Zosyn. The blood culture was positive for coagulase- negative staph. He did have a spike of temperature yesterday and currently is afebrile. Cardiac rhythm is sinus. He is in sinus tachycardia with a heart rate of around 120. NG tube is in place. Mcclain cath is in place and the patient is producing adequate amount of urine output. No pressors for now. Respiratory rate is in the mid tens. 07/25/20222022, the patient is wide awake. Mother is at the bedside. The patient is calm and comfortable. He is very cooperative. Orotracheal tube remains in place. Is on assist-control mode of mechanical ventilation and currently he is on a tidal volume of 300, rate of 12, FiO2 of 40% with a PEEP of 5. His chest x-rays extremely limited due to his severe kyphoscoliosis. Nevertheless, the orotracheal secretions are minimal and he is not requiring frequent suctioning. He has a weak cough. He is hemodynamically stable. Slightly hypertensive. Slightly tachycardic and this was an ongoing issue since yesterday. He is spiking low-grade temperatures of 99.4. He does have evidence of third spacing and edema. He was given a dose of Lasix 20 mg IV push yes terday and the overall fluid balance has been -1.7 L over the past 24 hours. He remains on IV Zosyn. His blood culture was positive for coagulase-negative spine staph aureus. He is blood gas showed a pH of 7.39 with a pCO2 of 51 and pO2 of 95. The white cell count is not elevated at 6.9 with a hemoglobin of 10.3. Platelet counts are low at 70 and it is stable and is essentially improving. Sodium is at 133, potassium is at 3.4 to be replaced and the serum bicarb is at 31 with a BUN of 2 and a creatinine of 0.25. His pro calcitonin level was 0.27, mildly elevated. He continues to be on enteral feeding for nutritional support and is currently on vital AF at the rate of 10 mL an hour. 2022, the patient is awake and is communicating. He remains on a mechanical ventilator. He failed extubation yesterday because of a large mucous plug. Immediately was reintubated and this occurred probably 15 minutes after his extubation. He had to be reintubated. I did a bronchoscopy on him. Airway patency was achieved. The chest x-ray from today shows a clear right lung. Left lung probably some atelectatic although this is difficult to assess as the patient has severe kyphoscoliosis. Is on assist-control mode at a rate of 12, tidal volume of 300, FiO2 of 50% with a PEEP of 5. His FiO2 will be dropped onto 40% at this point. Peak air pressure is around 26. His blood. From today shows a pH of 7.4 with a pCO2 53 and pO2 of 102. BUN is at 3 with a creatinine of 0.2 and a sodium level is at 134, the risk was 5.8 with a hemoglobin of 11. He is receiving enteral feeding for nutritional support in the form of vital AF at the rate of 10 mL an hour. 07/27/2022, the patient remains intubated on a mechanical ventilator. The patient failed an initial extubation and we are headed towards a tracheostomy tube insertion. The patient was able to tolerate this point his breathing trial with a pressure support of 10 and a PEEP of 5 for the past 24 hours. His generating adequate tidal volumes. I do not to pressure support down to 5 and the patient felt quite uncomfortable and that his tidal volumes of drops. Based on that, the patient was kept on a pressure support of 10 and a PEEP of 5. Blood gas shows a pH of 7.43 with a pCO2 of 55 and a pO2 of 68. The patient is awake and alert. The patient has following commands. The patient is receiving enteral feeding for nutritional support and the patient remains on vital AF. The patient is afebrile. The antiepileptic dose was adjusted by neurology. Noted the valproic acid level was low and another loading dose was given. Electrolytes are all stable with a sodium level of 132 with a potassium level of 4 and a BUN of 4 with a creatinine of 0.2. WBC count is at 6 with a hemoglobin 9.8. No other significant events otherwise for now. Family is interested tracheostomy and interested in a percutaneous tracheostomy. Objective - Vital Signs Vital signs: Vital Signs Temp 98.1 F 07/27/22 08:00 Pulse 107 H 07/27/22 10:00 Resp 22 07/27/22 10:00 BP 99/59 07/27/22 10:00 Pulse Ox 94 L 07/27/22 10:00 FiO2 40 07/27/22 08:07 Intake & Output 07/26/22 07/27/22 07/27/22 18:59 06:59 18:59 Intake Total 620 819.658 216 Output Total 1230 1110 100 Balance -610 -290.342 116 Weight 39.9 kg 40 kg Intake: IV 460 390 60 0.9 NS @ 15ml/hr 140 130 15 Piperacillin-Tazobactam 3 100 .375 gm In Sodium Chloride 0.9% 100 ml @ 25 mls/hr IVPB Q8H [facility] Rx#: [id number] Sodium Chloride 0.45% 1, 220 260 45 000 ml @ 20 mls/hr IV . Q24H [facility] Rx#:[id number] Intake, IV Titration 69.658 Amount Dexmedetomidine/0.9% NaCl 69.658 (Pmx) 400 mcg In Empty Bag 1 bag @ 0.2 MCG/KG/HR 1.995 mls/hr IV .Q24H [facility] Rx#:[id number] Tube Feeding 160 360 126 Other 30 Output: Urine 1230 1110 100 Other: Voiding Method Indwelling Catheter Indwelling Catheter Indwelling Catheter ABP, PAP, CO, CI - Last Documented Arterial Blood Pressure 84/48 - Exam No acute distress, with an orally placed endotracheal tube awake and alert and currently is off sedation and following commands and communicating by facial expression.. HEENT examination is grossly unremarkable. Neck supple. Full range of motion. No adenopathy thyromegaly or neck vein distention. Cardiovascular examination reveals regular rhythm rate. S1-S2 normal. No S3 or S4. No discernible murmur noted. Lungs reveal diminished breath sounds laterally, more left than right sided. S cattered rhonchi are noted. No wheezes. No crackles. CV kyphoscoliosis of the chest with diminished breath on the left lung base Abdomen soft, without bowel sounds. PEG tube is noted. Extremities are intact. No cyanosis, clubbing, patient has developed significant edema in lower extremities and upper extremities bilaterally, The patient does have significant flexion deformities of the extremities. Skin is without rash or lesion. Neurologic examination , awake and alert, weakness with significant upper extremity. Unable to move his legs. - Labs CBC & Chem 7: 07/27/22 05:00 07/27/22 05:00 Labs: Abnormal Lab Results - Last 24 Hours (Table) 07/26/22 07/27/22 07/27/22 Range/Units 04:50 05:00 05:00 RBC 3.10 L (4.30-5.90) m/uL Hgb 9.8 L (13.0-17.5) gm/dL Hct 30.9 L (39.0-53.0) % Monocytes # (Manual) 1.44 H (0-1.0) k/uL ABG pCO2 (35-45) mmHg ABG pO2 (83-108) mmHg ABG HCO3 (21-25) mmol/L ABG Total CO2 (19-24) mmol/L Sodium 132 L (137-145) mmol/L Chloride 95 L (98-107) mmol/L Carbon Dioxide 36 H (22-30) mmol/L BUN 4 L (9-20) mg/dL Creatinine 0.21 L (0.66-1.25) mg/dL Glucose 102 H (74-99) mg/dL Calcium 7.6 L (8.4-10.2) mg/dL Free Phenytoin <0.8 L (0.8-2.0) ug/mL 07/27/22 Range/Units 05:26 RBC (4.30-5.90) m/uL Hgb (13.0-17.5) gm/dL Hct (39.0-53.0) % Monocytes # (Manual) (0-1.0) k/uL ABG pCO2 55 H (35-45) mmHg ABG pO2 68 L (83-108) mmHg ABG HCO3 37 H (21-25) mmol/L ABG Total CO2 38 H (19-24) mmol/L Sodium (137-145) mmol/L Chloride (98-107) mmol/L Carbon Dioxide (22-30) mmol/L BUN (9-20) mg/dL Creatinine (0.66-1.25) mg/dL Glucose (74-99) mg/dL Calcium (8.4-10.2) mg/dL Free Phenytoin (0.8-2.0) ug/mL Microbiology - Last 24 Hours (Table) 07/21/22 10:21 Gram Stain - Final Bronchoalviolar Lavage - Right Bronchial Washings Culture - Final 07/20/22 16:55 Blood Culture - Final Blood No Growth after 144 hours 07/24/22 11:54 Blood Culture - Preliminary Blood No Growth after 24 hours 07/24/22 11:48 Blood Culture - Preliminary Blood No Growth after 48 hours 07/25/22 12:56 Gram Stain - Preliminary Bronchial Washings - Random Bronchial Washings Culture - Preliminary Assessment and Plan Plan: Acute hypoxemic respiratory failure, likely secondary to aspiration. The patient is post bronchoscopy, cultures are negative, rule out chemical aspiration/chemical pneumonia. The patient is, the broad-spectrum antibiotics with IV Zosyn. Cultures are still negative, having low-grade fever, pro calcitonin level was 0.27. Presently cultures were negative. Awake and alert off sedation. The patient is stable. Respiratory status is stable. The patient failed extubation yesterday and he required another bronchoscopy and removal of mucous plugs. Will benefit from a tracheostomy tube insertion and a gradual wean can be performed following that. Family is agreeable. General surgery has been consulted in that regard. He failed extubation on 07/25/2022. He remains on IV Zosyn for now. For now, the patient is on a spontaneous mode of breathing with a pressure support of 10 and a PEEP of 5. Unable to wean the pressure support any further because of increased work of breathing and drop in the tidal volume. Chest x-ray findings are the same. No major respiratory secretions. Status post intubation and mechanical ventilation on 07/20/2022. S/P bronchoscopy, 07/21/2022. History of breakthrough seizure disorder in a patient with chronic seizure history. History of spina bifida with L3 myelomeningocele. 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 History of Arnold-Chiari malformation. Severe kyphoscoliosis. Frequent urinary tract infections. Sinus tachycardia Hypertension Plan: No sedation No plans for extubation. However he can be potentially switch to a pressure support of 10 and a PEEP of 5 for some spontaneous breathing. Unable to wean down the pressure support any further for the reasons mentioned above Repeat cultures from the sputum are still pending Continue IV Zosyn Monitor fever pattern Continue enteral feeding for nutritional support, currently to please on hold in anticipation for possible extubation Continue seizure medication and we have not with this any further episodes of seizures metoprolol 25 mg by mouth twice a day and this essentially helped him with his heart rate Working on getting the patient tracheostomy tube Hemodynamically stable on no pressors Continue Depakote continue phenobarbital Will need to check his antiepileptic levels for tomorrow We'll continue to follow make further recommendations based on progress. Critical care evaluation that was done in more than 30 minutes.
--- NOTE | 2022-07-27 13:34 | P.PN ---
Subjective Progress Note Date: 07/27/22 The patient is seen at bedside and is accompanied by his mother, who feels patient is clinically doing better. He continues to be intubated on ventilator and is on spontaneous setting. He is currently on IV Precedex 0.4mcg/kg/hr. Objective - Vital Signs Vital signs: Vital Signs Temp 98.1 F 07/27/22 08:00 Pulse 113 H 07/27/22 12:19 Resp 22 07/27/22 10:00 BP 99/59 07/27/22 10:00 Pulse Ox 94 L 07/27/22 10:00 FiO2 40 07/27/22 12:06 Intake & Output 07/26/22 07/27/22 07/27/22 18:59 06:59 18:59 Intake Total 620 819.658 216 Output Total 1230 1110 100 Balance -610 -290.342 116 Weight 39.9 kg 40 kg Intake: IV 460 390 60 0.9 NS @ 15ml/hr 140 130 15 Piperacillin-Tazobactam 3 100 .375 gm In Sodium Chloride 0.9% 100 ml @ 25 mls/hr IVPB Q8H [facility] Rx#: [id number] Sodium Chloride 0.45% 1, 220 260 45 000 ml @ 20 mls/hr IV . Q24H [facility] Rx#:[id number] Intake, IV Titration 69.658 Amount Dexmedetomidine/0.9% NaCl 69.658 (Pmx) 400 mcg In Empty Bag 1 bag @ 0.2 MCG/KG/HR 1.995 mls/hr IV .Q24H [facility] Rx#:[id number] Tube Feeding 160 360 126 Other 30 Output: Urine 1230 1110 100 Other: Voiding Method Indwelling Catheter Indwelling Catheter Indwelling Catheter ABP, PAP, CO, CI - Last Documented Arterial Blood Pressure 84/48 - Exam GENERAL: The patient is lying in bed and does not appear in acute distress. LUNG: Intubated on ventilator. NEUROLOGICAL:. Limited because of his condition and sedation (IV Precedex 0.4mcg/kg/hr) Higher mental function: Is mildly drowsy but is following commands. He is able to show thumbs up on right hand and wave on right hand. Motor: The strength is moving the right upper extremity above gravity. hard to assess because of his condition. Has atrophy mostly lowers > uppers (baseline). No movement in lowers extremities (old) and no movement in left upper extremity (according to mother has mimimal movement at baseline). - Labs CBC & Chem 7: 07/27/22 05:00 07/27/22 05:00 Labs: Abnormal Lab Results - Last 24 Hours (Table) 07/26/22 07/27/22 07/27/22 Range/Units 04:50 05:00 05:00 RBC 3.10 L (4.30-5.90) m/uL Hgb 9.8 L (13.0-17.5) gm/dL Hct 30.9 L (39.0-53.0) % Monocytes # (Manual) 1.44 H (0-1.0) k/uL ABG pCO2 (35-45) mmHg ABG pO2 (83-108) mmHg ABG HCO3 (21-25) mmol/L ABG Total CO2 (19-24) mmol/L Sodium 132 L (137-145) mmol/L Chloride 95 L (98-107) mmol/L Carbon Dioxide 36 H (22-30) mmol/L BUN 4 L (9-20) mg/dL Creatinine 0.21 L (0.66-1.25) mg/dL Glucose 102 H (74-99) mg/dL Calcium 7.6 L (8.4-10.2) mg/dL Free Phenytoin <0.8 L (0.8-2.0) ug/mL 07/27/22 Range/Units 05:26 RBC (4.30-5.90) m/uL Hgb (13.0-17.5) gm/dL Hct (39.0-53.0) % Monocytes # (Manual) (0-1.0) k/uL ABG pCO2 55 H (35-45) mmHg ABG pO2 68 L (83-108) mmHg ABG HCO3 37 H (21-25) mmol/L ABG Total CO2 38 H (19-24) mmol/L Sodium (137-145) mmol/L Chloride (98-107) mmol/L Carbon Dioxide (22-30) mmol/L BUN (9-20) mg/dL Creatinine (0.66-1.25) mg/dL Glucose (74-99) mg/dL Calcium (8.4-10.2) mg/dL Free Phenytoin (0.8-2.0) ug/mL Microbiology - Last 24 Hours (Table) 07/25/22 12:56 Gram Stain - Final Bronchial Washings - Random Bronchial Washings Culture - Final Maegan albicans 07/21/22 10:21 Gram Stain - Final Bronchoalviolar Lavage - Right Bronchial Washings Culture - Final 07/20/22 16:55 Blood Culture - Final Blood No Growth after 144 hours 07/24/22 11:54 Blood Culture - Preliminary Blood No Growth after 24 hours 07/24/22 11:48 Blood Culture - Preliminary Blood No Growth after 48 hours Assessment and Plan Assessment: * Altered mental status, likely due to toxic metabolic encephalopathy. Status post subclinical status, now resolved. Mentation has improved. * History of Arnold-Chiari malformation with myelomeningocele L3 level, hydrocephalus and syringomyelia, status post multiple VPS and shunting for syrinx. * Medically intractable seizure disorder, came with a typical seizure. * Aspiration pneumonia s/p intubated on ventilator * Lactic acidosis, likely due to sepsis versus seizure. * Patient with history of grand mal seizures, absence seizures and tonic-clonic seizures. * Severe kyphoscoliosis * Wheelchair-bound Plan: * Repeat EEG 07/22/2022 preliminary report showed background slowing of moderate to severe degree, consistent with encephalopathy. No evidence of partial status. No electrographic seizure recorded. Still presence of epileptogenic focus involving the right temporal and also the right frontal region. No generalization. * EEG 07/21/2022 showed presence of 2 epileptic foci involving the right temporal and right frontal region and sometimes generalized spike or polyspike and wave were also seen. There is recording of multiple focal seizures, all of them originating in the right hemispheric region and one of them later generalized for about 26 seconds. No motor activity was observed on the review of the video section of the study. Background slowing of at least m oderate degree suggestive of encephalopathy. Subclinical partial status cannot be ruled out. Clinical correlation is recommended. * Depakote level 53.8 (50-100), and phenobarbital level 22.4 (15-40). Both levels are therapeutic at the beginning. But yesterday his Depakote level were subtherapeutic and it is 26.8: Possibly he is not getting all the medication and I spoke with mother and stated there is residual after medication since it is sprinkles. * Continue his seizure medications including Vimpat 200 mg twice a day, and phenobarbital 40.5 mg twice a day. I will switch Depakote sprinkle to IV for now and after 1-2 day, will repeat levels. Will place him on Depakote 500mg qam and 250mg qhs IV. * I notified the mother that patient needs to follow-up with his neurosurgeon at [facility], since last revision for CLOUD SYSTEMS ADMINISTRATOR shunt and Syrinx shunt was about 20 years ago to make sure still functional. Last time they have visited a neurosurgeon was 5 years ago and was notified everything was normal. * Possible he will require, Trach and PEG. * Other medical management as per IM and other specialties. The plan is discussed with the patient's mother's who is at bedside and his nurse. Will continue to follow. Time with Patient: Less than 30
--- NOTE | 2022-07-27 14:27 | P.PN ---
Subjective Progress Note Date: 07/27/22 CHIEF COMPLAINT: Respiratory failure HISTORY OF PRESENT ILLNESS: Patient remains in the ICU on mechanical ventilation. He is not on sedation. Surgical service following regards to tracheostomy placement. Low-grade temp of 99.9. Mildly tachycardic. WBC 6.0 Hgb 9.8 platelets 157 sodium 132 potassium 4.0 creatinine 0.21 PHYSICAL EXAM: VITAL SIGNS: Reviewed. GENERAL: Well-developed in no acute distress. HEENT: No sclera icterus. Extraocular movements grossly intact. Moist buccal mucosa. Head is atraumatic, normocephalic. ABDOMEN: Soft. Nondistended. Nontender. ASSESSMENT: 1. Acute hypoxic respiratory failure due to aspiration 2. History of spina bifida 3. History of scoliosis PLAN: -Patient scheduled for tracheostomy placement tomorrow with Dr. Engel. Family did not want PEG tube placed at this time. -Continue supportive care -Continue ICU management Physician Chair Trimmer note has been reviewed by physician. Signing provider agrees with the documented findings, assessment, and plan of care. Objective - Vital Signs Vital signs: Vital Signs Temp 98.1 F 07/27/22 08:00 Pulse 113 H 07/27/22 12:19 Resp 22 07/27/22 10:00 BP 99/59 07/27/22 10:00 Pulse Ox 94 L 07/27/22 10:00 FiO2 40 07/27/22 12:06 Intake & Output 07/26/22 07/27/22 07/27/22 18:59 06:59 18:59 Intake Total 620 819.658 216 Output Total 1230 1110 100 Balance -610 -290.342 116 Weight 39.9 kg 40 kg Intake: IV 460 390 60 0.9 NS @ 15ml/hr 140 130 15 Piperacillin-Tazobactam 3 100 .375 gm In Sodium Chloride 0.9% 100 ml @ 25 mls/hr IVPB Q8H [facility] Rx#: [id number] Sodium Chloride 0.45% 1, 220 260 45 000 ml @ 20 mls/hr IV . Q24H [facility] Rx#:[id number] Intake, IV Titration 69.658 Amount Dexmedetomidine/0.9% NaCl 69.658 (Pmx) 400 mcg In Empty Bag 1 bag @ 0.2 MCG/KG/HR 1.995 mls/hr IV .Q24H [facility] Rx#:[id number] Tube Feeding 160 360 126 Other 30 Output: Urine 1230 1110 100 Other: Voiding Method Indwelling Catheter Indwelling Catheter Indwelling Catheter ABP, PAP, CO, CI - Last Documented Arterial Blood Pressure 84/48 - Labs CBC & Chem 7: 07/27/22 05:00 07/27/22 05:00 Labs: Abnormal Lab Results - Last 24 Hours (Table) 07/26/22 07/27/22 07/27/22 Range/Units 04:50 05:00 05:00 RBC 3.10 L (4.30-5.90) m/uL Hgb 9.8 L (13.0-17.5) gm/dL Hct 30.9 L (39.0-53.0) % Monocytes # (Manual) 1.44 H (0-1.0) k/uL ABG pCO2 (35-45) mmHg ABG pO2 (83-108) mmHg ABG HCO3 (21-25) mmol/L ABG Total CO2 (19-24) mmol/L Sodium 132 L (137-145) mmol/L Chloride 95 L (98-107) mmol/L Carbon Dioxide 36 H (22-30) mmol/L BUN 4 L (9-20) mg/dL Creatinine 0.21 L (0.66-1.25) mg/dL Glucose 102 H (74-99) mg/dL Calcium 7.6 L (8.4-10.2) mg/dL Free Phenytoin <0.8 L (0.8-2.0) ug/mL 07/27/22 Range/Units 05:26 RBC (4.30-5.90) m/uL Hgb (13.0-17.5) gm/dL Hct (39.0-53.0) % Monocytes # (Manual) (0-1.0) k/uL ABG pCO2 55 H (35-45) mmHg ABG pO2 68 L (83-108) mmHg ABG HCO3 37 H (21-25) mmol/L ABG Total CO2 38 H (19-24) mmol/L Sodium (137-145) mmol/L Chloride (98-107) mmol/L Carbon Dioxide (22-30) mmol/L BUN (9-20) mg/dL Creatinine (0.66-1.25) mg/dL Glucose (74-99) mg/dL Calcium (8.4-10.2) mg/dL Free Phenytoin (0.8-2.0) ug/mL Microbiology - Last 24 Hours (Table) 07/24/22 11:48 Blood Culture - Preliminary Blood No Growth after 72 hours 07/25/22 12:56 Gram Stain - Final Bronchial Washings - Random Bronchial Washings Culture - Final Maegan albicans 07/21/22 10:21 Gram Stain - Final Bronchoalviolar Lavage - Right Bronchial Washings Culture - Final 07/20/22 16:55 Blood Culture - Final Blood No Growth after 144 hours 07/24/22 11:54 Blood Culture - Preliminary Blood No Growth after 24 hours
--- NOTE | 2022-07-27 19:21 | P.PN ---
Subjective This is a pleasant 32 years old male with past medical history of L3 myelomeningocele and hydrocephalus with any peritoneal shunt, spina bifid F, se izure, chiari malformation. Patient initially presents because of altered mental status and seizure, he had 2 seizures at home 1. Gastric to and other as atypical. Patient was bronchoscoped doing well more lethargic and L over the last 2 days. This morning patient mother noticed he had a seizure that lasted for about 1 minute followed by post ictal confusion, and mother noticed that his oxygen saturation is drip until called EMS, as per document However the mother clarify that actually he has been sick 2 days ago with congestion and coughing, Dr. Mcfarland his primary doctor start him on Augmentin because of history of septic shock and easy infection, he took 3 pulse, he has a day morning he was noticed to have a brief period of seizure although the mom she does not think he had seizure he was just lethargic. She checked his temperature at home and it was 102 breath he was feeling cold an d shivering. At baseline he is able to talk normally, he understands the surrounding, he can eat by himself but he is wheelchair bound On admission he is with low-grade temperature 99.7. He is tachycardic around 115, hypertensive blood pressure this morning 93/73. His CBC is unremarkable. INR is 1.1, d-dimer is slightly elevated at 1.1. On admission. PhosLo 7.2, heart pCO2 of 68. Chest x-ray: Left upper and middle lobe consolidation with air bronchograms EKG showing sinus tachycardia at 130 Emergency room patient received breathing treatment, antibiotics, steroids, normal saline. (Continued on Levaquin and normal saline at 1:30 milliliters of breath or, Zosyn and Solu-Medrol 40 mg 07/22/2022 Patient remains intubated and sedated. He is on mechanical ventilation with FiO2 of 40% and PEEP of 5. Status post bronchoscopy. Blood pressure 147/82, tachycardic at 117. Mcclain place. WBCs 2.4, hemoglobin 10, platelets at 102. He remains on Zosyn and Levaquin, no positive vancomycin is a normal saline and Solu-Medrol 40 mg I discussed the case with the neurology this morning repeat EEG showing no more epileptic discharge. Patient remains on 3 antiseizure medications phenobarbital, Depakote and vimpat. 07/23/2022 Patient still in the ICU sedated and intubated No seizure-like activity however he is improving and he may be considered for sedation holiday per pulmonary/critical care team who have also with the vent management. Currently he has FiO2 of 40% and PEEP of 5. His hemoglobin 9.5, WBC 4.1 and platelet count 53, he is tachycardic with heart rate around 1 25/m and just vitals stable. He has positive blood culture with staph epidermidis, most likely contamination Chest x-ray I reviewed myself showing still opacification on the left side Also his normal saline lower to 100 mL/h with Mcclain catheter in place Currently covered with Zosyn. Also he is on normal saline at 100 mL per hour and Solu-Medrol 40 mg Resume the care of the patient on 07/27/2022 Patient currently still in the ICU, still intubated but without sedation, he looks awake and he follows simple commands. No significant distress. He is hemodynamically stable. Still has low-grade fever of 99.9 Tachycardia is better and heart rate is 105. Labs look stable the looks a normal 6000, hemoglobin 9.8 and platelet normal. Bronchial washing shown maegan. Currently remains on Zosyn. With pulmonary team recommendation. he Is also on multiple seizure medication including phenobarbital, Depakote and Vimpat within urology adjusting dose of Depakote increased to 250 at bedside the top of 500 daily. We'll need to check level surgery team were consulted for tracheostomy possibly tomorrow recommendation of operations lieutenant team Active Medications Generic Name Dose Route Start Last Admin Trade Name Mookieq PRN Reason Stop Dose Admin Acetaminophen 650 mg 07/24/22 00:28 07/27/22 16:40 Acetaminophen Tab 325 Mg Tab PO 650 mg Q6HR PRN Administration Fever and/ or Pain Albuterol/Ipratropium 3 ml 07/21/22 12:00 07/27/22 15:31 Ipratropium-Albuterol 3 Ml Neb INHALATION 3 ml RT-Q4H [facility] Administration Albuterol/Ipratropium 3 ml 07/21/22 09:19 Ipratropium-Albuterol 3 Ml Neb INHALATION RT-Q2H PRN Shortness Of Breath Or Wheezing Chlorhexidine Gluconate 15 ml 07/21/22 21:00 07/27/22 08:30 Chlorhexidine Gluconate 15 Ml Cup MUCOUS MEM 15 ml BID [facility] Administration Famotidine 10 mg 07/21/22 09:00 07/27/22 08:30 Famotidine 20 Mg/2 Ml Vial IV 10 mg Q12HR [facility] Administration Hydromorphone HCl 1 mg 07/22/22 09:59 07/27/22 00:08 Hydromorphone 1 Mg/Ml 1 Ml Syringe IVP 1 mg Q4HR PRN Administration Pain Propofol 1,000 mg/ IV Solution 100 mls @ 1.17 mls/hr 07/20/22 18:00 07/27/22 19:11 IV Not Given .Q24H [facility] Protocol 5 MCG/KG/MIN Piperacillin Sod/Tazobactam 100 mls @ 25 mls/hr 07/21/22 23:00 07/27/22 15:41 Sod 3.375 gm/ Sodium Chloride IVPB 25 mls/hr Q8H [facility] Administration Protocol Sodium Chloride 1,000 mls @ 20 mls/hr 07/23/22 10:30 07/27/22 08:35 Saline 0.45% IV 20 mls/hr .Q24H [facility] Administration Dexmedetomidine HCl 400 mcg/ 100 mls @ 1.995 mls/hr 07/25/22 11:30 07/27/22 08:34 IV Solution IV 0.4 mcg/kg/hr .Q24H [facility] 3.99 mls/hr Administration Protocol 0.2 MCG/KG/HR Norepinephrine Bitartrate 4 mg 254 mls @ 4.561 mls/hr 07/25/22 11:30 07/27/22 08:34 / Sodium Chloride IV Not Given .Q24H [facility] Protocol 0.03 MCG/KG/MIN Valproic Acid 500 mg/ Sodium 105 mls @ 100 mls/hr 07/28/22 09:00 Chloride IVPB QAM [facility] Valproic Acid 250 mg/ Sodium 102.5 mls @ 100 mls/hr 07/27/22 21:00 Chloride IVPB HS [facility] Lacosamide 200 mg 07/21/22 12:50 07/27/22 19:10 Lacosamide 50 Mg Tablet PO 200 mg BID@0700,1900 [facility] Administration Metoprolol Tartrate 25 mg 07/25/22 10:00 07/27/22 08:30 Metoprolol Tartrate 25 Mg Tab PO 25 mg BID [facility] Administration Miscellaneous Information 1 each 07/20/22 21:28 Pneumonia Protocol Utilized 1 Each Misc PO ONCE PRN Per Protocol Miscellaneous Information 1 each 07/22/22 07:02 Potassium Replacement Protocol 1 Each Misc MISCELLANE DAILY PRN Per Protocol Protocol Miscellaneous Information 1 each 07/24/22 06:40 Magnesium Replacement Protocol 1 Each Misc MISCELLANE DAILY PRN Per Protocol Protocol Multi-Ingred Cream/Lotion/Oil/Oint 1 applic 07/24/22 13:15 07/27/22 08:32 Hydrophilic Cream 180 Gm Tube TOPICAL 1 applic DAILY [facility] Administration Protocol Phenobarbital 40.5 mg 07/21/22 12:50 07/27/22 19:10 Phenobarbital 16.2 Mg Tab PO 40.5 mg BID@0700,1900 [facility] Administration Sodium Biphosphate/Sodium Phosphate 66.6 ml 07/22/22 12:44 07/22/22 23:38 Na Phos,M-B/Na Phos,Di-Ba 66.6 Ml Enema RECTAL 66.6 ml ONCE PRN Administration Constipation Objective - Vital Signs Vital signs: Vital Signs Temp 98.1 F 07/27/22 08:00 Pulse 113 H 07/27/22 12:19 Resp 22 07/27/22 10:00 BP 99/59 07/27/22 10:00 Pulse Ox 94 L 07/27/22 10:00 FiO2 40 07/27/22 12:06 Intake & Output 07/26/22 07/27/22 07/27/22 18:59 06:59 18:59 Intake Total 620 819.658 216 Output Total 1230 1110 100 Balance -610 -290.342 116 Weight 39.9 kg 40 kg Intake: IV 460 390 60 0.9 NS @ 15ml/hr 140 130 15 Piperacillin-Tazobactam 3 100 .375 gm In Sodium Chloride 0.9% 100 ml @ 25 mls/hr IVPB Q8H [facility] Rx#: [id number] Sodium Chloride 0.45% 1, 220 260 45 000 ml @ 20 mls/hr IV . Q24H [facility] Rx#:[id number] Intake, IV Titration 69.658 Amount Dexmedetomidine/0.9% NaCl 69.658 (Pmx) 400 mcg In Empty Bag 1 bag @ 0.2 MCG/KG/HR 1.995 mls/hr IV .Q24H [facility] Rx#:[id number] Tube Feeding 160 360 126 Other 30 Output: Urine 1230 1110 100 Other: Voiding Method Indwelling Catheter Indwelling Catheter Indwelling Catheter ABP, PAP, CO, CI - Last Documented Arterial Blood Pressure 84/48 - Exam -GENERAL: The patient is intubated, he is somewhat awake and follows commands HEENT: Pupils are round and equally reacting to light. EOMI. No scleral icterus. No conjunctival pallor. Normocephalic, atraumatic. No pharyngeal erythema. No thyromegaly. CARDIOVASCULAR: S1 and S2 present. No murmurs, rubs, or gallops. -PULMONARY: Chest is clear to auscultation, no wheezing or crackles. Patient is tachypneic, he has bilateral shift mainly on the right side -ABDOMEN: Soft, nontender, nondistended, normoactive bowel sounds. No palpable organomegaly. Mcclain catheter in a Place MUSCULOSKELETAL: No joint swelling or deformity. EXTREMITIES: No cyanosis, clubbing, or pedal edema. NEUROLOGICAL: Gross neurological examination did not reveal any focal deficits. SKIN: No rashes. no petechiae. - Labs CBC & Chem 7: 07/27/22 05:00 07/27/22 05:00 Labs: Abnormal Lab Results - Last 24 Hours (Table) 07/26/22 07/27/22 07/27/22 Range/Units 04:50 05:00 05:00 RBC 3.10 L (4.30-5.90) m/uL Hgb 9.8 L (13.0-17.5) gm/dL Hct 30.9 L (39.0-53.0) % Monocytes # (Manual) 1.44 H (0-1.0) k/uL ABG pCO2 (35-45) mmHg ABG pO2 (83-108) mmHg ABG HCO3 (21-25) mmol/L ABG Total CO2 (19-24) mmol/L Sodium 132 L (137-145) mmol/L Chloride 95 L (98-107) mmol/L Carbon Dioxide 36 H (22-30) mmol/L BUN 4 L (9-20) mg/dL Creatinine 0.21 L (0.66-1.25) mg/dL Glucose 102 H (74-99) mg/dL Calcium 7.6 L (8.4-10.2) mg/dL Free Phenytoin <0.8 L (0.8-2.0) ug/mL 07/27/22 Range/Units 05:26 RBC (4.30-5.90) m/uL Hgb (13.0-17.5) gm/dL Hct (39.0-53.0) % Monocytes # (Manual) (0-1.0) k/uL ABG pCO2 55 H (35-45) mmHg ABG pO2 68 L (83-108) mmHg ABG HCO3 37 H (21-25) mmol/L ABG Total CO2 38 H (19-24) mmol/L Sodium (137-145) mmol/L Chloride (98-107) mmol/L Carbon Dioxide (22-30) mmol/L BUN (9-20) mg/dL Creatinine (0.66-1.25) mg/dL Glucose (74-99) mg/dL Calcium (8.4-10.2) mg/dL Free Phenytoin (0.8-2.0) ug/mL Microbiology - Last 24 Hours (Table) 07/24/22 11:48 Blood Culture - Preliminary Blood No Growth after 72 hours 07/25/22 12:56 Gram Stain - Final Bronchial Washings - Random Bronchial Washings Culture - Final Maegan albicans 07/21/22 10:21 Gram Stain - Final Bronchoalviolar Lavage - Right Bronchial Washings Culture - Final 07/20/22 16:55 Blood Culture - Final Blood No Growth after 144 hours 07/24/22 11:54 Blood Culture - Preliminary Blood No Growth after 24 hours Assessment and Plan Assessment: Left community acquired pneumonia, versus aspiration pneumonia Hypoxic respiratory failure secondary to above Altered mental status, mostly metabolic encephalopathy Breakthrough seizure Respiratory acidosis History of spina bifid the and third lumbar myelomeningocele History of hydrocephalus status post cranial peritoneal shunt History of seizure chiari malformation History of Recurrent UTI Plan: Continue with antibiotic Zosyn Continue with a bronchodilator Pulmonary consult and neurology consult Continue with seizure medication phenobarbital, Depakote and then passed per neurology on the case Labs and medication were reviewed.. Continue same treatment. Continue with symptomatic treatment. Resume home medication. Monitor labs and vitals. DVT and GI prophylaxis. Further recommendations as per clinical course of the patient DVT prophylaxis: mechanical. GI Prophylaxis: Pepcid Prognosis is guarded
--- NOTE | 2022-07-27 20:03 | P.GSCN ---
History of Present Illness Consult date: 07/27/22 Reason for Consult: percutaneous tracheostomy Requesting physician: Antwan Nelson History of present illness: History of Arnold-Chiari malformation with myelomeningocele, s/p brainstem decompression, medically intractable epilepsy, VPS. Presented to ER after EMS called for possible seizure. Noted to by hypoxic. Had been ill for a few days prior. Has been intubated for a week. Tracheostomy discussed with parents, who wished for a second opinion for percutaneous tracheostomy rather than open. PEG was also discussed but parents want to hold off as of now. Per mom, he eats by himself. 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, Other MDRO Year Discovered:: 02/07/21 MDRO Source:: URINE Past Surgical History: Ventriculoperitoneal Shunt Additional Past Anesthesia/Blood Transfusion Reaction / Comm: Hx of receiving anesthesia and did not wake up for 6 days Past Psychological History: No Psychological Hx Reported Smoking Status: Never smoker Past Alcohol Use History: None Reported Past Drug Use History: None Reported Medications and Allergies Home Medications Medication Instructions Recorded Confirmed Type Cholecalciferol [Vitamin D3 (25 50 mcg PO DAILY@0700 07/20/22 07/21/22 History Mcg = 1000 Iu)] Divalproex Sprinkle [Depakote 250 mg PO HS 07/20/22 07/21/22 History Sprinkle] Divalproex Sprinkle [Depakote 500 mg PO DAILY 07/20/22 07/21/22 History Sprinkle] Lacosamide [Vimpat Oral Soln] 200 mg PO BID@0700,1900 07/20/22 07/21/22 History Nitrofurantoin Macrocrystal 50 mg PO HS@1900 07/20/22 07/21/22 History [Macrodantin] PHENobarbitaL [Luminal] 40.5 mg PO BID@0700,1900 07/20/22 07/21/22 History Valtoco 5mg/0.1ml Nasal 1 spr NASAL ONCE PRN 07/20/22 07/21/22 History Allergies Allergy/AdvReac Type Severity Reaction Status Date / Time carbamazepine [From Tegretol] Allergy Severe Anaphylaxis Verified 07/21/22 08:47 immune globulin,gamma (IgG) Allergy Severe Anaphylaxis Verified 07/21/22 08:47 human Iodinated Contrast Media Allergy Severe Rash/Hives Verified 07/21/22 08:47 Latex, Natural Rubber Allergy Severe Anaphylaxis Verified 07/21/22 08:47 phenytoin [From Dilantin] Allergy Severe Anaphylaxis Verified 07/21/22 08:47 septra Allergy Severe Anaphylaxis Uncoded 07/20/22 16:59 Surgical - Exam Vital Signs Temp 97.1 F L 07/20/22 16:47 - General intubated on precedex - Neck limited ROM - Respiratory on vent, currently on CPAP FIO2 40% & PEEP 5 clear to auscultation - Cardiovascular Rhythm: regular - Abdomen Abdomen: soft, non tender, no distended - Integumentary dry, no diaphoresis - Neurologic sedated - Musculoskeletal severe contractures Results - Labs 07/27/22 05:00 07/27/22 05:00 Abnormal Lab Results - Last 24 Hours (Table) 07/26/22 07/27/22 07/27/22 Range/Units 04:50 05:00 05:00 RBC 3.10 L (4.30-5.90) m/uL Hgb 9.8 L (13.0-17.5) gm/dL Hct 30.9 L (39.0-53.0) % Monocytes # (Manual) 1.44 H (0-1.0) k/uL ABG pCO2 (35-45) mmHg ABG pO2 (83-108) mmHg ABG HCO3 (21-25) mmol/L ABG Total CO2 (19-24) mmol/L Sodium 132 L (137-145) mmol/L Chloride 95 L (98-107) mmol/L Carbon Dioxide 36 H (22-30) mmol/L BUN 4 L (9-20) mg/dL Creatinine 0.21 L (0.66-1.25) mg/dL Glucose 102 H (74-99) mg/dL Calcium 7.6 L (8.4-10.2) mg/dL Free Phenytoin <0.8 L (0.8-2.0) ug/mL 07/27/22 Range/Units 05:26 RBC (4.30-5.90) m/uL Hgb (13.0-17.5) gm/dL Hct (39.0-53.0) % Monocytes # (Manual) (0-1.0) k/uL ABG pCO2 55 H (35-45) mmHg ABG pO2 68 L (83-108) mmHg ABG HCO3 37 H (21-25) mmol/L ABG Total CO2 38 H (19-24) mmol/L Sodium (137-145) mmol/L Chloride (98-107) mmol/L Carbon Dioxide (22-30) mmol/L BUN (9-20) mg/dL Creatinine (0.66-1.25) mg/dL Glucose (74-99) mg/dL Calcium (8.4-10.2) mg/dL Free Phenytoin (0.8-2.0) ug/mL Microbiology - Last 24 Hours (Table) 07/24/22 11:48 Blood Culture - Preliminary Blood No Growth after 72 hours 07/25/22 12:56 Gram Stain - Final Bronchial Washings - Random Bronchial Washings Culture - Final Maegan albicans 07/21/22 10:21 Gram Stain - Final Bronchoalviolar Lavage - Right Bronchial Washings Culture - Final 07/20/22 16:55 Blood Culture - Final Blood No Growth after 144 hours 07/24/22 11:54 Blood Culture - Preliminary Blood No Growth after 24 hours Diabetes panel 07/27/22 Range/Units 05:00 Sodium 132 L (137-145) mmol/L Potassium 4.0 (3.5-5.1) mmol/L Chloride 95 L (98-107) mmol/L Carbon Dioxide 36 H (22-30) mmol/L BUN 4 L (9-20) mg/dL Creatinine 0.21 L (0.66-1.25) mg/dL Glucose 102 H (74-99) mg/dL Calcium 7.6 L (8.4-10.2) mg/dL Calcium panel 07/27/22 Range/Units 05:00 Calcium 7.6 L (8.4-10.2) mg/dL Pituitary panel 07/27/22 Range/Units 05:00 Sodium 132 L (137-145) mmol/L Potassium 4.0 (3.5-5.1) mmol/L Chloride 95 L (98-107) mmol/L Carbon Dioxide 36 H (22-30) mmol/L BUN 4 L (9-20) mg/dL Creatinine 0.21 L (0.66-1.25) mg/dL Glucose 102 H (74-99) mg/dL Calcium 7.6 L (8.4-10.2) mg/dL Adrenal panel 07/27/22 Range/Units 05:00 Sodium 132 L (137-145) mmol/L Potassium 4.0 (3.5-5.1) mmol/L Chloride 95 L (98-107) mmol/L Carbon Dioxide 36 H (22-30) mmol/L BUN 4 L (9-20) mg/dL Creatinine 0.21 L (0.66-1.25) mg/dL Glucose 102 H (74-99) mg/dL Calcium 7.6 L (8.4-10.2) mg/dL - Imaging Chest x-ray: report reviewed, image reviewed CT scan - chest: report reviewed, image reviewed Assessment and Plan Assessment: acute hypoxic respiratory failure, failed extubation Plan: Will plan for percutaneous tracheostomy, possible open tomorrow afternoon in the OR with bronchoscopy. Details of surgery along with risks, benefits discussed with parents. All questions answered. Wish to proceed. Time with Patient: Less than 30
[2022-07-27] MEDS ORDERED: VALPROATE SODIUM 250 MG in SODIUM CHLORIDE 0.9% 100 ML IVPB SCH (21:00)
[2022-07-28] MEDS: IPRATROPIUM-ALBUTEROL 3 ML NEB INHALATION SCH ×7 (00:53→23:55)
[2022-07-28] MEDS: ACETAMINOPHEN TAB 325 MG TAB PO PRN ×2 (04:47→20:18)
[2022-07-28 06:15] LABS: ABG Base Excess 9.8 mmol/L; ABG HCO3 34 mmol/L (21-25); ABG Oxygen Saturation 97.4 % (94-97); ABG PCO2 48 mmHg (35-45); ABG PH 7.45 (7.35-7.45); ABG PO2 85 mmHg (83-108); ABG TCO2 35 mmol/L (19-24); Allen Test Performed? Yes
[2022-07-28 06:33] LABS: African American GFR (CKD) >90 (>60 ml/min/1.73 sqM); Anion Gap 7 mmol/L; Blood Urea Nitrogen 6 mg/dL (9-20); Calcium 8.2 mg/dL (8.4-10.2); Carbon Dioxide 33 mmol/L (22-30); Chloride 98 mmol/L (98-107); Glucose 94 mg/dL (74-99); Non-African American GFR(CKD) >90 (>60 ml/min/1.73 sqM); Potassium 3.9 mmol/L (3.5-5.1); Sodium 138 mmol/L (137-145)
[2022-07-28 07:02] LABS: Basophils % (A) 0 %; Eosinophils # (A) 0.1 k/uL (0-0.7); Eosinophils % (A) 1 %; HCT 32.2 % (39.0-53.0); HGB 10.2 gm/dL (13.0-17.5); Lymphocytes # (A) 0.9 k/uL (1.0-4.8); Lymphocytes % (A) 11 %; MCH 31.8 pg (25.0-35.0); MCHC 31.8 g/dL (31.0-37.0); Macrocytosis Slight; Mean Platelet Volume 7.5; Monocytes # (A) 0.4 k/uL (0-1.0); Monocytes % (A) 5 %; Neutrophils # (A) 6.3 k/uL (1.3-7.7); Neutrophils % (A) 81 %; Platelet Count 206 k/uL (150-450); RBC 3.22 m/uL (4.30-5.90); RDW 15.5 % (11.5-15.5); WBC 7.8 k/uL (3.8-10.6)
[2022-07-28] MEDS ORDERED: POTASSIUM BICARBONATE/CIT AC 20 MEQ TABLET.EFF PO ONE (08:00)
[2022-07-28] MEDS: LACOSAMIDE 50 MG TABLET PO SCH ×2 (08:12→17:45)
[2022-07-28] MEDS: PHENobarbitaL 16.2 MG TAB PO SCH ×2 (08:13→17:45)
[2022-07-28] MEDS: FAMOTIDINE 20 MG/2 ML VIAL IV SCH ×2 (08:14→20:18)
[2022-07-28] MEDS: CHLORHEXIDINE GLUCONATE 15 ML CUP MUCOUS MEM SCH ×2 (08:14→20:18)
[2022-07-28] MEDS: PIPERACILLIN-TAZOBACTAM 3.375 GM in SODIUM CHLORIDE 0.9% 100 ML IVPB SCH ×3 (08:14→23:23)
[2022-07-28] MEDS: VALPROATE SODIUM 500 MG in SODIUM CHLORIDE 0.9% 100 ML IVPB SCH ×2 (08:14→21:15)
[2022-07-28] MEDS: SODIUM CHLORIDE 0.45% 1,000 ML IV SCH (08:15)
[2022-07-28] MEDS: METOPROLOL TARTRATE 25 MG TAB PO SCH ×2 (08:15→20:18)
[2022-07-28] MEDS: HYDROPHILIC CREAM 180 GM TUBE TOPICAL SCH (08:15)
--- NOTE | 2022-07-28 08:43 | XR ---
EXAMINATION TYPE: XR chest 1V portable DATE OF EXAM: 07/28/2022 Comparison: 07/27/2022 Clinical History: 32-year-old male NG tube placement Findings: ET tube tip 3.3 cm from the george. NG tube courses below the diaphragm. Retained catheter fragments right base of the neck and upper right chest. Severe dextroconvex scoliosis of the thoracic spine res ulting in extensive thoracic deformity. Similar aerated though small volume right lung. Now progressi on to complete white out of the left hemithorax. Impression: Severe thoracic deformity due to the marked scoliosis. There seems to be some interval worsening now with a return to complete white out of the left hemithorax.
[2022-07-28] MEDS ORDERED: FUROSEMIDE 10 MG/ML 2 ML VIAL IV ONE (10:52)
--- NOTE | 2022-07-28 10:54 | P.PN ---
Subjective Progress Note Date: 07/28/22 I'm seeing this patient today, 07/21/2022, in new consultation in ICU. This is a 32-year-old white male with past medical history of spina bifida with L3 myelomeningocele, hydrocephalus with peritoneal shunt, Arnold-Chiari malformation, seizure disorder, severe kyphoscoliosis, frequent urinary tract in fections secondary to neurogenic bladder and need for intermittent catheterizations. Patient was admitted yesterday 07/20/2022. Mother reports he has been feeling unwell over the past couple weeks. Reported symptoms of shortness of breath, fever, cough. Patient was treated outpatient with Juanita horta. Yesterday, the patient had 2 seizures, at home, lasting approximately 1 minute. He then became more lethargic and ultimately unconscious. Patient's mother checked his oxygen saturation with her home pulse ox, and found his SpO2 to be 50%. EMS was called and patient was transferred to [facility]. Patient was intubated yesterday with a 7.5 ET tube, in the ER, to protect his airway. He is currently on mechanical ventilator settings of assist control, respiratory rate of 12, tidal volume of 300 mL, FiO2 55%, PEEP of 5. ABGs from this morning on FiO2 of 80% shows a pO2 of 103, pCO2 of 52, and a pH of 7.36. Patient's chest x-ray from today showed a complete opacification of left hemithorax. The endotracheal tube appeared to be above the george on the x-ray, however, the patient's physical deformities make it hard to assess. Patient also has an in place orogastric tube, there is a ventricular peritoneal shunt noted, and severe thoracolumbar scoliosis. There is concern for aspiration after the patient's witnessed seizure. Patient is covered empirically with Zosyn. The patient will require a bronchoscopy with BAL today. Patient's WBC count 3.5, hemoglobin 11.8, hematocrit of 37.9, platelets 42,000. Patient's BMP from today shows a sodium of 137, potassium 4.4, chloride 103, serum CO2 30, BUN 18, creatinine 0.41, glucose 107. Patient is currently sedated with propofol at 40 mcgs/kg/minute. And there is normal saline infusing at 130 milliliters per hour. Patient was negative for influenza, RSV, coronavirus. Lactic acid level was low at 1.4. Patient is also receiving bronchodilators and IV Solu-Medrol. GI prophylaxis with famotidine. Vital signs are stable at this time. Progress note dated 07/22/2022. 32-year-old male with a history of spina bifida, myelomeningocele, hydrocephalus, Arnold-Chiari malformation, seizure disorder, and severe kyph oscoliosis. The patient was seen in the ICU, after being initially evaluated in the emergency department. The patient was intubated for impending respiratory failure by the ER physician. Currently, the patient remains on the mechanical ventilator. He is on volume assist control, rate 12, tidal volume 300, FiO2 40%, PEEP of 5. Arterial blood gases show pO2 77, pCO2 of 59, and a pH is 7.3. The patient's currently on saline at 130 mL an hour, propofol at 50 mcg/kg/m, and vital AF at 30 mL, with a goal of 34. The patient is currently on Zosyn. Vancomycin was discontinued. White count 2.4, hemoglobin 10, hematocrit 31.8, platelet count 47,000. Sodium 139, potassium 3.5, chlorides 108, CO2 28, BUN 14, and creatinine 0.37. Chest x-ray shows consolidation in the left lung, as well as a stable well placed endotracheal tube. The patient did undergo bronchoscopy yesterday. Progress note dated 07/23/2022. 32-year-old male with history of spina bifida, myelomeningocele, hydrocephalus, Arnold-Chiari syndrome, seizure disorder, and severe kyphoscoliosis. The patient was seen in the intensive care unit, room 266. He was initially evaluated in the emergency department, with respiratory failure and seizure. He remains on the mechanical ventilator. The patient is on volume assist control, rate 12, tidal volume 300, FiO2 percent, and PEEP of 5. Blood gases show pO2 of 66, pCO2 58, and a pH is 7.25. The patient's getting saline at 130 mL an hour, and propofol at 50 mcg/kg/m. Tube feedings are on hold, because yesterday, it appeared that he aspirated. I did asked the nurse to resume tube feeds. White count 4.1, hemoglobin 9.5, hematocrit 30.7, platelet count 53,000. Sodium 140, potassium 3.6, chlorides 114, CO2 26, BUN 12, and creatinine 0.36. Blood culture showed staph epidermidis. Chest x-ray shows consolidation of the left lung, and which is essentially unchanged. Patient positioning, the patient's body habitus, and his severe kyphoscoliosis, limits the ability to interpret this chest x-ray. On 07/24/2022, the patient is being seen for a follow-up. This morning, the patient is on propofol running at 40 mcg/kg/m. The patient is calm and comfortable and symptoms of the mechanical ventilator. Is currently on assist control mode at the rate of 12 with a tidal volume of 300 and FiO2 of 40% with a PEEP of 5. Chest x-ray findings are quite limited because of his body habitus. The patient has severe kyphoscoliosis. Left lung is not adequately visualized. The right lung does seem to be clear of any significant pulmonary infiltrates. ET tube is in a good location. There is a large gastric bubble seen on today's chest x-ray. Meanwhile, the patient is receiving enteral feeding for nutritional support and currently is on vital AF at the rate of 10 mL an hour. He is tolerating the tube feeds for now. The white cell count of 7 with a hemoglobin of 10.7. Blood gas from today showed a pH of 7.34 with a pCO2 of 49 and pO2 of 73. Electrolytes are normal and the BUN is at 6 with a creatinine of 0.25. The patient remains on IV Zosyn. He does have a small wound in his right coccyx. No signs of any infection. Infectious diseases on the case. The patient is Only on IV Zosyn. The blood culture was positive for coagulase- negative staph. He did have a spike of temperature yesterday and currently is afebrile. Cardiac rhythm is sinus. He is in sinus tachycardia with a heart rate of around 120. NG tube is in place. Mcclain cath is in place and the patient is producing adequate amount of urine output. No pressors for now. Respiratory rate is in the mid tens. 07/25/20222022, the patient is wide awake. Mother is at the bedside. The patient is calm and comfortable. He is very cooperative. Orotracheal tube remains in place. Is on assist-control mode of mechanical ventilation and currently he is on a tidal volume of 300, rate of 12, FiO2 of 40% with a PEEP of 5. His chest x-rays extremely limited due to his severe kyphoscoliosis. Nevertheless, the orotracheal secretions are minimal and he is not requiring frequent suctioning. He has a weak cough. He is hemodynamically stable. Slightly hypertensive. Slightly tachycardic and this was an ongoing issue since yesterday. He is spiking low-grade temperatures of 99.4. He does have evidence of third spacing and edema. He was given a dose of Lasix 20 mg IV push yes terday and the overall fluid balance has been -1.7 L over the past 24 hours. He remains on IV Zosyn. His blood culture was positive for coagulase-negative spine staph aureus. He is blood gas showed a pH of 7.39 with a pCO2 of 51 and pO2 of 95. The white cell count is not elevated at 6.9 with a hemoglobin of 10.3. Platelet counts are low at 70 and it is stable and is essentially improving. Sodium is at 133, potassium is at 3.4 to be replaced and the serum bicarb is at 31 with a BUN of 2 and a creatinine of 0.25. His pro calcitonin level was 0.27, mildly elevated. He continues to be on enteral feeding for nutritional support and is currently on vital AF at the rate of 10 mL an hour. 2022, the patient is awake and is communicating. He remains on a mechanical ventilator. He failed extubation yesterday because of a large mucous plug. Immediately was reintubated and this occurred probably 15 minutes after his extubation. He had to be reintubated. I did a bronchoscopy on him. Airway patency was achieved. The chest x-ray from today shows a clear right lung. Left lung probably some atelectatic although this is difficult to assess as the patient has severe kyphoscoliosis. Is on assist-control mode at a rate of 12, tidal volume of 300, FiO2 of 50% with a PEEP of 5. His FiO2 will be dropped onto 40% at this point. Peak air pressure is around 26. His blood. From today shows a pH of 7.4 with a pCO2 53 and pO2 of 102. BUN is at 3 with a creatinine of 0.2 and a sodium level is at 134, the risk was 5.8 with a hemoglobin of 11. He is receiving enteral feeding for nutritional support in the form of vital AF at the rate of 10 mL an hour. 07/27/2022, the patient remains intubated on a mechanical ventilator. The patient failed an initial extubation and we are headed towards a tracheostomy tube insertion. The patient was able to tolerate this point his breathing trial with a pressure support of 10 and a PEEP of 5 for the past 24 hours. His generating adequate tidal volumes. I do not to pressure support down to 5 and the patient felt quite uncomfortable and that his tidal volumes of drops. Based on that, the patient was kept on a pressure support of 10 and a PEEP of 5. Blood gas shows a pH of 7.43 with a pCO2 of 55 and a pO2 of 68. The patient is awake and alert. The patient has following commands. The patient is receiving enteral feeding for nutritional support and the patient remains on vital AF. The patient is afebrile. The antiepileptic dose was adjusted by neurology. Noted the valproic acid level was low and another loading dose was given. Electrolytes are all stable with a sodium level of 132 with a potassium level of 4 and a BUN of 4 with a creatinine of 0.2. WBC count is at 6 with a hemoglobin 9.8. No other significant events otherwise for now. Family is interested tracheostomy and interested in a percutaneous tracheostomy. 07/28/2022, the patient is awake and alert and is essentially waiting for a tracheostomy tube insertion and this is going to be a percutaneous tracheostomy tube insertion. The patient remains on a mechanical ventilator. He was able to tolerate point his breathing for a total of 9 hours yesterday and this morning his back on assist-control mode at a rate of 12 with a tidal volume of 300 and FiO2 of 40% with a PEEP of 5. Blood gases showed pH of 7.45 with a pCO2 of 48 and pO2 of 85. The patient is afebrile. Hemodynamically stable. Slightly tachycardic. Pulse ox is 95% on room air oxygen. White cell count of 7.8 with a hemoglobin of 10.2. The sodium is at 138, potassium 3.9, BUN is at 6 with a creatinine of 0.26. The bronchial washings were obtained earlier showed Maegan. The patient is currently off feeding in as the patient for a percutaneous tracheostomy tube insertion. Prior to that, the patient was receiving vital AF. No seizure activity. Antiepileptic medication was adjusted by neurology. The patient is currently on valproate acid 500 mg IV every day and to 50 mg in the morning. The patient is also on Vimpat 200 mg by mouth twice a day and phenobarbital 40.5 mg twice a day. Remains on bronchodilators. No other active issues for now. Chest x-ray shows adequate positioning of the ET tube. Objective - Vital Signs Vital signs: Vital Signs Temp 99.9 F H 07/28/22 04:00 Pulse 122 H 07/28/22 08:46 Resp 21 07/28/22 08:00 BP 112/63 07/28/22 08:00 Pulse Ox 93 L 07/28/22 08:00 FiO2 40 07/28/22 08:25 Intake & Output 07/27/22 07/28/22 07/28/22 18:59 06:59 18:59 Intake Total 946.125 499.609 260 Output Total 700 995 175 Balance 246.125 -495.391 85 Weight 40.2 kg Intake: IV 320 240 160 0.9 NS @ 15ml/hr 55 60 15 Piperacillin-Tazobactam 3 100 100 .375 gm In Sodium Chloride 0.9% 100 ml @ 25 mls/hr IVPB Q8H BRANDI Rx#: [id number] Sodium Chloride 0.45% 1, 165 180 45 000 ml @ 20 mls/hr IV . Q24H BRANDI Rx#:[id number] Intake, IV Titration 74.125 49.609 100 Amount Dexmedetomidine/0.9% NaCl 49.609 (Pmx) 400 mcg In Empty Bag 1 bag @ 0.2 MCG/KG/HR 1.995 mls/hr IV .Q24H BRANDI Rx#:[id number] Norepinephrine 4 mg In 74.125 Sodium Chloride 0.9% 250 ml @ 0.03 MCG/KG/MIN 4. 561 mls/hr IV .Q24H BRANDI Rx#:[id number] Valproate Sodium 250 mg 100 In Sodium Chloride 0.9% 100 ml @ 100 mls/hr IVPB HS BRANDI Rx#:[id number] Tube Feeding 462 210 0 Other 90 Output: Urine 700 995 175 Other: Voiding Method Indwelling Catheter Indwelling Catheter Indwelling Catheter ABP, PAP, CO, CI - Last Documented Arterial Blood Pressure 132/76 - Exam No acute distress, with an orally placed endotracheal tube awake and alert and currently is off sedation and following commands and communicating by facial expression.. HEENT examination is grossly unremarkable. Neck supple. Full range of motion. No adenopathy thyromegaly or neck vein distention. Cardiovascular examination reveals regular rhythm rate. S1-S2 normal. No S3 or S4. No discernible murmur noted. Lungs reveal diminished breath sounds laterally, more left than right sided. Scattered rhonchi are noted. No wheezes. No crackles. CV kyphoscoliosis of the chest with diminished breath on the left lung base Abdomen soft, without bowel sounds. PEG tube is noted. Extremities are intact. No cyanosis, clubbing, patient has developed significant edema in lower extremities and upper extremities bilaterally, The patient does have significant flexion deformities of the extremities. Skin is without rash or lesion. Neurologic examination , awake and alert, weakness with significant upper extremity. Unable to move his legs. - Labs CBC & Chem 7: 07/28/22 06:05 07/28/22 06:05 Labs: Abnormal Lab Results - Last 24 Hours (Table) 07/28/22 07/28/22 07/28/22 Range/Units 06:01 06:05 06:05 RBC 3.22 L (4.30-5.90) m/uL Hgb 10.2 L (13.0-17.5) gm/dL Hct 32.2 L (39.0-53.0) % Lymphocytes # 0.9 L (1.0-4.8) k/uL ABG pCO2 48 H (35-45) mmHg ABG HCO3 34 H (21-25) mmol/L ABG Total CO2 35 H (19-24) mmol/L ABG O2 Saturation 97.4 H (94-97) % Carbon Dioxide 33 H (22-30) mmol/L BUN 6 L (9-20) mg/dL Creatinine 0.26 L (0.66-1.25) mg/dL Calcium 8.2 L (8.4-10.2) mg/dL Microbiology - Last 24 Hours (Table) 07/24/22 11:54 Blood Culture - Preliminary Blood No Growth after 48 hours 07/24/22 11:48 Blood Culture - Preliminary Blood No Growth after 72 hours 07/25/22 12:56 Gram Stain - Final Bronchial Washings - Random Bronchial Washings Culture - Final Maegan albicans 07/21/22 10:21 Gram Stain - Final Bronchoalviolar Lavage - Right Bronchial Washings Culture - Final Assessment and Plan Plan: Acute hypoxemic respiratory failure, likely secondary to aspiration. The patient is post bronchoscopy, cultures are negative, rule out chemical aspiration/chemical pneumonia. The patient is, the broad-spectrum antibiotics with IV Zosyn. Cultures are still negative, having low-grade fever, pro calcitonin level was 0.27. Presently cultures were negative. Awake and alert off sedation. The patient is stable. Respiratory status is stable. The patient failed extubation yesterday and he required another bronchoscopy and removal of mucous plugs. Will benefit from a tracheostomy tube insertion and a gradual wean can be performed following that. Family is agreeable. General surgery has been consulted in that regard. He failed extubation on 07/25/2022. He remains on IV Zosyn for now. Patient was able to tolerate this point his breathing trial for a total of 9 hours at a pressure support of 10 and a PEEP of 5 and currently is on a volume controlled mechanical ventilation. The plan is to proceed with tracheostomy tube insertion today. Status post intubation and mechanical ventilation on 07/20/2022. S/P bronchoscopy, 07/21/2022. History of breakthrough seizure disorder in a patient with chronic seizure history. History of spina bifida with L3 myelomeningocele. History of hydrocephalus, status post TRIMMER CLIMBER shunt. History of Arnold-Chiari malformation. Severe kyphoscoliosis. Frequent urinary tract infections. Sinus tachycardia Hypertension Plan: No sedation Plan to per trach this patient today Repeat cultures from the sputum are positive for Maegan Continue IV Zosyn Monitor fever pattern Hold tube feeds Continue seizure medication and we have not with this any further episodes of seizures metoprolol 25 mg by mouth twice a day and this essentially helped him with his heart rate Working on getting the patient tracheostomy tube Lasix 20 mg Milligrams IV 1 Hemodynamically stable on no pressors Continue Depakote continue phenobarbital Will need to check his antiepileptic levels for tomorrow We'll continue to follow make further recommendations based on progress. Critical care evaluation that was done in more than 30 minutes. Time with Patient: Greater than 30
--- NOTE | 2022-07-28 11:03 | P.PN ---
Subjective This is a pleasant 32 years old male with past medical history of L3 myelomeningocele and hydrocephalus with any peritoneal shunt, spina bifid F, se izure, chiari malformation. Patient initially presents because of altered mental status and seizure, he had 2 seizures at home 1. Gastric to and other as atypical. Patient was bronchoscoped doing well more lethargic and L over the last 2 days. This morning patient mother noticed he had a seizure that lasted for about 1 minute followed by post ictal confusion, and mother noticed that his oxygen saturation is drip until called EMS, as per document However the mother clarify that actually he has been sick 2 days ago with congestion and coughing, Dr. Mcfarland his primary doctor start him on Augmentin because of history of septic shock and easy infection, he took 3 pulse, he has a day morning he was noticed to have a brief period of seizure although the mom she does not think he had seizure he was just lethargic. She checked his temperature at home and it was 102 breath he was feeling cold an d shivering. At baseline he is able to talk normally, he understands the surrounding, he can eat by himself but he is wheelchair bound On admission he is with low-grade temperature 99.7. He is tachycardic around 115, hypertensive blood pressure this morning 93/73. His CBC is unremarkable. INR is 1.1, d-dimer is slightly elevated at 1.1. On admission. PhosLo 7.2, heart pCO2 of 68. Chest x-ray: Left upper and middle lobe consolidation with air bronchograms EKG showing sinus tachycardia at 130 Emergency room patient received breathing treatment, antibiotics, steroids, normal saline. (Continued on Levaquin and normal saline at 1:30 milliliters of breath or, Zosyn and Solu-Medrol 40 mg 07/22/2022 Patient remains intubated and sedated. He is on mechanical ventilation with FiO2 of 40% and PEEP of 5. Status post bronchoscopy. Blood pressure 147/82, tachycardic at 117. Mcclain place. WBCs 2.4, hemoglobin 10, platelets at 102. He remains on Zosyn and Levaquin, no positive vancomycin is a normal saline and Solu-Medrol 40 mg I discussed the case with the neurology this morning repeat EEG showing no more epileptic discharge. Patient remains on 3 antiseizure medications phenobarbital, Depakote and vimpat. 07/23/2022 Patient still in the ICU sedated and intubated No seizure-like activity however he is improving and he may be considered for sedation holiday per pulmonary/critical care team who have also with the vent management. Currently he has FiO2 of 40% and PEEP of 5. His hemoglobin 9.5, WBC 4.1 and platelet count 53, he is tachycardic with heart rate around 1 25/m and just vitals stable. He has positive blood culture with staph epidermidis, most likely contamination Chest x-ray I reviewed myself showing still opacification on the left side Also his normal saline lower to 100 mL/h with Mcclain catheter in place Currently covered with Zosyn. Also he is on normal saline at 100 mL per hour and Solu-Medrol 40 mg Resume the care of the patient on 07/27/2022 Patient currently still in the ICU, still intubated but without sedation, he looks awake and he follows simple commands. No significant distress. He is hemodynamically stable. Still has low-grade fever of 99.9 Tachycardia is better and heart rate is 105. Labs look stable the looks a normal 6000, hemoglobin 9.8 and platelet normal. Bronchial washing shown maegan. Currently remains on Zosyn. With pulmonary team recommendation. he Is also on multiple seizure medication including phenobarbital, Depakote and Vimpat within urology adjusting dose of Depakote increased to 250 at bedside the top of 500 daily. We'll need to check level surgery team were consulted for tracheostomy possibly tomorrow recommendation of barrel bridge assembler team 07/28/2022 Patient awake and followed commands well he still intubated, mother at bedside. Plan for him to undergo tracheostomy with surgery team recommendation. Patient has a fever of 99.9 and his been covered with Zosyn for his pulmonary infection He is with no more seizure activities, continue same seizure medication phenobarbital, Depakote and Vimpat. Objective - Vital Signs Vital signs: Vital Signs Temp 99.9 F H 07/28/22 04:00 Pulse 115 H 07/28/22 10:00 Resp 16 07/28/22 10:00 BP 112/63 07/28/22 08:00 Pulse Ox 94 L 07/28/22 10:00 FiO2 40 07/28/22 08:25 Intake & Output 07/27/22 07/28/22 07/28/22 18:59 06:59 18:59 Intake Total 946.125 499.609 300 Output Total 700 995 325 Balance 246.125 -495.391 -25 Weight 40.2 kg Intake: IV 320 240 200 0.9 NS @ 15ml/hr 55 60 25 Piperacillin-Tazobactam 3 100 100 .375 gm In Sodium Chloride 0.9% 100 ml @ 25 mls/hr IVPB Q8H BRANDI Rx#: [id number] Sodium Chloride 0.45% 1, 165 180 75 000 ml @ 20 mls/hr IV . Q24H BRANDI Rx#:[id number] Intake, IV Titration 74.125 49.609 100 Amount Dexmedetomidine/0.9% NaCl 49.609 (Pmx) 400 mcg In Empty Bag 1 bag @ 0.2 MCG/KG/HR 1.995 mls/hr IV .Q24H BRANDI Rx#:[id number] Norepinephrine 4 mg In 74.125 Sodium Chloride 0.9% 250 ml @ 0.03 MCG/KG/MIN 4. 561 mls/hr IV .Q24H BRANDI Rx#:[id number] Valproate Sodium 250 mg 100 In Sodium Chloride 0.9% 100 ml @ 100 mls/hr IVPB HS BRANDI Rx#:[id number] Tube Feeding 462 210 0 Other 90 Output: Urine 700 995 325 Other: Voiding Method Indwelling Catheter Indwelling Catheter Indwelling Catheter ABP, PAP, CO, CI - Last Documented Arterial Blood Pressure 125/71 - Exam -GENERAL: The patient is intubated, he is somewhat awake and follows commands HEENT: Pupils are round and equally reacting to light. EOMI. No scleral icterus. No conjunctival pallor. Normocephalic, atraumatic. No pharyngeal erythema. No thyromegaly. CARDIOVASCULAR: S1 and S2 present. No murmurs, rubs, or gallops. -PULMONARY: Chest is clear to auscultation, no wheezing or crackles. Patient is tachypneic, he has bilateral shift mainly on the right side -ABDOMEN: Soft, nontender, nondistended, normoactive bowel sounds. No palpable organomegaly. Mcclain catheter in a Place MUSCULOSKELETAL: No joint swelling or deformity. EXTREMITIES: No cyanosis, clubbing, or pedal edema. NEUROLOGICAL: Gross neurological examination did not reveal any focal deficits. SKIN: No rashes. no petechiae. - Labs CBC & Chem 7: 07/28/22 06:05 07/28/22 06:05 Labs: Abnormal Lab Results - Last 24 Hours (Table) 07/28/22 07/28/22 07/28/22 Range/Units 06:01 06:05 06:05 RBC 3.22 L (4.30-5.90) m/uL Hgb 10.2 L (13.0-17.5) gm/dL Hct 32.2 L (39.0-53.0) % Lymphocytes # 0.9 L (1.0-4.8) k/uL ABG pCO2 48 H (35-45) mmHg ABG HCO3 34 H (21-25) mmol/L ABG Total CO2 35 H (19-24) mmol/L ABG O2 Saturation 97.4 H (94-97) % Carbon Dioxide 33 H (22-30) mmol/L BUN 6 L (9-20) mg/dL Creatinine 0.26 L (0.66-1.25) mg/dL Calcium 8.2 L (8.4-10.2) mg/dL Microbiology - Last 24 Hours (Table) 07/24/22 11:54 Blood Culture - Preliminary Blood No Growth after 48 hours 07/24/22 11:48 Blood Culture - Preliminary Blood No Growth after 72 hours 07/25/22 12:56 Gram Stain - Final Bronchial Washings - Random Bronchial Washings Culture - Final Maegan albicans 07/21/22 10:21 Gram Stain - Final Bronchoalviolar Lavage - Right Bronchial Washings Culture - Final Assessment and Plan Assessment: Left community acquired pneumonia, versus aspiration pneumonia Hypoxic respiratory failure secondary to above Altered mental status, mostly metabolic encephalopathy Breakthrough seizure Respiratory acidosis History of spina bifid the and third lumbar myelomeningocele History of hydrocephalus status post cranial peritoneal shunt History of seizure chiari malformation History of Recurrent UTI Plan: Plan for tracheostomy today Continue with antibiotic Zosyn Continue with a bronchodilator Pulmonary consult and neurology consult Continue with seizure medication phenobarbital, Depakote and then passed per neurology on the case Labs and medication were reviewed.. Continue same treatment. Continue with symptomatic treatment. Resume home medication. Monitor labs and vitals. DVT and GI prophylaxis. Further recommendations as per clinical course of the patient DVT prophylaxis: mechanical. GI Prophylaxis: Pepcid Prognosis is guarded
[2022-07-28] MEDS: NOREPINEPHRINE 4 MG in SODIUM CHLORIDE 0.9% 250 ML IV SCH (11:38)
[2022-07-28] MEDS ORDERED: ROCURONIUM 10 MG/ML (5 ML VIAL) IV ONE (13:15)
[2022-07-28] MEDS ORDERED: fentaNYL (PF) 50 MCG/ML 2 ML AMP ONE (13:15)
[2022-07-28] MEDS ORDERED: LIDOCAINE 1%/EPI 1:200,000 MPF 10 ML VIAL SQ ONE ×2 (13:50)
[2022-07-28 14:29] VITALS: BMI 19.1
--- NOTE | 2022-07-28 14:46 | P.OP ---
Date of Procedure: 07/28/22 Preoperative Diagnosis: acute hypoxic respiratory failure failed extubation Postoperative Diagnosis: acute hypoxic respiratory failure failed extubation Procedure(s) Performed: percutaneous tracheostomy with bronchoscopy Anesthesia: RAVINDERA Surgeon: Nathalia Hamilton (tracheostomy) Set And Exhibit Designer #1: Antwan Nelson (bronchoscopy) Estimated Blood Loss (ml): 20 Pathology: none sent Condition: critical Disposition: ICU Operative Findings: see full dictation for details
--- NOTE | 2022-07-28 14:54 | P.PN ---
Subjective Progress Note Date: 07/28/22 The patient is seen at bedside and according to the mother he had a brief clinical seizure yesterday around 12ish afternoon lasting 30 seconds or less. At that time he still was getting Valproic acid sprinkles. Today he is schedule for a trach and PEG. According to his mother and nurse, he was following commands today. Objective - Vital Signs Vital signs: Vital Signs Temp 98.2 F 07/28/22 12:00 Pulse 120 H 07/28/22 13:00 Resp 12 07/28/22 13:00 BP 112/63 07/28/22 08:00 Pulse Ox 94 L 07/28/22 13:00 FiO2 40 07/28/22 12:07 Intake & Output 07/27/22 07/28/22 07/28/22 18:59 06:59 18:59 Intake Total 946.125 499.609 340 Output Total 044 287 8931 Balance 246.125 -495.391 -1135 Weight 40.2 kg 40.2 kg Intake: IV 320 240 240 0.9 NS @ 15ml/hr 55 60 35 Piperacillin-Tazobactam 3 100 100 .375 gm In Sodium Chloride 0.9% 100 ml @ 25 mls/hr IVPB Q8H BRANDI Rx#: [id number] Sodium Chloride 0.45% 1, 165 180 105 000 ml @ 20 mls/hr IV . Q24H BRANDI Rx#:[id number] Intake, IV Titration 74.125 49.609 100 Amount Dexmedetomidine/0.9% NaCl 49.609 (Pmx) 400 mcg In Empty Bag 1 bag @ 0.2 MCG/KG/HR 1.995 mls/hr IV .Q24H BRANDI Rx#:[id number] Norepinephrine 4 mg In 74.125 Sodium Chloride 0.9% 250 ml @ 0.03 MCG/KG/MIN 4. 561 mls/hr IV .Q24H BRANDI Rx#:[id number] Valproate Sodium 250 mg 100 In Sodium Chloride 0.9% 100 ml @ 100 mls/hr IVPB HS BRANDI Rx#:[id number] Tube Feeding 462 210 0 Other 90 Output: Urine 571 684 1932 Other: Voiding Method Indwelling Catheter Indwelling Catheter Indwelling Catheter ABP, PAP, CO, CI - Last Documented Arterial Blood Pressure 137/72 - Exam GENERAL: The patient is lying in bed and does not appear in acute distress. LUNG: Intubated on ventilator. NEUROLOGICAL:. Limited because of his condition and sedation (IV Precedex 0.4mcg/kg/hr) Higher mental function: Is sleeping. No facial weakness. Motor: Unable to assess since sleeping. - Labs CBC & Chem 7: 07/28/22 06:05 07/28/22 06:05 Labs: Abnormal Lab Results - Last 24 Hours (Table) 07/28/22 07/28/22 07/28/22 Range/Units 06:01 06:05 06:05 RBC 3.22 L (4.30-5.90) m/uL Hgb 10.2 L (13.0-17.5) gm/dL Hct 32.2 L (39.0-53.0) % Lymphocytes # 0.9 L (1.0-4.8) k/uL ABG pCO2 48 H (35-45) mmHg ABG HCO3 34 H (21-25) mmol/L ABG Total CO2 35 H (19-24) mmol/L ABG O2 Saturation 97.4 H (94-97) % Carbon Dioxide 33 H (22-30) mmol/L BUN 6 L (9-20) mg/dL Creatinine 0.26 L (0.66-1.25) mg/dL Calcium 8.2 L (8.4-10.2) mg/dL Microbiology - Last 24 Hours (Table) 07/24/22 11:54 Blood Culture - Preliminary Blood No Growth after 72 hours 07/24/22 11:48 Blood Culture - Preliminary Blood No Growth after 96 hours 07/21/22 10:21 Fungal Culture - Preliminary Bronchoalviolar Lavage - Right Maegan albicans 07/25/22 12:56 Gram Stain - Final Bronchial Washings - Random Bronchial Washings Culture - Final Maegan albicans 07/21/22 10:21 Gram Stain - Final Bronchoalviolar Lavage - Right Bronchial Washings Culture - Final Assessment and Plan Assessment: * Altered mental status, likely due to toxic metabolic encephalopathy. Status post subclinical status, now resolved. Mentation has improved. * History of Arnold-Chiari malformation with myelomeningocele L3 level, hydrocephalus and syringomyelia, status post multiple VPS and shunting for syrinx. * Medically intractable seizure disorder, came with a typical seizure. * Aspiration pneumonia s/p intubated on ventilator * Lactic acidosis, likely due to sepsis versus seizure. * Patient with history of grand mal seizures, absence seizures and tonic-clonic seizures. * Severe kyphoscoliosis * Wheelchair-bound Plan: * Repeat EEG 07/22/2022 preliminary report showed background slowing of moderate to severe degree, consistent with encephalopathy. No evidence of partial status. No electrographic seizure recorded. Still presence of epileptogenic focus involving the right temporal and also the right frontal region. No generalization. * EEG 07/21/2022 showed presence of 2 epileptic foci involving the right temporal and right frontal region and sometimes generalized spike or polyspike and wave were also seen. There is recording of multiple focal seizures, all of them originating in the right hemispheric region and one of them later generalized for about 26 seconds. No motor activity was observed on the review of the video section of the study. Background slowing of at least moderate degree suggestive of encephalopathy. Subclinical partial status cannot be ruled out. Clinical correlation is recommended. * Depakote level 53.8 (50-100), and phenobarbital level 22.4 (15-40). Both levels are therapeutic at the beginning. His Depakote level were subtherapeutic and it is 26.8: Possibly he is not getting all the medication and I spoke with mother and stated there is residual after medication since it is sprinkles. * Continue his seizure medications including Vimpat 200 mg twice a day, and phenobarbital 40.5 mg twice a day. Switched from Depakote sprinkle to IV for now and after 1 day, will repeat levels. Will place him on Depakote 500mg qam and increase from 250mg to 500 qhs IV. * I notified the mother that patient needs to follow-up with his neurosurgeon at [facility], since last revision for EVENING OR NIGHT NURSE SUPERVISOR shunt and Syrinx shunt was about 20 years ago to make sure still functional. Last time they have visited a neurosurgeon was 5 years ago and was notified everything was normal. * Going for Trach and PEG likely today. * Other medical management as per IM and other specialties. The plan is discussed with the patient's mother's who is at bedside and his nurse. Will continue to follow. Time with Patient: Less than 30
--- NOTE | 2022-07-28 15:09 | XR ---
EXAMINATION TYPE: XR chest 1V portable DATE OF EXAM: 07/28/2022 3:03 PM COMPARISON: Chest radiographs from 07/28/2022 TECHNIQUE: XR chest 1V portable Frontal view of the chest. CLINICAL INDICATION:Male, 32 years old with history of s/p tracheostomy tube placement; FINDINGS: Lungs/Pleura: The visualized right lung demonstrates some atelectasis. Improved aeration of the left lung from prior exam. Pulmonary vascularity: Unremarkable. Heart/mediastinum: Cardiomediastinal silhouette is again obscured. Musculoskeletal: No acute osseous pathology. Severe dextroconvex scoliosis redemonstrated which disto rts the thoracic anatomy. Other findings: There is again some catheter fragments along the right base of the neck and right upp er chest. Lines/Tubes: Interval placement of tracheostomy cannula overlying the trachea. Nasogastric tube with its distal tip and side-port projecting under the diaphragm. IMPRESSION: 1. Interval placement tracheostomy cannula which appears in appropriate position. No pneumothorax. 2. Severe scoliosis which again distorts the thoracic abnormality and limits examination. Improved a eration of the left upper lung.
--- NOTE | 2022-07-28 16:03 | P.OP ---
Date of Procedure: 07/28/22 Preoperative Diagnosis: acute hypoxic respiratory failure failed extubation Postoperative Diagnosis: acute hypoxic respiratory failure failed extubation Procedure(s) Performed: percutaneous tracheostomy with bronchoscopy Anesthesia: GLENDA Surgeon: Nathalia Hamilton (tracheostomy) Mobile Application Architect #1: Antwan Nelson (bronchoscopy) Estimated Blood Loss (ml): 20 Pathology: none sent Condition: critical Disposition: ICU Indications for Procedure: History of Arnold-Chiari malformation with myelomeningocele, s/p brainstem decompression, medically intractable epilepsy, VPS. Presented to ER after EMS called for possible seizure. Noted to by hypoxic. Had been ill for a few days prior. Has been intubated for a week & failed trial of extubation. Requiring tracheostomy for long-term ventilation. Operative Findings: tracheostomy easily placed & noted to be intraluminal Description of Procedure: Ronnie remained intubated & was transferred to the operative suite directly from ICU; placed in supine position with shoulder roll placed to gently hyperextend the neck. General anesthesia was administered by the anesthesia team and the patient's heart rate, pulse oximetry, blood pressure were monitored throughout the entire case. Standard time-out was taken and appropriate SCIP antibiotics were administered. Adapter was placed on ET tube. Bronchoscope was advanced to george. Scant non-purulent secretions were encountered & suctioned; some hypergranulation tissue noted at the distal end of the ETT. No airway edema, erythema, edema noted. Bronchoscope as directed by Dr. Nelson was withdrawn to upper trachea & directed anteriorly to identify trachea rings. Vertical incision was made in the anterior neck, approximately one fingerbreadth above the sternoclavicular notch. Blunt dissection & electrocautery was used to carry the incision down through the subcutaneous tissue to the level of the anterior trachea. With the bronchoscope in place, endotracheal tube was slowly withdrawn up to a point where we were able to visualize the tracheal rings via the bronchoscope. Trachea was palpated and stabilized in the midline. The light from the bronchoscope was easily visualized. A safe test was performed: An introducer needle connected to the syringe of saline was advanced into the trachea under direct visualization. Air was noted in the syringe at the time the needle was seen on bronchoscope within the trachea. Under direct visualization, the introducer needle and catheter were used to sotelo the trachea. Once the needle was identified, the catheter was advanced within the tracheal lumen and the needle was removed. The guidewire was then inserted and passed distally under bronchoscopic visualization. The tracheostomy tract was then serially dilated, first with the small dilator and then with the tapered Italian blue rhino dilator. Next a #7-0 Bivona cuffed tracheostomy tube was inserted using the white guide sheath & wire as the inner cannula. The tracheostomy tube cuff was inflated and the ventilator connection was switched to the tracheostomy tube. Proper tracheostomy tube placement was confirmed with direct bronchoscopy through the tracheostomy tube, along with adequate end-tidal CO2 and return of tidal volumes. Tracheostomy was secured at 7. Bronchoscopy was then performed via the endotracheal tube confirming the inflated cuff was within the tracheal lumen; endotracheal tube was removed. Tracheostomy tube was then secured into place in 4 positions around the base of the tracheostomy flange using 2-0 prolene suture. A tracheostomy tie was also placed for added s afety. Patient tolerated the procedure well without any immediate complications. Ronnie was transferred to the ICU from the operating room in a stable but critical condition. Post-procedure CXR was taken; tracheostomy was in adequate position & no obvious pneumothorax was seen.
[2022-07-28] MEDS: HYDROmorphone 1 MG/ML 1 ML SYRINGE IVP PRN ×2 (16:45→20:18)
[2022-07-28] MEDS ORDERED: METOPROLOL TARTRATE 5 MG/5 ML VIAL IVP ONE (17:24)
[2022-07-28 17:35] LABS: ABG Base Excess 11.2 mmol/L; ABG HCO3 35 mmol/L (21-25); ABG PCO2 53 mmHg (35-45); ABG PH 7.44 (7.35-7.45); ABG PO2 86 mmHg (83-108); ABG TCO2 37 mmol/L (19-24); Allen Test Performed? Yes
[2022-07-29] MEDS: DEXMEDETOMIDINE/0.9% NACL(PMX) 400 MCG in EMPTY BAG 1 BAG IV SCH (01:41)
[2022-07-29] MEDS: IPRATROPIUM-ALBUTEROL 3 ML NEB INHALATION SCH ×6 (04:09→23:58)
[2022-07-29 05:48] LABS: ABG Base Excess 9.3 mmol/L; ABG HCO3 34 mmol/L (21-25); ABG Oxygen Saturation 97.5 % (94-97); ABG PCO2 49 mmHg (35-45); ABG PH 7.44 (7.35-7.45); ABG PO2 89 mmHg (83-108); ABG TCO2 35 mmol/L (19-24); Allen Test Performed? Yes
[2022-07-29 05:59] LABS: HCT 31.2 % (39.0-53.0); MCHC 32.1 g/dL (31.0-37.0); MCV 99.6 fL (80.0-100.0); Macrocytosis Slight; Mean Platelet Volume 7.3; Platelet Count 269 k/uL (150-450); RBC 3.14 m/uL (4.30-5.90); RDW 15.6 % (11.5-15.5); WBC 16.3 k/uL (3.8-10.6)
[2022-07-29 06:28] LABS: African American GFR (CKD) >90 (>60 ml/min/1.73 sqM); Anion Gap 5 mmol/L; Blood Urea Nitrogen 8 mg/dL (9-20); Calcium 8.1 mg/dL (8.4-10.2); Carbon Dioxide 31 mmol/L (22-30); Chloride 96 mmol/L (98-107); Glucose 101 mg/dL (74-99); Magnesium 1.4 mg/dL (1.6-2.3); Non-African American GFR(CKD) >90 (>60 ml/min/1.73 sqM); Sodium 132 mmol/L (137-145)
--- NOTE | 2022-07-29 06:48 | XR ---
EXAMINATION TYPE: XR chest 1V portable DATE OF EXAM: 07/29/2022 COMPARISON: 07/28/2022 HISTORY: SOB, Follow Up FINDINGS: Indwelling tubes and catheters are unchanged. No change in bibasilar opacities. Stable appearance of the cardio-mediastinal structures at this time. Marked deformity of the chest wall and severe scoliotic curvature. IMPRESSION: 1. Stable portable chest. Clinical correlation and follow up until resolution is recommended.
[2022-07-29] MEDS: HYDROmorphone 1 MG/ML 1 ML SYRINGE IVP PRN ×2 (07:48→22:07)
[2022-07-29] MEDS: PHENobarbitaL 16.2 MG TAB PO SCH ×2 (09:14→18:55)
[2022-07-29] MEDS: FAMOTIDINE 20 MG/2 ML VIAL IV SCH ×2 (09:15→20:40)
[2022-07-29] MEDS: LACOSAMIDE 50 MG TABLET PO SCH (09:15)
[2022-07-29] MEDS: CHLORHEXIDINE GLUCONATE 15 ML CUP MUCOUS MEM SCH ×2 (09:15→20:39)
[2022-07-29] MEDS: METOPROLOL TARTRATE 25 MG TAB PO SCH ×2 (09:15→20:39)
[2022-07-29] MEDS: VALPROATE SODIUM 500 MG in SODIUM CHLORIDE 0.9% 100 ML IVPB SCH ×4 (09:32→23:44)
[2022-07-29] MEDS ORDERED: PROPOFOL 10 MG/ML 20 ML VIAL IV ONE (10:36)
--- NOTE | 2022-07-29 10:55 | P.PN ---
Subjective Progress Note Date: 07/29/22 I'm seeing this patient today, 07/21/2022, in new consultation in ICU. This is a 32-year-old white male with past medical history of spina bifida with L3 myelomeningocele, hydrocephalus with peritoneal shunt, Arnold-Chiari malformation, seizure disorder, severe kyphoscoliosis, frequent urinary tract in fections secondary to neurogenic bladder and need for intermittent catheterizations. Patient was admitted yesterday 07/20/2022. Mother reports he has been feeling unwell over the past couple weeks. Reported symptoms of shortness of breath, fever, cough. Patient was treated outpatient with Juanita horta. Yesterday, the patient had 2 seizures, at home, lasting approximately 1 minute. He then became more lethargic and ultimately unconscious. Patient's mother checked his oxygen saturation with her home pulse ox, and found his SpO2 to be 50%. EMS was called and patient was transferred to [facility]. Patient was intubated yesterday with a 7.5 ET tube, in the ER, to protect his airway. He is currently on mechanical ventilator settings of assist control, respiratory rate of 12, tidal volume of 300 mL, FiO2 55%, PEEP of 5. ABGs from this morning on FiO2 of 80% shows a pO2 of 103, pCO2 of 52, and a pH of 7.36. Patient's chest x-ray from today showed a complete opacification of left hemithorax. The endotracheal tube appeared to be above the george on the x-ray, however, the patient's physical deformities make it hard to assess. Patient also has an in place orogastric tube, there is a ventricular peritoneal shunt noted, and severe thoracolumbar scoliosis. There is concern for aspiration after the patient's witnessed seizure. Patient is covered empirically with Zosyn. The patient will require a bronchoscopy with BAL today. Patient's WBC count 3.5, hemoglobin 11.8, hematocrit of 37.9, platelets 42,000. Patient's BMP from today shows a sodium of 137, potassium 4.4, chloride 103, serum CO2 30, BUN 18, creatinine 0.41, glucose 107. Patient is currently sedated with propofol at 40 mcgs/kg/minute. And there is normal saline infusing at 130 milliliters per hour. Patient was negative for influenza, RSV, coronavirus. Lactic acid level was low at 1.4. Patient is also receiving bronchodilators and IV Solu-Medrol. GI prophylaxis with famotidine. Vital signs are stable at this time. Progress note dated 07/22/2022. 32-year-old male with a history of spina bifida, myelomeningocele, hydrocephalus, Arnold-Chiari malformation, seizure disorder, and severe kyph oscoliosis. The patient was seen in the ICU, after being initially evaluated in the emergency department. The patient was intubated for impending respiratory failure by the ER physician. Currently, the patient remains on the mechanical ventilator. He is on volume assist control, rate 12, tidal volume 300, FiO2 40%, PEEP of 5. Arterial blood gases show pO2 77, pCO2 of 59, and a pH is 7.3. The patient's currently on saline at 130 mL an hour, propofol at 50 mcg/kg/m, and vital AF at 30 mL, with a goal of 34. The patient is currently on Zosyn. Vancomycin was discontinued. White count 2.4, hemoglobin 10, hematocrit 31.8, platelet count 47,000. Sodium 139, potassium 3.5, chlorides 108, CO2 28, BUN 14, and creatinine 0.37. Chest x-ray shows consolidation in the left lung, as well as a stable well placed endotracheal tube. The patient did undergo bronchoscopy yesterday. Progress note dated 07/23/2022. 32-year-old male with history of spina bifida, myelomeningocele, hydrocephalus, Arnold-Chiari syndrome, seizure disorder, and severe kyphoscoliosis. The patient was seen in the intensive care unit, room 266. He was initially evaluated in the emergency department, with respiratory failure and seizure. He remains on the mechanical ventilator. The patient is on volume assist control, rate 12, tidal volume 300, FiO2 percent, and PEEP of 5. Blood gases show pO2 of 66, pCO2 58, and a pH is 7.25. The patient's getting saline at 130 mL an hour, and propofol at 50 mcg/kg/m. Tube feedings are on hold, because yesterday, it appeared that he aspirated. I did asked the nurse to resume tube feeds. White count 4.1, hemoglobin 9.5, hematocrit 30.7, platelet count 53,000. Sodium 140, potassium 3.6, chlorides 114, CO2 26, BUN 12, and creatinine 0.36. Blood culture showed staph epidermidis. Chest x-ray shows consolidation of the left lung, and which is essentially unchanged. Patient positioning, the patient's body habitus, and his severe kyphoscoliosis, limits the ability to interpret this chest x-ray. On 07/24/2022, the patient is being seen for a follow-up. This morning, the patient is on propofol running at 40 mcg/kg/m. The patient is calm and comfortable and symptoms of the mechanical ventilator. Is currently on assist control mode at the rate of 12 with a tidal volume of 300 and FiO2 of 40% with a PEEP of 5. Chest x-ray findings are quite limited because of his body habitus. The patient has severe kyphoscoliosis. Left lung is not adequately visualized. The right lung does seem to be clear of any significant pulmonary infiltrates. ET tube is in a good location. There is a large gastric bubble seen on today's chest x-ray. Meanwhile, the patient is receiving enteral feeding for nutritional support and currently is on vital AF at the rate of 10 mL an hour. He is tolerating the tube feeds for now. The white cell count of 7 with a hemoglobin of 10.7. Blood gas from today showed a pH of 7.34 with a pCO2 of 49 and pO2 of 73. Electrolytes are normal and the BUN is at 6 with a creatinine of 0.25. The patient remains on IV Zosyn. He does have a small wound in his right coccyx. No signs of any infection. Infectious diseases on the case. The patient is Only on IV Zosyn. The blood culture was positive for coagulase- negative staph. He did have a spike of temperature yesterday and currently is afebrile. Cardiac rhythm is sinus. He is in sinus tachycardia with a heart rate of around 120. NG tube is in place. Mcclain cath is in place and the patient is producing adequate amount of urine output. No pressors for now. Respiratory rate is in the mid tens. 07/25/20222022, the patient is wide awake. Mother is at the bedside. The patient is calm and comfortable. He is very cooperative. Orotracheal tube remains in place. Is on assist-control mode of mechanical ventilation and currently he is on a tidal volume of 300, rate of 12, FiO2 of 40% with a PEEP of 5. His chest x-rays extremely limited due to his severe kyphoscoliosis. Nevertheless, the orotracheal secretions are minimal and he is not requiring frequent suctioning. He has a weak cough. He is hemodynamically stable. Slightly hypertensive. Slightly tachycardic and this was an ongoing issue since yesterday. He is spiking low-grade temperatures of 99.4. He does have evidence of third spacing and edema. He was given a dose of Lasix 20 mg IV push yes terday and the overall fluid balance has been -1.7 L over the past 24 hours. He remains on IV Zosyn. His blood culture was positive for coagulase-negative spine staph aureus. He is blood gas showed a pH of 7.39 with a pCO2 of 51 and pO2 of 95. The white cell count is not elevated at 6.9 with a hemoglobin of 10.3. Platelet counts are low at 70 and it is stable and is essentially improving. Sodium is at 133, potassium is at 3.4 to be replaced and the serum bicarb is at 31 with a BUN of 2 and a creatinine of 0.25. His pro calcitonin level was 0.27, mildly elevated. He continues to be on enteral feeding for nutritional support and is currently on vital AF at the rate of 10 mL an hour. 2022, the patient is awake and is communicating. He remains on a mechanical ventilator. He failed extubation yesterday because of a large mucous plug. Immediately was reintubated and this occurred probably 15 minutes after his extubation. He had to be reintubated. I did a bronchoscopy on him. Airway patency was achieved. The chest x-ray from today shows a clear right lung. Left lung probably some atelectatic although this is difficult to assess as the patient has severe kyphoscoliosis. Is on assist-control mode at a rate of 12, tidal volume of 300, FiO2 of 50% with a PEEP of 5. His FiO2 will be dropped onto 40% at this point. Peak air pressure is around 26. His blood. From today shows a pH of 7.4 with a pCO2 53 and pO2 of 102. BUN is at 3 with a creatinine of 0.2 and a sodium level is at 134, the risk was 5.8 with a hemoglobin of 11. He is receiving enteral feeding for nutritional support in the form of vital AF at the rate of 10 mL an hour. 07/27/2022, the patient remains intubated on a mechanical ventilator. The patient failed an initial extubation and we are headed towards a tracheostomy tube insertion. The patient was able to tolerate this point his breathing trial with a pressure support of 10 and a PEEP of 5 for the past 24 hours. His generating adequate tidal volumes. I do not to pressure support down to 5 and the patient felt quite uncomfortable and that his tidal volumes of drops. Based on that, the patient was kept on a pressure support of 10 and a PEEP of 5. Blood gas shows a pH of 7.43 with a pCO2 of 55 and a pO2 of 68. The patient is awake and alert. The patient has following commands. The patient is receiving enteral feeding for nutritional support and the patient remains on vital AF. The patient is afebrile. The antiepileptic dose was adjusted by neurology. Noted the valproic acid level was low and another loading dose was given. Electrolytes are all stable with a sodium level of 132 with a potassium level of 4 and a BUN of 4 with a creatinine of 0.2. WBC count is at 6 with a hemoglobin 9.8. No other significant events otherwise for now. Family is interested tracheostomy and interested in a percutaneous tracheostomy. 07/28/2022, the patient is awake and alert and is essentially waiting for a tracheostomy tube insertion and this is going to be a percutaneous tracheostomy tube insertion. The patient remains on a mechanical ventilator. He was able to tolerate point his breathing for a total of 9 hours yesterday and this morning his back on assist-control mode at a rate of 12 with a tidal volume of 300 and FiO2 of 40% with a PEEP of 5. Blood gases showed pH of 7.45 with a pCO2 of 48 and pO2 of 85. The patient is afebrile. Hemodynamically stable. Slightly tachycardic. Pulse ox is 95% on room air oxygen. White cell count of 7.8 with a hemoglobin of 10.2. The sodium is at 138, potassium 3.9, BUN is at 6 with a creatinine of 0.26. The bronchial washings were obtained earlier showed Maegan. The patient is currently off feeding in as the patient for a percutaneous tracheostomy tube insertion. Prior to that, the patient was receiving vital AF. No seizure activity. Antiepileptic medication was adjusted by neurology. The patient is currently on valproate acid 500 mg IV every day and to 50 mg in the morning. The patient is also on Vimpat 200 mg by mouth twice a day and phenobarbital 40.5 mg twice a day. Remains on bronchodilators. No other active issues for now. Chest x-ray shows adequate positioning of the ET tube. On 07/29/2022, the patient is post a tracheostomy tube insertion. The patient is a #7 Bivona tracheostomy tube and this was done percutaneously yesterday and the operating room. This morning, the patient is still bronchospastic and wheezy. He is having excessive respiratory secretions. The peak airway pressures around 39 and the patient wasn't assist-control mode at a rate of 12 with a tidal volume of 300 and FiO2 of 40% with a PEEP of 5. The blood gas from today showed a pH of 7.44 with a pCO2 of 49 and pO2 of 89. The patient was having some labored breathing. At the same time the patient was having some sinus tachycardia. He is on Precedex which is currently running at 0.4 micro kilogram per minutes. His back on enteral feeding for nutritional support and is currently on vital AF running at a rate of 50 mL an hour. The blood work george ws a WBC count 16.3 with a hemoglobin of 10 and a platelet count of 269. Sodium is at 132, potassium is at 4, bicarb is at 31 with a BUN of 8 and a creatinine of 0.23. A repeat chest x-ray was done today and a chest x-ray showed severe kyphoscoliosis and this was quite expected. At the same time, the patient was found to haveAdequate expansion of both lungs. NG tube is also on a good location. Based on this ongoing bronchospasm and elevation of the airway pressures, I performed a bedside bronchoscopy. Respiratory secretions were encountered and is worse suctioned out. At the same time, the tip of the Bivona tracheostomy tube was happening at the level of the lateral wall of the trachea and the anterior wall. Based on that, I pushed in the Bivona tracheostomy tube and is currently at 9 cm line and this gave the patient adequate airway patency. Peak airway pressure considerably dropped following that. His current peak airway pressures around 19 and his breathing is much more comfortable. The sputum that was collected will be sent for microbial cultures and analysis. He is hemodynamically stable. No other active issues for now. He is postop day #1. On a separate note, the patient had to episodes of seizures and neurology is on the case and the necessary adjustments on the antiepileptic medications being done. Objective - Vital Signs Vital signs: Vital Signs Temp 98.4 F 07/29/22 09:49 Pulse 124 H 07/29/22 10:00 Resp 16 07/29/22 10:00 BP 135/79 07/29/22 07:00 Pulse Ox 95 07/29/22 10:00 FiO2 40 07/29/22 09:49 Intake & Output 07/28/22 07/29/22 07/29/22 18:59 06:59 18:59 Intake Total 1044.406 601.965 65 Output Total 2250 940 210 Balance -1205.594 -338.035 -145 Weight 40.2 kg Intake: IV 860 320 65 0.9 NS @ 15ml/hr 65 55 50 Piperacillin-Tazobactam 3 600 100 .375 gm In Sodium Chloride 0.9% 100 ml @ 25 mls/hr IVPB Q8H BRANDI Rx#: [id number] Sodium Chloride 0.45% 1, 195 165 15 000 ml @ 20 mls/hr IV . Q24H BRANDI Rx#:[id number] Intake, IV Titration 184.406 113.965 Amount Dexmedetomidine/0.9% NaCl 84.406 13.965 (Pmx) 400 mcg In Empty Bag 1 bag @ 0.2 MCG/KG/HR 1.995 mls/hr IV .Q24H BRANDI Rx#:[id number] Valproate Sodium 250 mg 100 In Sodium Chloride 0.9% 100 ml @ 100 mls/hr IVPB HS BRANDI Rx#:[id number] Valproate Sodium 500 mg 100 In Sodium Chloride 0.9% 100 ml @ 100 mls/hr IVPB QAM BRANDI Rx#:[id number] Tube Feeding 0 168 0 Output: Urine 2250 940 210 Other: Voiding Method Indwelling Catheter Indwelling Catheter ABP, PAP, CO, CI - Last Documented Arterial Blood Pressure 113/62 - Exam No acute distress, she has a number cerebral on a tracheostomy tube in place. The patient also has an NG tube in place. His calm and comfortable and communicating. He is on a low dose of Precedex running at 0.4 mcg/kg/m. HEENT examination is grossly unremarkable. Neck supple. Full range of motion. No adenopathy thyromegaly or neck vein distention. Cardiovascular examination reveals regular rhythm rate. S1-S2 normal. No S3 or S4. No discernible murmur noted. Lungs reveal diminished breath sounds laterally, more left than right sided. Scattered rhonchi are noted. No wheezes. No crackles. CV kyphoscoliosis of the chest with diminished breath on the left lung base Abdomen soft, without bowel sounds. PEG tube is noted. Extremities are intact. No cyanosis, clubbing, patient has developed significan t edema in lower extremities and upper extremities bilaterally, The patient does have significant flexion deformities of the extremities. Skin is without rash or lesion. Neurologic examination , awake and alert, weakness with significant upper extremity. Unable to move his legs. - Labs CBC & Chem 7: 07/29/22 05:10 07/29/22 05:10 Labs: Abnormal Lab Results - Last 24 Hours (Table) 07/28/22 07/29/22 07/29/22 Range/Units 17:30 05:10 05:10 WBC 16.3 H (3.8-10.6) k/uL RBC 3.14 L (4.30-5.90) m/uL Hgb 10.0 L (13.0-17.5) gm/dL Hct 31.2 L (39.0-53.0) % RDW 15.6 H (11.5-15.5) % ABG pCO2 53 H (35-45) mmHg ABG HCO3 35 H (21-25) mmol/L ABG Total CO2 37 H (19-24) mmol/L ABG O2 Saturation (94-97) % Sodium 132 L (137-145) mmol/L Chloride 96 L (98-107) mmol/L Carbon Dioxide 31 H (22-30) mmol/L BUN 8 L (9-20) mg/dL Creatinine 0.23 L (0.66-1.25) mg/dL Glucose 101 H (74-99) mg/dL Calcium 8.1 L (8.4-10.2) mg/dL Magnesium 1.4 L (1.6-2.3) mg/dL 07/29/22 Range/Units 05:28 WBC (3.8-10.6) k/uL RBC (4.30-5.90) m/uL Hgb (13.0-17.5) gm/dL Hct (39.0-53.0) % RDW (11.5-15.5) % ABG pCO2 49 H (35-45) mmHg ABG HCO3 34 H (21-25) mmol/L ABG Total CO2 35 H (19-24) mmol/L ABG O2 Saturation 97.5 H (94-97) % Sodium (137-145) mmol/L Chloride (98-107) mmol/L Carbon Dioxide (22-30) mmol/L BUN (9-20) mg/dL Creatinine (0.66-1.25) mg/dL Glucose (74-99) mg/dL Calcium (8.4-10.2) mg/dL Magnesium (1.6-2.3) mg/dL Microbiology - Last 24 Hours (Table) 07/24/22 11:54 Blood Culture - Preliminary Blood No Growth after 72 hours 07/24/22 11:48 Blood Culture - Preliminary Blood No Growth after 96 hours 07/21/22 10:21 Fungal Culture - Preliminary Bronchoalviolar Lavage - Right Maegan albicans Assessment and Plan Plan: Acute hypoxemic respiratory failure, likely secondary to aspiration. The patient is post bronchoscopy, cultures are negative, rule out chemical aspiration/chemical pneumonia. The patient is, the broad-spectrum antibiotics with IV Zosyn. Cultures are still negative, having low-grade fever, pro calcitonin level was 0.27. Presently cultures were negative. Awake and alert off sedation. The patient is stable. Respiratory status is stable. The patient failed extubation yesterday and he required another bronchoscopy and removal of mucous plugs. Will benefit from a tracheostomy tube insertion and a gradual wean can be performed following that. Family is agreeable. General surgery has been consulted in that regard. He failed extubation on 07/25/2022. The patient completed a course of Zosyn. Patient is post tracheostomy tube insertion and the patient has a percutaneous tracheostomy tube insertion that was done on 07/28/2022. I subsequently performed a bronchoscopy on him and readjusted the tube. Therapeutic airway suctioning was done and residual respiratory secretions were suctioned out. No active bleeding at this point in time. Airways are patent. Status post intubation and mechanical ventilation on 07/20/2022. S/P bronchoscopy, 07/21/2022. History of breakthrough seizure disorder in a patient with chronic seizure history. History of spina bifida with L3 myelomeningocele. History of hydrocephalus, status post [employer] shunt. History of Arnold-Chiari malformation. Severe kyphoscoliosis. Frequent urinary tract infections. Sinus tachycardia Hypertension Plan: No sedation Bronchoscopy was then the bedside and the catheter was adjusted Therapeutic airway suctioning was done and the mucus will be sent for cultures Patient completed a course of Zosyn Monitor fever pattern Restart enteral feeding for nutritional support Wean off sedation Continue metoprolol Continue seizure medication and patient did have a breakthrough seizure and the necessary adjustments are being done metoprolol 25 mg by mouth twice a day and this essentially helped him with his heart rate Continue Depakote continue phenobarbital The patient 2 doses of Solu-Medrol 40 mg every 12 hours regarding his ongoing bronchospasm wheezing. Note that the wheezing subsided significantly after adjusting the Bivona tracheostomy tube. We'll continue to follow make further recommendations based on progress. Critical care evaluation that was done in more than 30 minutes. On Time with Patient: Greater than 30
--- NOTE | 2022-07-29 10:58 | P.PCN ---
Date of Procedure: 07/29/22 Preoperative Diagnosis: Mucus plugging Postoperative Diagnosis: Mucus plugging and readjustment of tracheostomy tube Procedure(s) Performed: Flexible bronchoscope Anesthesia: MAC Surgeon: Antwan Nelson Condition: critical Disposition: ICU Operative Findings: This 31-year-old male patient had a previous tracheostomy tube insertion yesterday. On today's evaluation, the patient was peak pressure reading and he was having labored breathing and he was actively bronchospastic and wheezy A flexible bronchoscopy was done. The patient was given Precedex and propofol for sedation. After achieving adequate sedation, the flexible bronchoscope was introduced through the Bivona tracheostomy tube which was advanced to the lower airway. Noted the tip of the Bivona tracheostomy tube was having the anterior wall of the trachea. He does have a tortuous trachea related to his severe kyphoscoliosis. Based on that, I had to advance a tracheostomy tube to achieve better patency of the orifice and the tip of the tracheostomy tube. With this maneuver, the patient's airway patency improved, peak airway pressures dropped. There was moderate amount rest or secretions and mucous plugs. A quick therapeutic airway suctioning was done. The secretions were somewhat purulent. No active bleeding was encountered. I visualized the rest of the airways. The distal trachea, george, bilateral mainstem bronchi and the various airways in the right side and left sides were essentially patent. Examination included the right upper lobe bronchus and right middle lobe bronchus and right lower lobe bronchus and the left upper lobe bronchus and the left lower lobe bronchus. No other abnormalities identified. Bronchoscope was removed. Patient is currently recovering in his resting comfortably. His breathing is much more comfortable at this point in time.
[2022-07-29] MEDS: NOREPINEPHRINE 4 MG in SODIUM CHLORIDE 0.9% 250 ML IV SCH (11:34)
[2022-07-29] MEDS: MAGNESIUM SULFATE-D5W PMX 1 GM in DEXTROSE/WATER 1 100ML.BAG IVPB SCH ×2 (11:35→15:56)
[2022-07-29] MEDS: methylPREDNISolone SOD SUCCI 40 MG/ML 1 ML VIAL IV SCH ×2 (11:37→20:38)
[2022-07-29] MEDS: SODIUM CHLORIDE 0.45% 1,000 ML IV SCH (11:37)
[2022-07-29] MEDS: HYDROPHILIC CREAM 180 GM TUBE TOPICAL SCH (11:37)
--- NOTE | 2022-07-29 11:55 | P.PN ---
Subjective Progress Note Date: 07/29/22 I'll follow up seeing the patient and he is being accompanied by his mother was states that he had that the trach yesterday. According to the mother patient had 2 seizures today early in the morning and the there are very short lasting less than 30 seconds. She felt the one above was at around 6 inch a.m. and the other one is at 8:45am. According to the nurse he has not received his a.m. medication and it seems that he was to 2 hours a off of the scheduled of getting his routine antiseizure medication in the morning. He continues to be on IV Precedex. Objective - Vital Signs Vital signs: Vital Signs Temp 98.4 F 07/29/22 09:49 Pulse 108 H 07/29/22 11:37 Resp 16 07/29/22 10:00 BP 135/79 07/29/22 07:00 Pulse Ox 95 07/29/22 10:00 FiO2 40 07/29/22 10:50 Intake & Output 07/28/22 07/29/22 07/29/22 18:59 06:59 18:59 Intake Total 1044.406 601.965 65 Output Total 2250 940 210 Balance -1205.594 -338.035 -145 Weight 40.2 kg Intake: IV 860 320 65 0.9 NS @ 15ml/hr 65 55 50 Piperacillin-Tazobactam 3 600 100 .375 gm In Sodium Chloride 0.9% 100 ml @ 25 mls/hr IVPB Q8H [facility] Rx#: [id number] Sodium Chloride 0.45% 1, 195 165 15 000 ml @ 20 mls/hr IV . Q24H [facility] Rx#:[id number] Intake, IV Titration 184.406 113.965 Amount Dexmedetomidine/0.9% NaCl 84.406 13.965 (Pmx) 400 mcg In Empty Bag 1 bag @ 0.2 MCG/KG/HR 1.995 mls/hr IV .Q24H [facility] Rx#:[id number] Valproate Sodium 250 mg 100 In Sodium Chloride 0.9% 100 ml @ 100 mls/hr IVPB HS [facility] Rx#:[id number] Valproate Sodium 500 mg 100 In Sodium Chloride 0.9% 100 ml @ 100 mls/hr IVPB QAM [facility] Rx#:[id number] Tube Feeding 0 168 0 Output: Urine 2250 940 210 Other: Voiding Method Indwelling Catheter Indwelling Catheter ABP, PAP, CO, CI - Last Documented Arterial Blood Pressure 113/62 - Exam GENERAL: The patient is lying in bed and does not appear in acute distress. LUNG: Trach on ventilator. NEUROLOGICAL:. Limited because of his condition and sedation (IV Precedex 0.4mcg/kg/hr) Higher mental function: Is sleeping but is awakeable to voice. Waves with right hand. No facial weakness. Motor: Moving the right upper extremity above gravity - Labs CBC & Chem 7: 07/29/22 05:10 07/29/22 05:10 Labs: Abnormal Lab Results - Last 24 Hours (Table) 07/28/22 07/29/22 07/29/22 Range/Units 17:30 05:10 05:10 WBC 16.3 H (3.8-10.6) k/uL RBC 3.14 L (4.30-5.90) m/uL Hgb 10.0 L (13.0-17.5) gm/dL Hct 31.2 L (39.0-53.0) % RDW 15.6 H (11.5-15.5) % ABG pCO2 53 H (35-45) mmHg ABG HCO3 35 H (21-25) mmol/L ABG Total CO2 37 H (19-24) mmol/L ABG O2 Saturation (94-97) % Sodium 132 L (137-145) mmol/L Chloride 96 L (98-107) mmol/L Carbon Dioxide 31 H (22-30) mmol/L BUN 8 L (9-20) mg/dL Creatinine 0.23 L (0.66-1.25) mg/dL Glucose 101 H (74-99) mg/dL Calcium 8.1 L (8.4-10.2) mg/dL Magnesium 1.4 L (1.6-2.3) mg/dL 07/29/22 Range/Units 05:28 WBC (3.8-10.6) k/uL RBC (4.30-5.90) m/uL Hgb (13.0-17.5) gm/dL Hct (39.0-53.0) % RDW (11.5-15.5) % ABG pCO2 49 H (35-45) mmHg ABG HCO3 34 H (21-25) mmol/L ABG Total CO2 35 H (19-24) mmol/L ABG O2 Saturation 97.5 H (94-97) % Sodium (137-145) mmol/L Chloride (98-107) mmol/L Carbon Dioxide (22-30) mmol/L BUN (9-20) mg/dL Creatinine (0.66-1.25) mg/dL Glucose (74-99) mg/dL Calcium (8.4-10.2) mg/dL Magnesium (1.6-2.3) mg/dL Microbiology - Last 24 Hours (Table) 07/24/22 11:54 Blood Culture - Preliminary Blood No Growth after 72 hours 07/24/22 11:48 Blood Culture - Preliminary Blood No Growth after 96 hours 07/21/22 10:21 Fungal Culture - Preliminary Bronchoalviolar Lavage - Right Maegan albicans Assessment and Plan Assessment: * Break-through seizure: Had two seizures today lasting <30 seconds and has not received his A.M. dose and also has recent procedure/stress that can provoke seizures * Altered mental status, likely due to toxic metabolic encephalopathy. Status post subclinical status--- Mentation has improved. * History of Arnold-Chiari malformation with myelomeningocele L3 level, hydrocephalus and syringomyelia, status post multiple VPS and shunting for syrinx. * Medically intractable seizure disorder, came with a typical seizure. * Aspiration pneumonia s/p intubated on ventilator * Lactic acidosis, likely due to sepsis versus seizure. * Patient with history of grand mal seizures, absence seizures and tonic-clonic seizures. * Severe kyphoscoliosis * Wheelchair-bound Plan: * Repeat EEG 07/22/2022 preliminary report showed background slowing of moderate to severe degree, consistent with encephalopathy. No evidence of partial status. No electrographic seizure recorded. Still presence of epileptogenic focus involving the right temporal and also the right frontal region. No generalization. * EEG 07/21/2022 showed presence of 2 epileptic foci involving the right temporal and right frontal region and sometimes generalized spike or polyspike and wave were also seen. There is recording of multiple focal seizures, all of them originating in the right hemispheric region and one of them later generalized for about 26 seconds. No motor activity was observed on the review of the video section of the study. Background slowing of at least moderate degree suggestive of encephalopathy. Subclinical partial status cannot be ruled out. Clinical correlation is recommended. * Depakote level 53.8 (50-100), and phenobarbital level 22.4 (15-40). Both levels are therapeutic at the beginning. His Depakote level were subtherapeutic and it is 26.8 but free Depakote is 5.8 (normal) : Possibly he is not getting all the medication and I spoke with mother and stated there is residual after medication since it is sprinkles. * Continue his seizure medications including Vimpat 200 mg twice a day but switched to IV to make sure he gets the medications especially has recent surgery, and phenobarbital 40.5 mg twice a day. Switched from Depakote sprinkle to IV on 07/28/22 and will get repeat Depakote level free and total later tonight. Depakote 500mg in AM and qhs. * If the patient continues to have seizure will increase Vimpat from 200mg bid to 250mb bid and mother is in agreement. * I notified the mother that patient needs to follow-up with his neurosurgeon at [facility], since last revision for TR[employer] MACH[employer] shunt and Syrinx shunt was about 20 years ago to make sure still functional. Last time they have visited a neurosurgeon was 5 years ago and was notified everything was normal. * S/P Trach on 07/28/22 and pending PEG. * Other medical management as per IM and other specialties. The plan is discussed with the patient's mother's who is at bedside and his nurse. Will continue to follow. Time with Patient: Less than 30
--- NOTE | 2022-07-29 15:21 | P.PN ---
Subjective Progress Note Date: 07/29/22 Principal diagnosis: Hypoxic respiratory failure, failed extubation, ventilator dependence. Patient seen and examined with family available at bedside. Doing quite well this morning. He underwent bronchoscopy this morning for mucous plugs with adjustments of the tracheostomy to 9 cm. Patient's tolerating it without issue. He is alert and responsive and interactive. Continues with ventilator support. ABG shows adequate oxygenation but still looks a bit hypercarbic. Appears comfortable, no reports of pain. Mildly tachycardic to 123. FiO2 of 40%. Laboratory studies show a mild leukocytosis at 16.3, hemoglobin slightly low at 10.0. No evidence of significant bleeding at the tracheostomy site. Metabolic panel shows a slightly low sodium, calcium magnesium and magnesium similarly slightly low. Blood cultures and duplicate from July 24 of remain negative to date. Chest x-ray from today shows bibasilar opacities. Objective - Vital Signs Vital signs: Vital Signs Temp 98.4 F 07/29/22 12:00 Pulse 123 H 07/29/22 13:00 Resp 21 07/29/22 13:00 BP 135/79 07/29/22 07:00 Pulse Ox 94 L 07/29/22 13:00 FiO2 40 07/29/22 15:04 Intake & Output 07/28/22 07/29/22 07/29/22 18:59 06:59 18:59 Intake Total 1044.406 601.965 285 Output Total 2250 940 490 Balance -1205.594 -338.035 -205 Weight 40.2 kg Intake: IV 860 320 125 0.9 NS @ 15ml/hr 65 55 110 Piperacillin-Tazobactam 3 600 100 .375 gm In Sodium Chloride 0.9% 100 ml @ 25 mls/hr IVPB Q8H [facility] Rx#: [id number] Sodium Chloride 0.45% 1, 195 165 15 000 ml @ 20 mls/hr IV . Q24H [facility] Rx#:[id number] Intake, IV Titration 184.406 113.965 100 Amount Dexmedetomidine/0.9% NaCl 84.406 13.965 (Pmx) 400 mcg In Empty Bag 1 bag @ 0.2 MCG/KG/HR 1.995 mls/hr IV .Q24H [facility] Rx#:[id number] Magnesium Sulfate-D5w Pmx 100 1 gm In Dextrose/Water 1 100ml.bag @ 100 mls/hr IVPB Q1H [facility] Rx#: [id number] Valproate Sodium 250 mg 100 In Sodium Chloride 0.9% 100 ml @ 100 mls/hr IVPB HS [facility] Rx#:[id number] Valproate Sodium 500 mg 100 In Sodium Chloride 0.9% 100 ml @ 100 mls/hr IVPB QAM [facility] Rx#:[id number] Tube Feeding 0 168 60 Output: Urine 2250 940 490 Other: Voiding Method Indwelling Catheter Indwelling Catheter Indwelling Catheter ABP, PAP, CO, CI - Last Documented Arterial Blood Pressure 103/55 - Constitutional General appearance: Present: thin - EENT Eyes: Present: PERRLA ENT: Present: NA/AT - Neck Details: Tracheostomy is in place, secured, no signs of active bleeding. - Respiratory Respiratory: bilateral: diminished - Cardiovascular Rhythm: regular - Gastrointestinal Gastrointestinal Comment(s): Abdomen soft, nontender to palpation, no guarding rebound or distention. - Psychiatric Psychiatric Comment(s): Alert and communicative with hand gestures. - Labs CBC & Chem 7: 07/29/22 05:10 07/29/22 05:10 Labs: Abnormal Lab Results - Last 24 Hours (Table) 07/28/22 07/29/22 07/29/22 Range/Units 17:30 05:10 05:10 WBC 16.3 H (3.8-10.6) k/uL RBC 3.14 L (4.30-5.90) m/uL Hgb 10.0 L (13.0-17.5) gm/dL Hct 31.2 L (39.0-53.0) % RDW 15.6 H (11.5-15.5) % ABG pCO2 53 H (35-45) mmHg ABG HCO3 35 H (21-25) mmol/L ABG Total CO2 37 H (19-24) mmol/L ABG O2 Saturation (94-97) % Sodium 132 L (137-145) mmol/L Chloride 96 L (98-107) mmol/L Carbon Dioxide 31 H (22-30) mmol/L BUN 8 L (9-20) mg/dL Creatinine 0.23 L (0.66-1.25) mg/dL Glucose 101 H (74-99) mg/dL Calcium 8.1 L (8.4-10.2) mg/dL Magnesium 1.4 L (1.6-2.3) mg/dL 07/29/22 Range/Units 05:28 WBC (3.8-10.6) k/uL RBC (4.30-5.90) m/uL Hgb (13.0-17.5) gm/dL Hct (39.0-53.0) % RDW (11.5-15.5) % ABG pCO2 49 H (35-45) mmHg ABG HCO3 34 H (21-25) mmol/L ABG Total CO2 35 H (19-24) mmol/L ABG O2 Saturation 97.5 H (94-97) % Sodium (137-145) mmol/L Chloride (98-107) mmol/L Carbon Dioxide (22-30) mmol/L BUN (9-20) mg/dL Creatinine (0.66-1.25) mg/dL Glucose (74-99) mg/dL Calcium (8.4-10.2) mg/dL Magnesium (1.6-2.3) mg/dL Microbiology - Last 24 Hours (Table) 07/24/22 11:54 Blood Culture - Preliminary Blood No Growth after 96 hours 07/24/22 11:48 Blood Culture - Preliminary Blood No Growth after 120 hours 07/21/22 10:21 Fungal Culture - Preliminary Bronchoalviolar Lavage - Right Maegan albicans - Imaging and Cardiology Chest x-ray: report reviewed Assessment and Plan Assessment: 32-year-old gentleman postoperative day 1 percutaneous tracheostomy with intraoperative bronchoscopy for hypoxic ventilator-dependent respiratory failure. Follow-up bronchoscopy this morning for mucous plug, seems to be doing well thereafter. No signs of significant ongoing bleeding. Plan: Continue with routine trach care, we'll reassess at your request. Time with Patient: Greater than 30
[2022-07-29] MEDS: ACETAMINOPHEN TAB 325 MG TAB PO PRN ×2 (16:19→21:14)
--- NOTE | 2022-07-29 16:26 | P.PN ---
Subjective Progress Note Date: 07/29/22 32 years old male with past medical history of L3 myelomeningocele and hydrocephalus with any peritoneal shunt, spina bifid F, seizure, chiari malformation. Patient initially presents because of altered mental status and seizure, he had 2 seizures at home 1. Gastric to and other as atypical. Patient was bronchoscoped doing well more lethargic and L over the last 2 days. This morning patient mother noticed he had a seizure that lasted for about 1 minute followed by post ictal confusion, and mother noticed that his oxygen saturation is drip until called EMS, as per document However the mother clarify that actually he has been sick 2 days ago with congestion and coughing, Dr. Mcfarland his primary doctor start him on Augmentin because of history of septic shock and easy infection, he took 3 pulse, he has a day morning he was noticed to have a brief period of seizure although the mom she does not think he had seizure he was just lethargic. She checked his temperature at home and it was 102 breath he was feeling cold and shivering. At baseline he is able to talk normally, he understands the surrounding, he can eat by himself but he is wheelchair bound On admission he is with low-grade temperature 99.7. He is tachycardic around 115, hypertensive blood pressure this morning 93/73. His CBC is unremarkable. INR is 1.1, d-dimer is slightly elevated at 1.1. On admission. PhosLo 7.2, heart pCO2 of 68. Chest x-ray: Left upper and middle lobe consolidation with air bronchograms EKG showing sinus tachycardia at 130 Emergency room patient received breathing treatment, antibiotics, steroids, no rmal saline. (Continued on Levaquin and normal saline at 1:30 milliliters of breath or, Zosyn and Solu-Medrol 40 mg Objective - Vital Signs Vital signs: Vital Signs Temp 98.2 F 07/29/22 06:00 Pulse 125 H 07/29/22 08:46 Resp 28 H 07/29/22 07:00 BP 135/79 07/29/22 07:00 Pulse Ox 95 07/29/22 07:00 FiO2 40 07/29/22 07:37 Intake & Output 07/28/22 07/29/22 07/29/22 18:59 06:59 18:59 Intake Total 1044.406 601.965 20 Output Total 2250 940 35 Balance -1205.594 -338.035 -15 Weight 40.2 kg Intake: IV 860 320 20 0.9 NS @ 15ml/hr 65 55 5 Piperacillin-Tazobactam 3 600 100 .375 gm In Sodium Chloride 0.9% 100 ml @ 25 mls/hr IVPB Q8H [facility] Rx#: [id number] Sodium Chloride 0.45% 1, 195 165 15 000 ml @ 20 mls/hr IV . Q24H [facility] Rx#:[id number] Intake, IV Titration 184.406 113.965 Amount Dexmedetomidine/0.9% NaCl 84.406 13.965 (Pmx) 400 mcg In Empty Bag 1 bag @ 0.2 MCG/KG/HR 1.995 mls/hr IV .Q24H [facility] Rx#:[id number] Valproate Sodium 250 mg 100 In Sodium Chloride 0.9% 100 ml @ 100 mls/hr IVPB HS [facility] Rx#:[id number] Valproate Sodium 500 mg 100 In Sodium Chloride 0.9% 100 ml @ 100 mls/hr IVPB QAM [facility] Rx#:[id number] Tube Feeding 0 168 0 Output: Urine 2250 940 35 Other: Voiding Method Indwelling Catheter Indwelling Catheter ABP, PAP, CO, CI - Last Documented Arterial Blood Pressure 114/63 - Exam -GENERAL: The patient is intubated, he is somewhat awake and follows commands HEENT: Pupils are round and equally reacting to light. EOMI. No scleral icterus. No conjunctival pallor. Normocephalic, atraumatic. No pharyngeal erythema. No thyromegaly. CARDIOVASCULAR: S1 and S2 present. No murmurs, rubs, or gallops. -PULMONARY: Chest is clear to auscultation, no wheezing or crackles. Patient is tachypneic, he has bilateral shift mainly on the right side -ABDOMEN: Soft, nontender, nondistended, normoactive bowel sounds. No palpable organomegaly. Mcclain catheter in a Place MUSCULOSKELETAL: No joint swelling or deformity. EXTREMITIES: No cyanosis, clubbing, or pedal edema. NEUROLOGICAL: Gross neurological examination did not reveal any focal deficits. SKIN: No rashes. no petechiae. - Labs CBC & Chem 7: 07/29/22 05:10 07/29/22 05:10 Labs: Abnormal Lab Results - Last 24 Hours (Table) 07/28/22 07/29/22 07/29/22 Range/Units 17:30 05:10 05:10 WBC 16.3 H (3.8-10.6) k/uL RBC 3.14 L (4.30-5.90) m/uL Hgb 10.0 L (13.0-17.5) gm/dL Hct 31.2 L (39.0-53.0) % RDW 15.6 H (11.5-15.5) % ABG pCO2 53 H (35-45) mmHg ABG HCO3 35 H (21-25) mmol/L ABG Total CO2 37 H (19-24) mmol/L ABG O2 Saturation (94-97) % Sodium 132 L (137-145) mmol/L Chloride 96 L (98-107) mmol/L Carbon Dioxide 31 H (22-30) mmol/L BUN 8 L (9-20) mg/dL Creatinine 0.23 L (0.66-1.25) mg/dL Glucose 101 H (74-99) mg/dL Calcium 8.1 L (8.4-10.2) mg/dL Magnesium 1.4 L (1.6-2.3) mg/dL 07/29/22 Range/Units 05:28 WBC (3.8-10.6) k/uL RBC (4.30-5.90) m/uL Hgb (13.0-17.5) gm/dL Hct (39.0-53.0) % RDW (11.5-15.5) % ABG pCO2 49 H (35-45) mmHg ABG HCO3 34 H (21-25) mmol/L ABG Total CO2 35 H (19-24) mmol/L ABG O2 Saturation 97.5 H (94-97) % Sodium (137-145) mmol/L Chloride (98-107) mmol/L Carbon Dioxide (22-30) mmol/L BUN (9-20) mg/dL Creatinine (0.66-1.25) mg/dL Glucose (74-99) mg/dL Calcium (8.4-10.2) mg/dL Magnesium (1.6-2.3) mg/dL Microbiology - Last 24 Hours (Table) 07/24/22 11:54 Blood Culture - Preliminary Blood No Growth after 72 hours 07/24/22 11:48 Blood Culture - Preliminary Blood No Growth after 96 hours 07/21/22 10:21 Fungal Culture - Preliminary Bronchoalviolar Lavage - Right Maegan albicans
[2022-07-29] MEDS: LACOSAMIDE IV 200 MG in SODIUM CHLORIDE 0.9% 50 ML IVPB SCH (21:33)
[2022-07-30] MEDS: DEXMEDETOMIDINE/0.9% NACL(PMX) 400 MCG in EMPTY BAG 1 BAG IV SCH (03:17)
[2022-07-30] MEDS: IPRATROPIUM-ALBUTEROL 3 ML NEB INHALATION SCH ×5 (04:01→19:38)
[2022-07-30 05:57] LABS: ABG Base Excess 10.7 mmol/L; ABG HCO3 35 mmol/L (21-25); ABG Oxygen Saturation 98.7 % (94-97); ABG PCO2 49 mmHg (35-45); ABG PH 7.46 (7.35-7.45); ABG PO2 98 mmHg (83-108); ABG TCO2 36 mmol/L (19-24); Allen Test Performed? Yes
[2022-07-30 06:00] LABS: Basophils % (A) 0 %; Eosinophils % (A) 0 %; HCT 31.6 % (39.0-53.0); HGB 10.2 gm/dL (13.0-17.5); Lymphocytes # (A) 1.2 k/uL (1.0-4.8); Lymphocytes % (A) 10 %; MCH 33.1 pg (25.0-35.0); MCHC 32.2 g/dL (31.0-37.0); MCV 102.9 fL (80.0-100.0); Macrocytosis Slight; Monocytes # (A) 0.6 k/uL (0-1.0); Monocytes % (A) 5 %; Neutrophils # (A) 9.8 k/uL (1.3-7.7); Neutrophils % (A) 83 %; Platelet Count 324 k/uL (150-450); RBC 3.07 m/uL (4.30-5.90); RDW 15.3 % (11.5-15.5); WBC 11.8 k/uL (3.8-10.6)
[2022-07-30] MEDS: PHENobarbitaL 16.2 MG TAB PO SCH ×2 (06:08→18:58)
[2022-07-30 06:14] LABS: African American GFR (CKD) >90 (>60 ml/min/1.73 sqM); Anion Gap 2 mmol/L; Blood Urea Nitrogen 11 mg/dL (9-20); Calcium 8.2 mg/dL (8.4-10.2); Carbon Dioxide 35 mmol/L (22-30); Chloride 98 mmol/L (98-107); Glucose 142 mg/dL (74-99); Magnesium 1.8 mg/dL (1.6-2.3); Non-African American GFR(CKD) >90 (>60 ml/min/1.73 sqM); Potassium 4.1 mmol/L (3.5-5.1); Sodium 135 mmol/L (137-145)
--- NOTE | 2022-07-30 07:03 | XR ---
EXAMINATION TYPE: XR chest 1V portable DATE OF EXAM: 07/30/2022 COMPARISON: 07/29/2022 HISTORY: SOB, Follow Up FINDINGS: Tracheostomy tube and NG tube appear to be in place. There is marked chest wall and thoracic spine de formity seen with diffuse bilateral infiltrates unchanged from prior study. Stable appearance of the cardio-mediastinal structures at this time. IMPRESSION: 1. Stable portable chest. Clinical correlation and follow up until resolution is recommended.
[2022-07-30] MEDS: FAMOTIDINE 20 MG/2 ML VIAL IV SCH ×2 (08:39→20:29)
[2022-07-30] MEDS: VALPROATE SODIUM 500 MG in SODIUM CHLORIDE 0.9% 100 ML IVPB SCH ×2 (08:39→20:24)
[2022-07-30] MEDS: METOPROLOL TARTRATE 25 MG TAB PO SCH ×3 (08:39→22:16)
[2022-07-30] MEDS: CHLORHEXIDINE GLUCONATE 15 ML CUP MUCOUS MEM SCH ×2 (08:39→20:28)
[2022-07-30] MEDS: NOREPINEPHRINE 4 MG in SODIUM CHLORIDE 0.9% 250 ML IV SCH (08:45)
[2022-07-30] MEDS: LACOSAMIDE IV 200 MG in SODIUM CHLORIDE 0.9% 50 ML IVPB SCH (08:52)
[2022-07-30] MEDS ORDERED: LACOSAMIDE IV 50 MG in SODIUM CHLORIDE 0.9% 50 ML IVPB SCH (09:00)
[2022-07-30] MEDS ORDERED: LACOSAMIDE IV 50 MG in SODIUM CHLORIDE 0.9% 50 ML IVPB ONE (09:10)
--- NOTE | 2022-07-30 09:32 | P.PN ---
Subjective Progress Note Date: 07/30/22 I'm seeing this patient today, 07/21/2022, in new consultation in ICU. This is a 32-year-old white male with past medical history of spina bifida with L3 myelomeningocele, hydrocephalus with peritoneal shunt, Arnold-Chiari malformation, seizure disorder, severe kyphoscoliosis, frequent urinary tract in fections secondary to neurogenic bladder and need for intermittent catheterizations. Patient was admitted yesterday 07/20/2022. Mother reports he has been feeling unwell over the past couple weeks. Reported symptoms of shortness of breath, fever, cough. Patient was treated outpatient with Juanita horta. Yesterday, the patient had 2 seizures, at home, lasting approximately 1 minute. He then became more lethargic and ultimately unconscious. Patient's mother checked his oxygen saturation with her home pulse ox, and found his SpO2 to be 50%. EMS was called and patient was transferred to [facility]. Patient was intubated yesterday with a 7.5 ET tube, in the ER, to protect his airway. He is currently on mechanical ventilator settings of assist control, respiratory rate of 12, tidal volume of 300 mL, FiO2 55%, PEEP of 5. ABGs from this morning on FiO2 of 80% shows a pO2 of 103, pCO2 of 52, and a pH of 7.36. Patient's chest x-ray from today showed a complete opacification of left hemithorax. The endotracheal tube appeared to be above the george on the x-ray, however, the patient's physical deformities make it hard to assess. Patient also has an in place orogastric tube, there is a ventricular peritoneal shunt noted, and severe thoracolumbar scoliosis. There is concern for aspiration after the patient's witnessed seizure. Patient is covered empirically with Zosyn. The patient will require a bronchoscopy with BAL today. Patient's WBC count 3.5, hemoglobin 11.8, hematocrit of 37.9, platelets 42,000. Patient's BMP from today shows a sodium of 137, potassium 4.4, chloride 103, serum CO2 30, BUN 18, creatinine 0.41, glucose 107. Patient is currently sedated with propofol at 40 mcgs/kg/minute. And there is normal saline infusing at 130 milliliters per hour. Patient was negative for influenza, RSV, coronavirus. Lactic acid level was low at 1.4. Patient is also receiving bronchodilators and IV Solu-Medrol. GI prophylaxis with famotidine. Vital signs are stable at this time. Progress note dated 07/22/2022. 32-year-old male with a history of spina bifida, myelomeningocele, hydrocephalus, Arnold-Chiari malformation, seizure disorder, and severe kyph oscoliosis. The patient was seen in the ICU, after being initially evaluated in the emergency department. The patient was intubated for impending respiratory failure by the ER physician. Currently, the patient remains on the mechanical ventilator. He is on volume assist control, rate 12, tidal volume 300, FiO2 40%, PEEP of 5. Arterial blood gases show pO2 77, pCO2 of 59, and a pH is 7.3. The patient's currently on saline at 130 mL an hour, propofol at 50 mcg/kg/m, and vital AF at 30 mL, with a goal of 34. The patient is currently on Zosyn. Vancomycin was discontinued. White count 2.4, hemoglobin 10, hematocrit 31.8, platelet count 47,000. Sodium 139, potassium 3.5, chlorides 108, CO2 28, BUN 14, and creatinine 0.37. Chest x-ray shows consolidation in the left lung, as well as a stable well placed endotracheal tube. The patient did undergo bronchoscopy yesterday. Progress note dated 07/23/2022. 32-year-old male with history of spina bifida, myelomeningocele, hydrocephalus, Arnold-Chiari syndrome, seizure disorder, and severe kyphoscoliosis. The patient was seen in the intensive care unit, room 266. He was initially evaluated in the emergency department, with respiratory failure and seizure. He remains on the mechanical ventilator. The patient is on volume assist control, rate 12, tidal volume 300, FiO2 percent, and PEEP of 5. Blood gases show pO2 of 66, pCO2 58, and a pH is 7.25. The patient's getting saline at 130 mL an hour, and propofol at 50 mcg/kg/m. Tube feedings are on hold, because yesterday, it appeared that he aspirated. I did asked the nurse to resume tube feeds. White count 4.1, hemoglobin 9.5, hematocrit 30.7, platelet count 53,000. Sodium 140, potassium 3.6, chlorides 114, CO2 26, BUN 12, and creatinine 0.36. Blood culture showed staph epidermidis. Chest x-ray shows consolidation of the left lung, and which is essentially unchanged. Patient positioning, the patient's body habitus, and his severe kyphoscoliosis, limits the ability to interpret this chest x-ray. On 07/24/2022, the patient is being seen for a follow-up. This morning, the patient is on propofol running at 40 mcg/kg/m. The patient is calm and comfortable and symptoms of the mechanical ventilator. Is currently on assist control mode at the rate of 12 with a tidal volume of 300 and FiO2 of 40% with a PEEP of 5. Chest x-ray findings are quite limited because of his body habitus. The patient has severe kyphoscoliosis. Left lung is not adequately visualized. The right lung does seem to be clear of any significant pulmonary infiltrates. ET tube is in a good location. There is a large gastric bubble seen on today's chest x-ray. Meanwhile, the patient is receiving enteral feeding for nutritional support and currently is on vital AF at the rate of 10 mL an hour. He is tolerating the tube feeds for now. The white cell count of 7 with a hemoglobin of 10.7. Blood gas from today showed a pH of 7.34 with a pCO2 of 49 and pO2 of 73. Electrolytes are normal and the BUN is at 6 with a creatinine of 0.25. The patient remains on IV Zosyn. He does have a small wound in his right coccyx. No signs of any infection. Infectious diseases on the case. The patient is Only on IV Zosyn. The blood culture was positive for coagulase- negative staph. He did have a spike of temperature yesterday and currently is afebrile. Cardiac rhythm is sinus. He is in sinus tachycardia with a heart rate of around 120. NG tube is in place. Mcclain cath is in place and the patient is producing adequate amount of urine output. No pressors for now. Respiratory rate is in the mid tens. 07/25/20222022, the patient is wide awake. Mother is at the bedside. The patient is calm and comfortable. He is very cooperative. Orotracheal tube remains in place. Is on assist-control mode of mechanical ventilation and currently he is on a tidal volume of 300, rate of 12, FiO2 of 40% with a PEEP of 5. His chest x-rays extremely limited due to his severe kyphoscoliosis. Nevertheless, the orotracheal secretions are minimal and he is not requiring frequent suctioning. He has a weak cough. He is hemodynamically stable. Slightly hypertensive. Slightly tachycardic and this was an ongoing issue since yesterday. He is spiking low-grade temperatures of 99.4. He does have evidence of third spacing and edema. He was given a dose of Lasix 20 mg IV push yes terday and the overall fluid balance has been -1.7 L over the past 24 hours. He remains on IV Zosyn. His blood culture was positive for coagulase-negative spine staph aureus. He is blood gas showed a pH of 7.39 with a pCO2 of 51 and pO2 of 95. The white cell count is not elevated at 6.9 with a hemoglobin of 10.3. Platelet counts are low at 70 and it is stable and is essentially improving. Sodium is at 133, potassium is at 3.4 to be replaced and the serum bicarb is at 31 with a BUN of 2 and a creatinine of 0.25. His pro calcitonin level was 0.27, mildly elevated. He continues to be on enteral feeding for nutritional support and is currently on vital AF at the rate of 10 mL an hour. 2022, the patient is awake and is communicating. He remains on a mechanical ventilator. He failed extubation yesterday because of a large mucous plug. Immediately was reintubated and this occurred probably 15 minutes after his extubation. He had to be reintubated. I did a bronchoscopy on him. Airway patency was achieved. The chest x-ray from today shows a clear right lung. Left lung probably some atelectatic although this is difficult to assess as the patient has severe kyphoscoliosis. Is on assist-control mode at a rate of 12, tidal volume of 300, FiO2 of 50% with a PEEP of 5. His FiO2 will be dropped onto 40% at this point. Peak air pressure is around 26. His blood. From today shows a pH of 7.4 with a pCO2 53 and pO2 of 102. BUN is at 3 with a creatinine of 0.2 and a sodium level is at 134, the risk was 5.8 with a hemoglobin of 11. He is receiving enteral feeding for nutritional support in the form of vital AF at the rate of 10 mL an hour. 07/27/2022, the patient remains intubated on a mechanical ventilator. The patient failed an initial extubation and we are headed towards a tracheostomy tube insertion. The patient was able to tolerate this point his breathing trial with a pressure support of 10 and a PEEP of 5 for the past 24 hours. His generating adequate tidal volumes. I do not to pressure support down to 5 and the patient felt quite uncomfortable and that his tidal volumes of drops. Based on that, the patient was kept on a pressure support of 10 and a PEEP of 5. Blood gas shows a pH of 7.43 with a pCO2 of 55 and a pO2 of 68. The patient is awake and alert. The patient has following commands. The patient is receiving enteral feeding for nutritional support and the patient remains on vital AF. The patient is afebrile. The antiepileptic dose was adjusted by neurology. Noted the valproic acid level was low and another loading dose was given. Electrolytes are all stable with a sodium level of 132 with a potassium level of 4 and a BUN of 4 with a creatinine of 0.2. WBC count is at 6 with a hemoglobin 9.8. No other significant events otherwise for now. Family is interested tracheostomy and interested in a percutaneous tracheostomy. 07/28/2022, the patient is awake and alert and is essentially waiting for a tracheostomy tube insertion and this is going to be a percutaneous tracheostomy tube insertion. The patient remains on a mechanical ventilator. He was able to tolerate point his breathing for a total of 9 hours yesterday and this morning his back on assist-control mode at a rate of 12 with a tidal volume of 300 and FiO2 of 40% with a PEEP of 5. Blood gases showed pH of 7.45 with a pCO2 of 48 and pO2 of 85. The patient is afebrile. Hemodynamically stable. Slightly tachycardic. Pulse ox is 95% on room air oxygen. White cell count of 7.8 with a hemoglobin of 10.2. The sodium is at 138, potassium 3.9, BUN is at 6 with a creatinine of 0.26. The bronchial washings were obtained earlier showed Maegan. The patient is currently off feeding in as the patient for a percutaneous tracheostomy tube insertion. Prior to that, the patient was receiving vital AF. No seizure activity. Antiepileptic medication was adjusted by neurology. The patient is currently on valproate acid 500 mg IV every day and to 50 mg in the morning. The patient is also on Vimpat 200 mg by mouth twice a day and phenobarbital 40.5 mg twice a day. Remains on bronchodilators. No other active issues for now. Chest x-ray shows adequate positioning of the ET tube. On 07/29/2022, the patient is post a tracheostomy tube insertion. The patient is a #7 Bivona tracheostomy tube and this was done percutaneously yesterday and the operating room. This morning, the patient is still bronchospastic and wheezy. He is having excessive respiratory secretions. The peak airway pressures around 39 and the patient wasn't assist-control mode at a rate of 12 with a tidal volume of 300 and FiO2 of 40% with a PEEP of 5. The blood gas from today showed a pH of 7.44 with a pCO2 of 49 and pO2 of 89. The patient was having some labored breathing. At the same time the patient was having some sinus tachycardia. He is on Precedex which is currently running at 0.4 micro kilogram per minutes. His back on enteral feeding for nutritional support and is currently on vital AF running at a rate of 50 mL an hour. The blood work george ws a WBC count 16.3 with a hemoglobin of 10 and a platelet count of 269. Sodium is at 132, potassium is at 4, bicarb is at 31 with a BUN of 8 and a creatinine of 0.23. A repeat chest x-ray was done today and a chest x-ray showed severe kyphoscoliosis and this was quite expected. At the same time, the patient was found to haveAdequate expansion of both lungs. NG tube is also on a good location. Based on this ongoing bronchospasm and elevation of the airway pressures, I performed a bedside bronchoscopy. Respiratory secretions were encountered and is worse suctioned out. At the same time, the tip of the Bivona tracheostomy tube was happening at the level of the lateral wall of the trachea and the anterior wall. Based on that, I pushed in the Bivona tracheostomy tube and is currently at 9 cm line and this gave the patient adequate airway patency. Peak airway pressure considerably dropped following that. His current peak airway pressures around 19 and his breathing is much more comfortable. The sputum that was collected will be sent for microbial cultures and analysis. He is hemodynamically stable. No other active issues for now. He is postop day #1. On a separate note, the patient had to episodes of seizures and neurology is on the case and the necessary adjustments on the antiepileptic medications being done. 07/30/2022, the patient is awake and alert and communicating. He is very pleasant this morning. He has a #11 Bivona trache[address] tube in place. He is currently on assist-control mode of mechanical ventilation at the rate of 12, tidal volume of 250, FiO2 of 40% with a PEEP of 5. The patient's blood gas from today showed a pH of 7.46 with a pCO2 of 49 and pO2 of 90. No major respiratory secretions. Note that I performed a bronchoscopy yesterday on him. I adjusted 2. I also obtained samples of the sputum and is also still pending for now. The patient is having some low-grade fever. T-max was 99.7 yesterday and currently is down to 19.1. He is having some sinus tachycardia. His tolerating enteral feeding for nutritional support. He is currently on vital AF running at the rate of 42 mL an hour. His WBC count is at 11.8 with a hemoglobin of 10.2 and a platelet count of 324. Sodium is at 135, bicarb is at 35, BUN is 11 with a creatinine of 0.2. He is having on and off episodes of seizure. Antiepileptic medication adjustments in doses was done by neurology. The patient is currently on a combination of valproic acid, Vimpat and ph enobarbital. Hemodynamically stable. He is taking metoprolol for rate control at a dose of 25 mg twice a day. He got Dilaudid for pain control also. Objective - Vital Signs Vital signs: Vital Signs Temp 98.1 F 07/30/22 08:00 Pulse 130 H 07/30/22 09:00 Resp 21 07/30/22 09:00 BP 135/79 07/29/22 07:00 Pulse Ox 91 L 07/30/22 09:00 FiO2 40 07/30/22 08:00 Intake & Output 07/29/22 07/30/22 07/30/22 18:59 06:59 18:59 Intake Total 513 929.140 186 Output Total 740 1110 130 Balance -227 -180.860 56 Intake: IV 185 260 60 0.9 NS @ 15ml/hr 170 125 30 Sodium Chloride 0.45% 1, 15 135 30 000 ml @ 20 mls/hr IV . Q24H BRANDI Rx#:[id number] Intake, IV Titration 100 195.140 Amount Dexmedetomidine/0.9% NaCl 95.140 (Pmx) 400 mcg In Empty Bag 1 bag @ 0.2 MCG/KG/HR 1.995 mls/hr IV .Q24H BRANDI Rx#:[id number] Lacosamide IV 200 mg In 50 Sodium Chloride 0.9% 50 ml @ 100 mls/hr IVPB BID BRANDI Rx#:[id number] Magnesium Sulfate-D5w Pmx 100 1 gm In Dextrose/Water 1 100ml.bag @ 100 mls/hr IVPB Q1H BRANDI Rx#: [id number] Valproate Sodium 500 mg 50 In Sodium Chloride 0.9% 100 ml @ 100 mls/hr IVPB HS BRANDI Rx#:[id number] Tube Feeding 228 414 126 Other 60 Output: Urine 740 1110 130 Other: Voiding Method Indwelling Catheter Indwelling Catheter Indwelling Catheter ABP, PAP, CO, CI - Last Documented Arterial Blood Pressure 158/78 - Exam No acute distress, she has a number cerebral on a tracheostomy tube in place. The patient also has an NG tube in place. His calm and comfortable and communicating. He is on a low dose of Precedex running at 0.1 mcg/kg/m. HEENT examination is grossly unremarkable. Neck supple. Full range of motion. No adenopathy thyromegaly or neck vein distention. Cardiovascular examination reveals regular rhythm rate. S1-S2 normal. No S3 or S4. No discernible murmur noted. Lungs reveal diminished breath sounds laterally, more left than right sided. Scattered rhonchi are noted. No wheezes. No crackles. CV kyphoscoliosis of the chest with diminished breath on the left lung base Abdomen soft, without bowel sounds. PEG tube is noted. Extremities are intact. No cyanosis, clubbing, patient has developed significant edema in lower extremities and upper extremities bilaterally, The patient does have significant flexion deformities of the extremities. Skin is without rash or lesion. Neurologic examination , awake and alert, weakness with significant upper extremity. Unable to move his legs. - Labs CBC & Chem 7: 07/30/22 06:00 07/30/22 06:00 Labs: Abnormal Lab Results - Last 24 Hours (Table) 07/30/22 07/30/22 07/30/22 Range/Units 05:47 06:00 06:00 WBC 11.8 H (3.8-10.6) k/uL RBC 3.07 L (4.30-5.90) m/uL Hgb 10.2 L (13.0-17.5) gm/dL Hct 31.6 L (39.0-53.0) % MCV 102.9 H (80.0-100.0) fL Neutrophils # 9.8 H (1.3-7.7) k/uL ABG pH 7.46 H (7.35-7.45) ABG pCO2 49 H (35-45) mmHg ABG HCO3 35 H (21-25) mmol/L ABG Total CO2 36 H (19-24) mmol/L ABG O2 Saturation 98.7 H (94-97) % Sodium 135 L (137-145) mmol/L Carbon Dioxide 35 H (22-30) mmol/L Creatinine 0.27 L (0.66-1.25) mg/dL Glucose 142 H (74-99) mg/dL Calcium 8.2 L (8.4-10.2) mg/dL Microbiology - Last 24 Hours (Table) 07/29/22 10:50 Sputum Culture - Preliminary Sputum 07/24/22 11:54 Blood Culture - Preliminary Blood No Growth after 96 hours 07/24/22 11:48 Blood Culture - Preliminary Blood No Growth after 120 hours Assessment and Plan Plan: Acute hypoxemic respiratory failure, likely secondary to aspiration. The patient is post bronchoscopy, cultures are negative, rule out chemical aspiration/chemical pneumonia. The patient is, the broad-spectrum antibiotics with IV Zosyn. Cultures are still negative, having low-grade fever, pro shayne citonin level was 0.27. Presently cultures were negative. Awake and alert off sedation. The patient is stable. Respiratory status is stable. The patient failed extubation yesterday and he required another bronchoscopy and removal of mucous plugs. Will benefit from a tracheostomy tube insertion and a gradual wean can be performed following that. Family is agreeable. General surgery has been consulted in that regard. He failed extubation on 07/25/2022. The patient completed a course of Zosyn. Patient is post tracheostomy tube insertion and the patient has a percutaneous tracheostomy tube insertion that was done on 07/28/2022. I subsequently performed a bronchoscopy on him and readjusted the tube. Therapeutic airway suctioning was done and residual respiratory secretions were suctioned out. No active bleeding at this point in time. Airways are patent.. The respiratory status is stable for today. Status post intubation and mechanical ventilation on 07/20/2022. S/P bronchoscopy, 07/21/2022. History of breakthrough seizure disorder in a patient with chronic seizure histo ry. History of spina bifida with L3 myelomeningocele. History of hydrocephalus, status post [employer] shunt. History of Arnold-Chiari malformation. Severe kyphoscoliosis. Frequent urinary tract infections. Sinus tachycardia currently on metoprolol Hypertension Episodic seizure activity Plan: Continue ventilator support Switch this patient for a trial of pressure support of 12 and a PEEP of 5 and he may go on for spontaneous breathing for several hours today based on his comfort level. He seems to be quite comfortable at this point in time. Wean off Precedex and discontinue Bronchoscopy was done yesterday and the 2 positioning was adjusted Therapeutic airway suctioning was done and the mucus will be sent for cultures , results are still pending for now Patient completed a course of Zosyn, currently on no antibiotics Monitor fever pattern NG tube for enteral feeding for nutritional support Wean off sedation Continue metoprolol 25 mg by mouth and increase the dose to 3 times a day Continue seizure medication and patient did have a breakthrough seizure and the necessary adjustments are being done Continue Depakote continue phenobarbital significantly after adjusting the Bivona tracheostomy tube. We'll continue to follow make further recommendations based on progress. Critical care evaluation that was done in more than 30 minutes. n Time with Patient: Greater than 30
[2022-07-30] MEDS: ACETAMINOPHEN TAB 325 MG TAB PO PRN ×2 (11:57→22:15)
--- NOTE | 2022-07-30 12:18 | P.PN ---
Subjective Progress Note Date: 07/30/22 The patient is seen at bedside and is accompanied by his mother and per nurse who stated yesterday patient had a seizure-like activity close to shift change (6ish pm) prior to getting his antiepileptic medication. No further seizures overnight or today. Objective - Vital Signs Vital signs: Vital Signs Temp 99.4 F 07/30/22 12:00 Pulse 142 H 07/30/22 12:00 Resp 24 07/30/22 12:00 BP 135/79 07/29/22 07:00 Pulse Ox 92 L 07/30/22 12:00 FiO2 40 07/30/22 12:00 Intake & Output 07/29/22 07/30/22 07/30/22 18:59 06:59 18:59 Intake Total 513 929.140 407.652 Output Total 740 1110 340 Balance -227 -180.860 67.652 Intake: IV 185 260 120 0.9 NS @ 15ml/hr 170 125 60 Sodium Chloride 0.45% 1, 15 135 60 000 ml @ 20 mls/hr IV . Q24H BRANDI Rx#:[id number] Intake, IV Titration 100 195.140 5.652 Amount Dexmedetomidine/0.9% NaCl 95.140 5.652 (Pmx) 400 mcg In Empty Bag 1 bag @ 0.2 MCG/KG/HR 1.995 mls/hr IV .Q24H BRANDI Rx#:[id number] Lacosamide IV 200 mg In 50 Sodium Chloride 0.9% 50 ml @ 100 mls/hr IVPB BID BRANDI Rx#:[id number] Magnesium Sulfate-D5w Pmx 100 1 gm In Dextrose/Water 1 100ml.bag @ 100 mls/hr IVPB Q1H BRANDI Rx#: [id number] Valproate Sodium 500 mg 50 In Sodium Chloride 0.9% 100 ml @ 100 mls/hr IVPB HS BRANDI Rx#:[id number] Tube Feeding 228 414 252 Other 60 30 Output: Urine 740 1110 340 Other: Voiding Method Indwelling Catheter Indwelling Catheter Indwelling Catheter ABP, PAP, CO, CI - Last Documented Arterial Blood Pressure 137/71 - Exam GENERAL: The patient is lying in bed and does not appear in acute distress. LUNG: Trach on ventilator. NEUROLOGICAL:. Limited because of his condition and sedation (IV Precedex 0.4mcg/kg/hr) Higher mental function: Is awake and following few simple commands (waving right hand and has right hand resistance brazer). No facial weakness. Motor: Moving the right upper extremity above gravity - Labs CBC & Chem 7: 07/30/22 06:00 07/30/22 06:00 Labs: Abnormal Lab Results - Last 24 Hours (Table) 07/30/22 07/30/22 07/30/22 Range/Units 05:47 06:00 06:00 WBC 11.8 H (3.8-10.6) k/uL RBC 3.07 L (4.30-5.90) m/uL Hgb 10.2 L (13.0-17.5) gm/dL Hct 31.6 L (39.0-53.0) % MCV 102.9 H (80.0-100.0) fL Neutrophils # 9.8 H (1.3-7.7) k/uL ABG pH 7.46 H (7.35-7.45) ABG pCO2 49 H (35-45) mmHg ABG HCO3 35 H (21-25) mmol/L ABG Total CO2 36 H (19-24) mmol/L ABG O2 Saturation 98.7 H (94-97) % Sodium 135 L (137-145) mmol/L Carbon Dioxide 35 H (22-30) mmol/L Creatinine 0.27 L (0.66-1.25) mg/dL Glucose 142 H (74-99) mg/dL Calcium 8.2 L (8.4-10.2) mg/dL Microbiology - Last 24 Hours (Table) 07/29/22 10:50 Gram Stain - Preliminary Sputum Sputum Culture - Preliminary 07/24/22 11:54 Blood Culture - Preliminary Blood No Growth after 96 hours 07/24/22 11:48 Blood Culture - Preliminary Blood No Growth after 120 hours Assessment and Plan Assessment: * Break-through seizure: Had three seizures yesterday in total lasting <30 seconds: Possible provoked since has recent procedure/stress. * Altered mental status, likely due to toxic metabolic encephalopathy. Status post subclinical status--- Mentation has improved. * History of Arnold-Chiari malformation with myelomeningocele L3 level, hydrocephalus and syringomyelia, status post multiple VPS and shunting for syrinx. * Medically intractable seizure disorder, came with a typical seizure. * Aspiration pneumonia s/p intubated on ventilator * Lactic acidosis, likely due to sepsis versus seizure. * Patient with history of grand mal seizures, absence seizures and tonic-clonic seizures. * Severe kyphoscoliosis * Wheelchair-bound Plan: * Repeat EEG 07/22/2022 preliminary report showed background slowing of moderate to severe degree, consistent with encephalopathy. No evidence of partial status. No electrographic seizure recorded. Still presence of epileptogenic focus involving the right temporal and also the right frontal region. No generalization. * EEG 07/21/2022 showed presence of 2 epileptic foci involving the right temporal and right frontal region and sometimes generalized spike or polyspike and wave were also seen. There is recording of multiple focal seizures, all of them originating in the right hemispheric region and one of them later generalized for about 26 seconds. No motor activity was observed on the review of the video section of the study. Background slowing of at least m oderate degree suggestive of encephalopathy. Subclinical partial status cannot be ruled out. Clinical correlation is recommended. * Depakote level 53.8 (50-100), and phenobarbital level 22.4 (15-40). Both levels are therapeutic at the beginning. His Depakote level were subtherapeutic and it is 26.8 but free Depakote is 5.8 (normal) : His free depakote is normal and is more reliable than total depakote. * Because of his continue seizures: Increased Vimpat from 200mg bid to 250mg bid today (07/30/22). Continue home phenobarbital 40.5 mg twice a day. Switched from Depakote sprinkle to IV on 07/28/22. Repeat total depakote is 26.4 (subtherapeutic) but pending free and free is more accurate. On Depakote 500mg in AM and qhs (prior was on 500mg and 250mg respectively). * I notified the mother that patient needs to follow-up with his neurosurgeon at [facility], since last revision for WET [employer] HEAD ASSISTANT shunt and Syrinx shunt was about 20 years ago to make sure still functional. Last time they have visited a neurosurgeon was 5 years ago and was notified everything was normal. * S/P Trach on 07/28/22 and pending PEG. * Other medical management as per IM and other specialties. The plan is discussed with the patient's mother's who is at bedside and his nurse. Will continue to follow. Dr. Ballard will start neurology service tomorrow A.M. Time with Patient: Less than 30
[2022-07-30] MEDS: HYDROPHILIC CREAM 180 GM TUBE TOPICAL SCH (15:00)
[2022-07-30] MEDS: SODIUM CHLORIDE 0.45% 1,000 ML IV SCH (16:12)
[2022-07-30] MEDS: LACOSAMIDE IVPB SCH (20:46)
[2022-07-30] MEDS: SODIUM CHLORIDE 0.9% IVPB SCH (20:46)
[2022-07-31] MEDS: IPRATROPIUM-ALBUTEROL 3 ML NEB INHALATION SCH ×7 (01:00→23:03)
[2022-07-31 05:24] LABS: Basophils % (A) 0 %; Eosinophils # (A) 0.1 k/uL (0-0.7); Eosinophils % (A) 1 %; HCT 31.4 % (39.0-53.0); HGB 9.9 gm/dL (13.0-17.5); Lymphocytes # (A) 1.2 k/uL (1.0-4.8); Lymphocytes % (A) 10 %; MCH 31.8 pg (25.0-35.0); MCHC 31.4 g/dL (31.0-37.0); MCV 101.4 fL (80.0-100.0); Macrocytosis Slight; Mean Platelet Volume 8.2; Monocytes # (A) 0.5 k/uL (0-1.0); Monocytes % (A) 4 %; Neutrophils % (A) 83 %; Platelet Count 338 k/uL (150-450); RDW 15.7 % (11.5-15.5)
[2022-07-31 05:39] LABS: ABG Base Excess 11.5 mmol/L; ABG HCO3 35 mmol/L (21-25); ABG Oxygen Saturation 96.3 % (94-97); ABG PCO2 51 mmHg (35-45); ABG PH 7.45 (7.35-7.45); ABG PO2 75 mmHg (83-108); ABG TCO2 37 mmol/L (19-24)
[2022-07-31 05:48] LABS: African American GFR (CKD) >90 (>60 ml/min/1.73 sqM); Anion Gap 3 mmol/L; Blood Urea Nitrogen 9 mg/dL (9-20); Calcium 8.5 mg/dL (8.4-10.2); Carbon Dioxide 34 mmol/L (22-30); Chloride 101 mmol/L (98-107); Glucose 138 mg/dL (74-99); Magnesium 1.5 mg/dL (1.6-2.3); Non-African American GFR(CKD) >90 (>60 ml/min/1.73 sqM); Potassium 3.8 mmol/L (3.5-5.1); Sodium 138 mmol/L (137-145)
[2022-07-31] MEDS ORDERED: Potassium Replacement Protocol 1 EACH MISC MISCELLANE PRN (06:36)
[2022-07-31] MEDS: PHENobarbitaL 16.2 MG TAB PO SCH ×2 (06:59→18:35)
[2022-07-31] MEDS: MAGNESIUM SULFATE-D5W PMX 1 GM in DEXTROSE/WATER 1 100ML.BAG IVPB SCH ×2 (07:00→08:01)
[2022-07-31] MEDS ORDERED: POTASSIUM BICARBONATE/CIT AC 20 MEQ TABLET.EFF NG-TUBE SCH (07:00)
--- NOTE | 2022-07-31 07:37 | XR ---
EXAMINATION TYPE: XR chest 1V portable DATE OF EXAM: 07/31/2022 CLINICAL HISTORY: Difficulty breathing progress study. Tracheostomy and pneumonia. TECHNIQUE: Single AP portable semiupright view of the chest is obtained. COMPARISON: Chest x-ray from one day earlier and older studies. FINDINGS: Exam markedly suboptimal due to underlying marked rotary scoliosis. Tracheostomy tube and orogastric tube redemonstrated. Suspect malpositioned right-sided subclavian central venous catheter ascending the right internal jugular vein redemonstrated. Abandoned right neck calcified shunt cathet er fragment redemonstrated. Persistent left lung increased opacity and elevated left hemidiaphragm. Cardiac silhouette size withi n normal limits with improved visualization of the left heart border. IMPRESSION: As above. Markedly Suboptimal study. Left lung edema and/or infiltrate redemonstrated. Ma lpositioned right subclavian central venous catheter tip noted.
[2022-07-31] MEDS: CHLORHEXIDINE GLUCONATE 15 ML CUP MUCOUS MEM SCH ×2 (08:01→20:40)
[2022-07-31] MEDS: HYDROPHILIC CREAM 180 GM TUBE TOPICAL SCH (08:01)
[2022-07-31] MEDS: METOPROLOL TARTRATE 25 MG TAB PO SCH ×3 (08:01→20:40)
[2022-07-31] MEDS: VALPROATE SODIUM 500 MG in SODIUM CHLORIDE 0.9% 100 ML IVPB SCH (08:01)
[2022-07-31] MEDS: SODIUM CHLORIDE 0.45% 1,000 ML IV SCH (08:02)
[2022-07-31] MEDS: SODIUM CHLORIDE 0.9% IVPB SCH (09:26)
[2022-07-31] MEDS: LACOSAMIDE IVPB SCH (09:26)
[2022-07-31] MEDS: FAMOTIDINE 20 MG/2 ML VIAL IV SCH ×2 (09:26→20:40)
[2022-07-31] MEDS ORDERED: DEXTROSE 50% SYRINGE 50 ML IVP PRN ×2 (09:54)
[2022-07-31 10:10] VITALS: BP 136/94
[2022-07-31] MEDS: DEXMEDETOMIDINE/0.9% NACL(PMX) 400 MCG in EMPTY BAG 1 BAG IV SCH (11:38)
[2022-07-31] MEDS: NOREPINEPHRINE 4 MG in SODIUM CHLORIDE 0.9% 250 ML IV SCH (11:38)
[2022-07-31] MEDS: INSULIN ASPART (NovoLOG) 100 UNIT/ML VIAL SQ SCH ×2 (11:44→18:27)
[2022-07-31] MEDS ORDERED: LORazepam 2 MG/ML INJ IV PRN (12:52)
[2022-07-31] MEDS: guaiFENesin 600 MG TABLET.ER PO SCH ×2 (14:03→20:42)
[2022-07-31] MEDS ORDERED: LACTATED RINGERS 1,000 ML IV SCH (14:15)
[2022-07-31] MEDS ORDERED: SODIUM CHLORIDE 0.9% 1,000 ML IV SCH (14:15)
--- NOTE | 2022-07-31 15:04 | P.PN ---
Subjective Progress Note Date: 07/31/22 Principal diagnosis: Acute hypoxic respiratory failure secondary to aspiration pneumonia 07/30/2022, the patient is awake and alert and communicating. He is very pleasant this morning. He has a #11 [place] tracheostomy tube in place. He is currently on assist-control mode of mechanical ventilation at the rate of 12, tidal volume of 250, FiO2 of 40% with a PEEP of 5. The patient's blood gas from today showed a pH of 7.46 with a pCO2 of 49 and pO2 of 90. No major respiratory secretions. Note that I performed a bronchoscopy yesterday on him. I adjusted 2. I also obtained samples of the sputum and is also still pending for now. The patient is having some low-grade fever. T-max was 99.7 yesterday and currently is down to 19.1. He is having some sinus tachycardia. His tolerating enteral feeding for nutritional support. He is currently on vital AF running at the rate of 42 mL an hour. His WBC count is at 11.8 with a hemoglobin of 10.2 and a platelet count of 324. Sodium is at 135, bicarb is at 35, BUN is 11 with a creatinine of 0.2. He is having on and off episodes of seizure. Antiepileptic medication adjustments in doses was done by neurology. The jose a guerra is currently on a combination of valproic acid, Vimpat and phenobarbital. Hemodynamically stable. He is taking metoprolol for rate control at a dose of 25 mg twice a day. He got Dilaudid for pain control also. Patient was reevaluated today on 07/31/2022, patient remains intubated and mechan ically ventilated. He is on assist control rate of 12 tidal volume to 50 FiO2 40% PEEP of 5 ABG showed a pO2 of 75 pCO2 51 pH of 7.45 hence no changes were made in his vent settings. Patient was intubated on 07/20 underwent tracheostomy on 07/28 remains on IV fluid at 0.5 mL per hour. Continues to have significant amount of secretions, patient had recent bronchoscopy and BAL by Dr. Nelson. Microbiology from the BAL showed mostly Maegan blood culture on admission showed staph epidermidis. Otherwise his blood cultures have been negative. Patient finished full course of antibiotics, and now he is off antibiotics. Still requiring significant suctioning for tracheal secretions. WBC count today is 12 hemoglobin is 9.9 ABG as noted above. Basic metabolic profile is normal renal profile is normal. Patient is being followed by neurology for his seizures. Chest x-ray today showed no change, however the patient has a very suboptimal chest x-ray mostly because of his severe scoliosis, it is hard to tell what is going on in the chest with a suboptimal chest x-ray as such Objective - Vital Signs Vital signs: Vital Signs Temp 99.8 F H 07/31/22 12:00 Pulse 126 H 07/31/22 14:00 Resp 21 07/31/22 14:00 BP 136/94 07/31/22 10:00 Pulse Ox 93 L 07/31/22 14:00 FiO2 40 07/31/22 12:30 Intake & Output 07/30/22 07/31/22 07/31/22 18:59 06:59 18:59 Intake Total 847.354 990 5484 Output Total 865 1005 1150 Balance -17.693 -235 89 Intake: IV 260 220 153 0.9 NS 130 110 83 Sodium Chloride 0.45% 1, 130 110 70 000 ml @ 20 mls/hr IV . Q24H BRANDI Rx#:[id number] Intake, IV Titration 11.307 100 750 Amount Dexmedetomidine/0.9% NaCl 11.307 (Pmx) 400 mcg In Empty Bag 1 bag @ 0.2 MCG/KG/HR 1.995 mls/hr IV .Q24H BRANDI Rx#:[id number] Lacosamide IV 250 mg In 200 Sodium Chloride 0.9% 50 ml @ 100 mls/hr IVPB BID BRANDI Rx#:[id number] Lacosamide IV 50 mg In 50 Sodium Chloride 0.9% 50 ml @ 100 mls/hr IVPB ONCE ONE Rx#:[id number] Lactated Ringers 1,000 ml 50 @ 50 mls/hr IV .Q20H BRANDI Rx#:[id number] Magnesium Sulfate-D5w Pmx 400 1 gm In Dextrose/Water 1 100ml.bag @ 100 mls/hr IVPB Q1H BRANDI Rx#: [id number] Valproate Sodium 500 mg 50 100 In Sodium Chloride 0.9% 100 ml @ 100 mls/hr IVPB HS BRANDI Rx#:[id number] Tube Feeding 546 420 336 Other 30 30 Output: Urine 865 1005 1150 Other: Voiding Method Indwelling Catheter Indwelling Catheter Indwelling Catheter ABP, PAP, CO, CI - Last Documented Arterial Blood Pressure 139/79 - Exam Physical Exam: Revealed a 52-year-old white male with severe contracture everywhere, intubated and mechanically ventilated. Has tracheostomy in place. Head: Atraumatic, normocephalic. Nasogastric tube and tracheostomy tube are intact HEENT:[Neck is supple.] [No neck masses.] [No thyromegaly.] [No JVD.] Chest: [Severe kyphoscoliosis of the chest noted and scattered rhonchi noted bilaterally Cardiac Exam: [Normal S1 and S2, no S3 gallop, no murmur.] Abdomen: [Soft, nontender, no megaly, no rebound, no guarding, normal bowel sounds.] Extremities: Severe contractures noted and atrophy of muscles noted in upper and lower extremities. Neurological Exam: [Severe kyphoscoliosis noted. And severe contractures noted throughout patient is alert, awake, unable to move lower extremities. - Labs CBC & Chem 7: 07/31/22 05:00 07/31/22 05:00 Labs: Abnormal Lab Results - Last 24 Hours (Table) 07/31/22 07/31/22 07/31/22 Range/Units 05:00 05:00 05:34 WBC 12.0 H (3.8-10.6) k/uL RBC 3.10 L (4.30-5.90) m/uL Hgb 9.9 L (13.0-17.5) gm/dL Hct 31.4 L (39.0-53.0) % MCV 101.4 H (80.0-100.0) fL RDW 15.7 H (11.5-15.5) % Neutrophils # 10.0 H (1.3-7.7) k/uL ABG pCO2 51 H (35-45) mmHg ABG pO2 75 L (83-108) mmHg ABG HCO3 35 H (21-25) mmol/L ABG Total CO2 37 H (19-24) mmol/L Carbon Dioxide 34 H (22-30) mmol/L Creatinine 0.20 L (0.66-1.25) mg/dL Glucose 138 H (74-99) mg/dL Magnesium 1.5 L (1.6-2.3) mg/dL Microbiology - Last 24 Hours (Table) 07/24/22 11:54 Blood Culture - Final Blood No Growth after 144 hours 07/29/22 10:50 Gram Stain - Final Sputum Sputum Culture - Final 07/24/22 11:48 Blood Culture - Final Blood No Growth after 144 hours Assessment and Plan Assessment: Impression: Acute hypoxic respiratory failure secondary to aspiration pneumonia, patient received a full course of Zosyn he is status post tracheostomy on 07/28/2022 and he received a bronchoscopy 2 days ago. Required therapeutic suctioning of secre tions. Patient is status post intubation and mechanical ventilation since 07/20/2022 History of breakthrough seizures with chronic history of seizures being addressed by neurology on the case. 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 He was only on it for less than 2 hours Continue frequent trach suctioning Continue bronchodilators Off antibiotics for now Continue seizure medications Continue GI and DVT prophylaxis Continue enteral feeding via nasogastric tube may eventually require a PEG tube placement [facility] select care specialty for possible transfer and weaning down the line. Discussed his condition with mother at bedside Patient remains critically ill, we'll continue to follow Time with Patient: Greater than 30
[2022-07-31 15:17] LABS: Appearance,Urine Clear (Clear); Bilirubin,Urine Negative (Negative); Blood,Urine Negative (Negative); Color,Urine Light Yellow; Glucose,Urine (UA) Negative (Negative); Ketones,Urine Negative (Negative); Leukocyte Esterase,Urine Negative (Negative); Nitrite,Urine Negative (Negative); Protein,Urine Negative (Negative); Specific Gravity,Urine 1.004 (1.001-1.035); Urobilinogen,Urine <2.0 mg/dL (<2.0)
--- NOTE | 2022-07-31 16:53 | P.PN ---
Subjective Progress Note Date: 07/31/22 This is a 32 year old male who is being monitored closely in the intensive care unit. Significant medical history of spina bifida and seizure disorder. He is wheelchair bound at home brought in for breakthrough seizure like activity at home, he was intubated en route to the hospital. Patient admitted for pneumonia and underwent bronchoscopy on 07/20/21 secondary to left lung collapse, aspiration with repositioning of endotracheal tube. He has completed course of IV zosyn. He underwent tracheostomy placement on 07/28/22 secondary to failed extubation. He underwent bronchoscopy on 07/29/22 secondary to bronchospasm with repositioning of tracheostomy and removal of mucous plugging. Bronchial washings are showing ann albicans. Most recent chest xray showing left lung edema/ and or infiltrate. Malpositioned right subclavian central venous catheter tip noted. Xray is suboptimal secondary to patients anatomy. Patient continues with fever and heart rate remains elevated 120s sinus tachycardia. He is maintained on metoprolol 25 mg TID. Continues on IV vimpat, IV depakote and PO phenobarbital, neurology following closely. He is currently off sedation and not requiring pressor support. NG tube in place and patient is continued on enteral feedings with Vital AF 1.2 at goal of 42 ml/hr. He has stage 2 pressure injury on his right buttock, sacrum and wound care is following. Labs today showing white count of 12.0, hgb 9.9, sodium 138, potassium 3.8, BUN 9, creatinine 0.20, glucose 138, Vitamin B12 1235, Folate 3.60. Temperature of 99.8, heart rate 124, blood pressure 122/69, 93% oxygen saturation. Unable to complete full review of systems. patient is denying pain at this time PHYSICAL EXAMINATION: GENERAL: The patient is intubated, somewhat awake and alert, drowsy. Follows some commands. Thin built male. HEENT: Pupils are round and equally reacting to light. EOMI. No scleral icterus. No conjunctival pallor. Normocephalic, atraumatic. NG tube and tracheostomy tube in place. CARDIOVASCULAR: S1 and S2 present. No murmurs, rubs, or gallops. Tachycardic. PULMONARY: Coarse scattered rhonchi. ABDOMEN: Soft, nontender, nondistended, normoactive bowel sounds. No palpable organomegaly. Mcclain catheter in a Place MUSCULOSKELETAL: No joint swelling. Chronic spinal deformities with severe kyphoscholiosis. EXTREMITIES: No cyanosis, clubbing, or pedal edema. NEUROLOGICAL: Gross neurological examination did not reveal any focal deficits. Diffuse generalized weakness with significant atrophy of all extremities. SKIN: No rashes. Stage 2 right buttock/sacrum with dressing in place. Assessment and Plan Assessment Left community acquired pneumonia, versus aspiration pneumonia Acute Hypoxemic respiratory failure secondary to above intubated on 07/20/22 with failed extubation, post operative day #3 tracheostomy placement. Maintained on mechanical ventilator. He is status post bronchoscopy 2 days ago. Leukocytosis Fever/tachycardia Altered mental status, mostly metabolic encephalopathy improving Breakthrough seizure Anemia macrocytic with folate deficiency Stage 2 right buttock/sacral decubitus ulcer History of spina bifida and L3 myelomeningocele History of hydrocephalus status post cranial peritoneal shunt History of seizure Chiari malformation History of Recurrent UTI, with neurogenic bladder requiring strait catheterization GI prophylaxis DVT prophylaxis Full Code Plan Continue mechanical ventilator per pulmonary oil exploration engineer Tracheostomy in place status post bronchoscopy and requiring frequent suctioning. Continues with enteral tube feedings and may require PEG tube placement Seizure medications per neurology patient had breakthrough seizure today witnessed by mom at bedside. Continues off antibiotic therapy Sepsis work up secondary to continued fevers/tachycardia Continue on metoprolol TID Gentle hydration Infectious disease consultation Continue local wound care Folate supplement added, replace electrolytes AM labs The impression and plan of care has been dictated by Kiki White, Nurse Practitioner as directed. Dr. Orly MD I have performed a history and physical examination and medical decision making of this patient, discussed the same with the dictator, and agree with the dictators assessment and plan as written, documented as a scribe. Based on total visit time, I have performed more than 50% of this visit. Objective - Vital Signs Vital signs: Vital Signs Temp 98.5 F 07/31/22 16:00 Pulse 124 H 07/31/22 16:00 Resp 22 07/31/22 16:00 BP 136/94 07/31/22 10:00 Pulse Ox 93 L 07/31/22 16:00 FiO2 40 07/31/22 16:00 Intake & Output 07/30/22 07/31/22 07/31/22 18:59 06:59 18:59 Intake Total 847.195 437 0376 Output Total 865 1005 1400 Balance -17.693 -235 49 Weight 40.2 kg Intake: IV 260 220 179 0.9 NS 130 110 109 Sodium Chloride 0.45% 1, 130 110 70 000 ml @ 20 mls/hr IV . Q24H BRANDI Rx#:[id number] Intake, IV Titration 11.307 100 850 Amount Dexmedetomidine/0.9% NaCl 11.307 (Pmx) 400 mcg In Empty Bag 1 bag @ 0.2 MCG/KG/HR 1.995 mls/hr IV .Q24H BRANDI Rx#:[id number] Lacosamide IV 250 mg In 200 Sodium Chloride 0.9% 50 ml @ 100 mls/hr IVPB BID BRANDI Rx#:[id number] Lacosamide IV 50 mg In 50 Sodium Chloride 0.9% 50 ml @ 100 mls/hr IVPB ONCE ONE Rx#:[id number] Lactated Ringers 1,000 ml 150 @ 50 mls/hr IV .Q20H BRANDI Rx#:[id number] Magnesium Sulfate-D5w Pmx 400 1 gm In Dextrose/Water 1 100ml.bag @ 100 mls/hr IVPB Q1H BRANDI Rx#: [id number] Valproate Sodium 500 mg 50 100 In Sodium Chloride 0.9% 100 ml @ 100 mls/hr IVPB HS BRANDI Rx#:[id number] Tube Feeding 546 420 420 Other 30 30 Output: Urine 865 1005 1400 Other: Voiding Method Indwelling Catheter Indwelling Catheter Indwelling Catheter ABP, PAP, CO, CI - Last Documented Arterial Blood Pressure 139/77 - Labs CBC & Chem 7: 07/31/22 05:00 07/31/22 05:00 Labs: Abnormal Lab Results - Last 24 Hours (Table) 07/31/22 07/31/22 07/31/22 Range/Units 05:00 05:00 05:00 WBC 12.0 H (3.8-10.6) k/uL RBC 3.10 L (4.30-5.90) m/uL Hgb 9.9 L (13.0-17.5) gm/dL Hct 31.4 L (39.0-53.0) % MCV 101.4 H (80.0-100.0) fL RDW 15.7 H (11.5-15.5) % Neutrophils # 10.0 H (1.3-7.7) k/uL ABG pCO2 (35-45) mmHg ABG pO2 (83-108) mmHg ABG HCO3 (21-25) mmol/L ABG Total CO2 (19-24) mmol/L Carbon Dioxide 34 H (22-30) mmol/L Creatinine 0.20 L (0.66-1.25) mg/dL Glucose 138 H (74-99) mg/dL Magnesium 1.5 L (1.6-2.3) mg/dL Vitamin B12 1235.0 H (200.0-944.0) pg/mL Folate (4.40-31.00) ng/mL 07/31/22 07/31/22 Range/Units 05:00 05:34 WBC (3.8-10.6) k/uL RBC (4.30-5.90) m/uL Hgb (13.0-17.5) gm/dL Hct (39.0-53.0) % MCV (80.0-100.0) fL RDW (11.5-15.5) % Neutrophils # (1.3-7.7) k/uL ABG pCO2 51 H (35-45) mmHg ABG pO2 75 L (83-108) mmHg ABG HCO3 35 H (21-25) mmol/L ABG Total CO2 37 H (19-24) mmol/L Carbon Dioxide (22-30) mmol/L Creatinine (0.66-1.25) mg/dL Glucose (74-99) mg/dL Magnesium (1.6-2.3) mg/dL Vitamin B12 (200.0-944.0) pg/mL Folate 3.60 L (4.40-31.00) ng/mL Microbiology - Last 24 Hours (Table) 07/24/22 11:54 Blood Culture - Final Blood No Growth after 144 hours 07/29/22 10:50 Gram Stain - Final Sputum Sputum Culture - Final 07/24/22 11:48 Blood Culture - Final Blood No Growth after 144 hours Assessment and Plan Time with Patient: Greater than 30
[2022-07-31] MEDS: ACETAMINOPHEN TAB 325 MG TAB PO PRN (20:40)
[2022-07-31] MEDS ORDERED: VALPROATE SODIUM 750 MG in SODIUM CHLORIDE 0.9% 50 ML IVPB SCH (21:00)
[2022-07-31] MEDS ORDERED: LACOSAMIDE IV 200 MG in SODIUM CHLORIDE 0.9% 50 ML IVPB SCH (21:00)
[2022-08-01] MEDS: INSULIN ASPART (NovoLOG) 100 UNIT/ML VIAL SQ SCH (00:26)
--- NOTE | 2022-08-01 02:12 | CT ---
EXAMINATION TYPE: CT brain wo con DATE OF EXAM: 08/01/2022 COMPARISON: None HISTORY: SEIZURE CT DLP: 1319.8 mGycm Automated exposure control for dose reduction was used. Images of the brain obtained with no contrast. There is right posterior ventricular shunt catheter and the tip is in the left lateral ventricle. No hydrocephalus. There is 2.3 cm somewhat rounded area of increased density in the right temporal lobe consistent with acute parenchymal hemorrhage. . The calvarium is intact. There is a 4 cm area of hypodensity in the inferior left frontal lobe consistent with old encephaloma lacia. There is also evidence of edema right temporal parietal lobe adjacent to the hemorrhage. There is some minimal mass effect and the midline shifted slightly to the left side. IMPRESSION: There is evidence of acute parenchymal hemorrhage right temporal lobe with surrounding edema and mini mal mass effect. There is evidence of old encephalomalacia inferior left frontal lobe. No hydrocephalus. Findings were discussed with the nursing staff on the floor in the ICU at 2:10 AM.
[2022-08-01] MEDS: IPRATROPIUM-ALBUTEROL 3 ML NEB INHALATION SCH (03:11)
[2022-08-01 04:43] VITALS: TEMP 100.1
--- NOTE | 2022-08-01 04:48 | XR ---
EXAMINATION TYPE: XR chest 1V portable DATE OF EXAM: 08/01/2022 COMPARISON: 07/31/2022 HISTORY: Tube placement TECHNIQUE: Single view FINDINGS: There is nasogastric tube and the tip appears to be over the stomach. There is tracheostomy tube. There is significant scoliotic deformity. Bowel gas pattern appears nonacute. No sign of free air. IMPRESSION: NG tube is in the stomach. Significant elevated left diaphragm. Heart and lungs not signi ficantly different than yesterday.
[2022-08-01 05:29] VITALS: PULSE 131; RESP 33
[2022-08-01] MEDS ORDERED: FOLIC ACID 1 MG TAB PO SCH (09:00)
--- NOTE | 2022-08-02 19:53 | P.DS ---
Providers Date of admission: 07/20/22 21:28 Attending physician: Amparo ePndleton Consults: 07/20/22 21:28 Consult Physician Stat Consulting Provider: Neal De Jesus Consult Reason/Comments: ICU care, acute respiratory failure Do you want consulting provider notified?: Already Contacted 07/21/22 08:40 Consult Physician Urgent Consulting Provider: Phil Duran Consult Reason/Comments: needs help with marquez Do you want consulting provider notified?: Yes 07/21/22 11:45 Consult Physician Urgent Consulting Provider: Yeyo De Jesus Consult Reason/Comments: Seizure disorder Do you want consulting provider notified?: Yes 07/25/22 12:23 Consult Physician Stat Consulting Provider: Gerson Black Consult Reason/Comments: Trach and Peg Do you want consulting provider notified?: Yes 07/27/22 14:03 Consult Physician Routine Consulting Provider: Nathalia Hamilton Consult Reason/Comments: percut trach Do you want consulting provider notified?: Already Contacted 07/31/22 15:34 Consult Physician Routine Consulting Provider: Ayah Vee Consult Reason/Comments: fevers, completed zosyn course Do you want consulting provider notified?: Already Contacted Primary care physician: Johnny Newport Hospital Course: Final Diagnosis Acute parenchymal hemorrhage right temporal lobe with surrounding edema and minimal mass effect Left community acquired pneumonia with sepsis and septic shock present on admission Possible aspiration pneumonia Acute Hypoxemic respiratory failure secondary to above intubated on 07/20/22 with failed extubation, post operative day #4 tracheostomy placement. Maintained on mechanical ventilator. He is status post bronchoscopy 3 days ago. Leukocytosis Fever/tachycardia Altered mental status, mostly metabolic encephalopathy Breakthrough seizure Anemia macrocytic with folate deficiency Stage 2 right buttock/sacral decubitus ulcer History of spina bifida and L3 myelomeningocele History of hydrocephalus status post cranial peritoneal shunt History of seizure Arnold-Chiari malformation History of Recurrent UTI, with neurogenic bladder requiring strait catheterization Full Code Discharge Disposition Patient was recommended for transfer to tertiary care center and was transferred to [facility] at the request of neurology services for evaluation by neurosurgery. Patient continued to have breakthrough seizure and brain CT was done with findings of Acute parenchymal hemorrhage right temporal lobe with surrounding edema and minimal mass effect. Evidence of old encephalomalacia inferior left frontal lobe. No hydrocephalus. Patient was transferred chief radiologic technologist on 08/01/2022. No cytologically malignant cells found on bronchial washings. Evaluation limited due to cellular degeneration. Hospital Course This is a 32 year old male who has significant medical history of spina bifida, L3 myelomeningocele, hydrocephalus and BUSINESS B[employer]NA[employer] shunt, chiari malformation and seizure disorder. He is wheelchair bound at home brought in for breakthrough seizure l nelsy activity, patients mother also reports patient having sinus congestion and fever at home with temperature of 102. He was lethargic and become hypoxic with seizure at home. EMS was called and patient was intubated en route to the hospital. Initial work up reveals white count of 5.4, hgb 14.4, D-Dimer of 1.10, sodium 138, potassium 4.2, BUN 25, creatinine 0.58, lactic acid of 2.3, magnesium 1.5, troponin negative, proBNP of 211. COVID, influenza, RSV negative. ABGs on admission showing pH of 7.29, pCO2 of 68, pO2 of 118, HCO3 of 33. Chest xray on admission showing endotracheal tube in the right mainstem bronchus which was repositioned. Likely obstructive atelectasis left lung felt present. He had follow up xray showing endotracheal tube in good position with left upper and mid lung consolidation. Patient has significant scoliokyphosis which makes chest xray evaluation suboptimal. Patient was admitted to the intensive care unit and sedated and intubated on mechanial ventilator. Patient admitted for pneumonia and underwent bronchoscopy on 07/20/21 secondary to left lung collapse, aspiration with repositioning of endotracheal tube. He was evaluated by pulmonary material chaser and also neurology. Urology was consulted for placement of coude catheter. Blood culture on admission shows staphylococcus epidermidis which is likely contaminent species and repeat blood culture has been negative. EEG was performed on 07/20/22 which reveals presence of 2 epileptic foci involving the right temporal and right frontal region with sometimes generalized spikes or polyspike and waves also seen. There is recording of multiple focal seizures all of them originating in the right hemispheric region and 1 of them last about 26 seconds. background slowing suggestive of encephalopathy. 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 Patient has tendency for focal and gneralized seizures, subclinical partial status cannot be ruled out and patient recommended for continuous EEG monitoring. He had repeat EEG on 07/21/2022 which shows subclincal status as resolved. Moderate to severe encephalopathy as seen with toxic metabolic encephalopathy and sporadic right temporal and rare right frontal sharp waves, suggestive of focal neural dysfunction with underlying corticol irritability. No electrographic seizure seen in the entire study. Neurology has adjusted seizure medications. Patient has completed course of IV zosyn. He underwent tracheostomy placement on 07/28/22 secondary to failed extubation. He underwent bronchoscopy on 07/29/22 secondary to bronchospasm with repositioning of tracheostomy and removal of mucous plugging. Bronchial washings are showing ann albicans. Most recent chest xray showing left lung edema/ and or infiltrate. Malpositioned right subclavian central venous catheter tip noted. Xray is suboptimal secondary to patients anatomy. Patient continues with fever and heart rate remains elevated 120s sinus tachycardia. He is maintained on metoprolol 25 mg TID. Continues on IV vimpat, IV depakote and PO phenobarbital, neurology following closely. He is currently off sedation and not requiring pressor support. NG tube in place and patient is continued on enteral feedings with Vital AF 1.2 at goal of 42 ml/hr. He has stage 2 pressure injury on his right buttock, sacrum and wound care is following. Patient underwent sepsis work up secondary to ongoing fever and tachycardia, blood culture prelimanary negative, and urinalysis negative. Infectious disease was consulted. Neurology recommended brain CT secondary to breakthrough seizures and brain CT reveals Acute parenchymal hemorrhage right temporal lobe with surrounding edema and minimal mass effect. Evidence of old encephalomalacia inferior left frontal lobe. No hydrocephalus. Patient was recommended for emergent transfer to tertiary care center by neurology. Transfer was initiated and patient was transferred to [facility]. Patient was not evaluated by attending services on 08/01/2022 as patient was transferred chief radiologic technologist around 3-4 am. Thank you for allowing us to participate in the care of this patient. The impression and plan of care has been dictated by Kiki White Nurse Practitioner as directed. Dr. Orly MD I have performed a history and physical examination and medical decision making of this patient, discussed the same with the dictator, and agree with the dictators assessment and plan as written, documented as a scribe. Based on total visit time, I have performed more than 50% of this visit. Patient Condition at Discharge: Critical Plan - Discharge Summary Discharge Rx Participant: No New Discharge Prescriptions: No Action Lacosamide [Vimpat Oral Soln] 200 mg PO BID@0700,1900 PHENobarbitaL [Luminal] 40.5 mg PO BID@0700,1900 Nitrofurantoin Macrocrystal [Macrodantin] 50 mg PO HS@1900 Divalproex Sprinkle [Depakote Sprinkle] 500 mg PO DAILY Divalproex Sprinkle [Depakote Sprinkle] 250 mg PO HS Cholecalciferol [Vitamin D3 (25 Mcg = 1000 Iu)] 50 mcg PO DAILY@0700 Valtoco 5mg/0.1ml Nasal 1 spr NASAL ONCE PRN PRN Reason: Seizures Discharge Medication List Cholecalciferol [Vitamin D3 (25 Mcg = 1000 Iu)] 50 mcg PO DAILY@0700 07/20/22 [History] Divalproex Sprinkle [Depakote Sprinkle] 250 mg PO HS 07/20/22 [History] Divalproex Sprinkle [Depakote Sprinkle] 500 mg PO DAILY 07/20/22 [History] Lacosamide [Vimpat Oral Soln] 200 mg PO BID@0700,1900 07/20/22 [History] Nitrofurantoin Macrocrystal [Macrodantin] 50 mg PO HS@1900 07/20/22 [History] PHENobarbitaL [Luminal] 40.5 mg PO BID@0700,1900 07/20/22 [History] Valtoco 5mg/0.1ml Nasal 1 spr NASAL ONCE PRN 07/20/22 [History] Follow up Appointment(s)/Referral(s): Johnny Mcfarland MD [Primary Care Provider] - 1-2 days [facility] [NON-STAFF] - As Needed Patient Instructions/Handouts: Seizure/Epilepsy Discharge Instructions & Follow-Up Discharge Disposition: OTHER INSTITUTION NOT DEFINED
--- NOTE | 2022-08-10 13:53 | P.PN ---
Subjective Progress Note Date: 07/31/22 Patient was seen for a follow-up. Patient was initially seen by myself on 07/21/2022, and 07/22/2022. Subsequently patient was seen by Dr. Antony last Sunday on 07/23/[address] Yeyo De Jesus the following week. Please refer to their notes for any interim changes. As per sign out from Dr. De Jesus, patient has more breakthrough seizures since he had undergone tracheostomy on 07/28/2022. Dr. De Jesus increased dose of Vimpat from 200 mg twice a day up to 250 mg twice a day. He also increased night dose of Depakote from 250 mg at bedtime to 500 mg at bedtime. He has ordered free Depakote level. Patient is pending PEG placement. Patient was seen today 07/31/2022 for a follow-up. Patient's mother was present. She mentioned that patient had 3 seizures on 07/29/2022 at 7 AM, 8:46 AM and then 6:33 PM. He had 1 seizure on Sunday at 8:17 PM. Today on Sunday he had 2 seizures at 10:54 AM and then 2:30 PM. Each of them lasted for about 2 minutes. She states that his temperature has been up and down. Despite increased frequency of seizures, she believes that neurologically he is baseline. Patient's mother is concerned about the status of the shunt. She describes his seizures as sudden jolt, head bends forward and right arm stiffens up in air, lasting for about 30 seconds. His baseline seizure frequency was about 3 times a week but now he had 3 times a day. He is already on multiple antiepileptic medication. He is on Zosyn and Rocephin for fever. Patient had undergone tracheostomy on Sunday. Patient is having seizures, in which she becomes unresponsive, right arm stiffens up and moves it upward. Also had some fever. Most recent labs include WBC 12.0 hemoglobin 9.9 with elevated MCV 101.4, platelets 338. Chem-7 is normal. UA negative. Chest x-ray revealed left lung edema and/or infiltrate redemonstrated. Malpositioned right subclavian central venous catheter tip noted. Objective - Vital Signs Vital signs: Vital Signs Temp 98.5 F 07/31/22 16:00 Pulse 124 H 07/31/22 16:00 Resp 22 07/31/22 16:00 BP 136/94 07/31/22 10:00 Pulse Ox 93 L 07/31/22 16:00 FiO2 40 07/31/22 16:00 Intake & Output 07/30/22 07/31/22 07/31/22 18:59 06:59 18:59 Intake Total 847.524 139 7912 Output Total 865 1005 1400 Balance -17.693 -235 49 Weight 40.2 kg Intake: IV 260 220 179 0.9 NS 130 110 109 Sodium Chloride 0.45% 1, 130 110 70 000 ml @ 20 mls/hr IV . Q24H BRANDI Rx#:[id number] Intake, IV Titration 11.307 100 850 Amount Dexmedetomidine/0.9% NaCl 11.307 (Pmx) 400 mcg In Empty Bag 1 bag @ 0.2 MCG/KG/HR 1.995 mls/hr IV .Q24H BRANDI Rx#:[id number] Lacosamide IV 250 mg In 200 Sodium Chloride 0.9% 50 ml @ 100 mls/hr IVPB BID BRANDI Rx#:[id number] Lacosamide IV 50 mg In 50 Sodium Chloride 0.9% 50 ml @ 100 mls/hr IVPB ONCE ONE Rx#:[id number] Lactated Ringers 1,000 ml 150 @ 50 mls/hr IV .Q20H BRANDI Rx#:[id number] Magnesium Sulfate-D5w Pmx 400 1 gm In Dextrose/Water 1 100ml.bag @ 100 mls/hr IVPB Q1H BRANDI Rx#: [id number] Valproate Sodium 500 mg 50 100 In Sodium Chloride 0.9% 100 ml @ 100 mls/hr IVPB HS BRANDI Rx#:[id number] Tube Feeding 546 420 420 Other 30 30 Output: Urine 865 1005 1400 Other: Voiding Method Indwelling Catheter Indwelling Catheter Indwelling Catheter ABP, PAP, CO, CI - Last Documented Arterial Blood Pressure 139/77 - Exam Patient intubated via tracheostomy. He is on a ventilator. Patient is quite alert and awake. His head is preference to the left. Patient has nystagmus looking to the right. His left eye is deviated downwards and to the right. His left eye is up and laterally. - Labs CBC & Chem 7: 07/31/22 05:00 07/31/22 05:00 Labs: Abnormal Lab Results - Last 24 Hours (Table) 07/31/22 07/31/22 07/31/22 Range/Units 05:00 05:00 05:00 WBC 12.0 H (3.8-10.6) k/uL RBC 3.10 L (4.30-5.90) m/uL Hgb 9.9 L (13.0-17.5) gm/dL Hct 31.4 L (39.0-53.0) % MCV 101.4 H (80.0-100.0) fL RDW 15.7 H (11.5-15.5) % Neutrophils # 10.0 H (1.3-7.7) k/uL ABG pCO2 (35-45) mmHg ABG pO2 (83-108) mmHg ABG HCO3 (21-25) mmol/L ABG Total CO2 (19-24) mmol/L Carbon Dioxide 34 H (22-30) mmol/L Creatinine 0.20 L (0.66-1.25) mg/dL Glucose 138 H (74-99) mg/dL Magnesium 1.5 L (1.6-2.3) mg/dL Vitamin B12 1235.0 H (200.0-944.0) pg/mL Folate (4.40-31.00) ng/mL 07/31/22 07/31/22 Range/Units 05:00 05:34 WBC (3.8-10.6) k/uL RBC (4.30-5.90) m/uL Hgb (13.0-17.5) gm/dL Hct (39.0-53.0) % MCV (80.0-100.0) fL RDW (11.5-15.5) % Neutrophils # (1.3-7.7) k/uL ABG pCO2 51 H (35-45) mmHg ABG pO2 75 L (83-108) mmHg ABG HCO3 35 H (21-25) mmol/L ABG Total CO2 37 H (19-24) mmol/L Carbon Dioxide (22-30) mmol/L Creatinine (0.66-1.25) mg/dL Glucose (74-99) mg/dL Magnesium (1.6-2.3) mg/dL Vitamin B12 (200.0-944.0) pg/mL Folate 3.60 L (4.40-31.00) ng/mL Microbiology - Last 24 Hours (Table) 07/24/22 11:54 Blood Culture - Final Blood No Growth after 144 hours 07/29/22 10:50 Gram Stain - Final Sputum Sputum Culture - Final 07/24/22 11:48 Blood Culture - Final Blood No Growth after 144 hours Assessment and Plan Assessment: * Altered mental status, likely due to toxic metabolic encephalopathy. Status post subclinical status, now resolved. * Recently increased frequency of seizures since past weekend on 07/29/2022, unclear cause, rule out structural abnormality, like worsening hydrocephalus o r mass lesion. * History of Arnold-Chiari malformation with myelomeningocele L3 level, hydrocephalus and syringomyelia, status post multiple VPS and shunting for syrinx. * Medically intractable seizure disorder, came with a typical seizure. * Status post tracheostomy 07/28/2022 * Aspiration pneumonia, chest x-ray showing left lung edema and/or infiltrate * Lactic acidosis, likely due to sepsis versus seizure. * Patient with history of grand mal seizures, absence seizures and tonic-clonic seizures. * Severe kyphoscoliosis * Wheelchair-bound Plan: * Patient has developed increased seizure frequency of unclear etiology. I discussed with patient's mother in detail. His baseline seizure frequency is about 3 times a week and now it is occurring 2-3 times a day. We will check CT head to evaluate for any structural abnormality, rule out worsening hydrocephalus, or mass lesion. * Repeat EEG 07/22/2022 preliminary report showed background slowing of moderate to severe degree, consistent with encephalopathy. No evidence of partial status. No electrographic seizure recorded. Still presence of epileptogenic focus involving the right temporal and also the right frontal region. No generalization. * Initial EEG 07/21/2022 showed presence of 2 epileptic foci involving the right temporal and right frontal region and sometimes generalized spike or polyspike and wave were also seen. There is recording of multiple focal seizures, all of them originating in the right hemispheric region and one of them later generalized for about 26 seconds. No motor activity was observed on the review of the video section of the study. Background slowing of at least moderate degree suggestive of encephalopathy. Subclinical partial status cannot be ruled out. Clinical correlation is recommended. * Recommend decreasing dose of Vimpat back to 200 mg twice a day, as higher dose of Vimpat has not helped and patient being petite would avoid increasing dose beyond 200 mg twice a day. Patient will be continued on same dose of phenobarbital. We will give a bolus dose of Depacon 750 mg IV 1 dose. We will consider increasing dose of Depakote to 500 mg twice a day. * Depakote level 53.8 (50-100), and phenobarbital level 22.4 (15-40). Both levels are therapeutic. * We will follow after CT head is completed. Discussed with patient's mother in detail.
== END 2022-08-01 06:41 | disposition home or self-care (01) | DRG 4 ==
LOC: EC 16:43 → 2SICU 21:28
PROVIDERS: ADMIT Internal Medicine; ATTEND Internal Medicine
PROC: 0BH17EZ Insertion of Endotracheal Airway into Trachea, Via Natural or Artificial Opening (ICD-10-PCS; 2022-07-20)
PROC: 5A1955Z Respiratory Ventilation, Greater than 96 Consecutive Hours (ICD-10-PCS; 2022-07-20)
PROC: 3E0G76Z Introduction of Nutritional Substance into Upper GI, Via Natural or Artificial Opening (ICD-10-PCS; 2022-07-21)
PROC: 0DH67UZ Insertion of Feeding Device into Stomach, Via Natural or Artificial Opening (ICD-10-PCS; 2022-07-21)
PROC: 06HM33Z Insertion of Infusion Device into Right Femoral Vein, Percutaneous Approach (ICD-10-PCS; 2022-07-21)
PROC: 4A133J1 Monitoring of Arterial Pulse, Peripheral, Percutaneous Approach (ICD-10-PCS; 2022-07-21)
PROC: 4A133B1 Monitoring of Arterial Pressure, Peripheral, Percutaneous Approach (ICD-10-PCS; 2022-07-21)
PROC: 03HY32Z Insertion of Monitoring Device into Upper Artery, Percutaneous Approach (ICD-10-PCS; 2022-07-21)
PROC: 3E043XZ Introduction of Vasopressor into Central Vein, Percutaneous Approach (ICD-10-PCS; 2022-07-25)
PROC: 0B9M8ZZ Drainage of Bilateral Lungs, Via Natural or Artificial Opening Endoscopic (ICD-10-PCS; 2022-07-25)
PROC: 0BJ08ZZ Inspection of Tracheobronchial Tree, Via Natural or Artificial Opening Endoscopic (ICD-10-PCS; 2022-07-25)
PROC: 0BH17EZ Insertion of Endotracheal Airway into Trachea, Via Natural or Artificial Opening (ICD-10-PCS; 2022-07-25)
PROC: 0BJ08ZZ Inspection of Tracheobronchial Tree, Via Natural or Artificial Opening Endoscopic (ICD-10-PCS; principal; 2022-07-28 10:20)
PROC: 0B113F4 Bypass Trachea to Cutaneous with Tracheostomy Device, Percutaneous Approach (ICD-10-PCS; principal; 2022-07-28 10:20)
PROC: 0BW18FZ Revision of Tracheostomy Device in Trachea, Via Natural or Artificial Opening Endoscopic (ICD-10-PCS; 2022-07-29)
PROC: 0B9M8ZZ Drainage of Bilateral Lungs, Via Natural or Artificial Opening Endoscopic (ICD-10-PCS; 2022-07-29)
DX: A41.9 Sepsis, unspecified organism (principal); J69.0 Pneumonitis due to inhalation of food and vomit; R65.21 Severe sepsis with septic shock; G93.41 Metabolic encephalopathy; J96.01 Acute respiratory failure with hypoxia; I61.9 Nontraumatic intracerebral hemorrhage, unspecified; G93.6 Cerebral edema; G40.804 Other epilepsy, intractable, without status epilepticus; J98.11 Atelectasis; T17.890A Other foreign object in other parts of respiratory tract causing asphyxiation, initial encounter; Q07.03 Arnold-Chiari syndrome with spina bifida and hydrocephalus; D53.9 Nutritional anemia, unspecified; E53.8 Deficiency of other specified B group vitamins; E83.42 Hypomagnesemia; E86.0 Dehydration; J98.01 Acute bronchospasm; L89.152 Pressure ulcer of sacral region, stage 2; L89.221 Pressure ulcer of left hip, stage 1; L89.312 Pressure ulcer of right buttock, stage 2; L89.622 Pressure ulcer of left heel, stage 2; M41.9 Scoliosis, unspecified; Z43.0 Encounter for attention to tracheostomy; N31.9 Neuromuscular dysfunction of bladder, unspecified; R33.8 Other retention of urine; Z20.822 Contact with and (suspected) exposure to COVID-19; Z79.899 Other long term (current) drug therapy; Z87.440 Personal history of urinary (tract) infections; Z98.2 Presence of cerebrospinal fluid drainage device; Z99.3 Dependence on wheelchair; K59.00 Constipation, unspecified; Z88.2 Allergy status to sulfonamides; Z88.8 Allergy status to other drugs, medicaments and biological substances; Z91.041 Radiographic dye allergy status; Z91.040 Latex allergy status; Z28.310 Unvaccinated for COVID-19; Z71.3 Dietary counseling and surveillance
CPT/HCPCS: 31500; 31624; 31625; 31645; 36415; 36600; 70450; 71045; 80048; 80053; 80164; 80165; 80184; 80186; 80235; 81003; 82607; 82746; 82805; 83036; 83605; 83735; 83880; 84132; 84145; 84484; 85025; 85027; 85379; 85610; 85730; 87040; 87070; 87102; 87116; 87205; 87206; 87252; 87496; 87498; 87502; 87529; 87634; 87635; 87636; 87798; 88108; 88305; 93005; 94002; 94003; 94640; 95822; 96361; 96365; 96367; 99291

== ENCOUNTER 2022-11-01 18:25 | Emergency (ER) | payer OTHER ==
--- NOTE | 2022-11-01 18:58 | ED ---
Male Urogenital HPI - General Stated complaint: no urine output Time Seen by Provider: 11/01/22 18:56 Source: RN notes reviewed - History of Present Illness Initial comments: Patient is a 32-year-old male who presents to the emergency department for Mcclain catheter problem. Patient did not urine output from the Mcclain since this a fternoon however during triage evaluation urine appeared to be flowing into bag. Family states patient has had fever today of 100.9F. No nausea or vomiting. Patient does have history of urinary tract infection. No abdominal pain. - Related Data Home Medications Medication Instructions Recorded Confirmed Cholecalciferol [Vitamin D3 (25 50 mcg PO DAILY@0700 07/20/22 07/21/22 Mcg = 1000 Iu)] Divalproex Sprinkle [Depakote 250 mg PO HS 07/20/22 07/21/22 Sprinkle] Divalproex Sprinkle [Depakote 500 mg PO DAILY 07/20/22 07/21/22 Sprinkle] Lacosamide [Vimpat Oral Soln] 200 mg PO BID@0700,1900 07/20/22 07/21/22 Nitrofurantoin Macrocrystal 50 mg PO HS@1900 07/20/22 07/21/22 [Macrodantin] PHENobarbitaL [Luminal] 40.5 mg PO BID@0700,1900 07/20/22 07/21/22 Valtoco 5mg/0.1ml Nasal 1 spr NASAL ONCE PRN 07/20/22 07/21/22 Allergies Allergy/AdvReac Type Severity Reaction Status Date / Time carbamazepine [From Tegretol] Allergy Severe Anaphylaxis Verified 07/21/22 08:47 immune globulin,gamma (IgG) Allergy Severe Anaphylaxis Verified 07/21/22 08:47 human Iodinated Contrast Media Allergy Severe Rash/Hives Verified 07/21/22 08:47 Latex, Natural Rubber Allergy Severe Anaphylaxis Verified 07/21/22 08:47 phenytoin [From Dilantin] Allergy Severe Anaphylaxis Verified 07/21/22 08:47 septra Allergy Severe Anaphylaxis Uncoded 07/20/22 16:59 Review of Systems ROS Statement: Those systems with pertinent positive or pertinent negative responses have been documented in the HPI. ROS Other: All systems not noted in ROS Statement are negative. 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 Head: Normocephalic, atraumatic Eyes: PERRLA, EOMI ENT: Airway patent Chest: Nonlabored breathing Skin: No visual rash, normal skin tone Neuro: Alert and oriented 3 Musculoskeletal: No gross abnormalities Course Vital Signs 11/01/22 11/01/22 18:54 21:19 Temperature 98.2 F 98.0 F Pulse Rate 102 H 90 Respiratory 20 20 Rate Blood Pressure 90/46 100/50 O2 Sat by Pulse 95 98 Oximetry Medical Decision Making - Lab Data Result diagrams: 11/01/22 20:05 11/01/22 20:05 Lab Results 11/01/22 11/01/22 11/01/22 Range/Units 20:05 20:05 20:08 WBC 7.1 (3.8-10.6) k/uL RBC 4.31 (4.30-5.90) m/uL Hgb 11.3 L (13.0-17.5) gm/dL Hct 36.8 L (39.0-53.0) % MCV 85.3 (80.0-100.0) fL MCH 26.2 (25.0-35.0) pg MCHC 30.7 L (31.0-37.0) g/dL RDW 17.4 H (11.5-15.5) % Plt Count 312 (150-450) k/uL MPV 7.1 Neutrophils % 70 % Lymphocytes % 18 % Monocytes % 6 % Eosinophils % 4 % Basophils % 0 % Neutrophils # 5.0 (1.3-7.7) k/uL Lymphocytes # 1.3 (1.0-4.8) k/uL Monocytes # 0.5 (0-1.0) k/uL Eosinophils # 0.3 (0-0.7) k/uL Basophils # 0.0 (0-0.2) k/uL Hypochromasia Moderate Anisocytosis Slight Sodium 137 (137-145) mmol/L Potassium 3.8 (3.5-5.1) mmol/L Chloride 100 (98-107) mmol/L Carbon Dioxide 30 (22-30) mmol/L Anion Gap 7 mmol/L BUN 10 (9-20) mg/dL Creatinine 0.30 L (0.66-1.25) mg/dL Est GFR (CKD-EPI)AfAm >90 (>60 ml/min/1.73 sqM) Est GFR (CKD-EPI)NonAf >90 (>60 ml/min/1.73 sqM) Glucose 120 H (74-99) mg/dL Calcium 8.6 (8.4-10.2) mg/dL Total Bilirubin 0.2 (0.2-1.3) mg/dL AST 14 L (17-59) U/L ALT 16 (4-49) U/L Alkaline Phosphatase 143 H (38-126) U/L Total Protein 6.4 (6.3-8.2) g/dL Albumin 3.1 L (3.5-5.0) g/dL Urine Color Colorless Urine Appearance Clear (Clear) Urine pH 5.0 (5.0-8.0) Ur Specific [place] 1.000 L (1.001-1.035) Urine Protein Negative (Negative) Urine Glucose (UA) Negative (Negative) Urine Ketones Negative (Negative) Urine Blood Negative (Negative) Urine Nitrite Positive (Negative) Urine Bilirubin Negative (Negative) Urine Urobilinogen <2.0 (<2.0) mg/dL Ur Leukocyte Esterase Negative (Negative) Disposition Clinical Impression: Mcclain catheter problem Disposition: Left Against Medical Advice Condition: Undetermined Referrals: Johnny Mcfarland MD [Primary Care Provider] - 1-2 days
[2022-11-01 19:03] VITALS: RESP 20
[2022-11-01 20:22] LABS: Anisocytosis Slight; Basophils % (A) 0 %; Eosinophils # (A) 0.3 k/uL (0-0.7); Eosinophils % (A) 4 %; HCT 36.8 % (39.0-53.0); HGB 11.3 gm/dL (13.0-17.5); Hypochromasia Moderate; Lymphocytes # (A) 1.3 k/uL (1.0-4.8); Lymphocytes % (A) 18 %; MCH 26.2 pg (25.0-35.0); MCHC 30.7 g/dL (31.0-37.0); MCV 85.3 fL (80.0-100.0); Mean Platelet Volume 7.1; Monocytes # (A) 0.5 k/uL (0-1.0); Monocytes % (A) 6 %; Neutrophils % (A) 70 %; Platelet Count 312 k/uL (150-450); RBC 4.31 m/uL (4.30-5.90); RDW 17.4 % (11.5-15.5); WBC 7.1 k/uL (3.8-10.6)
[2022-11-01 20:38] LABS: ALT 16 U/L (4-49); AST 14 U/L (17-59); African American GFR (CKD) >90 (>60 ml/min/1.73 sqM); Albumin 3.1 g/dL (3.5-5.0); Alkaline Phosphatase 143 U/L (38-126); Anion Gap 7 mmol/L; Blood Urea Nitrogen 10 mg/dL (9-20); Calcium 8.6 mg/dL (8.4-10.2); Carbon Dioxide 30 mmol/L (22-30); Chloride 100 mmol/L (98-107); Glucose 120 mg/dL (74-99); Non-African American GFR(CKD) >90 (>60 ml/min/1.73 sqM); Potassium 3.8 mmol/L (3.5-5.1); Sodium 137 mmol/L (137-145); Total Bilirubin 0.2 mg/dL (0.2-1.3); Total Protein 6.4 g/dL (6.3-8.2)
[2022-11-01 20:57] LABS: Appearance,Urine Clear (Clear); Bilirubin,Urine Negative (Negative); Blood,Urine Negative (Negative); Color,Urine Colorless; Glucose,Urine (UA) Negative (Negative); Ketones,Urine Negative (Negative); Leukocyte Esterase,Urine Negative (Negative); Nitrite,Urine Positive (Negative); Protein,Urine Negative (Negative); Urobilinogen,Urine <2.0 mg/dL (<2.0)
[2022-11-01 21:20] VITALS: BP 100/50; PULSE 90; TEMP 98
== END 2022-11-01 21:18 | disposition left against medical advice (07) ==
LOC: EC 18:25
DX: T83.091A Other mechanical complication of indwelling urethral catheter, initial encounter (principal); Z53.29 Procedure and treatment not carried out because of patient's decision for other reasons; Z88.2 Allergy status to sulfonamides; Z91.040 Latex allergy status; Z88.8 Allergy status to other drugs, medicaments and biological substances; Z91.041 Radiographic dye allergy status; Z88.7 Allergy status to serum and vaccine
CPT/HCPCS: 36415; 80053; 81001; 85025; 99283

== ENCOUNTER → 2022-11-23 | Outpatient (CLI) | payer OTHER ==
[2022-11-23 13:11] LABS: African American GFR (CKD) >90 (>60 ml/min/1.73 sqM); Anion Gap 8 mmol/L; Blood Urea Nitrogen 12 mg/dL (9-20); Calcium 8.7 mg/dL (8.4-10.2); Carbon Dioxide 27 mmol/L (22-30); Chloride 101 mmol/L (98-107); Glucose 93 mg/dL (74-99); Non-African American GFR(CKD) >90 (>60 ml/min/1.73 sqM); Sodium 136 mmol/L (137-145)
[2022-11-23 13:21] LABS: Potassium 4.7 mmol/L (3.5-5.1)
[2022-11-23 13:41] LABS: Anisocytosis Slight; Basophils % (A) 0 %; Eosinophils # (A) 0.4 k/uL (0-0.7); Eosinophils % (A) 7 %; Hypochromasia Moderate; Lymphocytes # (A) 1.2 k/uL (1.0-4.8); Lymphocytes % (A) 23 %; MCH 25.6 pg (25.0-35.0); MCHC 30.6 g/dL (31.0-37.0); MCV 83.9 fL (80.0-100.0); Mean Platelet Volume 7.8; Monocytes # (A) 0.3 k/uL (0-1.0); Monocytes % (A) 7 %; Neutrophils # (A) 3.3 k/uL (1.3-7.7); Neutrophils % (A) 62 %; Platelet Count 295 k/uL (150-450); RBC 4.29 m/uL (4.30-5.90); RDW 18.8 % (11.5-15.5); WBC 5.3 k/uL (3.8-10.6)
== END | disposition home or self-care (01) ==
LOC: LABPAT 11:11
PROVIDERS: ATTEND Urology
DX: Z01.812 Encounter for preprocedural laboratory examination (principal); N36.5 Urethral false passage; R33.9 Retention of urine, unspecified; R31.29 Other microscopic hematuria
CPT/HCPCS: 80048; 85025; 87086

== ENCOUNTER 2022-11-30 10:38 | Day surgery (SDC) | payer OTHER ==
[2022-11-24 17:27] VITALS: BMI 19.0
--- NOTE | 2022-11-27 08:59 | P.GSHP ---
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 His mother catheterizes him 4-5 times daily. However, he recently was hospitalized for a prolonged time and underwent traumatic Mcclain c atheter placement. 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 For this reason, he currently has an indwelling Mcclain catheter. 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, spina bifida, seizures, chiari malformation with shunt between C4 and C6, kyphoscoliosis, wheelchair bound-2 pressure ulcers on the right buttock, cuffless trach in place, continuous oxygen at 5L, brain bleed History of Any Multi-Drug Resistant Organisms: CRE, Other MDRO Date of last positivie culture/infection: 02/07/21 MDRO Source:: URINE Past Surgical History: Ventriculoperitoneal Shunt Additional Past Surgical History / Comment(s): tracheostomy Additional Past Anesthesia/Blood Transfusion Reaction / Comment(s): Hx of receiving anesthesia and did not wake up for 6 days Past Psychological History: No Psychological Hx Reported Smoking Status: Never smoker Past Alcohol Use History: None Reported Past Drug Use History: None Reported Medications and Allergies Home Medications Medication Instructions Recorded Confirmed Type Lacosamide [Vimpat Oral Soln] 200 mg PO BID 07/20/22 11/24/22 History Nitrofurantoin Macrocrystal 50 mg PO HS 07/20/22 11/24/22 History [Macrodantin] PHENobarbitaL [Luminal] 32.4 mg PO BID 07/20/22 11/24/22 History Docusate Sodium [Dok] 100 mg PO DAILY 11/24/22 11/24/22 History Famotidine 20 mg PO BID 11/24/22 11/24/22 History Iron Drops 1 drop PO DAILY 11/24/22 11/24/22 History Midazolam [Nayzilam] 1 spray NASAL DIRECTED PRN 11/24/22 11/24/22 History Sennosides/Docusate Sodium [Senna 1 each PO HS 11/24/22 11/24/22 History Plus 8.6-50 mg Tablet] cloBAZam [Sympazan] 5 mg PO BID 11/24/22 11/24/22 History Allergies Allergy/AdvReac Type Severity Reaction Status Date / Time carbamazepine [From Tegretol] Allergy Severe Anaphylaxis Verified 07/21/22 08:47 immune globulin,gamma (IgG) Allergy Severe Anaphylaxis Verified 07/21/22 08:47 human Iodinated Contrast Media Allergy Severe Rash/Hives Verified 07/21/22 08:47 Latex, Natural Rubber Allergy Severe Anaphylaxis Verified 07/21/22 08:47 phenytoin [From Dilantin] Allergy Severe Anaphylaxis Verified 07/21/22 08:47 septra Allergy Severe Anaphylaxis Uncoded 07/20/22 16:59 IMMUNIZATIONS Allergy Anaphylaxis Uncoded 11/24/22 17:08 Surgical - Exam - General well developed, well nourished, no distress - Respiratory normal respiratory effort - Abdomen Abdomen: soft, non tender, no masses - Genitourinary normal penis with no external lesions, testicles non-tender - Musculoskeletal Significant contractures of the extremities are noted. - Psychiatric oriented to time, oriented to person, oriented to place, speech is normal, memory intact Assessment and Plan (1) Urethral false passage Status: Acute Code(s): N36.5 - URETHRAL FALSE PASSAGE SNOMED Code(s): 19035428 (2) Neurogenic bladder Status: Acute Code(s): N31.9 - NEUROMUSCULAR DYSFUNCTION OF BLADDER, UNSPECIFIED SNOMED Code(s): 317843905 Plan: Cystoscopy, transurethral incision of prostate. The goal is to incise the vesical neck down to the false passage so that there will no longer be a pocket for the catheter to preferentially go into, thus allowing the catheter to pass easily into the bladder. Risks include anesthesia, bleeding, and infection. Dr. Nelson will be on standby in the event there are any problems pertaining to intubation or respiratory status.
[2022-11-30] MEDS ORDERED: LACTATED RINGERS 1,000 ML IV SCH (10:47)
[2022-11-30] MEDS ORDERED: DEXAMETHASONE SOD PHOSPHATE 4 MG/ML 1 ML VIAL IV ONE (10:47)
[2022-11-30] MEDS ORDERED: ONDANSETRON 4 MG/2 ML VIAL IVP ONE (10:47)
[2022-11-30] MEDS ORDERED: HYDROmorphone 0.5 MG/0.5 ML SYRINGE IVP PRN (10:47)
--- NOTE | 2022-11-30 13:07 | XR ---
EXAMINATION TYPE: XR chest 1V portable DATE OF EXAM: 11/30/2022 COMPARISON: 08/01/2022 HISTORY: Chest pain TECHNIQUE: Single frontal view of the chest is obtained. FINDINGS: Tracheostomy tube appears to be in place. Examination is significantly limited given severe scoliotic curvature and chest deformity. There also appears to be a central venous line. Diffuse opacity overl bertrand the right lung field may reflect overlying soft tissue. IMPRESSION: 1. Limited examination. Tracheostomy exchange which appears appropriately placed.
[2022-11-30] MEDS ORDERED: MIDAZOLAM 2 MG/2 ML VIAL ONE (13:31)
[2022-11-30] MEDS ORDERED: fentaNYL (PF) 50 MCG/ML 2 ML AMP ONE (13:31)
[2022-11-30] MEDS ORDERED: PROPOFOL 10 MG/ML 20 ML VIAL IV ONE (13:31)
[2022-11-30] MEDS ORDERED: KETAMINE 10 MG/ML 20 ML VIAL ONE (13:31)
[2022-11-30] MEDS ORDERED: SODIUM CHLORIDE 0.9% 50 ML with GENTAMICIN 80 MG IV ONE ×2 (13:50)
[2022-11-30 14:31] VITALS: TEMP 97.2
--- NOTE | 2022-11-30 15:26 | P.OP ---
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 His mother catheterizes him 4-5 times daily. However, he recently was hospitalized for a prolonged time and underwent traumatic Mcclain catheter placement. 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 For this reason, he currently has an indwelling Mcclain catheter. Operative Findings: Urethral false passage within the left posterior prostatic urethra. Description of Procedure: The patient was taken in the operating room and placed in the dorsolithotomy position. Dr. Nelson attempted to place an oral endotracheal tube, but this could not be done due to tracheal stenosis. Therefore, the patient was given general anesthesia through his tracheostomy tube. The external genitalia was prepped and draped sterilely. The Santi urethrotome was used to incise the urethra to 26-Liberian. The 25-Liberian Stortz resectoscope sheath was introduced into the bladder under direct vision. The prostate was not enlarged, but a false passage was seen within the left posterior prostatic urethra, and it was necessary to angle the beak of the resectoscope anteriorly to into the bladder. The bladder was inspected. Both ureteral orifices were of normal anatomic location and configuration, and clear urine effluxed from both. No tumors or foreign bodies were seen. Using the Arnold knife, the posterior vesicle neck was incised to the left of the midline, cutting down to the false passage. This removed the "lip" at the vesicle neck which prevented a catheter from entering the bladder. Any areas of bleeding were controlled with electrocautery. The resectoscope was removed. An 18-Liberian Mcclain catheter was placed without difficulty. The return was clear. The catheter was connected to gravity drainage. The patient tolerated the procedure well was taken to the recovery room in stable condition.
--- NOTE | 2022-11-30 15:30 | XR ---
EXAMINATION TYPE: XR chest 1V portable DATE OF EXAM: 11/30/2022 COMPARISON: From earlier in the day. HISTORY: S/P trach insertion OR TECHNIQUE: Single frontal view of the chest is obtained. FINDINGS: Tracheostomy tube is visualized however location is difficult to ascertain given the marked chest def ormity. There is aeration of both lungs at this time. Again marked scoliosis with significant chest w all deformity redemonstrated. IMPRESSION: 1. As above
[2022-11-30 16:59] VITALS: BP 140/85; PULSE 109; RESP 18
== END 2022-11-30 16:41 | disposition home or self-care (01) ==
LOC: OR 10:38
PROVIDERS: ATTEND Urology
DX: N36.5 Urethral false passage (principal); N31.9 Neuromuscular dysfunction of bladder, unspecified; G40.909 Epilepsy, unspecified, not intractable, without status epilepticus; J18.9 Pneumonia, unspecified organism; Q05.9 Spina bifida, unspecified; M41.9 Scoliosis, unspecified; Z99.3 Dependence on wheelchair; Z99.81 Dependence on supplemental oxygen; Z98.2 Presence of cerebrospinal fluid drainage device; Z93.0 Tracheostomy status; Z86.73 Personal history of transient ischemic attack (TIA), and cerebral infarction without residual deficits; Z79.899 Other long term (current) drug therapy; Z91.040 Latex allergy status; Z91.041 Radiographic dye allergy status; Z88.8 Allergy status to other drugs, medicaments and biological substances; Z88.7 Allergy status to serum and vaccine; Z88.2 Allergy status to sulfonamides
CPT/HCPCS: 71045; 31615; 52450; J2250; J1580; J1100; J0690; J2405; J3010; J2704

== ENCOUNTER → 2023-01-31 | Outpatient (CLI) | payer OTHER ==
--- NOTE | 2023-01-31 15:29 | CT ---
EXAMINATION TYPE: CT brain wo con DATE OF EXAM: 01/31/2023 COMPARISON: 08/01/1999 and HISTORY: f/u hemorrhage CT DLP: 2335.4 mGycm. Automated Exposure Control for Dose Reduction was Utilized. TECHNIQUE: CT scan of the head is performed without contrast. FINDINGS: There is no acute intracranial hemorrhage, mass effect, or midline shift identified. Inte rval resolution of right-sided intracranial hemorrhage. Areas of encephalomalacia involving the right temporal, parietal, and left frontal lobes low attenuation in the white matter greater on the right is compatible with remote ischemia. There is postsurgical change involving the calvarium with the MEDICAL RECEPTION shunt catheter. Tip of the catheter appears to extend outside the ventricular system and correlated i s stable relative to prior exam. Correlate for corpus callosal agenesis. The cerebellum is low-lying with evidence of previous decompr ession surgery. Correlate for history Chiari malformation. Sella turcica normal. Rounded calcific den sities seen within the spinal cord is stable from prior exam indeterminate etiology. IMPRESSION: 1. Interval resolution of right-sided intraparenchymal hemorrhage with areas of encephalomalacia bila terally. 2. Correlate for corpus callosal dysgenesis. 3. Stable MEDICAL RECEPTION shunt catheter. Tip of the catheter appears to be outside the lateral border of the body of the lateral ventricle. Stable position of the catheter, with no ventricular dilation. Correlate c nica. 4. Findings are suggestive of Chiari formation with probable compression surgery correlate with surgi shayne history. There is a linear hyperdensity extending on the sagittal and axial images along the cour se of the visualized upper cervical spinal cord stable from prior exam but of indeterminate etiology. Recommend CT scan of the cervical spine.
== END | disposition home or self-care (01) ==
LOC: RADCTMAIN 11:18
PROVIDERS: ATTEND Psychiatry & Neurology Neurology
DX: G40.209 Localization-related (focal) (partial) symptomatic epilepsy and epileptic syndromes with complex partial seizures, not intractable, without status epilepticus (principal); Q07.00 Arnold-Chiari syndrome without spina bifida or hydrocephalus; Z98.2 Presence of cerebrospinal fluid drainage device
CPT/HCPCS: 70450

== ENCOUNTER → 2023-02-15 | Outpatient (CLI) | payer OTHER ==
--- NOTE | 2023-02-16 07:59 | CT ---
EXAMINATION TYPE: CT cervical spine wo con CT DLP: 466.10 mGycm, Automated exposure control for dose reduction was used. DATE OF EXAM: 02/15/2023 4:58 PM COMPARISON: 01/31/2023. 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 hx of Chiari sx and shunt. TECHNIQUE: Axial CT images from the skull base to the inferior aspect of T2 we obtained without intra venous contrast. Coronal and sagittal reformatted images were also reviewed. Contrast used: (if blank None) Oral contrast used: (if blank None) FINDINGS: Rotated exam. Fracture: None. Post surgical changes to the occiput and upper C1 vertebrae. Fusion of the of the posterior arch of C2. Are compatible with Chiari malformation. Osseous structures: Multilevel degenerative disc disease changes with endplate spurring and disc oste ophyte complex's. Stimulator device terminates in the posterior spine. Vertebral alignment: Rotated exam alignment is limited in its evaluation. Spinal canal/Neural Foramina: No evidence of significant spinal canal narrowing. Facet joint uncovert ebral joint arthropathy scattered throughout the cervical spine with varying degrees of neural forami nal stenosis. Neck soft tissues: Prevertebral soft tissues are within normal limits. Other: The airway is patent. The tracheostomy tube terminates in the trachea. Tubing from ventriculop eritoneal shunt tubing courses along the posterior right aspect and appears intact. Tubing terminates just across midline and nearly out of the [id number]. The other visualized structures within the brain are without acute process. IMPRESSION: Limited exam secondary to patient positioning. 1. Postsurgical changes to the occiput and C1 vertebrae. 2. No evidence of cervical spine fracture. 3. Mild multilevel degenerative disc disease. No evidence for significant spinal canal stenosis. Mul tilevel neural foraminal stenosis is present. 4. Ventriculoperitoneal shunt tubing appears intact.
== END | disposition home or self-care (01) ==
LOC: RADCTMAIN 16:33
PROVIDERS: ATTEND Psychiatry & Neurology Neurology
DX: Q07.00 Arnold-Chiari syndrome without spina bifida or hydrocephalus (principal); M50.30 Other cervical disc degeneration, unspecified cervical region; M99.71 Connective tissue and disc stenosis of intervertebral foramina of cervical region; Z98.2 Presence of cerebrospinal fluid drainage device; Z87.798 Personal history of other (corrected) congenital malformations
CPT/HCPCS: 72125